=== PATIENT | male | born 1945 | race Caucasian/White ===

== ENCOUNTER → 2019-10-14 09:55 | Outpatient (CLI) | payer MEDICARE, BC, SELFPAY ==
--- NOTE | ~2019-10-14 | MR_ITS ---
EXAMINATION: MR lumbar spine wo con EXAM DATE: 10/14/2019 10:41 INDICATION: Low-back pain, bilateral leg pain right side worse. TECHNIQUE: Multi-sequential, multiplanar MR images of the lumbar spine were obtained without contrast . Sagittal T1, T2, T2 fat saturation images. Axial T2 weighted images. Comparison is made to prior examination from 07/31/2016. FINDINGS: There is moderate diffuse loss of lumbar disc heights, mild diffuse loss of lumbar vertebra l body heights with mild edema in the L3 vertebral body which could be acute component superimposed o n chronic compression fractures.. The conus medullaris terminates at the L1 level and has normal sign al intensity and morphology. There are no suspicious marrow signal abnormalities. There is 3 mm retr olisthesis L2 on L3, 5 mm retrolisthesis L3 on L4, 4 mm anterolisthesis L4 on L5. Paraspinal soft tis lilly is unremarkable. Level by level evaluation: T12-L1: Disc does not extend beyond the endplate margin. Facet arthropathy: Mild. Neural foraminal stenosis: No stenosis. Central canal stenosis: No stenosis. L1-L2: There is a mild to moderate diffuse disc bulge. Facet arthropathy: Mild. Neural foraminal stenosis: Mild right. Central canal stenosis: Mild. L2-L3: There is a mild to moderate diffuse disc bulge. Facet arthropathy: Moderate . Ligamentum flavum enlargement. Neural foraminal stenosis: Moderate left, mild to moderate right. Central canal stenosis: Moderate. L3-L4: There is a large diffuse disc bulge. Facet arthropathy: Moderate. Neural foraminal stenosis: Moderate bilateral. Central canal stenosis: Moderate. L4-L5: There is a moderate diffuse disc bulge. Facet arthropathy: Severe. Neural foraminal stenosis: Moderate right, mild to moderate left. Central canal stenosis: Moderate to severe. L5-S1: There is a moderate diffuse disc bulge asymmetric to the left Facet arthropathy: Moderate left, mild right. Neural foraminal stenosis: Mild to moderate bilateral. Central canal stenosis: Mild to moderate, left lateral recess narrowing. Compared to prior study, mild progression in the loss of disc heights. Edema within the L3 vertebral body is new compared to prior study. Otherwise no significant interval change. IMPRESSION: 1. Mild L3 edema could be acute component to chronic mild compression fracture. 2. L3-4 grade 1 anterolisthesis, moderate to severe central canal stenosis. 3. Overall moderate to severe lumbar spondylosis. Reviewed, dictated and finalized at location A. IMPRESSION: 1. Mild L3 edema could be acute component to chronic mild compression fracture . 2. L3-4 grade 1 anterolisthesis, moderate to severe central canal stenosis. 3. Overall moderate to severe lumbar spondylosis.
== END ==
PROVIDERS: Visit Provider Physician Assistant
DX: M54.40 Lumbago with sciatica, unspecified side (principal); M47.896 Other spondylosis, lumbar region
CPT/HCPCS: 72148

== ENCOUNTER 2019-11-22 02:14 | Outpatient (CLI) | payer MEDICARE, BC, SELFPAY ==
[2019-11-22 17:03] LABS: SARS-CoV-2 RNA PCR Negative
== END 2019-11-22 02:15 | disposition home or self-care (01) ==
LOC: ANHCOVIDDT 02:15
PROVIDERS: Visit Provider Internal Medicine Critical Care Medicine
DX: Z20.828 Contact with and (suspected) exposure to other viral communicable diseases (principal)
CPT/HCPCS: 87635; C9803; U0003

== ENCOUNTER 2019-11-24 08:35 | Outpatient (CLI) | payer MEDICARE, BC, SELFPAY ==
--- NOTE | 2019-12-02 04:08 | SLEEP_ITS ---
Split-night Sleep Study DATE OF STUDY: 11/24/2019 ORDERING PHYSICIAN: Víctor Lee MD. REASON FOR THE STUDY: Known obstructive sleep apnea syndrome, worsening symptoms. HISTORY: This patient is a 73-year-old man, 6 feet 1 inch tall, weighing 361 pounds with a body mass index of 47.6. He was initially diagnosed with sleep-disordered breathing in 1996 and it was severe at that time. He uses CPAP every night. There is no family history of sleep-disordered breathing. He does not awaken from sleep feeling short of breath. He does not awaken at night with heartburn, belching, or coughing. He does snore and it is loud enough that others complain about it. He frequently has trouble sleeping with a cold. He does not wake up gasping for breath at night, does not have breathing problems at night observed by others, does not sweat excessively at night or notices heart pounding or beating irregularly at night. He does not fall asleep during the day, involuntarily or while driving. He does not fall asleep during physical effort. He does not have loss of muscle tone with strong emotion. He does not have daytime difficulties due to excessive sleepiness. He does not feel paralyzed on waking or falling asleep. He does not have vivid dreamlike scenes upon awakening or falling asleep. He is never afraid to go to sleep. He does not have nightmares. He occasionally remembers his dreams. He does not have racing thoughts, feelings of sadness, depression or anxiety. He does not have muscular tension. He occasionally notices parts of his body jerking, frequently kicks at night. He does not have crawly achy feelings in his legs or leg pain at night. He does not have morning jaw pain. He does not grind his teeth during sleep. He is not bothered by pain during the day or awakened by pain at night. He frequently wakes up in the morning feeling stiff, but does not have sore or achy muscles in the morning. He constantly wakes up with pain in the neck and spine. He has memory problems and concentration difficulties. He normally goes to bed between midnight and 2 a.m., falling asleep quickly, waking during the night to go to the bathroom. He wakes in the morning between 9 and 10 a.m. Weekend schedule is the same. He does not take naps. Short naps are not refreshing. He is drowsy in the morning for 1 hour or longer. MEDICAL COMORBIDITIES: Atrial fibrillation with an ablation, adenocarcinoma of the prostate, chronic kidney disease stage 3, diabetes mellitus, hyperlipidemia, hypothyroidism, obstructive sleep apnea syndrome. MEDICATIONS: 1. Aspirin 81 mg a day. 2. Duloxetine 60 mg a day. 3. Losartan 50 mg a day. 4. Tamsulosin 0.4 mg daily. 5. Carvedilol 3.125 mg daily. 6. Cyclobenzaprine 10 mg t.i.d. 7. Diclofenac 1% topical gel q.i.d. 8. Gabapentin 600 mg t.i.d. 9. Pravastatin 80 mg a day. 10. Vitamin D3 2000 units daily. 11. Dulaglutide 1.5 mg injected weekly. 12. Aspart insulin per sliding scale instructions, long-acting insulin degludec 40 units subcu in the evening. 13. Levothyroxine 75 mcg a day. 14. Galantamine 8 mg capsule daily. 15. Ketoconazole 2% topical cream b.i.d. HABITS: No mention of tobacco. Caffeine, 3 coffees in the morning. No alcohol or recreational drugs. DESCRIPTION OF THE STUDY: On the [place] Sleepiness Scale, the score is 0. This patient was studied using the [facility] multiple channel system including EOG, EEG, submental EMG, EKG, nasal and oral airflow using thermistors and nasal pressure sensors, chest and abdominal belts, body position data, and pulse oximetry. This study was scored using [facility] guidelines. The duration of the baseline portion was 155 minutes. The sleep time was 126 minutes. The sleep efficiency was 81.5%. Sleep late
== END 2019-11-24 08:36 | disposition home or self-care (01) ==
LOC: ANHCSM 08:36
PROVIDERS: Visit Provider Family Medicine
DX: G47.33 Obstructive sleep apnea (adult) (pediatric) (principal); Z68.42 Body mass index [BMI] 45.0-49.9, adult
CPT/HCPCS: 95811

== ENCOUNTER 2020-03-23 02:36 | Outpatient (CLI) | payer MEDICARE, BC, SELFPAY ==
[2020-03-23 17:23] LABS: SARS-CoV-2 RNA PCR Negative
== END 2020-03-23 02:37 | disposition home or self-care (01) ==
LOC: ANHCOVIDDT 02:36
PROVIDERS: Visit Provider Internal Medicine Critical Care Medicine
DX: Z01.812 Encounter for preprocedural laboratory examination (principal); Z20.822 Contact with and (suspected) exposure to COVID-19
CPT/HCPCS: C9803; U0003

== ENCOUNTER 2020-03-26 08:25 | Outpatient (CLI) | payer MEDICARE, BC, SELFPAY ==
--- NOTE | 2020-05-02 15:36 | WPDSLEEPSTUD ---
Sleep Study Date of Study: 03/26/20 Ordering Provider: Stefani Simpson MD Interpreting Physician: Stefani Simpson MD Sleep Study Type: BiPAP Titration Height: 1.85 m Weight: 163.747 kg Body Mass Index: 47.6 [place]: 0 Reason for Sleep Study 11/24/2019 Split night sleep study AHI 77.3; 81% minimum desaturation; highest pressure achieved was 19 cm without REM Returns for BiPAP titration Sleep History Chele Blackwell is a 74 year old man with SERENA diagnosed in 1996 in [place]. He has been using an old CPAP device with unknown setting for years, and needs a new device. He had a split night study 11/24/2019 with AHI 77.3, lowest saturation 81%, fragmented sleep. The titration on CPAP showed that he reached 19 cm however did not have any REM. He presents for a BiPAP titration. He [place] severe [place] [address] [place]; he uses CPAP every night. Denies waking from sleep feeling short of breath; with heartburn, belching, or coughing; snores loudly which bothers others. Has trouble sleeping with a cold; no gasping at night; no excess sweating at night, no palpitations; He does not fall asleep during the day, involuntarily or while driving. He does not fall asleep during physical effort. Denies loss of muscle tone with strong emotion; denies daytime difficulties due to excessive sleepiness. He does not feel paralyzed on waking or falling asleep. Denies vivid dreamlike scenes upon awakening or falling asleep. He is never afraid to go to sleep. He does not have nightmares. He occasionally remembers his dreams. He does not have racing thoughts, feelings of sadness, depression or anxiety. He does not have muscular tension. He occasionally notices parts of his body jerking, frequently kicks at night. He does not have crawling or achy feelings in his legs or leg pain at night. He does not have morning jaw pain. He does not grind his teeth during sleep. He is not bothered by pain during the day or awakened by pain at night. He frequently wakes up in the morning feeling stiff, but does not have sore or achy muscles in the morning. He constantly wakes up with pain in the neck and spine. He has memory problems and concentration difficulties. Normal bedtime is between midnight and 2 a.m., falling asleep quickly, waking during the night to go to the bathroom. He wakes in the morning between 9 and 10 a.m. Weekend schedule is the same. He does not take naps. Short naps are not refreshing. He is drowsy in the morning for 1 hour or longer. MEDICAL COMORBIDITIES: Atrial fibrillation with an ablation, AVR with bioprosthetic valve; adenocarcinoma of the prostate, chronic kidney disease stage 3, diabetes mellitus, hyperlipidemia, hypothyroidism, obstructive sleep apnea syndrome. HABITS: No mention of tobacco. Caffeine, 3 coffees in the morning. No alcohol or recreational drugs. 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 Hypothyroidism Long-term insulin use SERENA (obstructive sleep apnea) Prostate cancer Sinusitis Family History Family History Sibling Family history of arthritis Father Alcoholism Malignant neoplasm of prostate Grandparent Diabetes mellitus Other Family history of chronic obstructive pulmonary disease Family history of lung cancer Family history of malignant neoplasm of bone Social History Social History Smoking packs per day: 2 Smoking cigarettes per day: 40.0 Years smoked: 15 Smoking pack-years: 30.00 Smoking status: Former smoker Tobacco type: cigarettes Second hand tobacco smoke exposure: No Smoking end date: 06/24/84 Alcohol intake: current Substance use
[2020-05-02 16:52] VITALS: BMI 47.6
== END 2020-03-26 08:26 | disposition home or self-care (01) ==
LOC: ANHCSM 08:28
PROVIDERS: Visit Provider Internal Medicine Critical Care Medicine
DX: G47.33 Obstructive sleep apnea (adult) (pediatric) (principal)
CPT/HCPCS: 95811

== ENCOUNTER 2020-08-01 11:28 | Outpatient (CLI) | payer MEDICARE, BC, SELFPAY ==
[2020-08-01 13:19] LABS: Alanine Aminotransferase 19 U/L (4-50); Albumin Level 3.6 g/dL (3.5-5.1); Alkaline Phosphatase 59 U/L (38-126); Anion Gap 6 mmol/L (8-16); Aspartate Amino Transferase 26 U/L (17-59); Bilirubin,Total 0.7 mg/dL (0.2-1.3); Blood Urea Nitrogen 34 mg/dL (9-20); Calcium 8.5 mg/dL (8.4-10.2); Carbon Dioxide 29 mmol/L (22-30); Chloride 104 mmol/L (98-107); Estimated Glomerular Filt Rate 33; Glucose 141 mg/dL (75-110); Sodium 139 mmol/L (137-145)
== END 2020-08-01 11:29 | disposition home or self-care (01) ==
LOC: ANHLAB 11:36
PROVIDERS: PCP Family Medicine; Visit Provider Family Medicine
DX: I10 Essential (primary) hypertension (principal)
CPT/HCPCS: 36415; 80053

== ENCOUNTER → 2020-11-16 14:34 | Outpatient (CLI) | payer MEDICARE, BC, SELFPAY ==
--- NOTE | ~2020-11-16 | XR_ITS ---
EXAMINATION: XR shoulder RT min 2V DATE: 11/16/2020 16:25 INDICATION: Right shoulder pain. TECHNIQUE: 4 views of right shoulder were obtained. COMPARISON: None. FINDINGS: Bone alignment is normal. No fracture. There is mild osteoarthritis of glenohumeral joint a nd moderate osteoarthritis of acromioclavicular joint. Median sternotomy wires are noted. IMPRESSION: 1. Polyarticular osteoarthritis. Reviewed, dictated and finalized at location A.
--- NOTE | ~2020-11-16 | XR_ITS ---
EXAMINATION: XR_CERV2-3V_CR DATE: 11/16/2020 16:25 INDICATION: Neck pain. TECHNIQUE: 3 views of cervical spine were obtained. COMPARISON: Cervical spine radiograph 04/27/2018 FINDINGS: There is 8 degrees levocurvature of cervicothoracic spine. Vertebral body heights are ap l. There is mildly decreased disc height at C5-C6 and C6-C7. There are endplate osteophytes at all le vels. There is multilevel mild to moderate facet joint osteoarthritis. No central canal stenosis or p revertebral soft tissue swelling. IMPRESSION: 1. Mild cervical spondylosis. Reviewed, dictated and finalized at location A.
--- NOTE | ~2020-11-16 | XR_ITS ---
EXAMINATION: XR shoulder LT min 2V DATE: 11/16/2020 16:25 INDICATION: Left shoulder pain. TECHNIQUE: 4 views of left shoulder were obtained. COMPARISON: None. FINDINGS: Bone alignment is normal. No fracture. There is severe osteoarthritis of glenohumeral joint and acromioclavicular joint. Median sternotomy wires are noted. IMPRESSION: 1. Severe polyarticular osteoarthritis. Reviewed, dictated and finalized at location A.
--- NOTE | ~2020-11-16 | XR_ITS ---
EXAMINATION: XR thoracic spine 3V DATE: 11/16/2020 16:25 INDICATION: Neck pain. TECHNIQUE: 3 views of thoracic spine were obtained. COMPARISON: None. FINDINGS: There is 10 degrees dextroscoliosis of thoracic spine. Vertebral body heights are normal. I ntervertebral disc heights are normal. There are bridging endplate osteophytes at multiple levels in the spine, consistent with diffuse idiopathic skeletal hyperostosis (DISH). Median sternotomy wires a re noted. IMPRESSION: 1. DISH. 2. Thoracic dextroscoliosis. Reviewed, dictated and finalized at location A.
== END ==
PROVIDERS: PCP Family Medicine; Visit Provider Physician Assistant
DX: M54.2 Cervicalgia (principal); G89.29 Other chronic pain; M25.511 Pain in right shoulder; M25.512 Pain in left shoulder; M54.6 Pain in thoracic spine; M47.812 Spondylosis without myelopathy or radiculopathy, cervical region; M48.12 Ankylosing hyperostosis [Forestier], cervical region; M41.84 Other forms of scoliosis, thoracic region; M19.012 Primary osteoarthritis, left shoulder; M19.011 Primary osteoarthritis, right shoulder
CPT/HCPCS: 72040; 72072; 73030

== ENCOUNTER 2021-03-06 11:15 | Outpatient (RCR) | payer MEDICARE, BC, SELFPAY ==
--- NOTE | 2021-02-12 14:51 | PTOPEVAL ---
PHYSICAL THERAPY EVALUATION AND PLAN OF CARE Thank you for referring Chele Blackwell to [facility].? The patient is scheduled to be seen for therapy? 2x/week for 4 weeks. Please review, sign, date and return this plan of care REINIER. I agree with and certify that the following plan of care is medically necessary. Referring Physician Date Attending Provider: Gary Toney MD Evaluation Outpatient Past Medical History Neurological History Hx Other Neurological Disorders Yes: bilateral neuropathy Respiratory History Hx Other Respiratory Disorders Yes: AFIB, arthery replacement Genitourinary History Hx Other Genitourinary Disorders Yes: state 3 kidney disease Musculoskeletal History Hx Arthritis Yes: knees Hx Back Pain Yes Endocrine History Hx Diabetes Yes Diagnosis bilateral shoulder pain Onset 2months ago Subjective Information States that he has pain at the Query Text:As Reported By Patient/ point of each shoulder ( Family points to ACJ) and when he uses his arms too much it starts to go up his neck. Has difficulty raising arms and has difficulty getting upper body dressed other history: back pain, bilateral knee pain, bilateral LE neuropathy Self Report Pain Assessment Bilateral Shoulder(s) Reported Pain Level 7 Lowest Pain Intensity 0 Greatest Pain Intensity 10 Other Pain Aggravating Factors raising arms overhead, using cane Pain Score Pain Score 7: Self Report Additional Pain Score Comments states that he can raise one arm at a time better than raising both at the same time Interventions Used Interventions Used By Clinicians Exercise,Joint Mobilization Upper Extremity Range of Motion Scapular/ Shoulder Range of Motion Left Shoulder Flexion - Active 105 Shoulder Abduction - Active 70 Shoulder Medial Rotation - Active PSIS Query Text:Reach Behind the Back Shoulder Lateral Rotation - Active 50 Right Shoulder Flexion - Active 120 Shoulder Abduction - Active 80 Shoulder Medial Rotation - Active L1 Query Text:Reach Behind the Back Shoulder Lateral Rotation - Passive 60 Upper Extremity Muscle Strength Testing Scapular/Shoulder Bilateral Shoulder Flexion Strength 4- Good - Shoulder Abduction Strength 4- Good - Shoulder Medial Rotation Strength 4- Good - Shoulder Lateral Rotation Strength 4- Good - Elbow/Forearm Bilateral Elbow Flexion Strength 5 Normal Elbow Extension Streng
--- NOTE | 2021-02-27 11:06 | PCPTNOTE ---
Patient's called & cancelled scheduled appointment this date due to Pt having a rash break out.
--- NOTE | 2021-03-11 09:33 | PCPTNOTE ---
Patient called & cancelled all scheduled appointment this date due to being admitted in the hospital.
--- NOTE | 2021-03-18 09:24 | PCPTNOTE ---
PHYSICAL THERAPY DISCHARGE NOTE Attending Provider: Gary Toney MD Patient:Chele Blackwell Date of :1945 Chele was participating in outpatient physical therapy for treatment of bilateral shoulder pain. He started with an 8/10 pain and at his most recently attended visited he reported a 5/10 pain. He was provided with HEP and stretching program. Since the last attended visit on 03/06/2021, he has been admitted to the hospital twice and continues to be in the hospital at this time. We will d/c Luther from outpatient PT at this time, but would be happy to work with him again when he is well. Thank you for referring this patient to [facility]. Please review, sign, date and return this discharge summary REINIER. I have been updated about the patient's current status and I agree with discharge from the above service at this time. Referring Physician Date
== END 2021-03-19 08:17 | disposition home or self-care (01) ==
LOC: ANHPT 11:15
PROVIDERS: PCP Family Medicine; Visit Provider Orthopaedic Surgery
DX: M25.511 Pain in right shoulder (principal); M25.512 Pain in left shoulder
CPT/HCPCS: 97110; 97140; 97162

== ENCOUNTER 2021-03-10 10:59 | Observation (INO) | payer MEDICARE, BC, SELFPAY ==
[2021-03-10] VITALS (9 sets, daily range): BP systolic 115–200; BP diastolic 75–106; PULSE 52–68; RESP 12–20; TEMP 36.7–36.8; O2SAT 90–100; BMI 47.9
--- NOTE | ~2021-03-10 | US_ITS ---
EXAMINATION: US carotid duplex BI EXAM DATE: 03/11/2021 10:14 INDICATION: Stroke. Altered mental status and confusion. TECHNIQUE: Grayscale, color and pulsed Doppler images of the cervical carotid arteries were obtained . The degree of vessel stenosis is placed in one of the following categories: normal, <50% stenosis, 50-69% stenosis, >=70% stenosis but less than near-occlusion, near-occlusion, or occlusion. Note that percent stenosis relative to normal distal artery lumen diameter is indirectly measured from velocit y measurements as described by Darren, et al. Radiology 2003; [id number]:[id number]. Comparison is made to prior examination from 08/25/2018. FINDINGS: Some regions of irregular diastolic intervals. Atrial fibrillation? Correlate with EKG. RIGHT SIDE: Right common carotid artery peak systolic velocity (PSV in cm/s): 73 Right bulb/internal carotid artery peak systolic velocity (PSV in cm/s): 76 Right internal carotid artery end diastolic velocity (EDV in cm/s): 17 Right ICA/CCA peak systolic ratio: 1.0 Right external carotid artery peak systolic velocity (PSV in cm/s): 105 Right vertebral artery antegrade flow: yes There is minimal carotid bulb plaque. Velocity and Doppler waveforms in the common and internal carotid arteries is normal. LEFT SIDE: Left common carotid artery peak systolic velocity (PSV in cm/s): 71 Left bulb/internal carotid artery peak systolic velocity (PSV in cm/s): 63 Left internal carotid artery end diastolic velocity (EDV in cm/s): 12 Left ICA/CCA peak systolic ratio: 0.9 Left external carotid artery peak systolic velocity (PSV in cm/s): 98 Left vertebral artery antegrade flow: yes There is minimal carotid bulb plaque. Velocity and Doppler waveforms in the common and internal carotid arteries is normal. IMPRESSION: 1. Less than 50 percent stenosis in the right internal carotid artery. 2. Less than 50 percent stenosis in the left internal carotid artery. 3. Times of irregular diastolic intervals. Atrial fibrillation? Correlate with EKG. > Reviewed, dictated and finalized at location B. ER HAND
--- NOTE | ~2021-03-10 | CT_ITS ---
EXAMINATION: CT brain wo con DATE: 03/10/2021 12:02 INDICATION: Altered mental state. Confusion. TECHNIQUE: Computed tomography (CT) of the head was performed without intravenous contrast. The mA wa s adjusted according to patient size. Iterative reconstruction technique was employed. Exam dose: 68 1.00 mGy-cm total exam DLP. COMPARISON: 07/30/2018 CT brain 12/08/2013 MRI brain FINDINGS: Examination is limited due to motion artifact. Cavum septum pellucidum and cavum verge, anatomic variants. Cerebral atherosclerotic calcifications. There is moderate cerebellar and cerebral volume loss. Chronic right thalamic Chronic lacunar infarct is noted in the right basal ganglia, extending into the region of the Princess of the right internal capsule and right caudate nucleus, right lateral periventricular area. Chronic cerebellar infarcts. No intracranial mass lesion or hemorrhage, midline shift or mass effect effect or subdural or epidura l hematoma is detected. No apparent fracture bone destruction of the cranial vault. Mastoid air cells and paranasal sinuses a re unremarkable. Lacunar infarct IMPRESSION: Limited examination due to motion artifact Chronic lacunar infarcts of the right thalamus, right basal ganglia, internal capsule, caudate nucleu s, lateral right periventricular area Chronic cerebellar infarcts Caval septum pellucidum and cavum verge, anatomic variants. No acute intracranial finding or hemorrhage is noted Reviewed, dictated and finalized at [facility]. Reviewed, dictated and finalized at location A. Y MANAGEMENT SPECIALIST IMPRESSION: Limited examination due to motion artifact Chronic lacunar infarcts of the right thalamus, right basal ganglia, internal c apsule, caudate nucleus, lateral right periventricular area Chronic cerebellar infarcts Caval septum pellucidum and cavum verge, anatomic variants. No acute intracranial finding or hemorrhage is noted
--- NOTE | ~2021-03-10 | MR_ITS ---
EXAMINATION: MR brain/brain stem wo con DATE: 03/11/2021 09:52 INDICATION: Cerebrovascular accident. TECHNIQUE: Magnetic resonance imaging (MRI) of the brain and brainstem was performed without intraven ous contrast. Sequences included sagittal and axial T1-weighted FSE, axial diffusion-weighted FS EPI, axial T2*-weighted GRE, axial T2-weighted FLAIR Propeller, and axial T2-weighted Propeller. Apparent diffusion coefficient (ADC) maps were created. COMPARISON: Brain MRI 12/08/2013, head CT 03/10/2021 FINDINGS: There are old infarcts in the cerebellum bilaterally. There are old infarcts involving the right thalamus, right basal ganglia, and right internal capsule. There are scattered areas of nonspec ific increased T2-weighted signal intensity in the cerebral white matter. There is no intracranial he morrhage, acute infarction, or abnormal intracranial mass lesion. The ventricles are normal in size. Cavum septum pellucidum and vergae are noted. There is mild mucosal thickening in the ethmoid sinuses . The orbits are normal. There is a trace right mastoid effusion. IMPRESSION: 1. Old infarcts involving the right thalamus, right basal ganglia, right internal capsule, and bilate ral cerebellum. 2. Moderate nonspecific cerebral white matter disease, which likely represents chronic small vessel i schemic disease. Reviewed, dictated and finalized at location A. TRANSMISSION TECHNICIAN IMPRESSION: 1. Old infarcts involving the right thalamus, right basal ganglia, right international project engineer al capsule, and bilateral cerebellum. 2. Moderate nonspecific cerebral white matter disease, which likely represents chronic small vessel ischemic disease.
--- NOTE | ~2021-03-10 | XR_ITS ---
XR chest 1V portable DATE: 03/10/2021 11:33 INDICATION: Right-sided weakness. Right cerebral vascular accident. TECHNIQUE: Portable upright AP projections on 03/10/2021 1124 hours COMPARISON: 01/03/2015 portable AP chest FINDINGS: Status post sternotomy. Borderline heart size. No pulmonary infiltrate or consolidation, pleural effusion or pulmonary vascular congestion or pneumo thorax is detected. There is dextroscoliosis and degenerative spurring of the thoracic spine. IMPRESSION: No active pulmonary disease Reviewed, dictated and finalized at location A. AGER AND STRAPPER IMPRESSION: No active pulmonary disease
--- NOTE | 2021-03-10 11:05 | ECG_ITS ---
Measurements Intervals [place] Rate: 61 P: [place]: 0 QRS: -59 QRSD: 142 T: 70 QT: 464 QTc: 469 Interpretive Statements ATRIAL FIBRILLATION LEFT AXIS DEVIATION LEFT BUNDLE BRANCH BLOCK BASELINE ARTIFACT- II, III, AVR, AVL, AVF ABNORMAL ECG Electronically Signed On 03-10-2021 17:44:39 SOFTWARE LICENSING SPECIALIST by Chinmay Costello D.O.
[2021-03-10 11:46] LABS: Basophils Absolute Auto 0.1 K/mm3 (0.0-0.1); Basophils Percent Auto 1.1 % (0.2-1.2); Eosinophils Absolute Auto 0.5 K/mm3 (0-0.3); Eosinophils Percent Auto 5.2 % (0-4.4); Hematocrit 53.9 % (42.0-52.0); Hemoglobin 17.6 g/dL (14.0-18.0); Immature Granulocyte Absolute 0.02 K/mm3 (0.00-0.031); Immature Granulocyte Percent A 0.2 % (0-0.5); Mean Corpuscular HGB Conc 32.7 g/dl (32-36); Mean Corpuscular Hemoglobin 30.2 pg (26-34); Mean Corpuscular Volume 92.6 fl (80-100); Mean Platelet Volume 10.5 fl (7.4-10.4); Monocytes Absolute Auto 0.7 K/mm3 (0.1-0.6); Monocytes Percent Auto 6.9 % (2.6-8.5); Neutrophils Absolute Auto 7.4 K/mm3 (1.3-6.7); Neutrophils Percent Auto 73.6 % (45.5-73.1); Platelet Count Result 156 k/mm3 (150-375); Red Blood Count 5.82 M/mm3 (4.6-6.20); Red Cell Distribution Width 13.2 % (11.5-14.5)
[2021-03-10 11:56] LABS: INR 1.1; Partial Thromboplastin Time 30.9 SECONDS (22.3-36.8); Prothrombin Time 14.1 Seconds (11.1-14.7)
--- NOTE | 2021-03-10 11:59 | ED.GENADULT ---
HPI - General Adult General Chief complaint: Neuro Symptoms/Deficit Stated complaint: SLURRED SPEECH, LETHARGY/X 2 DAYS Time Seen by Provider: 03/10/21 11:12 History of Present Illness HPI narrative: Patient is 75 years old white male brought to the emergency room by ambulance, by his because of sleep all the time for several weeks, slurred speech, cannot get words out with increased confusion over the last 2 days, patient been not taking his medication appropriately for the last few days, patient usually walks with a cane, because of chronic back pain, white denies any different gait lately. The is telling me that patient have dementia for long time but never been diagnosed. Patient is DNR. On BiPAP at night. Fully vaccinated and boosted for Covid. History of diabetes, hypertension, hyperlipidemia, A. fib on Xarelto and aortic surgery, graft. Patient does not smoke or drink or uses drugs. Patient does not take aspirin Related Data Home Medications Medication Instructions Recorded Confirmed aspirin [Adult Aspirin EC Low 03/10/21 Strength] atorvastatin 03/10/21 carvedilol 03/10/21 citalopram mg 03/10/21 dulaglutide [Trulicity] mg SUBCUT 03/10/21 duloxetine mg PO 03/10/21 gabapentin 600 mg PO TID 03/10/21 galantamine mg PO 03/10/21 insulin aspart U-100 [Novolog SUBCUT 03/10/21 Flexpen U-100 Insulin] insulin degludec [Tresiba unit SUBCUT 03/10/21 FlexTouch U-200] levothyroxine 03/10/21 losartan 03/10/21 oxybutynin chloride 15 mg PO DAILY 03/10/21 rivaroxaban [Xarelto] mg 03/10/21 tamsulosin mg PO 03/10/21 Allergies Allergy/AdvReac Type Severity Reaction Status Date / Time morphine Allergy Intermediate Confusion Verified 03/10/21 11:09 Review of Systems Review of Systems: ROS unobtainable: Yes unobtainable due to medical condition PMFSH Past Medical History Medical History Adenocarcinoma of prostate Chronic bilateral low back pain with sciatica Chronic kidney disease, stage 3 unspecified Diabetes History of bleeding ulcers (~2014) History of stress test HLD (hyperlipidemia) 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 Hypothyroidism Long-term insulin use Obesity SERENA (obstructive sleep apnea) Prostate cancer Sinusitis Surgical History Surgical History History of aortic valve replacement (~2012) History of cholecystectomy (~1980) Family History Family History Sibling Family history of arthritis Father Alcoholism Malignant neoplasm of prostate Grandparent Diabetes mellitus Mother Cancer Other Family history of chronic obstructive pulmonary disease Family history of lung cancer Family history of malignant neoplasm of bone Social History Social History Social History: Smoking packs per day: 2 Smoking cigarettes per day: 40.0 Years smoked: 15 Smoking pack-years: 30.00 Tobacco type: cigarettes Second hand tobacco smoke exposure: No Smoking end date: 06/24/84 Alcohol intake: current Alcohol use details: Occasionally Substance use: never Substance use type: does not use Gender identity (if verbalized by the patient): Male Sexual Orientation (if Verbalized by the Patient): Straight or Heterosexual Exam Narrative: General appearance: Well-developed, well-nourished Skin: Normal color Head: Normocephalic, nontraumatic Eyes: Clear conjunctiva ENT: Oropharynx normal, ears normal, nose normal Neck: Supple, nontender Chest and respiratory: Airway patent, no respiratory distress, no accessory muscle use Heart: Regular rate/rhythm Abdomen: Soft, nontender, no organomegaly, quiet bowel sounds Vascular: Normal peripheral pulses, normal capillary refill. Musculoskeletal: Normal range of motion, nontender back Neurologic: Alert and o
[2021-03-10 12:33] LABS: Alanine Aminotransferase 38 U/L (4-50); Alkaline Phosphatase 112 U/L (38-126); Anion Gap 1 mmol/L (8-16); Aspartate Amino Transferase 37 U/L (17-59); Bilirubin,Total 0.8 mg/dL (0.2-1.3); Blood Urea Nitrogen 40 mg/dL (9-20); Calcium 8.9 mg/dL (8.4-10.2); Carbon Dioxide 30 mmol/L (22-30); Chloride 102 mmol/L (98-107); Estimated CRCL calculation 40 ml/min; Estimated Glomerular Filt Rate 28; Glucose 171 mg/dL (65-110); Potassium 4.8 mmol/L (3.4-5.0); Sodium 133 mmol/L (137-145)
[2021-03-10 12:45] LABS: Troponin I 0.032 ng/mL (0.000-0.034)
[2021-03-10 13:37] LABS: Add Urine Microscopic? YES; Appearance Urine Clear (Clear); Bilirubin Urine Negative (Negative); Blood Urine Negative (Negative); Color Urine Yellow (Yellow); Glucose Urine UA 2+ mg/dL (Negative); Ketones Urine Negative (Negative); Leukocyte Esterase Ur Negative LEU/UL (Negative); Nitrate Urine Negative (Negative); Protein Urine 3+ mg/dL (Negative); RBC Urine 0-2 /hpf (0-2); Specific Grav Ur 1.015 (1.001-1.035); Urobilinogen Urine Negative mg/dL (<2.0); WBC Urine 0-3 /hpf
[2021-03-10] MEDS: SODIUM CHLORIDE 0.9% IV 1,000 ML 999 ML IV CONT (13:59)
--- NOTE | 2021-03-10 14:45 | PM.IMHP ---
H&P: HPI History of Present Illness Date/Time: 03/10/21 14:45 Chief Complaint: Slurred speech and weakness. Narrative: This is a very pleasant 75-year-old male with hypertension, hyperlipidemia, diabetes, atrial fibrillation, chronic kidney disease, short-term memory loss, and sleep apnea who resented to the emergency department earlier today from home for evaluation of slurred speech and weakness. 2 days ago the patient is noticed that his speech was somewhat slurred and he seemed to be having difficulties getting the words out that he wanted to say. His has also noticed that he is a bit more confused than usual and apparently he has been sleeping more than usual over the past couple weeks. Brain CT done on arrival showed chronic infarcts but no acute findings and we were asked to admit the patient in this setting for stroke workup. At the time of my evaluation the patient reports that he feels in his usual state of health and he does not notice any significant slurred speech at this time. In fact we had a pretty long conversation and his speech was fluent and easily understandable. He denies vertigo, auditory visual changes, focal weakness, paresthesias, in facial droop. He also denies palpitations though he is in persistent atrial fibrillation. Review of Systems Review of Systems: Twelve systems were reviewed. No fever, chills, or sweats. He denies recent cold and flu symptoms. No sick contacts. He denies dysphagia. No chest pain, palpitations, or pleuritic pain. No cough or shortness of breath. He denies nausea, vomiting, and diarrhea. No dysuria. Except as documented, all other systems were reviewed and are negative. [facility] Past Medical History Medical History (Updated 03/10/21 @ 14:57 by Marilu Dailey PA-C) Chronic bilateral low back pain with sciatica Chronic kidney disease, stage 3 unspecified History of bleeding ulcers (~2014) History of stress test Hyperlipidemia Hypothyroidism Insulin dependent type 2 diabetes mellitus Obstructive sleep apnea treated with BiPAP Persistent atrial fibrillation Status post ablation in 2012. He has remained in AFib since February 2020 no pursuing a rate control strategy. Prostate cancer Status post radiation therapy. Short-term memory loss Valvular heart disease Status post bioprosthetic aortic valve replacement. Surgical History Surgical History (Updated 03/10/21 @ 14:47 by Marilu Dailey PA-C) History of aortic valve replacement (2012) History of appendectomy History of cardiac radiofrequency ablation (2012) History of cholecystectomy (1980) History of colonoscopy with polypectomy History of lithotripsy Family History Family History Sibling Family history of arthritis Father Alcoholism Malignant neoplasm of prostate Grandparent Diabetes mellitus Mother Cancer Other Family history of chronic obstructive pulmonary disease Family history of lung cancer Family history of malignant neoplasm of bone Social History Social History (Updated 03/10/21 @ 23:56 by Marilu Dailey PA-C) Social History: Surrogate decision maker: Iris Mayberrykermann, spouse. Code status: Do not resuscitate. Smoking packs per day: 2 Smoking cigarettes per day: 40.0 Years smoked: 15 Smoking pack-years: 30.00 Smoking status: Never smoker Tobacco type: cigarettes Second hand tobacco smoke exposure: No Smoking end date: 06/24/84 Alcohol intake: current Drinks per week: 2 Alcohol use details: Occasional alcohol use in moderation. Substance use: never Substance use type: does not use Additional living arrangements comments: Patient lives with his in [place]. 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 Meds Home Medications and Allergies Home Medications Medication Instructions Recorded Confirmed Type amlo
[2021-03-10] MEDS: SODIUM CHLORIDE 0.9% IV 1,000 ML 125 ML IV CONT (18:55)
[2021-03-10 20:53] LABS: Glucose Point of Care 164 mg/dl (65-105)
[2021-03-11] VITALS (11 sets, daily range): BP systolic 108–159; BP diastolic 53–107; PULSE 65–84; RESP 16–28; TEMP 36.1–36.4; O2SAT 95–100
[2021-03-11] MEDS: carvediloL 3.125 MG TABLET PO ×2 (00:29→08:13)
[2021-03-11] MEDS: INSULIN GLARGINE (*BKC) 100 UNITS/ML 40 UNITS SUB-Q (00:30)
[2021-03-11] MEDS: LEVOTHYROXINE SODIUM 75 MCG TABLET PO (05:33)
[2021-03-11 07:23] LABS: Hematocrit 50.3 % (42.0-52.0); Hemoglobin 16.2 g/dL (14.0-18.0); Mean Corpuscular HGB Conc 32.2 g/dl (32-36); Mean Corpuscular Hemoglobin 30.1 pg (26-34); Mean Corpuscular Volume 93.3 fl (80-100); Mean Platelet Volume 10.9 fl (7.4-10.4); Platelet Count Result 149 k/mm3 (150-375); Red Blood Count 5.39 M/mm3 (4.6-6.20); Red Cell Distribution Width 13.2 % (11.5-14.5)
[2021-03-11 07:29] LABS: Anion Gap -2 mmol/L (8-16); Blood Urea Nitrogen 37 mg/dL (9-20); Calcium 8.5 mg/dL (8.4-10.2); Carbon Dioxide 34 mmol/L (22-30); Chloride 103 mmol/L (98-107); Estimated CRCL calculation 40 ml/min; Estimated Glomerular Filt Rate 28; Glucose 138 mg/dL (65-110); Hemoglobin A1C 8.1 % (<5.7); Magnesium 2.3 mg/dL (1.6-2.3); Potassium 5.1 mmol/L (3.4-5.0); Sodium 135 mmol/L (137-145)
[2021-03-11 07:39] LABS: Glucose Point of Care 142 mg/dl (65-105)
[2021-03-11] MEDS: ASPIRIN 81 MG CHEWABLE TABLET PO (08:11)
[2021-03-11] MEDS: ATORVASTATIN 40 MG TABLET 80 MG PO (08:12)
[2021-03-11] MEDS: amLODIPine BESYLATE 2.5 MG TABLET PO (08:12)
[2021-03-11] MEDS: LOSARTAN POTASSIUM 50 MG TABLET PO (08:14)
[2021-03-11] MEDS: GABAPENTIN 300 MG CAPSULE 600 MG PO ×2 (08:14→12:04)
[2021-03-11] MEDS: CITALOPRAM HYDROBROMIDE 20 MG TABLET 40 MG PO (08:14)
[2021-03-11] MEDS: DULoxetine HCL 60 MG CAPSULE.DR PO (08:14)
[2021-03-11] MEDS: TAMSULOSIN HCL 0.4 MG CAPSULE PO (08:15)
--- NOTE | 2021-03-11 10:51 | WPDNEURCNPN ---
Assessment and Plan Additional Plan TIA with underlying comorbid conditions as outlined will benefit from the continuation of the anticoagulation Consult date: 03/11/21 HPI: Chele Blackwell is a 75 year old male admitted to the hospital for the complaints of slurred speech and generalized weakness in addition to the ongoing history of 1. Hypertension 2. Hyperlipidemia 3. Diabetes mellitus 4. Atrial fibrillation 5. Chronic kidney disease 6. Sleep apnea 7. Memory dysfunction. Patient was mainly brought to the hospital for the slurred speech and generalized weakness along with difficulties in getting the words out and observation of somewhat increasing confusion and sleeping more than usual initial CT scan of the head documented chronic infarcts but no acute pathology evaluation up until now includes CT with a chronic lacunar infarcts in the right thalamus right basal ganglia internal capsule caudate nucleus and lateral right periventricular area along with the chronic cerebellar infarcts MRI confirm the infarcts in the right thalamus right basal ganglia right internal capsule and bilateral cerebellum with moderate nonspecific white matter disease representing the chronic small-vessel ischemic changes Doppler study revealed less than 50% stenosis bilaterally but raising the question of irregular diastolic intervals with the possibility of the atrial fibrillation and chest x-ray negative Review of Systems Review of Systems: All systems reviewed & are unremarkable except as noted in HPI and below PMFSH Past Medical History Medical History Chronic bilateral low back pain with sciatica Chronic kidney disease, stage 3 unspecified History of bleeding ulcers (~2014) History of stress test Hyperlipidemia Hypothyroidism Insulin dependent type 2 diabetes mellitus Obstructive sleep apnea treated with BiPAP Persistent atrial fibrillation Status post ablation in 2012. He has remained in AFib since February 2020 no pursuing a rate control strategy. Prostate cancer Status post radiation therapy. Short-term memory loss Valvular heart disease Status post bioprosthetic aortic valve replacement. Surgical History Surgical History History of aortic valve replacement (2012) History of appendectomy History of cardiac radiofrequency ablation (2012) History of cholecystectomy (1980) History of colonoscopy with polypectomy History of lithotripsy Family History Family History Sibling Family history of arthritis Father Alcoholism Malignant neoplasm of prostate Grandparent Diabetes mellitus Mother Cancer Other Family history of chronic obstructive pulmonary disease Family history of lung cancer Family history of malignant neoplasm of bone Social History Social History Social History: Surrogate decision maker: Iris Blackwell, spouse. Code status: Do not resuscitate. Smoking packs per day: 2 Smoking cigarettes per day: 40.0 Years smoked: 15 Smoking pack-years: 30.00 Smoking status: Never smoker Tobacco type: cigarettes Second hand tobacco smoke exposure: No Smoking end date: 06/24/84 Alcohol intake: current Drinks per week: 2 Alcohol use details: Occasional alcohol use in moderation. Substance use: never Substance use type: does not use Additional living arrangements comments: Patient lives with his in [place]. 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 Meds Home Medications and Allergies Home Medications Medication Instructions Recorded Confirmed Type amlodipine 2.5 mg PO DAILY 03/10/21 03/10/21 History aspirin [Adult Aspirin EC Low 81 mg PO DAILY 03/10/21 03/10/21 History Strength] atorvastatin 80 mg PO DAILY 03/10/21
[2021-03-11 11:47] LABS: Glucose Point of Care 178 mg/dl (65-105)
[2021-03-11 12:51] LABS: Potassium 4.9 mmol/L (3.4-5.0)
--- NOTE | 2021-03-11 15:50 | PM.DS ---
DS: Admitting Diagnosis Discharge Date 03/11/2020 Admitting Diagnosis TIA DS: Discharge Diagnosis Discharge Diagnosis (1) TIA (transient ischemic attack): Code(s): G45.9 - Transient cerebral ischemic attack, unspecified Status: Acute Assessment and Plan: Presented with dysarthria 2 days prior to presentation. He was at his baseline at time of presentation. Head CT on admission showed a chronic lacunar infarcts of the right thalamus, right basal ganglia, internal capsule, caudate nucleus, lateral right periventricular area and chronic cerebellar infarcts. Patient is unaware of any prior strokes. Perhaps related to atrial fibrillation. MRI also showed old infarcts with no acute findings. Carotid Doppler with <50% stenosis of bilateral internal carotid arteries. He will obtain outpatient echo with bubble. Continue with Xarelto and aspirin. Continue high-intensity statin. Follow-up with neurology as an outpatient. Patient participated in PT/OT and was at his functional baseline. Dysarthria resolved entirely and patient had no focal neuro deficits. (2) Hypertension: Code(s): I10 - Essential (primary) hypertension Status: Acute Assessment and Plan: Blood pressures were reviewed and were elevated on presentation due to missed medication on admission. His home antihypertensives were resumed and his blood pressure was reasonably controlled. Follow-up with PCP in 1 week for blood pressure monitoring. (3) Chronic kidney disease, stage 3 unspecified: Code(s): N18.30 - Chronic kidney disease, stage 3 unspecified Status: Acute Assessment and Plan: Creatinine reviewed and was generally consistent with the patient's baseline. (4) Insulin dependent type 2 diabetes mellitus: Code(s): E11.9 - Type 2 diabetes mellitus without complications; Z79.4 - USP (current) use of insulin Status: Acute Assessment and Plan: A1c was 8.1. Blood sugars were reasonably controlled. Continue home regimen including Tresiba, NovoLog, and Trulicity. Monitor blood sugars at home and record for review by PCP (5) Persistent atrial fibrillation: Code(s): I48.19 - Other persistent atrial fibrillation Status: Acute Assessment and Plan: Follows with oil pit attendant, Dr. De La Fuente. Monitored on telemetry and was shown to be in atrial fibrillation. He did have very few episodes of bradycardia down to 45 bpm and in frequent pauses <2 seconds. Discussed this with on-call oil pit attendant who felt that no further intervention was required given the patient has atrial fibrillation and very low-dose carvedilol. No need for event monitor or further workup at this time. Follow-up with Dr. De La Fuente as scheduled. Continue rivaroxaban for stroke prophylaxis. (6) Hypothyroidism: Code(s): E03.9 - Hypothyroidism, unspecified Status: Acute Assessment and Plan: TSH within normal limits. Continue levothyroxine (7) Obstructive sleep apnea treated with BiPAP: Code(s): G47.33 - Obstructive sleep apnea (adult) (pediatric) Status: Acute Assessment and Plan: Continue BiPAP when sleeping DS: Summary Hospital Course Hospital Course: Date of admission: 03/10/2021 Date of discharge: 03/11/2021 Chele Blackwell is a 75-year-old male with a history of atrial fibrillation on chronic anticoagulation, CKD stage 3, hyperlipidemia, hypothyroidism, insulin-dependent diabetes mellitus, prostate cancer, and short-term memory loss who presented to the emergency department on 03/10/2021 by his due to concerns for slurred speech and confusion over the past 2 days. The patient tells me that he got turned around while driving and ended up about 1 hour away from home. He then noticed slurring of his speech a couple of days later. I discussed with his who notes that he has had increased confusion lately and has not been taking his medications approp
[2021-03-11 16:14] LABS: Glucose Point of Care 247 mg/dl (65-105)
== END 2021-03-11 16:37 | disposition home or self-care (01) ==
LOC: ANHED 11:22 → ANH2MED 15:55
PROVIDERS: Physician Assistant; Admitting Provider Family Medicine; Emergency Provider Emergency Medicine; PCP Family Medicine; Visit Provider Physician Assistant
DX: G45.9 Transient cerebral ischemic attack, unspecified (principal); R47.1 Dysarthria and anarthria; I48.19 Other persistent atrial fibrillation; E86.0 Dehydration; I12.9 Hypertensive chronic kidney disease with stage 1 through stage 4 chronic kidney disease, or unspecified chronic kidney disease; N18.30 Chronic kidney disease, stage 3 unspecified; E11.22 Type 2 diabetes mellitus with diabetic chronic kidney disease; E03.9 Hypothyroidism, unspecified; G47.33 Obstructive sleep apnea (adult) (pediatric); R29.701 NIHSS score 1; Z66 Do not resuscitate; E78.5 Hyperlipidemia, unspecified; Z79.01 Long term (current) use of anticoagulants; Z79.82 Long term (current) use of aspirin; Z79.899 Other long term (current) drug therapy; Z79.4 Long term (current) use of insulin; Z85.46 Personal history of malignant neoplasm of prostate; Z95.4 Presence of other heart-valve replacement; Z87.891 Personal history of nicotine dependence
CPT/HCPCS: 36415; 70450; 70551; 71045; 80048; 80053; 81001; 82948; 83036; 83735; 84132; 84443; 84484; 85025; 85027; 85610; 85730; 93005; 93880; 96360; 97162; 97165; 99285; A9270; G0378; J1815; J7030

== ENCOUNTER 2021-03-15 11:15 | Inpatient (IN) | payer MEDICARE, BC, SELFPAY ==
[2021-03-15] VITALS (20 sets, daily range): BP systolic 94–180; BP diastolic 69–117; PULSE 44–82; RESP 11–23; TEMP 36.4–36.7; O2SAT 78–100; BMI 49.5
--- NOTE | ~2021-03-15 | CT_ITS ---
EXAMINATION: CT brain wo con DATE: 03/15/2021 12:43 INDICATION: Unresponsive. TECHNIQUE: Computed tomography (CT) of the head was performed without intravenous contrast. The mA wa s adjusted according to patient size. Iterative reconstruction technique was employed. The dose-lengt h product was 681.00 mGy-cm. COMPARISON: Head CT 03/10/2021, brain MRI 03/11/2021 FINDINGS: Motion artifact is noted. 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 There is an old infarct involving the right basal ganglia and internal capsule. There is an old infarct in the r ight thalamus. There are scattered areas of low attenuation in the cerebral white matter. There is n o intracranial hemorrhage, acute infarction, or abnormal intracranial mass lesion. The ventricles are normal in size. Cavum septum callosum and vergae are noted. There is mild mucosal thickening in the ethmoid sinuses. The orbits are normal. There is a trace right mastoid effusion. IMPRESSION: 1. Old infarcts involving the cerebellum, right basal ganglia, right internal capsule, and right thal amus. 2. Moderate nonspecific cerebral white matter disease, which likely represents chronic small vessel i schemic disease. Reviewed, dictated and finalized at location A. IATRICIAN IMPRESSION: 1. Old infarcts involving the cerebellum, right basal ganglia, right internal c apsule, and right thalamus. 2. Moderate nonspecific cerebral white matter disease, which likely represents chronic small vessel ischemic disease.
--- NOTE | ~2021-03-15 | XR_ITS ---
EXAMINATION: XR chest 1V portable DATE: 03/15/2021 11:47 INDICATION: Weakness. TECHNIQUE: A single frontal view of the chest was obtained on 2 radiographs. COMPARISON: Chest single view 03/10/2021 FINDINGS: The chest demonstrates clear lungs without pneumonia, pleural effusion, or pneumothorax. Th e heart size is normal. Median sternotomy wires are noted. Surgical clips in the right upper quadrant are likely from cholecystectomy. IMPRESSION: 1. No acute cardiopulmonary disease. Reviewed, dictated and finalized at location A. STRIAL CHEMISTRY TEACHER
--- NOTE | 2021-03-15 11:30 | ECG_ITS ---
Measurements Intervals Tiller Rate: 52 P: IA: 0 QRS: -61 QRSD: 142 T: 139 QT: 463 QTc: 433 Interpretive Statements ATRIAL FIBRILLATION WITH SLOW VENTRICULAR RESPONSE LEFT AXIS DEVIATION LEFT BUNDLE BRANCH BLOCK BASELINE ARTIFACT- I, II, III, AVR, AVL, AVF, V1-V6 ABNORMAL ECG Electronically Signed On 03-15-2021 14:46:51 GAS STOVE SERVICER HELPER by Chinmay Costello D.O.
[2021-03-15 11:42] LABS: Basophils Absolute Auto 0.1 K/mm3 (0.0-0.1); Basophils Percent Auto 1.2 % (0.2-1.2); Eosinophils Absolute Auto 0.5 K/mm3 (0-0.3); Eosinophils Percent Auto 6.2 % (0-4.4); Hematocrit 46.8 % (42.0-52.0); Hemoglobin 15.2 g/dL (14.0-18.0); Immature Granulocyte Absolute 0.03 K/mm3 (0.00-0.031); Immature Granulocyte Percent A 0.4 % (0-0.5); Lymphocytes Absolute Auto 1.23 K/mm3 (0.9-3.2); Lymphocytes Percent Auto 14.4 % (18.3-44.2); Mean Corpuscular HGB Conc 32.5 g/dl (32-36); Mean Corpuscular Hemoglobin 30.2 pg (26-34); Mean Corpuscular Volume 92.9 fl (80-100); Monocytes Absolute Auto 0.6 K/mm3 (0.1-0.6); Monocytes Percent Auto 7.5 % (2.6-8.5); Neutrophils Percent Auto 70.3 % (45.5-73.1); Platelet Count Result 142 k/mm3 (150-375); Red Blood Count 5.04 M/mm3 (4.6-6.20); Red Cell Distribution Width 13.2 % (11.5-14.5); White Blood Count 8.6 K/mm3 (4.5-10.0)
[2021-03-15 11:54] LABS: Alanine Aminotransferase 33 U/L (4-50); Albumin Level 2.9 g/dL (3.5-5.1); Alkaline Phosphatase 81 U/L (38-126); Anion Gap 4 mmol/L (8-16); Aspartate Amino Transferase 31 U/L (17-59); Bilirubin,Total 0.5 mg/dL (0.2-1.3); Blood Urea Nitrogen 41 mg/dL (9-20); Carbon Dioxide 29 mmol/L (22-30); Chloride 103 mmol/L (98-107); Estimated CRCL calculation 40 ml/min; Estimated Glomerular Filt Rate 28; Glucose 228 mg/dL (65-110); Sodium 136 mmol/L (137-145)
--- NOTE | 2021-03-15 11:59 | ED.GENADULT ---
HPI - General Adult General Chief complaint: Weakness Stated complaint: fall Time Seen by Provider: 03/15/21 11:21 Source: RN notes reviewed History of Present Illness HPI narrative: Patient presents to the emergency department from home via EMS for weakness and a syncopal episode. Per the patient's the patient has been having some slurred speech since also states the patient's been having difficulty swallowing and some gargling in his throat. The patient states today he was standing for himself some coffee when he began feeling his right leg was going out and he fell that time he could not get up on his own and EMS was called when EMS got there there moving the patient to the car and the patient had a syncopal episode patient denied having chest pain or shortness of breath does have history of atrial fibrillation as well as previous strokes and is on Xarelto for which he has been taking. Patient denies any unilateral numbness or weakness chest pain shortness of breath or any other symptoms Related Data Home Medications Medication Instructions Recorded Confirmed Tresiba FlexTouch U-200 40 unit SUBCUT HS 03/10/21 03/15/21 Trulicity 4.5 mg SUBCUT WEEKLY 03/10/21 03/15/21 Xarelto 20 mg PO DAILY 03/10/21 03/15/21 atorvastatin 80 mg PO DAILY 03/10/21 03/15/21 carvedilol 3.125 mg PO BID 03/10/21 03/15/21 duloxetine 60 mg PO DAILY 03/10/21 03/15/21 gabapentin 600 mg PO TID 03/10/21 03/15/21 galantamine 8 mg PO DAILY 03/10/21 03/15/21 levothyroxine 75 mcg PO DAILY 03/10/21 03/15/21 losartan 50 mg PO DAILY 03/10/21 03/15/21 tamsulosin 0.4 mg PO DAILY 03/10/21 03/15/21 dulaglutide [Trulicity] 4.5 mg SUBCUT WEEKLY 03/15/21 03/15/21 insulin aspart U-100 [Novolog See Rx Instructions .ROUTE .COMPLEX 03/15/21 03/15/21 Flexpen U-100 Insulin] Allergies Allergy/AdvReac Type Severity Reaction Status Date / Time morphine Allergy Intermediate Confusion Verified 03/15/21 11:43 Review of Systems Review of Systems: Gen.: Denies fevers or chills Eyes: Denies eye pain or visual change ENT: Denies congestion Respiratory: Denies shortness of breath or cough CV: Reports syncopal episode GI: Denies abdominal pain nausea, emesis or diarrhea Musculoskeletal: Denies back pain or muscle pain Neuro: See HPI Skin: Denies rash Except as documented, all other systems reviewed and negative [facility] Past Medical History Medical History Chronic bilateral low back pain with sciatica Chronic kidney disease, stage 3 unspecified History of bleeding ulcers (~2014) History of stress test Hyperlipidemia Hypothyroidism Insulin dependent type 2 diabetes mellitus Obstructive sleep apnea treated with BiPAP Persistent atrial fibrillation Status post ablation in 2012. He has remained in AFib since February 2020 no pursuing a rate control strategy. Prostate cancer Status post radiation therapy. Short-term memory loss Valvular heart disease Status post bioprosthetic aortic valve replacement. Surgical History Surgical History History of aortic valve replacement (2012) History of appendectomy History of cardiac radiofrequency ablation (2012) History of cholecystectomy (1980) History of colonoscopy with polypectomy History of lithotripsy Family History Family History Sibling Family history of arthritis Father Alcoholism Malignant neoplasm of prostate Grandparent Diabetes mellitus Mother Cancer Other Family history of chronic obstructive pulmonary disease Family history of lung cancer Family history of malignant neoplasm of bone Social History Social History Social History: Surrogate decision maker: Iris Blackwell, spouse. Code status: Do not resuscitate. Smoking packs per day: 2 Smoking cigarettes per day: 40.0
[2021-03-15 12:55] LABS: NT Pro B Type Natriuretic Pept 1040 pg/mL (5-100)
--- NOTE | 2021-03-15 13:05 | PC.NURSE ---
Patient unable to void. patient now agreeable to straight cath.
[2021-03-15 13:39] LABS: Add Urine Microscopic? YES; Appearance Urine Clear (Clear); Bilirubin Urine Negative (Negative); Blood Urine Negative (Negative); Color Urine Yellow (Yellow); Glucose Urine UA 3+ mg/dL (Negative); Ketones Urine Negative (Negative); Leukocyte Esterase Ur Negative LEU/UL (Negative); Nitrate Urine Negative (Negative); Protein Urine 3+ mg/dL (Negative); Specific Grav Ur 1.014 (1.001-1.035); Urobilinogen Urine Negative mg/dL (<2.0); WBC Urine 0-3 /hpf
[2021-03-15 13:51] LABS: Alveolar/Arterial O2 Gradient 15.4 mmHg; Base Excess ABG 1.1 mEq/l (+/-2.0); Device ROOM AIR; Fractional Inspired Oxygen 21 %; HCO3 ABG 27.1 mEq/l (22.0-26.0); Modified Allen's Test Pass; Oxygen Content ABG 21.3 %vol (16.0-22.0); Oxyhemoglobin 93.7 % THb (90.0-100.0); PCO2 ABG 47.7 mmHg (35.0-45.0); PO2 ABG 77.2 mmHg (80.0-100.0); PO2 FiO2 Ratio Arterial Blood 3.68 %; Site Drawn RIGHT RADIAL; Total Hemoglobin 16.2 g/dL (12.0-18.0); pH ABG 7.372 (7.350-7.450)
[2021-03-15 14:36] LABS: INR 2.1; Prothrombin Time 22.8 Seconds (11.1-14.7)
[2021-03-15 14:37] LABS: Partial Thromboplastin Time 32.6 SECONDS (22.3-36.8)
--- NOTE | 2021-03-15 18:36 | PC.NURSE ---
patient ate 100% of provided meal, well tolerated.
[2021-03-15 18:53] LABS: Troponin I 0.016 ng/mL (0.000-0.034)
--- NOTE | 2021-03-15 19:05 | ADMGEN ---
This patient, Chele Blackwell, was admitted to IMU Room 206-02. Patient/family oriented to hospital policies and general routines including ID bracelet, bed and alarms, visiting hours, pain management, procedures, bathroom and other care routines, personal items, smoking policy, room service/diet, and visiting hours. Information on how to activate the Rapid Response Team has been discussed. Patient/Family are encouraged to report perceived risks to care and to ask questions if they do not understand what they are told or what they should do.
[2021-03-15 21:08] LABS: Troponin I 0.018 ng/mL (0.000-0.034)
--- NOTE | 2021-03-15 21:42 | PM.IMHP ---
H&P: HPI History of Present Illness Date/Time: 03/15/21 21:42 Chief Complaint: Passed out Narrative: 75-year-old male with past medical hypertension, hyperlipidemia, diabetes, atrial fibrillation, chronic kidney disease, short-term memory loss and obstructive sleep apnea presented to the ER from home via EMS due to fall followed by syncope. The patient was standing up in became weak. His knee fold in under him. EMS was called for lift assist when the patient sat up he became unresponsive. They could not feel a radial pulse at the time. Once the patient was placed supine he became alert. The patient's reports that the patient has been having increasing episodes of confusion at night. He will often think that he is somewhere else. After he was admitted to the IMU the patient stood up and walked out into the trent and stated he needed to go somewhere. He was confused and adamant that he needed his pants to leave. He was alert oriented x3 but did admit that he was confused. He tells me that he is at 1 point was actually convinced that he drove here in his 1959 GTO that he is not owned in many years. The patient's denies patient actually having a diagnosis of dementia. The patient thinks that because he is having these episodes that he is having strokes. I tried to explain the to the patient that he was probably having memory issues in that aches suspected he had dementia. The patient had been admitted on and had an MRI of his brain on the the demonstrated no acute process. He did have evidence of prior strokes. Patient's reports that the patient has had some intermittent slurred speech since but seems to be that these episodes are occurring when the patient is having confusion and occur more in the evenings. The patient has not been having any numbness or unilateral weakness. He has not had any chest pain or shortness of breath. During his last hospitalization the patient had multiple episodes of bradycardia with heart rates down to the 30s and episodes of pauses. He was not evaluated by Cardiology at that time. The patient could not give me a lot of specific symptoms that he was quite fixated on the fact they felt like he was losing his mind with his confusion. He was convinced that he was having a stroke due to his confusion. He states that this is the only time he has been confused however his begs to defer. Review of Systems Review of Systems: 12 systems were reviewed with pertinent positives and negatives per HPI. Except as documented in the HPI, all other systems were reviewed and are negative. The patient could provide great details and some aspects but given his confusion he was still a poor historian. He is fixated on fact that he felt like he was losing his mind. [facility] Past Medical History Medical History Chronic bilateral low back pain with sciatica Chronic kidney disease, stage 3 unspecified History of bleeding ulcers (~2014) History of stress test Hyperlipidemia Hypothyroidism Insulin dependent type 2 diabetes mellitus Obstructive sleep apnea treated with BiPAP Persistent atrial fibrillation Status post ablation in 2012. He has remained in AFib since February 2020 no pursuing a rate control strategy. Prostate cancer Status post radiation therapy. Short-term memory loss Valvular heart disease Status post bioprosthetic aortic valve replacement. Surgical History Surgical History History of aortic valve replacement (2012) History of appendectomy History of cardiac radiofrequency ablation (2012) History of cholecystectomy (1980) History of colonoscopy with polypectomy History of lithotripsy Family History Family History Sibling Family history of arthritis Father Alcoholism Malignant neoplasm of prostate Grandpare
[2021-03-15 23:02] LABS: Glucose Point of Care 301 mg/dl (65-105)
[2021-03-16] VITALS (15 sets, daily range): BP systolic 128–181; BP diastolic 60–90; PULSE 60–88; RESP 16–20; TEMP 35.8–36.4; O2SAT 99–100
[2021-03-16 01:23] LABS: Alveolar/Arterial O2 Gradient 13.1 mmHg; Base Excess ABG 2.8 mEq/l (+/-2.0); Carboxyhemoglobin 0.6 % THb (0-2.0); Fractional Inspired Oxygen 21 %; HCO3 ABG 27.4 mEq/l (22.0-26.0); Methemoglobin ABG 0.4 %THb (0-1.5); Oxygen Content ABG 21.8 %vol (16.0-22.0); Oxygen Saturation ABG 96.8 % (95.0-100.0); Oxyhemoglobin 95.7 % THb (90.0-100.0); PCO2 ABG 41.9 mmHg (35.0-45.0); PO2 ABG 86.5 mmHg (80.0-100.0); PO2 FiO2 Ratio Arterial Blood 4.12 %; Reduced Hemoglobin 3.3 %THb (0-5.0); Total Hemoglobin 16.2 g/dL (12.0-18.0); pH ABG 7.433 (7.350-7.450)
[2021-03-16 01:24] LABS: Device ROOM AIR; Modified Allen's Test Pass; Site Drawn LEFT RADIAL
[2021-03-16 05:34] LABS: Basophils Absolute Auto 0.1 K/mm3 (0.0-0.1); Basophils Percent Auto 0.8 % (0.2-1.2); Eosinophils Absolute Auto 0.4 K/mm3 (0-0.3); Eosinophils Percent Auto 4.1 % (0-4.4); Hematocrit 48.8 % (42.0-52.0); Hemoglobin 15.9 g/dL (14.0-18.0); Immature Granulocyte Absolute 0.03 K/mm3 (0.00-0.031); Immature Granulocyte Percent A 0.3 % (0-0.5); Lymphocytes Absolute Auto 1.41 K/mm3 (0.9-3.2); Lymphocytes Percent Auto 14.1 % (18.3-44.2); Mean Corpuscular HGB Conc 32.6 g/dl (32-36); Mean Corpuscular Hemoglobin 29.8 pg (26-34); Mean Corpuscular Volume 91.4 fl (80-100); Mean Platelet Volume 11.2 fl (7.4-10.4); Monocytes Absolute Auto 0.9 K/mm3 (0.1-0.6); Monocytes Percent Auto 8.7 % (2.6-8.5); Neutrophils Absolute Auto 7.2 K/mm3 (1.3-6.7); Platelet Count Result 179 k/mm3 (150-375); Red Blood Count 5.34 M/mm3 (4.6-6.20); Red Cell Distribution Width 13.2 % (11.5-14.5)
[2021-03-16 07:44] LABS: Anion Gap 6 mmol/L (8-16); Blood Urea Nitrogen 41 mg/dL (9-20); Calcium 8.4 mg/dL (8.4-10.2); Carbon Dioxide 29 mmol/L (22-30); Chloride 101 mmol/L (98-107); Estimated CRCL calculation 36 ml/min; Estimated Glomerular Filt Rate 25; Glucose 236 mg/dL (65-110); Potassium 4.8 mmol/L (3.4-5.0); Sodium 136 mmol/L (137-145)
[2021-03-16 08:53] LABS: Glucose Point of Care 219 mg/dl (65-105)
[2021-03-16] MEDS: INSULIN ASPART (*BKC) 100 UNITS/ML SUB-Q ×3 (09:12→16:39)
[2021-03-16] MEDS: DULoxetine HCL 60 MG CAPSULE.DR PO (09:34)
[2021-03-16] MEDS: GABAPENTIN 300 MG CAPSULE 600 MG PO ×3 (09:34→22:07)
[2021-03-16] MEDS: LEVOTHYROXINE SODIUM 75 MCG TABLET PO (09:36)
[2021-03-16] MEDS: ATORVASTATIN 40 MG TABLET 80 MG PO (09:36)
[2021-03-16] MEDS: TAMSULOSIN HCL 0.4 MG CAPSULE PO (09:37)
[2021-03-16] MEDS: LOSARTAN POTASSIUM 50 MG TABLET PO (09:37)
--- NOTE | 2021-03-16 10:06 | PM.CNCAR ---
Assessment and Plan Additional Plan This is a 75-year-old man who is massively obese has chronic atrial fibrillation and a previous bioprosthetic aortic valve replacement. Clearly his atrial fibrillation is of slow ventricular response he is only on a very small dose of carvedilol which is not really doing anything to slow his AV node to any significant degree. It is of some concern that he is bradycardic any had the fall described above however he provides to me a very clear history this morning that he did not lose consciousness yesterday when he fell. As such implanting a pacemaker device is not indicated. He has had no significant pauses on telemetry since admission. He was here in the hospital as mentioned above last week for 24 hours as well his rhythm looked about the same at that time. We will follow her with you while he is in the hospital. He has an appointment scheduled as an outpatient to see my partner on March 20 for his routine office follow-up appointment. I will make him aware of this situation but at this point I would not pursue implanting a pacemaker device unless he demonstrates significant pauses on the monitor telemetry which as of now we have not seen German Perry MD [facility] History of Present Illness History of Present Illness Consult date/time: 03/16/21 10:06 Consult reason: atrial fibrillation Reason For Visit: Syncope/slurred speech/weakness Narrative: This is a 75-year-old man that I am seeing at the request of the hospitalist this morning because of re reported syncopal episode that occurred prompting hospital admission yesterday. Patient is unknown to me prior to this encounter but is known to Dr. De La Fuente of our practice for follow-up in the office because of valvular heart disease and chronic atrial fibrillation. He states that he was in his home yesterday when he was feeling fairly well he got up from bed and went to his kitchen to make some coffee. He started his coffee machine and was sitting down in a chair waiting for the brewing to finish. When it was finished he was trying to stand up to get a cup of coffee and he states his right leg gave out. He states that his right leg was very weak and he was unable to stand up and for that reason he fell down. I asked the patient 3 or 4 times about the circumstances of the fall and he is firm and the fact that he did not fall because of loss of consciousness. He was aware of what was going on he states he was falling because his leg was unable to support his weight. He is morbidly obese. The patient came to the emergency room by ambulance for evaluation after this incident. He was in atrial fibrillation with a wide QRS with left bundle branch block features and a heart rhythm that at times was rather slow for a patient in atrial fib with a heart rate in the 40s. He has been placed on telemetry since being admitted to the hospital. This has been the persistent rhythm and there have not really been any significant pauses or other rhythm disturbances. He was just in the hospital here last week right after Juliann apparently because of an episode of disorientation. He states he was driving his car and he became disoriented he did not really know where it when he was or how to get himself back home. He stopped in asked several passersby for directions the last 1 finally give him directions aware he was able to get back home. After this incident apparently he was put into the hospital he was found to be stable and discharged it looks like within 24 hours. He has a history of valvular heart disease with severe bicuspid aortic valve stenosis that was treated 9 years ago with bioprosthetic aortic valve replacement down in [place]. He was working there at that time. He has since retired and moved back to this area. He is not known to have any coronary disease at the time of his AVR his coronary arteries were not disease. He did have a history of atrial fibrillation following
--- NOTE | 2021-03-16 10:41 | PM.IMPN ---
Progress Note: A&P Assessment and Plan (1) Syncope: Qualifiers: Syncope type: unspecified Qualified Code(s): R55 - Syncope and collapse Code(s): R55 - Syncope and collapse Status: Acute Assessment and Plan: CXR with no acute process CT of head showed old infarcts of cerebellum, right basal ganglia, right internal capsule and rightt halamus; chronic small vessel ischemic disease Cardiology has been consulted. Low-dose Coreg on hold, will await further recommendations from Cardiology 2D ECHO Neurology was consulted from the ER Recent MRI on the of this month MRI pending (2) Atrial fibrillation: Qualifiers: Atrial fibrillation type: unspecified Qualified Code(s): I48.91 - Unspecified atrial fibrillation Code(s): I48.91 - Unspecified atrial fibrillation Status: Acute Assessment and Plan: BB on hold due to syncope Rate controlled Continue Xarelto Tele monitoring (3) Confusion: Code(s): R41.0 - Disorientation, unspecified Status: Acute Assessment and Plan: Plan as above (4) SERENA (obstructive sleep apnea): Code(s): G47.33 - Obstructive sleep apnea (adult) (pediatric) Status: Acute Assessment and Plan: Auto titrating CPAP has been ordered (5) Type 2 diabetes mellitus with hyperglycemia: 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 HS and hypoglycemia protocol Continue long-acting insulin Monitor Additional Plan Code status: FULL DVT Ppx: on Xarelto Subjective Date/time seen: 03/16/21 10:41 Review of Systems Review of Systems: All systems reviewed & are unremarkable except as noted in HPI and below Exam Const: General: no acute distress, alert and awake Orientation/consciousness: patient oriented x3 HENMT: Head: normocephalic and atraumatic Face and sinus: face symmetric Mouth: Yes Normal oral and palatal mucosa present Eyes: EOM: EOMs intact bilaterally Neck: Neck: full ROM, trachea midline and no JVD Resp: Effort & Inspection: normal respiratory effort Auscultation: clear to auscultation bilaterally Cardio: Jugular venous distension: no JVD Rate: regular rate Rhythm: regular rhythm Heart sounds: S1 normal heart sound present and S2 normal heart sound present GI: GI Palp: Yes Soft to palpation Auscultation: normal bowel sounds : General: Yes no CVA tenderness Skin: General skin exam: normal color Rashes: no rashes Neuro: General: patient oriented x3 and no focal motor deficits Cranial nerves: Yes Equal, round and reactive pupils present Speech: normal speech Extrem: General: no clubbing, cyanosis or edema Psych: Appearance: grossly normal Affect: normal affect Judgement: Good judgement present (Psych) Objective Data Vital Signs Vital Signs: Vital Signs - 24 hr 03/15/21 11:24 03/15/21 11:31 03/15/21 12:01 Temperature 36.4 C L Pulse Rate 50 L 74 52 L Respiratory Rate 20 19 Blood Pressure 94/69 L 136/80 153/87 H Pulse Oximetry 100 03/15/21 12:02 03/15/21 12:15 03/15/21 12:16 Temperature Pulse Rate 59 L 44 L 56 L Respiratory Rate 18 14 11 L Blood Pressure 173/93 H Pulse Oximetry 78 L 03/15/21 12:24 03/15/21 12:26 03/15/21 12:28 Temperature Pulse Rate 56 L 56 L 52 L Respiratory Rate 11 L 16 Blood Pressure 156/98 H 156/98 H 169/90 H Pulse Oximetry 99 98 03/15/21 12:30 03/15/21 12:45 03/15/21 13:00 Temperature Pulse Rate 57 L 59 L 55 L Respiratory Rate 18 13 13 Blood Pressure Pulse Oximetry 94 94 03/15/21 15:03 03/15/21 15:13 03/15/21 18:34 Temperature Pulse Rate 62 82 66 Respiratory Rate 12 23 H 16 Blo
[2021-03-16 12:51] LABS: Glucose Point of Care 237 mg/dl (65-105)
[2021-03-16] MEDS: hydrALAZINE HCL 20 MG/ML VIAL 10 MG IV PUSH (12:52)
[2021-03-16] MEDS: RIVAROXABAN 20 MG TABLET PO (16:39)
[2021-03-16 17:16] LABS: Glucose Point of Care 300 mg/dl (65-105)
[2021-03-16 20:56] LABS: Glucose Point of Care 331 mg/dl (65-105)
[2021-03-16] MEDS: INSULIN GLARGINE (*BKC) 100 UNITS/ML 40 UNITS SUB-Q (22:07)
[2021-03-17] VITALS (15 sets, daily range): BP systolic 140–155; BP diastolic 79–89; PULSE 56–88; RESP 20–22; TEMP 35.6–36.6; O2SAT 93–100
[2021-03-17 05:38] LABS: Hematocrit 49.4 % (42.0-52.0); Hemoglobin 15.9 g/dL (14.0-18.0); Mean Corpuscular HGB Conc 32.2 g/dl (32-36); Mean Corpuscular Volume 93.2 fl (80-100); Mean Platelet Volume 10.5 fl (7.4-10.4); Platelet Count Result 152 k/mm3 (150-375); Red Cell Distribution Width 13.2 % (11.5-14.5); White Blood Count 8.5 K/mm3 (4.5-10.0)
[2021-03-17 05:50] LABS: Anion Gap 9 mmol/L (8-16); Blood Urea Nitrogen 38 mg/dL (9-20); Calcium 8.3 mg/dL (8.4-10.2); Carbon Dioxide 27 mmol/L (22-30); Chloride 101 mmol/L (98-107); Estimated CRCL calculation 38 ml/min; Estimated Glomerular Filt Rate 27; Glucose 187 mg/dL (65-110); Potassium 4.3 mmol/L (3.4-5.0); Sodium 137 mmol/L (137-145)
[2021-03-17] MEDS: GABAPENTIN 300 MG CAPSULE 600 MG PO ×3 (06:17→21:05)
[2021-03-17] MEDS: LEVOTHYROXINE SODIUM 75 MCG TABLET PO (06:17)
[2021-03-17 08:51] LABS: Glucose Point of Care 184 mg/dl (65-105)
--- NOTE | 2021-03-17 09:08 | PM.PNCARD ---
Progress Note: A&P Additional Plan 75-year-old man with: Chronic valvular heart disease with previous aortic valve replacement and chronic atrial fibrillation. Patient had a fall at home. I did not obtain the history of syncope and he adamantly denies losing consciousness. He had some lightheadedness this morning after standing up off the toilet but at that time he was not hypotensive or bradycardic. He appears otherwise to be stable with respect to his heart disease. Because of the symptoms he is not comfortable going back home today. No specific cardiac recommendations at this time German Perry MD [facility] Subjective Date/time seen: Date of service: 03/17/21 09:08 Interval history: Follow-up visit in this 75-year-old man with: Chronic atrial fibrillation with left bundle branch block and remote history of bioprosthetic aortic valve replacement. The patient has no history of LV dysfunction recent echocardiogram has demonstrated preserved LV function and a normally functioning bioprosthesis. He entered the hospital after taking a fall at home indicating his right leg was weak and fell for that reason. I was consulted because of a syncopal episode and concern regarding AFib with slow ventricular response. I did not obtain a history of syncope. This morning patient is comfortable eating his breakfast lying in bed. He states he did become lightheaded when he sat up this morning off the commode after going to the toilet. At that time his heart rate was in the 80s and he was not hypotensive. Telemetry continues to show atrial fibrillation with controlled response. There have been no pauses or Nikolas arrhythmias that would warrant implanting a pacemaker device Exam Const: General: comfortable and no acute distress Other: Morbidly obese white male BMI 49 in no apparent distress pleasant cooperative HENMT: Mouth: Yes moist mucous membranes Eyes: Sclera: sclerae normal Pupils: Equal, round and reactive pupils present Neck: Neck: supple Other: No carotid bruits. Cannot assess for JVD given his body habitus Resp: Auscultation: clear to auscultation bilaterally and diminished lung sounds Other: Breath sounds are distant because of his body habitus but clear Cardio: Rhythm: abnormal rhythm irregularly irregular Other: No audible gallop very soft systolic murmur audible at the base GI: Auscultation: normal bowel sounds Skin: General skin exam: normal color Neuro: Cranial nerves: Yes Equal, round and reactive pupils present Cognition (Neuro): normal cognition Extrem: Other: Massively obese Objective Data Vital Signs Vital Signs: Vital Signs - 24 hr 03/16/21 10:00 03/16/21 12:00 03/16/21 12:15 Temperature Pulse Rate 75 65 Respiratory Rate Blood Pressure 181/86 H Pulse Oximetry 03/16/21 14:00 03/16/21 15:58 03/16/21 16:00 Temperature 36.3 C L Pulse Rate 77 72 69 Respiratory Rate 18 Blood Pressure 153/82 H 138/76 Pulse Oximetry 100 03/16/21 18:00 03/16/21 20:00 03/16/21 22:00 Temperature 35.8 C L Pulse Rate 82 73 63 Respiratory Rate 16 Blood Pressure 128/60 Pulse Oximetry 100 03/16/21 23:27 03/17/21 00:00 03/17/21 02:00 Temperature 36.1 C L Pulse Rate 88 75 65 Respiratory Rate 20 Blood Pressure 166/84 H Pulse Oximetry 100 03/17/21 02:24 03/17/21 04:00 03/17/21 06:00 Temperature Pulse Rate 88 71 78 Respiratory Rate 20 Blood Pressure Pulse Oximetry 100 03/17/21 08:55 Temperature 36.0 C L Pulse Rate 86 Respiratory Rate 22 H Blood Pressure 140/79 Pulse Oximetry 97 Intake/Output Intake/Output: Intake & Output 03/14/21 03/15/21 03/16/21 03/17/21 23:59 23:59 23:59 23:59 Intake Total 2380 300 Output Total 1400 Balance 980 300 Meds/Results Medications: Active Medications Generic Name Dose Route Start Last Admin Trade Name Carsonq PRN Reason Stop Dose Admin Atorvastatin Calcium 80 mg 03/16/21 09:00 03/16/21 09
[2021-03-17] MEDS: ATORVASTATIN 40 MG TABLET 80 MG PO (09:11)
[2021-03-17] MEDS: LOSARTAN POTASSIUM 50 MG TABLET PO (09:11)
[2021-03-17] MEDS: DULoxetine HCL 60 MG CAPSULE.DR PO (09:11)
[2021-03-17] MEDS: TAMSULOSIN HCL 0.4 MG CAPSULE PO (09:11)
[2021-03-17 12:26] LABS: Glucose Point of Care 278 mg/dl (65-105)
[2021-03-17] MEDS: INSULIN ASPART (*BKC) 100 UNITS/ML SUB-Q ×2 (12:47→18:00)
--- NOTE | 2021-03-17 12:51 | PM.IMPN ---
Progress Note: A&P Assessment and Plan (1) Syncope: Qualifiers: Syncope type: unspecified Qualified Code(s): R55 - Syncope and collapse Code(s): R55 - Syncope and collapse Status: Acute Assessment and Plan: CXR with no acute process CT of head showed old infarcts of cerebellum, right basal ganglia, right internal capsule and rightt halamus; chronic small vessel ischemic disease Cardiology has been consulted. Low-dose Coreg on hold, cardiology evaluation reviewed 2D ECHO pending Neurology was consulted from the ER awaiting their evaluation/recommendation Recent MRI on the of this month MRI has been canceled and recently done (2) Atrial fibrillation: Qualifiers: Atrial fibrillation type: unspecified Qualified Code(s): I48.91 - Unspecified atrial fibrillation Code(s): I48.91 - Unspecified atrial fibrillation Status: Acute Assessment and Plan: BB on hold due to syncope not sure if it was a real syncope Rate controlled Continue Xarelto Tele monitoring with no further significant arrhythmia (3) Confusion: Code(s): R41.0 - Disorientation, unspecified Status: Acute Assessment and Plan: Plan as above (4) SERENA (obstructive sleep apnea): Code(s): G47.33 - Obstructive sleep apnea (adult) (pediatric) Status: Acute Assessment and Plan: Auto titrating CPAP has been ordered (5) Type 2 diabetes mellitus with hyperglycemia: 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 HS and hypoglycemia protocol Continue long-acting insulin Monitor Additional Plan Chronic kidney disease stage 3/4 remains stable Status post bioprosthetic aortic valve replacement Code status: FULL DVT Ppx: on Xarelto Disposition PT OT to see okay might need of home health Subjective Date/time seen: 03/17/21 12:51 States he is knee buckled up and never passed out on presentation. He denies any shortness of breath or chest pain in he was noted to have bradycardia which is sinus no cough respiratory symptoms Review of Systems Review of Systems: All systems reviewed & are unremarkable except as noted in HPI and below Exam Narrative: GENERAL: The patient with morbid obesity, not in acute distress HEENT: Nonicteric sclerae, PERRLA, EOMI. Oropharynx clear. Moist mucous membranes. Conjunctivae appear well perfused. CHEST: Chest wall is nontender. HEART: Regular rate and rhythm without murmur, rubs, or gallops LUNGS: Clear to auscultation bilaterally. no respiratory distress ABDOMEN: Soft, positive bowel sounds, non-tender, no organomegaly. SKIN: No rash, no excessive bruising, petechiae, or purpura. NEUROLOGIC: Cranial nerves II-XII intact, alert and oriented x 3, no gross motor deficits EXTREMITIES: no edema, cyanosis or clubbing Objective Data Vital Signs Vital Signs: Vital Signs - 24 hr 03/16/21 14:00 03/16/21 15:58 03/16/21 16:00 Temperature 97.4 F L Pulse Rate 77 72 69 Respiratory Rate 18 Blood Pressure 153/82 H 138/76 Pulse Oximetry 100 03/16/21 18:00 03/16/21 20:00 03/16/21 22:00 Temperature 96.5 F L Pulse Rate 82 73 63 Respiratory Rate 16 Blood Pressure 128/60 Pulse Oximetry 100 03/16/21 23:27 03/17/21 00:00 03/17/21 02:00 Temperature 97 F L Pulse Rate 88 75 65 Respiratory Rate 20 Blood Pressure 166/84 H Pulse Oximetry 100 03/17/21 02:24 03/17/21 04:00 03/17/21 06:00 Temperature Pulse Rate 88 71 78 Respiratory Rate 20 Blood Pressure Pulse Oximetry 100 03/17/21 08:55 Temperature 96.8 F L Pulse Rate 86 Respiratory Rate 22 H Blood Pressure 140/79 Pulse Oximetry 97
[2021-03-17 17:17] LABS: Glucose Point of Care 293 mg/dl (65-105)
[2021-03-17] MEDS: RIVAROXABAN 20 MG TABLET PO (18:00)
[2021-03-17 20:31] LABS: Glucose Point of Care 317 mg/dl (65-105)
[2021-03-17] MEDS: INSULIN GLARGINE (*BKC) 100 UNITS/ML 40 UNITS SUB-Q (21:08)
[2021-03-18] VITALS (9 sets, daily range): BP systolic 131–184; BP diastolic 76–101; PULSE 57–80; RESP 22; TEMP 35.9–36.7; O2SAT 95–99
--- NOTE | 2021-03-18 | ECHO_ITS ---
Patient Info Name: Chele Blackwell Age: 75 years : 1945 Gender: Male Ht: 70 in Wt: 343 lbs BSA: 2.86 m2 HR: 80 bpm BP: 148 / 96 mmHg Heart Rhythm: Atrial Fibrillation Technical Quality: Poor Exam Date: 03/18/2021 10:14 AM Exam Location: [facility] Pulmonary Patient Status: Inpatient Admit Date: 03/17/2021 Staff Ordering Physician: Meeta Teague Painter Plate: Raquel James RDCS Attending Provider: Nilesh Ames MD Referring Physician: Ho DOMINGUEZ; Exam Type: CA echo dop color flow w con Study Info Indications - syncope Complete two-dimensional, color flow and Doppler transthoracic echocardiogram is performed. Summary 1. Complete two-dimensional, color flow and Doppler transthoracic echocardiogram is performed. 2. Very technically difficult study with limited views. Definity echo contrast enhancement although regional wall motion assessment remains limited but no clear wall motion abnormalities identified. 3. Left ventricular chamber dimension is normal. 4. Left ventricular systolic function is normal, estimated at 65-70%. 5. There is mildly increased left ventricular wall thickness. 6. Left atrial chamber dimension is severely enlarged. 7. Right atrial chamber dimension is moderately enlarged. 8. There is mild to moderate aortic valve stenosis with a peak velocity of 238.61 cm/s, mean gradient of 13 mmHg, and aortic valve area of 1.20 cm2. Left Ventricle Left ventricular chamber dimension is normal. Left ventricular systolic function is normal, estimated at 65-70%. There is mildly increased left ventricular wall thickness. The left ventricular diastolic function is indeterminate. Very technically difficult study with limited views. Definity echo contrast enhancement although regional wall motion assessment remains limited but no clear wall motion abnormalities identified. Right Ventricle Right ventricular chamber dimension is not well visualized. Left Atria Left atrial chamber dimension is severely enlarged. Right Atria Right atrial chamber dimension is moderately enlarged. Aortic Valve The aortic valve is not well visualized. There is mild to moderate aortic valve stenosis with a peak velocity of 238.61 cm/s, mean gradient of 13 mmHg, and aortic valve area of 1.20 cm2. Pulmonic Valve The pulmonic valve is not well visualized. Mitral Valve The mitral valve has not well visualized. Tricuspid Valve The tricuspid valve leaflets are not well visualized. No pulmonary hypertension, estimated pulmonary arterial systolic pressure is 20 mmHg. Pericardium/Pleural The pericardium appears not well visualized. Aorta The aortic root size at the sinus of Valsalva is normal. There is moderate aortic atherosclerosis. Left Ventricular Outflow Tract Name Value Normal LVOT 2D LVOT Diameter 2.05 cm LVOT Doppler LVOT Peak Gradient 3 mmHg LVOT Mean Gradient 2 mmHg LVOT VTI 15.47 cm LVOT VTI/AV VTI Ratio 0.32 LVOT Stroke Volume 51.28 ml
[2021-03-18 05:12] LABS: Basophils Absolute Auto 0.1 K/mm3 (0.0-0.1); Eosinophils Absolute Auto 0.7 K/mm3 (0-0.3); Eosinophils Percent Auto 6.2 % (0-4.4); Hematocrit 48.1 % (42.0-52.0); Hemoglobin 15.7 g/dL (14.0-18.0); Immature Granulocyte Absolute 0.03 K/mm3 (0.00-0.031); Immature Granulocyte Percent A 0.3 % (0-0.5); Lymphocytes Absolute Auto 1.47 K/mm3 (0.9-3.2); Lymphocytes Percent Auto 13.5 % (18.3-44.2); Mean Corpuscular HGB Conc 32.6 g/dl (32-36); Mean Corpuscular Hemoglobin 30.7 pg (26-34); Mean Corpuscular Volume 93.9 fl (80-100); Monocytes Absolute Auto 0.9 K/mm3 (0.1-0.6); Monocytes Percent Auto 8.6 % (2.6-8.5); Neutrophils Absolute Auto 7.7 K/mm3 (1.3-6.7); Neutrophils Percent Auto 70.4 % (45.5-73.1); Platelet Count Result 175 k/mm3 (150-375); Red Blood Count 5.12 M/mm3 (4.6-6.20); Red Cell Distribution Width 13.2 % (11.5-14.5); White Blood Count 10.9 K/mm3 (4.5-10.0)
[2021-03-18] MEDS: LEVOTHYROXINE SODIUM 75 MCG TABLET PO (06:39)
[2021-03-18] MEDS: GABAPENTIN 300 MG CAPSULE 600 MG PO ×2 (06:40→14:14)
[2021-03-18 08:21] LABS: Glucose Point of Care 180 mg/dl (65-105)
[2021-03-18] MEDS: PERFLUTREN LIPID MICROSPHERES 1.5 ML VIAL DILUTED TO 10 ML TOTAL VOLUME (10:07)
[2021-03-18] MEDS: ATORVASTATIN 40 MG TABLET 80 MG PO (10:12)
[2021-03-18] MEDS: LOSARTAN POTASSIUM 50 MG TABLET PO (10:12)
[2021-03-18] MEDS: DULoxetine HCL 60 MG CAPSULE.DR PO (10:12)
[2021-03-18] MEDS: TAMSULOSIN HCL 0.4 MG CAPSULE PO (10:12)
--- NOTE | 2021-03-18 11:18 | PM.PNCARD ---
Progress Note: A&P Assessment and Plan (1) Atrial fibrillation: Qualifiers: Atrial fibrillation type: unspecified Qualified Code(s): I48.91 - Unspecified atrial fibrillation <ROCÍO Huff - Last Filed: 03/18/21 11:57> Code(s): I48.91 - Unspecified atrial fibrillation <ROCÍO Huff - Last Filed: 03/18/21 11:57> Status: Acute <ROCÍO Huff - Last Filed: 03/18/21 11:57> Assessment and Plan: Longstanding history of atrial fibrillation, status post ablation with recurrence of atrial fibrillation in 2020. He has a slow ventricular response. He is on a very small dose of carvedilol. Anticoagulated with Xarelto. No significant pauses or bradycardia noted on telemetry. <ROCÍO Huff - Last Filed: 03/18/21 11:57> (2) Hypertension: Code(s): I10 - Essential (primary) hypertension <ROCÍO Huff - Last Filed: 03/18/21 11:57> Status: Acute <ROCÍO Huff - Last Filed: 03/18/21 11:57> Assessment and Plan: Above goal. Will advance his losartan to 100 mg daily. <ORCÍO Huff - Last Filed: 03/18/21 11:57> (3) H/O aortic valve replacement: Code(s): Z95.2 - Presence of prosthetic heart valve <ROCÍO Huff - Last Filed: 03/18/21 11:57> Status: Acute <ROCÍO Huff - Last Filed: 03/18/21 11:57> Assessment and Plan: Chronic valvular heart disease with h/o bioprosthetic aortic valve replacement. Anticoagulated with Xarelto. Followed by Dr. De La Fuente and has follow-up with him scheduled later in this week. <ROCÍO Huff - Last Filed: 03/18/21 11:57> Additional Plan Attending addendum: I agree with the above documentation and plan of care as outlined. <Maxwell Álvarez MD - Last Filed: 03/18/21 15:31> Subjective Date/time seen: 03/18/21 11:18 <ROCÍO Huff - Last Filed: 03/18/21 11:57> Interval history: Cardiology follow-up for atrial fibrillation, left bundle branch block, bioprosthetic AVR Date of service 03/18/2021: Patient is feeling quite well this morning and does not have complaints of any kind. He denies any syncope or presyncope since his admission. Telemetry continues to show atrial fibrillation with controlled ventricular response. From a cardiac perspective, he is appropriate for discharge home today. <ROCÍO Huff - Last Filed: 03/18/21 11:57> Review of Systems Constitutional: Constitutional: Reports weakness <ROCÍO Huff - Last Filed: 03/18/21 11:57> Eyes: Eyes: Reports no additional eye complaints <ROCÍO Huff - Last Filed: 03/18/21 11:57> ENT: Reports system reviewed and no additional complaints, except as documented <ROCÍO Huff - Last Filed: 03/18/21 11:57> Cardiovascular: Cardiovascular: Reports no additional cardiovascular complaints and Reports dyspnea on exertion <ROCÍO Huff - Last Filed: 03/18/21 11:57> Respiratory: Respiratory: Reports dyspnea on exertion <ROCÍO Huff - Last Filed: 03/18/21 11:57> Gastrointestinal: Gastrointestinal: Reports no additional gastrointestinal complaints <ROCÍO Huff - Last Filed: 03/18/21 11:57> Musculoskeletal: Musculoskeletal: Reports no additional musculoskeletal complaints and Reports as per HPI <ROCÍO Huff - Last Filed: 03/18/21 11:57> Neurologic: Reports as per HPI and Reports weakness <ROCÍO Huff - Last Filed: 03/18/21 11:57> Endocrine: Endocrine: Reports no additional endocrine complaints <ROCÍO Huff - Last Filed: 03/18/21 11:57> Hematologic/Lymphatic: Hematologic/Lymphatic: Reports no additional hematologic/lymphatic complaints <ROCÍO Huff - Last Filed: 03/18/21 11:57> Allergic/Immunologic: Allergic/Immunologic: Reports no additional allergic/immunologic complaints <ROCÍO Huff - Last Filed: 03/18/21 11:
--- NOTE | 2021-03-18 11:18 | WPDNEURCNPN ---
Assessment and Plan Additional Plan 1. Status post cerebellar stroke with gait ataxia 2. Recurrent TIAs secondary to underlying atrial fibrillation 3. Generalized deconditioning and 4. Orthostatic hypotension as per the history Consult date: 03/18/21 HPI: Chele Blackwell is a 75 year old male admitted to the hospital. Seen during his previous hospitalization on March 10, 2021 for the diagnosis of TIA with multiple underlying comorbid condition and suggestion to continue the anticoagulation. But tree admitted this time because he passed out. Carries the diagnosis of multiple medical problem such as 1. Hypertension 2. Diabetes mellitus 3. Atrial fibrillation 4. Chronic renal disease 5. Memory dysfunction 6. Obstructive sleep apnea. Reportedly this time standing up became weak and his knees folded under him EMS were called for the lift assist when the patient became unresponsive and once the patient became supine he also became alert patient has been experiencing increasing confusion particularly at nighttime with his space disorientation he is having recurrent episodes as if he is having recurrent stroke he has been seen at in the past when MRI of the brain was done which was negative though he did have evidence of previous stroke patient's concerned because he has intermittent slurred speech since . As per the review of the medical record person has multiple medical problems as documented previously, since admission this time his CBC is unremarkable creatinine is 2.4 with GFR only 27 blood sugar 187 and a UA with protein urea glycosuria, repeat CT scan documents the infarcts in the cerebellum bilaterally along with involvement of the right basal ganglia right internal capsule and right thalamus Review of Systems Review of Systems: All systems reviewed & are unremarkable except as noted in HPI and below PMFSH Past Medical History Medical History Chronic bilateral low back pain with sciatica Chronic kidney disease, stage 3 unspecified History of bleeding ulcers (~2014) History of stress test Hyperlipidemia Hypothyroidism Insulin dependent type 2 diabetes mellitus Obstructive sleep apnea treated with BiPAP Persistent atrial fibrillation Status post ablation in 2012. He has remained in AFib since February 2020 no pursuing a rate control strategy. Prostate cancer Status post radiation therapy. Short-term memory loss Valvular heart disease Status post bioprosthetic aortic valve replacement. Surgical History Surgical History History of aortic valve replacement (2012) History of appendectomy History of cardiac radiofrequency ablation (2012) History of cholecystectomy (1980) History of colonoscopy with polypectomy History of lithotripsy Family History Family History Sibling Family history of arthritis Father Alcoholism Malignant neoplasm of prostate Grandparent Diabetes mellitus Mother Cancer Other Family history of chronic obstructive pulmonary disease Family history of lung cancer Family history of malignant neoplasm of bone Social History Social History Social History: Surrogate decision maker: Iris Mayberrykermann, spouse. Code status: Do not resuscitate. Smoking packs per day: 2 Smoking cigarettes per day: 40.0 Years smoked: 20 Smoking pack-years: 40.00 Smoking status: Former smoker Tobacco type: cigarettes Second hand tobacco smoke exposure: No Smoking end date: 06/24/84 Alcohol intake: never Drinks per week: 2 Alcohol use details: Occasional alcohol use in moderation. Substance use: never Substance use type: does not use Additional living arrangements comments: Patient lives with his in [place]. Additional occupation/education comments: Retired from working
[2021-03-18 12:16] LABS: Glucose Point of Care 243 mg/dl (65-105)
[2021-03-18] MEDS: INSULIN ASPART (*BKC) 100 UNITS/ML SUB-Q (12:40)
--- NOTE | 2021-03-18 16:27 | PM.DS ---
DS: Admitting Diagnosis Discharge Date 03/18/2021 Admitting Diagnosis Syncope DS: Discharge Diagnosis Discharge Diagnosis (1) Syncope: Qualifiers: Syncope type: unspecified Qualified Code(s): R55 - Syncope and collapse Code(s): R55 - Syncope and collapse Status: Acute Assessment and Plan: CXR with no acute process CT of head showed old infarcts of cerebellum, right basal ganglia, right internal capsule and rightt halamus; chronic small vessel ischemic disease Cardiology has been consulted. Low-dose Coreg on hold, will await further recommendations from Cardiology ECHO--> 65-70%. 5. There is mildly increased left ventricular wall thickness. 6. Left atrial chamber dimension is severely enlarged. 7. Right atrial chamber dimension is moderately enlarged. 8. There is mild to moderate aortic valve stenosis Neurology was consulted, recommendations apprecaited Recent MRI on the of this month MRI pending (2) Atrial fibrillation: Qualifiers: Atrial fibrillation type: unspecified Qualified Code(s): I48.91 - Unspecified atrial fibrillation Code(s): I48.91 - Unspecified atrial fibrillation Status: Acute Assessment and Plan: BB on hold due to syncope Rate controlled Continue Xarelto Tele monitoring (3) Confusion: Code(s): R41.0 - Disorientation, unspecified Status: Acute Assessment and Plan: Plan as above (4) SERENA (obstructive sleep apnea): Code(s): G47.33 - Obstructive sleep apnea (adult) (pediatric) Status: Acute Assessment and Plan: Auto titrating CPAP has been ordered (5) Type 2 diabetes mellitus with hyperglycemia: Qualifiers: Diabetes mellitus intermediate insulin use: with intermediate use Qualified Code(s): E11.65 - Type 2 diabetes mellitus with hyperglycemia; 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 HS and hypoglycemia protocol Continue long-acting insulin Monitor (6) Orthostatic hypotension: Code(s): I95.1 - Orthostatic hypotension Status: Acute Assessment and Plan: Maintain adequate fluid intake Use cane or walker Stand up slowly from sitting and lying positions DS: Summary Hospital Course Hospital Course: 75-year-old male with past medical hypertension, hyperlipidemia, diabetes, atrial fibrillation, chronic kidney disease, short-term memory loss and obstructive sleep apnea presented to the ER from home via EMS due to fall followed by syncope. The patient was standing up in became weak. His knee fold in under him. EMS was called for lift assist when the patient sat up he became unresponsive. They could not feel a radial pulse at the time. Once the patient was placed supine he became alert. The patient's reports that the patient has been having increasing episodes of confusion at night. He will often think that he is somewhere else. After he was admitted to the IMU the patient stood up and walked out into the trent and stated he needed to go somewhere. He was confused and adamant that he needed his pants to leave. He was alert oriented x3 but did admit that he was confused. He tells me that he is at 1 point was actually convinced that he drove here in his 1959 GTO that he is not owned in many years. The patient's denies patient actually having a diagnosis of dementia. The patient thinks that because he is having these episodes that he is having strokes. I tried to explain the to the patient that he was probably having memory issues in that aches suspected he had dementia. The patient had been admitted on and had an MRI of his brain on the the demonstrated no acute process. He did have evidence of prior strokes. Patient's reports that the patient has had some intermittent slurred speech s
[2021-03-18 17:04] LABS: Glucose Point of Care 237 mg/dl (65-105)
== END 2021-03-18 17:10 | disposition home or self-care (01) | DRG 312 ==
LOC: ANHED 15:55 → ANHIMU 16:47
PROVIDERS: Internal Medicine; Admitting Provider Internal Medicine; Emergency Provider Emergency Medicine; PCP Family Medicine; Visit Provider Nurse Practitioner Adult Health
DX: I95.1 Orthostatic hypotension (principal); I48.19 Other persistent atrial fibrillation; Z68.42 Body mass index [BMI] 45.0-49.9, adult; N18.4 Chronic kidney disease, stage 4 (severe); F03.90 Unspecified dementia, unspecified severity, without behavioral disturbance, psychotic disturbance, mood disturbance, and anxiety; I12.9 Hypertensive chronic kidney disease with stage 1 through stage 4 chronic kidney disease, or unspecified chronic kidney disease; I69.393 Ataxia following cerebral infarction; E11.22 Type 2 diabetes mellitus with diabetic chronic kidney disease; I44.7 Left bundle-branch block, unspecified; G47.33 Obstructive sleep apnea (adult) (pediatric); E11.65 Type 2 diabetes mellitus with hyperglycemia; E78.5 Hyperlipidemia, unspecified; E03.9 Hypothyroidism, unspecified; E66.01 Morbid (severe) obesity due to excess calories; Z79.4 Long term (current) use of insulin; Z85.46 Personal history of malignant neoplasm of prostate; Z95.2 Presence of prosthetic heart valve; Z90.49 Acquired absence of other specified parts of digestive tract; Z87.891 Personal history of nicotine dependence; Z79.01 Long term (current) use of anticoagulants
CPT/HCPCS: 36415; 36600; 70450; 71045; 80048; 80053; 81001; 82375; 82805; 82948; 83050; 83880; 84484; 85025; 85027; 85610; 85730; 93005; 96374; 97161; 97165; 99285; A9270; C8929; G0378; J0360; J1815; Q9957

== ENCOUNTER 2021-05-07 15:37 | Outpatient (CLI) | payer MEDICARE, BC, SELFPAY ==
[2021-05-07 17:20] LABS: Basophils Absolute Auto 0.1 K/mm3 (0.0-0.1); Basophils Percent Auto 1.4 % (0.2-1.2); Eosinophils Absolute Auto 0.9 K/mm3 (0-0.3); Eosinophils Percent Auto 10.3 % (0-4.4); Hematocrit 41.1 % (42.0-52.0); Hemoglobin 12.8 g/dL (14.0-18.0); Immature Granulocyte Absolute 0.02 K/mm3 (0.00-0.031); Immature Granulocyte Percent A 0.2 % (0-0.5); Lymphocytes Percent Auto 14.1 % (18.3-44.2); Mean Corpuscular HGB Conc 31.1 g/dl (32-36); Mean Corpuscular Hemoglobin 29.5 pg (26-34); Mean Corpuscular Volume 94.7 fl (80-100); Mean Platelet Volume 10.6 fl (7.4-10.4); Monocytes Absolute Auto 0.7 K/mm3 (0.1-0.6); Monocytes Percent Auto 8.7 % (2.6-8.5); Neutrophils Absolute Auto 5.6 K/mm3 (1.3-6.7); Neutrophils Percent Auto 65.3 % (45.5-73.1); Platelet Count Result 186 k/mm3 (150-375); Red Blood Count 4.34 M/mm3 (4.6-6.20); Red Cell Distribution Width 15.1 % (11.5-14.5); White Blood Count 8.5 K/mm3 (4.5-10.0)
== END 2021-05-07 15:38 | disposition home or self-care (01) ==
LOC: ANHLAB 15:40
PROVIDERS: PCP Family Medicine; Visit Provider Physician Assistant
DX: R31.0 Gross hematuria (principal)
CPT/HCPCS: 36415; 85025

== ENCOUNTER 2021-05-08 10:45 | Outpatient (CLI) | payer MEDICARE, BC, SELFPAY ==
[2021-05-08 11:19] LABS: Add Urine Microscopic? YES; Appearance Urine Clear (Clear); Bilirubin Urine Negative (Negative); Blood Urine 2+ (Negative); Color Urine Straw (Yellow); Glucose Urine UA Negative (Negative); Ketones Urine Negative (Negative); Leukocyte Esterase Ur Trace LEU/UL (Negative); Nitrate Urine Negative (Negative); Protein Urine 3+ mg/dL (Negative); RBC Urine >75 /hpf (0-2); Specific Grav Ur 1.011 (1.001-1.035); Squamous Epithelial Cell Urine Rare /hpf (Few); Urobilinogen Urine Negative mg/dL (<2.0); WBC Urine 31-50 /hpf
== END 2021-05-08 10:46 | disposition home or self-care (01) ==
PROVIDERS: PCP Family Medicine; Visit Provider Physician Assistant
DX: R31.0 Gross hematuria (principal)
CPT/HCPCS: 81001; 87086; 87088

== ENCOUNTER 2021-05-10 13:53 | Outpatient (CLI) | payer MEDICARE, BC, SELFPAY ==
--- NOTE | ~2021-05-10 | CT_ITS ---
EXAMINATION: CT abdomen pelvis wo con DATE: 05/10/2021 14:24 INDICATION: Gross hematuria TECHNIQUE: Computed tomography (CT) of the abdomen and pelvis was performed without intravenous contr ast. The dose-length product (DLP) was 2275.67 mGy-cm. Automated exposure control and iterative recon struction technique were employed. COMPARISON: 04/04/2016 FINDINGS: There are patchy airspace opacities of the visualized lung bases. The heart size is normal. Median sternotomy wires are consistent with prior cardiac surgery. There is an epigastric hernia con taining portions of the transverse colon, stomach, and small bowel. Punctate calcifications in an oth erwise normal spleen likely represent healed granulomatous disease. The gallbladder is surgically abs ent. The liver, pancreas, and adrenal glands are normal. There is mild atrophy of the kidneys. A 1.3 cm cyst is noted in the right kidney. No stones are identified in the kidneys or ureters. There is a chronic 7 mm stone in the urinary bladder. There is no hydronephrosis or hydroureter. No pathological ly enlarged abdominal or pelvic lymph nodes are identified. There is no free intraperitoneal gas or e vidence of bowel obstruction. There is calcified atherosclerosis of the aorta and many of the other a rteries. There is severe lumbar spondylosis. IMPRESSION: 1. Chronic 7 mm bladder stone. 2. Large epigastric hernia containing portions of the transverse colon, stomach, and small bowel. Reviewed, dictated and finalized at location F. TUTOR IMPRESSION: 1. Chronic 7 mm bladder stone. 2. Large epigastric hernia containing portions of the transverse colon, stomach , and small bowel.
== END 2021-05-10 13:54 | disposition home or self-care (01) ==
LOC: ANHIMG 13:57
PROVIDERS: PCP Family Medicine; Visit Provider Physician Assistant
DX: R31.0 Gross hematuria (principal); N21.0 Calculus in bladder; K43.9 Ventral hernia without obstruction or gangrene
CPT/HCPCS: 74176

== ENCOUNTER 2021-08-08 23:44 | Emergency (ER) | payer MEDICARE, BC, SELFPAY ==
--- NOTE | ~2021-08-08 | CT_ITS ---
EXAMINATION: CT brain wo con DATE: 08/09/2021 01:36 INDICATION: Head injury. TECHNIQUE: Computed tomography (CT) of the head was performed without intravenous contrast. The mA wa s adjusted according to patient size. Iterative reconstruction technique was employed. The dose-lengt h product was 756.67 mGy-cm. COMPARISON: Head CT 03/15/2021 FINDINGS: There are old infarcts in the cerebellum bilaterally. There are old infarcts involving the right basal ganglia, right internal capsule, and right thalamus. There are scattered areas of low att enuation in the cerebral white matter. There is no intracranial hemorrhage, acute infarction, or abno rmal intracranial mass lesion. There is mild ex vacuo dilatation of body of right lateral ventricle. There is a left frontal scalp hematoma. There is mild mucosal thickening in the ethmoid sinuses. The orbits are normal. The mastoid air cells are normal. IMPRESSION: 1. Old infarcts involving the cerebellum, right basal ganglia, right internal capsule, and right thal amus. 2. Stable moderate nonspecific cerebral white matter disease, which likely represents chronic small v essel ischemic disease. Reviewed, dictated and finalized at location A. IMPRESSION: 1. Old infarcts involving the cerebellum, right basal ganglia, right internal c apsule, and right thalamus. 2. Stable moderate nonspecific cerebral white matter disease, which likely repr esents chronic small vessel ischemic disease.
--- NOTE | ~2021-08-08 | CT_ITS ---
EXAMINATION: CT brain wo con DATE: 08/09/2021 06:57 INDICATION: Head injury. TECHNIQUE: Computed tomography (CT) of the head was performed without intravenous contrast. The mA wa s adjusted according to patient size. Iterative reconstruction technique was employed. The dose-lengt h product was 681.00 mGy-cm. COMPARISON: Head CT at 1:39 AM FINDINGS: There are old infarcts in the cerebellum bilaterally. There are old infarcts in the right t halamus, right basal ganglia, and right internal capsule. There are scattered areas of low attenuatio n in the cerebral white matter. There is no intracranial hemorrhage, acute infarction, or abnormal in tracranial mass lesion. There is mild ex vacuo dilatation of body of right lateral ventricle. There i s a left frontal scalp hematoma. The orbits are normal. There is mild mucosal thickening in the paran felix sinuses. There is a trace right mastoid effusion. IMPRESSION: 1. Old infarcts involving the cerebellum, right basal ganglia, right internal capsule, and right thal amus. 2. Stable moderate nonspecific cerebral white matter disease, which likely represents chronic small v essel ischemic disease. Reviewed, dictated and finalized at location A. IMPRESSION: 1. Old infarcts involving the cerebellum, right basal ganglia, right internal c apsule, and right thalamus. 2. Stable moderate nonspecific cerebral white matter disease, which likely repr esents chronic small vessel ischemic disease.
--- NOTE | ~2021-08-08 | CT_ITS ---
EXAMINATION: CT cervical spine wo con DATE: 08/09/2021 01:37 INDICATION: Neck pain. Head injury. TECHNIQUE: Computed tomography (CT) of the cervical spine was performed without intravenous contrast. Automated exposure control and iterative reconstruction technique were employed. The dose-length pro duct was 645.30 mGy-cm. COMPARISON: None FINDINGS: There is 6 degrees levocurvature of cervical spine. Vertebral body heights are normal. Ther e is mildly decreased disc height at C4-C5 and moderately decreased disc height at C5-C6 and C6-C7. T he following disc levels are specifically discussed: C2-C3: There is mild right and moderate left uncovertebral joint osteoarthritis. There is severe righ t and moderate left facet joint osteoarthritis. There is mild left neural foraminal stenosis. There i s no central canal stenosis. C3-C4: There is mild bilateral uncovertebral joint osteoarthritis. There is severe right and mild lef t facet joint osteoarthritis. There is mild right neural foraminal stenosis. There is mild central ca nal stenosis. C4-C5: There is mild bilateral uncovertebral joint osteoarthritis. There is severe right and mild lef t facet joint osteoarthritis. There is mild bilateral neural foraminal stenosis. There is mild centra l canal stenosis. C5-C6: There is severe right and mild left uncovertebral joint osteoarthritis. There is mild right fa cet joint osteoarthritis. There is mild right neural foraminal stenosis. There is mild central canal stenosis. C6-C7: There is moderate right and mild left uncovertebral joint osteoarthritis. There is moderate ri ght and mild left facet joint osteoarthritis. There is no neural foraminal stenosis. There is mild ce ntral canal stenosis. C7-T1: There is no uncovertebral joint osteoarthritis. There is mild bilateral facet joint osteoarthr itis. There is no neural foraminal stenosis. There is no central canal stenosis. IMPRESSION: 1. No fracture. 2. Moderate cervical spondylosis. Reviewed, dictated and finalized at location A.
[2021-08-08 23:46] VITALS: BP 146/84; PULSE 77; RESP 12; TEMP 36.6; O2SAT 95
--- NOTE | 2021-08-09 01:03 | ED.FALL ---
HPI - Fall General Chief Complaint: Fall <WIN Castaneda Last Filed: 08/09/21 02:41> Stated Complaint: GLF HEMATOMA - DRIVEWAY CONCRETE <WIN Castaneda Last Filed: 08/09/21 02:41> Time Seen by Provider: 08/09/21 00:14 <WIN Castaneda Last Filed: 08/09/21 02:41> Source: patient, family and EMS <WIN Castaneda Last Filed: 08/09/21 02:41> Mode of arrival: EMS <WIN Castaneda Last Filed: 08/09/21 02:41> Limitations: dementia <WIN Castaneda Last Filed: 08/09/21 02:41> History of Present Illness HPI Narrative: This is a 75 year old male that presents to the ER after a ground level fall today with head injury. Reports he tripped and fell forward and hit his head on the concrete. Reports swelling and pain to the forehead. Also reports neck pain. Denies prodromal symptoms, loss of consciousness, vision changes, vomiting, numbness or weakness. <WIN Castaneda Last Filed: 08/09/21 02:41> Related Data Home Medications: Home Medications Medication Instructions Recorded Confirmed rivaroxaban 20 mg tablet (Xarelto) 20 mg PO DAILY 03/10/21 07/16/21 cyclobenzaprine 10 mg tablet 10 mg PO TID PRN Muscle Spasticity 03/15/21 07/16/21 insulin aspart U-100 100 unit/mL See Rx Instructions .Route .COMPLEX 03/15/21 07/16/21 (3 mL) subcutaneous pen (Novolog Flexpen U-100 Insulin aspart) insulin degludec 200 unit/mL (3 48 unit subcut HS 03/28/21 07/16/21 mL) subcutaneous pen (Tresiba FlexTouch U-200 insulin) gabapentin 600 mg tablet 600 mg PO BID 05/01/21 07/16/21 galantamine 8 mg 24 hr 16 mg PO DAILY 05/01/21 07/16/21 capsule,extended release tamsulosin 0.4 mg capsule 0.8 mg PO DAILY 05/01/21 07/16/21 <Vicenta Wagoner PA-C - Last Filed: 08/09/21 02:41> Allergies/Adverse Reactions: Allergies Allergy/AdvReac Type Severity Reaction Status Date / Time morphine Allergy Intermediate Confusion Verified 07/16/21 13:03 <WIN Castaneda Last Filed: 08/09/21 02:41> Review of Systems Review of Systems: CONSTITUTIONAL: Denies fever EYES: Denies visual changes CARDIOVASCULAR: Denies chest pain RESPIRATORY: Denies dyspnea. GASTROINTESTINAL: Denies vomiting MUSCULOSKELETAL: Denies back pain NEUROLOGIC: Reports headache. Denies numbness, or weakness. <WIN Castaneda Last Filed: 08/09/21 02:41> All systems reviewed & are unremarkable except as noted in HPI and below <Vicenta Wagoner PA-C - Last Filed: 08/09/21 02:41> [facility] Past Medical History Medical History: Medical History Chronic bilateral low back pain with sciatica Chronic kidney disease, stage 3 unspecified History of bleeding ulcers (~2014) History of stress test Hyperlipidemia Hypothyroidism Insulin dependent type 2 diabetes mellitus Obstructive sleep apnea treated with BiPAP Persistent atrial fibrillation Status post ablation in 2012. He has remained in AFib since February 2020 no pursuing a rate control strategy. Prostate cancer Status post radiation therapy. Short-term memory loss Valvular heart disease Status post bioprosthetic aortic valve replacement. <Vicenta Wagoner PA-C - Last Filed: 08/09/21 02:41> Surgical History Surgical History: Surgical History History of aortic valve replacement (2012) History of appendectomy History of cardiac radiofrequency ablation (2012) History of cholecystectomy (1980) History of colonoscopy with polypectomy History of lithotripsy <WIN Castaneda Last Filed: 08/09/21 02:41> Family History Family History: Family History Sibling Family history of arthritis Father Alcoholism Malignant neoplasm of prostate Grandparent Diabetes mellitus Mother Cancer Other Family history of chronic obstructive pulmonary disease
--- NOTE | 2021-08-09 01:19 | PC.NURSE ---
C collar placed per NEPTALI from EMERITA Wagoner
[2021-08-09 01:40] VITALS: BP 138/86
[2021-08-09] MEDS: levETIRAcetam 500MG/NACL 100ML 500 MG/100 ML BAG 400 MG IVPB (01:51)
--- NOTE | 2021-08-09 02:05 | PC.NURSE ---
Spoke with Merline from [facility] transfer center who had several questions about the pt. All questions have been answered at this time. Merline's call back number is [phone] and needs a call back with COVID results.
[2021-08-09 02:49] LABS: Alanine Aminotransferase 31 U/L (6-50); Albumin Level 3.1 g/dL (3.5-5.1); Alkaline Phosphatase 98 U/L (38-126); Anion Gap 7 mmol/L (8-16); Aspartate Amino Transferase 36 U/L (17-59); Bilirubin,Total 0.4 mg/dL (0.2-1.3); Blood Urea Nitrogen 44 mg/dL (9-20); Calcium 7.9 mg/dL (8.4-10.2); Carbon Dioxide 23 mmol/L (22-30); Chloride 106 mmol/L (98-107); Estimated CRCL calculation 37 ml/min; Estimated Glomerular Filt Rate 25; Glucose 199 mg/dL (65-110); Potassium 5.2 mmol/L (3.4-5.0); Sodium 136 mmol/L (137-145)
[2021-08-09 02:53] LABS: Basophils Absolute Auto 0.1 K/mm3 (0.0-0.1); Basophils Percent Auto 1.1 % (0.2-1.2); Eosinophils Absolute Auto 0.9 K/mm3 (0-0.3); Hematocrit 37.6 % (42.0-52.0); Hemoglobin 12.3 g/dL (14.0-18.0); Immature Granulocyte Absolute 0.03 K/mm3 (0.00-0.031); Immature Granulocyte Percent A 0.4 % (0-0.5); Lymphocytes Absolute Auto 1.27 K/mm3 (0.9-3.2); Lymphocytes Percent Auto 15.3 % (18.3-44.2); Mean Corpuscular HGB Conc 32.7 g/dl (32-36); Mean Corpuscular Hemoglobin 29.5 pg (26-34); Mean Corpuscular Volume 90.2 fl (80-100); Mean Platelet Volume 10.6 fl (7.4-10.4); Monocytes Absolute Auto 0.8 K/mm3 (0.1-0.6); Monocytes Percent Auto 9.5 % (2.6-8.5); Neutrophils Absolute Auto 5.2 K/mm3 (1.3-6.7); Neutrophils Percent Auto 62.7 % (45.5-73.1); Platelet Count Result 193 k/mm3 (150-375); Red Blood Count 4.17 M/mm3 (4.6-6.20); Red Cell Distribution Width 14.2 % (11.5-14.5); White Blood Count 8.3 K/mm3 (4.5-10.0)
[2021-08-09 02:55] LABS: INR 1.3; Partial Thromboplastin Time 33.1 SECONDS (22.3-36.8); Prothrombin Time 15.5 Seconds (11.1-14.7)
[2021-08-09 02:57] LABS: SARS-CoV-2 RNA PCR Negative
[2021-08-09] MEDS: HUMAN PROTHROMBIN COMPLEX(PCC) 5,000 UNITS in PREMIXIV 0 ML 500 UNITS IV CONT (02:59)
[2021-08-09 04:54] VITALS: BP 168/94; PULSE 69; RESP 17; O2SAT 95
--- NOTE | 2021-08-09 05:01 | PC.NURSE ---
Called Veronika with [facility] transfer center and updated her that the pt is COVID (-)
[2021-08-09 08:22] VITALS: PULSE 72; RESP 9
== END 2021-08-09 09:56 | disposition home or self-care (01) ==
PROVIDERS: Emergency Medicine; Physician Assistant; Emergency Provider Emergency Medicine; PCP Family Medicine
DX: S09.90XA Unspecified injury of head, initial encounter (principal); Z20.822 Contact with and (suspected) exposure to COVID-19; E11.22 Type 2 diabetes mellitus with diabetic chronic kidney disease; N18.30 Chronic kidney disease, stage 3 unspecified; E78.5 Hyperlipidemia, unspecified; E03.9 Hypothyroidism, unspecified; G47.33 Obstructive sleep apnea (adult) (pediatric); I48.21 Permanent atrial fibrillation; Z85.46 Personal history of malignant neoplasm of prostate; Z92.3 Personal history of irradiation; Z95.2 Presence of prosthetic heart valve; Z87.891 Personal history of nicotine dependence; Z79.01 Long term (current) use of anticoagulants; Z79.4 Long term (current) use of insulin; Z79.82 Long term (current) use of aspirin; W01.0XXA Fall on same level from slipping, tripping and stumbling without subsequent striking against object, initial encounter
CPT/HCPCS: 36415; 70450; 72125; 80053; 85025; 85610; 85730; 96365; 96367; 99284; C9803; J0131; J1953; J7168; L0140; U0003; U0005

== ENCOUNTER 2021-09-14 09:31 | Emergency (ER) | payer MEDICARE, BC, SELFPAY ==
[2021-09-14 09:36] VITALS: BP 129/73; PULSE 79; RESP 12; TEMP 36.6; O2SAT 97
--- NOTE | 2021-09-14 09:45 | ED.RECABL ---
HPI - Recheck/Abnormal Lab/Rx General Chief Complaint: Recheck/Abnormal Lab/Rx Stated Complaint: LOW LAB VALUES FROM DRAW YESTERDAY History of Present Illness HPI narrative: Patient is a 75-year-old chronically ill male with extensive past medical history here via EMS from [facility] for evaluation of abnormal labs. Patient states that he had labs drawn yesterday, and while he was eating breakfast this morning he was told that he had to go to the emergency department for evaluation of these labs. Nursing facility did not tell patient or EMS what these abnormal labs were. Patient states he feels at his baseline and is asymptomatic, specifically denies chest pain, shortness of breath, fevers, chills, abdominal pain, nausea, vomiting. Related Data Home Medications Medication Instructions Recorded Confirmed rivaroxaban 20 mg tablet (Xarelto) 20 mg PO DAILY 03/10/21 07/16/21 cyclobenzaprine 10 mg tablet 10 mg PO TID PRN Muscle Spasticity 03/15/21 07/16/21 gabapentin 600 mg tablet 600 mg PO BID 05/01/21 07/16/21 galantamine 8 mg 24 hr 16 mg PO DAILY 05/01/21 07/16/21 capsule,extended release tamsulosin 0.4 mg capsule 0.8 mg PO DAILY 05/01/21 07/16/21 Allergies Allergy/AdvReac Type Severity Reaction Status Date / Time morphine AdvReac Intermediate Confusion Verified 09/14/21 11:04 Review of Systems Review of Systems: Gen: Denies fevers or chills Eyes: Denies eye pain or visual change ENT: Denies congestion Respiratory: Denies shortness of breath or cough CV: Denies chest pain or palpitations GI: Denies abdominal pain nausea, emesis or diarrhea denies burning, urgency, frequency or hematuria Musculoskeletal: Denies back pain or muscle pain Neuro: Denies numbness, tingling, weakness or focal weakness Skin: Denies rash Except as documented, all other systems reviewed and negative [facility] Past Medical History Medical History Chronic bilateral low back pain with sciatica Chronic kidney disease, stage 3 unspecified History of bleeding ulcers (~2014) History of stress test Hyperlipidemia Hypothyroidism Insulin dependent type 2 diabetes mellitus Obstructive sleep apnea treated with BiPAP Persistent atrial fibrillation Status post ablation in 2012. He has remained in AFib since February 2020 no pursuing a rate control strategy. Prostate cancer Status post radiation therapy. Short-term memory loss Valvular heart disease Status post bioprosthetic aortic valve replacement. Surgical History Surgical History History of aortic valve replacement (2012) History of appendectomy History of cardiac radiofrequency ablation (2012) History of cholecystectomy (1980) History of colonoscopy with polypectomy History of lithotripsy Family History Family History Sibling Family history of arthritis Father Alcoholism Malignant neoplasm of prostate Grandparent Diabetes mellitus Mother Cancer Other Family history of chronic obstructive pulmonary disease Family history of lung cancer Family history of malignant neoplasm of bone Social History Social History Social History: Surrogate decision maker: Iris Blackwell, spouse. Code status: Do not resuscitate. Smoking packs per day: 2 Smoking cigarettes per day: 40.0 Years smoked: 20 Smoking pack-years: 40.00 Smoking status: Never smoker Tobacco type: cigarettes Second hand tobacco smoke exposure: No Smoking end date: 06/24/84 Alcohol intake: never Drinks per week: 2 Alcohol use details: Occasional alcohol use in moderation. Substance use: never Substance use type: does not use Additional living arrangements comments: Patient lives with his in [place]. Additional occupation/education comments: Retired from [employer]
[2021-09-14 10:11] LABS: Basophils Absolute Auto 0.1 K/mm3 (0.0-0.1); Basophils Percent Auto 1.1 % (0.2-1.2); Eosinophils Absolute Auto 0.7 K/mm3 (0-0.3); Eosinophils Percent Auto 8.2 % (0-4.4); Hematocrit 35.7 % (42.0-52.0); Hemoglobin 11.2 g/dL (14.0-18.0); Immature Granulocyte Absolute 0.03 K/mm3 (0.00-0.031); Immature Granulocyte Percent A 0.4 % (0-0.5); Lymphocytes Absolute Auto 0.95 K/mm3 (0.9-3.2); Lymphocytes Percent Auto 11.2 % (18.3-44.2); Mean Corpuscular HGB Conc 31.4 g/dl (32-36); Mean Corpuscular Hemoglobin 28.9 pg (26-34); Mean Platelet Volume 10.5 fl (7.4-10.4); Monocytes Absolute Auto 0.8 K/mm3 (0.1-0.6); Monocytes Percent Auto 8.9 % (2.6-8.5); Neutrophils Percent Auto 70.2 % (45.5-73.1); Platelet Count Result 192 k/mm3 (150-375); Red Blood Count 3.88 M/mm3 (4.6-6.20); White Blood Count 8.5 K/mm3 (4.5-10.0)
[2021-09-14 10:21] LABS: Alanine Aminotransferase 26 U/L (6-50); Albumin Level 3.3 g/dL (3.5-5.1); Alkaline Phosphatase 115 U/L (38-126); Anion Gap 3 mmol/L (8-16); Aspartate Amino Transferase 25 U/L (17-59); Bilirubin,Total 0.6 mg/dL (0.2-1.3); Blood Urea Nitrogen 44 mg/dL (9-20); Calcium 8.1 mg/dL (8.4-10.2); Carbon Dioxide 28 mmol/L (22-30); Chloride 105 mmol/L (98-107); Creatine Kinase 252 U/L (55-170); Estimated CRCL calculation 32 ml/min; Estimated Glomerular Filt Rate 21; Glucose 240 mg/dL (65-110); Potassium 4.5 mmol/L (3.4-5.0); Sodium 136 mmol/L (137-145)
[2021-09-14 11:01] VITALS: BP 128/71; PULSE 68; RESP 15; O2SAT 97
[2021-09-14] MEDS: SODIUM CHLORIDE 0.9% IV 1,000 ML 999 ML IV CONT (11:24)
[2021-09-14 13:02] VITALS: BP 142/86; PULSE 61; RESP 15; O2SAT 99
[2021-09-14 14:08] LABS: Anion Gap 4 mmol/L (8-16); Blood Urea Nitrogen 44 mg/dL (9-20); Calcium 7.8 mg/dL (8.4-10.2); Carbon Dioxide 27 mmol/L (22-30); Chloride 107 mmol/L (98-107); Estimated CRCL calculation 34 ml/min; Estimated Glomerular Filt Rate 23; Glucose 145 mg/dL (65-110); Potassium 4.5 mmol/L (3.4-5.0); Sodium 138 mmol/L (137-145)
[2021-09-14 14:22] LABS: Appearance Urine Clear (Clear); Bilirubin Urine Negative (Negative); Blood Urine Trace-lysed (Negative); Color Urine Yellow (Yellow); Glucose Urine UA Trace mg/dL (Negative); Ketones Urine Negative (Negative); Leukocyte Esterase Ur Negative LEU/UL (Negative); Nitrate Urine Negative (Negative); Protein Urine 3+ mg/dL (Negative); Urobilinogen Urine 0.2 mg/dL (<2.0); pH Urine 5.5 (5.0-9.0)
[2021-09-14 14:29] LABS: Mucus Urine Rare /lpf; Renal Epithelial Cells Urine Rare /hpf (None Seen); Squamous Epithelial Cell Urine Rare /hpf (Few)
[2021-09-14 14:41] LABS: Add Urine Microscopic? YES
[2021-09-14 14:46] VITALS: BP 139/88; PULSE 70; RESP 16; O2SAT 97
== END 2021-09-14 14:46 ==
PROVIDERS: Physician Assistant; Emergency Provider Emergency Medicine; PCP Family Medicine
DX: E11.22 Type 2 diabetes mellitus with diabetic chronic kidney disease (principal); N18.30 Chronic kidney disease, stage 3 unspecified; E03.9 Hypothyroidism, unspecified; I48.19 Other persistent atrial fibrillation; F17.210 Nicotine dependence, cigarettes, uncomplicated; E78.5 Hyperlipidemia, unspecified; Z79.899 Other long term (current) drug therapy; Z79.01 Long term (current) use of anticoagulants
CPT/HCPCS: 36415; 80048; 80053; 81001; 82550; 85025; 87086; 96360; 96361; 99283; J7030

== ENCOUNTER 2022-03-12 15:50 | Emergency (ER) | payer MEDICARE, BC, SELFPAY ==
[2022-03-12] VITALS (19 sets, daily range): BP systolic 137–163; BP diastolic 57–72; PULSE 61–78; RESP 10–20; TEMP 36.2–36.3; O2SAT 91–100
--- NOTE | ~2022-03-12 | XR_ITS ---
EXAMINATION: XR chest 2V Exam Date/Time: 03/12/2022 18:00 DEVELOPER DESIGNER HISTORY: cough/ CONGESTION X 2 DAYS, HX AFIB, HX HTN, HX DIABETES Comparison: 03/15/2021, 12/26/2014. RESULT: Lines, tubes, and devices: Sternotomy wires. Superior and inferior wires are fractured but remain in stable position. Lungs and pleura: Ill-defined subsegmental patchy opacities in the bilateral lower lungs, overlying chronic reticular opacities and cuffing. Cardiomediastinal silhouette: Stable. Other: No acute osseous or upper abdominal finding. IMPRESSION: Patchy bilateral lower lobe airspace disease may reflect edema or pneumonia. Reviewed, dictated and finalized at location K. LOPER DESIGNER
[2022-03-12 18:46] LABS: Add Urine Microscopic? YES; Appearance Urine Slightly Cloudy (Clear); Bilirubin Urine Negative (Negative); Blood Urine 1+ (Negative); Color Urine Light Yellow (Yellow); Glucose Urine UA Trace mg/dL (Negative); Ketones Urine Negative (Negative); Leukocyte Esterase Ur Negative LEU/UL (Negative); Nitrate Urine Negative (Negative); Protein Urine 3+ mg/dL (Negative); Specific Grav Ur 1.025 (1.001-1.035); Urobilinogen Urine 0.2 mg/dL (<2.0)
[2022-03-12 19:10] LABS: Bacteria Urine Trace /hpf; Mucus Urine Rare /lpf; RBC Urine 0-2 /hpf (0-2); Squamous Epithelial Cell Urine Rare /hpf (Few); WBC Urine 0-3 /hpf
[2022-03-12 21:01] LABS: Basophils Absolute Auto 0.1 K/mm3 (0.0-0.1); Basophils Percent Auto 0.6 % (0.2-1.2); Eosinophils Absolute Auto 0.5 K/mm3 (0-0.3); Eosinophils Percent Auto 5.5 % (0-4.4); Hematocrit 36.2 % (42.0-52.0); Hemoglobin 11.1 g/dL (14.0-18.0); Immature Granulocyte Absolute 0.03 K/mm3 (0.00-0.031); Immature Granulocyte Percent A 0.3 % (0-0.5); Lymphocytes Absolute Auto 0.64 K/mm3 (0.9-3.2); Lymphocytes Percent Auto 6.6 % (18.3-44.2); Mean Corpuscular HGB Conc 30.7 g/dl (32-36); Mean Corpuscular Hemoglobin 28.8 pg (26-34); Mean Platelet Volume 9.8 fl (7.4-10.4); Monocytes Percent Auto 10.5 % (2.6-8.5); Neutrophils Absolute Auto 7.4 K/mm3 (1.3-6.7); Neutrophils Percent Auto 76.5 % (45.5-73.1); Platelet Count Result 164 k/mm3 (150-375); Red Blood Count 3.85 M/mm3 (4.6-6.20); Red Cell Distribution Width 15.4 % (11.5-14.5); White Blood Count 9.7 K/mm3 (4.5-10.0)
[2022-03-12 21:14] LABS: Alanine Aminotransferase 33 U/L (6-50); Alkaline Phosphatase 98 U/L (38-126); Anion Gap 5 mmol/L (8-16); Aspartate Amino Transferase 33 U/L (17-59); Bilirubin,Total 0.4 mg/dL (0.2-1.3); Blood Urea Nitrogen 48 mg/dL (9-20); Calcium 7.9 mg/dL (8.4-10.2); Carbon Dioxide 27 mmol/L (22-30); Chloride 105 mmol/L (98-107); Estimated CRCL calculation 24 ml/min; Estimated Glomerular Filt Rate 15; Glucose 144 mg/dL (65-110); Potassium 4.7 mmol/L (3.4-5.0); Sodium 137 mmol/L (137-145)
[2022-03-12] MEDS: IPRATROPIUM BR 0.02% INH SOLN 0.5 MG/2.5 ML VIAL 1 MG INHALATION (21:56)
[2022-03-12] MEDS: ALBUTEROL SULFATE NEB 2.5 MG/3 ML INH 15 MG INHALATION (21:56)
[2022-03-12] MEDS: methylPREDNISolone SOD SUCC 125 MG VIAL IV PUSH (21:57)
[2022-03-12 22:16] LABS: Influenza A QL RT-PCR Negative (Negative); Influenza B QL RT-PCR Negative (Negative); RSV RNA, RT-PCR Negative (Negative); SARS-CoV-2 RNA PCR Negative
--- NOTE | 2022-03-12 22:25 | ED.GENADULT ---
HPI - General Adult General Chief complaint: Unspecified Stated complaint: MULTIPLE C/O Time Seen by Provider: 03/12/22 20:47 History of Present Illness HPI narrative: Patient presents here with multiple complaints, including swelling and redness to his left leg for the last few days, cough and some difficulty breathing also for the last few days. Also feels like his urine has been somewhat dark. Related Data Home Medications Medication Instructions Recorded Confirmed rivaroxaban 20 mg tablet (Xarelto) 20 mg PO DAILY 03/10/21 07/16/21 cyclobenzaprine 10 mg tablet 10 mg PO TID PRN Muscle Spasticity 03/15/21 07/16/21 gabapentin 600 mg tablet 600 mg PO BID 05/01/21 07/16/21 galantamine 8 mg 24 hr 16 mg PO DAILY 05/01/21 07/16/21 capsule,extended release tamsulosin 0.4 mg capsule 0.8 mg PO DAILY 05/01/21 07/16/21 Allergies Allergy/AdvReac Type Severity Reaction Status Date / Time morphine AdvReac Intermediate Confusion Verified 09/14/21 11:04 Review of Systems Review of Systems: CONST: No fever. HEENT: Congestion C/V: No chest pain RESP: Cough GI: No abdominal pain : Dark urine without dysuria. M/S: Left lower extremity redness, swelling, pain SKIN: As above NEURO: [No headache or focal numbness or weakness] PSYCH: [No depression] [facility] Past Medical History Medical History Chronic bilateral low back pain with sciatica Chronic kidney disease, stage 3 unspecified History of bleeding ulcers (~2014) History of stress test Hyperlipidemia Hypothyroidism Insulin dependent type 2 diabetes mellitus Obstructive sleep apnea treated with BiPAP Persistent atrial fibrillation Status post ablation in 2012. He has remained in AFib since February 2020 no pursuing a rate control strategy. Prostate cancer Status post radiation therapy. Short-term memory loss Valvular heart disease Status post bioprosthetic aortic valve replacement. Surgical History Surgical History History of aortic valve replacement (2012) History of appendectomy History of cardiac radiofrequency ablation (2012) History of cholecystectomy (1980) History of colonoscopy with polypectomy History of lithotripsy Family History Family History Sibling Family history of arthritis Father Alcoholism Malignant neoplasm of prostate Grandparent Diabetes mellitus Mother Cancer Other Family history of chronic obstructive pulmonary disease Family history of lung cancer Family history of malignant neoplasm of bone Social History Social History Social History: Surrogate decision maker: Iris Blackwell, spouse. Code status: Do not resuscitate. Smoking packs per day: 2 Smoking cigarettes per day: 40.0 Years smoked: 20 Smoking pack-years: 40.00 Smoking status: Never smoker Tobacco type: cigarettes Second hand tobacco smoke exposure: No Smoking end date: 06/24/84 Alcohol intake: never Drinks per week: 2 Alcohol use details: Occasional alcohol use in moderation. Substance use: never Substance use type: does not use Additional living arrangements comments: Patient lives with his in [place]. 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 Spiritual care concerns: No Exam Narrative: EXAMINATION OF ORGAN SYSTEMS/BODY AREAS: Constitutional: Vital signs per nursing GENERAL:[No acute distress, non-toxic appearing.] HEAD: Normal with no signs of head trauma. EYES: EOMI, conjunctiva normal ENT: Poor hearing LUNGS: Wheezing all lung mueller HEART: [Regular rate and rhythm] ABD: [Soft], [nontender to palpation] EXT: Some induration and redness to the left lower extremity and tenderness. No severe/excruciating pain nor signs of eschar SKIN: Described above NEUR
[2022-03-12 22:40] LABS: Lactic Acid Reflex 1.2 mmol/L (0.7-2.0)
[2022-03-12] MEDS: CLINDAMYCIN 450 MG in DEXTROSE 5% IN WATER 50 ML 106 MG IVPB (22:42)
== END 2022-03-13 00:24 | disposition home or self-care (01) ==
PROVIDERS: Emergency Medicine; Emergency Provider Emergency Medicine; PCP Nurse Practitioner Family
DX: L03.116 Cellulitis of left lower limb (principal); J20.9 Acute bronchitis, unspecified; Z20.822 Contact with and (suspected) exposure to COVID-19; E11.22 Type 2 diabetes mellitus with diabetic chronic kidney disease; N18.30 Chronic kidney disease, stage 3 unspecified; E78.5 Hyperlipidemia, unspecified; E03.9 Hypothyroidism, unspecified; I48.19 Other persistent atrial fibrillation; I38 Endocarditis, valve unspecified; G47.33 Obstructive sleep apnea (adult) (pediatric); Z95.2 Presence of prosthetic heart valve; Z85.46 Personal history of malignant neoplasm of prostate; Z87.891 Personal history of nicotine dependence; Z79.82 Long term (current) use of aspirin; Z79.01 Long term (current) use of anticoagulants; Z79.85 Long-term (current) use of injectable non-insulin antidiabetic drugs; Z79.4 Long term (current) use of insulin
CPT/HCPCS: 36415; 71046; 80053; 81001; 83605; 85025; 87040; 87637; 94640; 96365; 96375; 99284; J2930

== ENCOUNTER 2022-03-25 17:59 | Inpatient (IN) | payer MEDICARE, BC, SELFPAY ==
[2022-03-25] VITALS (11 sets, daily range): BP systolic 141–173; BP diastolic 68–86; PULSE 48–63; RESP 9–20; TEMP 36.4–36.8; O2SAT 96–100; BMI 47.3
--- NOTE | ~2022-03-25 | US_ITS ---
EXAMINATION: US renal BI DATE: 03/26/2022 13:39 INDICATION: Acute on chronic renal insufficiency TECHNIQUE: Multiple ultrasound grayscale images of the kidneys were obtained. COMPARISON: None. FINDINGS: The right kidney measures 10.2 x 5.7 x 5.1 cm. The left kidney is unable to be visualized and there i s normal right renal cortical echogenicity. There are couple small anechoic right renal cysts measuri ng up to 1.5 cm. There is mild to moderate hydronephrosis at the right kidney. No stones identified. The bladder is is not visualized. IMPRESSION: 1. Mild to moderate right hydronephrosis. 2. Left kidney and bladder were unable to be visualized. Reviewed, dictated and finalized at location A. H UP PAINTER HAND
--- NOTE | ~2022-03-25 | CT_ITS ---
EXAMINATION: CT abdomen pelvis wo con DATE: 03/28/2022 13:14 INDICATION: Hydronephrosis. TECHNIQUE: Computed tomography (CT) of the abdomen and pelvis was performed without intravenous contr ast. Automated exposure control and iterative reconstruction technique were employed. The dose-length product was 2390.03 mGy-cm. COMPARISON: CT abdomen and pelvis 05/10/2021 FINDINGS: The visualized portions of the lung bases demonstrate mild atelectasis. No pleural effusion . The heart size is normal. There are coronary artery calcifications. No pericardial effusion. The li haresh is normal. Calcifications in the spleen are consistent with old granulomatous disease. There are changes of cholecystectomy. The pancreas, adrenal glands, and left kidney are normal. There is mild r ight hydronephrosis and hydroureter. There is a 6 mm stone in distal right ureter. The bladder is dec ompressed by a Tabares catheter. There are brachytherapy seeds in the prostate. There are no dilated lo ops of bowel. The appendix is not visualized. There is a supraumbilical ventral hernia containing non obstructed bowel and stomach. There are no pathologically enlarged lymph nodes. There is no free intr aperitoneal fluid. There is moderate lumbar spondylosis. There are bridging endplate osteophytes at m ultiple levels in the thoracic spine, consistent with diffuse idiopathic skeletal hyperostosis (DISH) . IMPRESSION: 1. 6 mm stone in distal right ureter with mild right hydronephrosis and hydroureter. 2. Supraumbilical ventral hernia containing nonobstructed bowel and stomach. Reviewed, dictated and finalized at location A. KE COORDINATOR IMPRESSION: 1. 6 mm stone in distal right ureter with mild right hydronephrosis and hydrour eter. 2. Supraumbilical ventral hernia containing nonobstructed bowel and stomach.
--- NOTE | ~2022-03-25 | XR_ITS ---
EXAMINATION: XR chest 1V portable DATE: 03/29/2022 23:34 INDICATION: Shortness of breath TECHNIQUE: frontal view of the chest was obtained. COMPARISON: Chest radiograph dated 12/26/2014 FINDINGS: Mild perihilar increased interstitial pattern suggesting mild pulmonary edema. No other airspace opac ities, pleural effusion or pneumothorax. Heart size is normal. Median sternotomy wires. There are gracy dging osteophytes at multiple levels in the spine, consistent with diffuse idiopathic skeletal hypero stosis (DISH). Cholecystectomy clips in right upper quadrant. IMPRESSION: 1. Mild increased perihilar interstitial pattern suggesting mild pulmonary edema. Reviewed, dictated and finalized at location A. ICATIONS ANALYST IMPRESSION: 1. Mild increased perihilar interstitial pattern suggesting mild pulmonary jayce aRegis
--- NOTE | ~2022-03-25 | XR_ITS ---
EXAMINATION: XR chest 1V portable Exam Date/Time: 03/25/2022 18:36 HIGH CLIMBER HISTORY: syncope Comparison: 03/12/2022. RESULT: Lines, tubes, and devices: Sternotomy wires, multiple fractured, but remain in stable position. Chol ecystectomy clips. Lungs and pleura: Senescent change, otherwise clear. Cardiomediastinal silhouette: Stable. Other: No acute osseous or upper abdominal finding. IMPRESSION: No acute cardiopulmonary process. Reviewed, dictated and finalized at location K. CLIMBER
--- NOTE | ~2022-03-25 | XR_ITS ---
EXAMINATION: XR retrograde pyelo w/stent RT DATE: 03/29/2022 08:55 INDICATION: Obstructing distal right ureteral stone. TECHNIQUE: 103 fluoroscopic images of the abdomen and pelvis were obtained during procedure performed by Dr. Perez. Radiologist was not present for the imaging or procedure. The amount of fluorosco py time used during this procedure was 1.2 minutes. COMPARISON: CT dated 03/28/2022 FINDINGS: Order Department Supervisor image demonstrates brachytherapy seeds at the prostate. There is a linear metallic foreign body in the right anterior pelvic wall as seen on prior CT. The distal right ureteral stone is not visual ized. Subsequent images demonstrate retrograde contrast injections into the right ureter with moderat e hydronephrosis and no evident filling defect in the right ureter. Final images demonstrate placemen t of a right internal ureteral stents in expected position with loops formed in the right renal pelvi s and in the bladder. IMPRESSION: 1. Right internal ureteral stent placement in expected position. Previous seen right ureteral stone i s not visualized, unclear whether this is either passed or been interval, refluxed into the kidney or been extracted. Correlate with procedure note for further detail. Reviewed, dictated and finalized at location A. DEVELOPER IMPRESSION: 1. Right internal ureteral stent placement in expected position. Previous seen right ureteral stone is not visualized, unclear whether this is either passed o r been interval, refluxed into the kidney or been extracted. Correlate with pro cedure note for further detail.
--- NOTE | ~2022-03-25 | CT_ITS ---
EXAMINATION: CT brain wo con DATE: 03/25/2022 19:04 INDICATION: fall . TECHNIQUE: Computed tomography (CT) of the head was performed without intravenous contrast. The mA wa s adjusted according to patient size. Iterative reconstruction technique was employed. The dose-lengt h product was 681.00 mGy-cm. COMPARISON: 08/09/2021. FINDINGS: No acute intracranial hemorrhage or extra-axial fluid collection. No hydrocephalus, mass, or herniation. No acute ischemic infarct. Unremarkable dural venous sinus attenuation. No acute osseous abnormality. Aerated secretions in the bilateral maxillary sinuses, trace right mastoid fluid, the remaining aerat ed spaces are clear. Moderate atrophy and chronic white matter change. Atherosclerotic intracranial calcification. Bilater al cerebellar infarcts and right thalamic and basal ganglia lacunar infarcts. IMPRESSION: No acute intracranial process. Reviewed, dictated and finalized at location K. AULIC ROCKBREAKER OPERATOR
--- NOTE | 2022-03-25 18:06 | ECG_ITS ---
Measurements Intervals [place] Rate: 56 P: HI: 0 QRS: -54 QRSD: 143 T: 79 QT: 461 QTc: 447 Interpretive Statements ATRIAL FIBRILLATION WITH SLOW VENTRICULAR RESPONSE LEFT AXIS DEVIATION LEFT BUNDLE BRANCH BLOCK ABNORMAL ECG COMPARED TO ECG 03/15/2021 11:30:38 NO SIGNIFICANT CHANGES Electronically Signed On 03-26-2022 7:53:20 TRAVELING OPERATOR by Chinmay Costello D.O.
[2022-03-25 18:26] LABS: Basophils Absolute Auto 0.1 K/mm3 (0.0-0.1); Basophils Percent Auto 0.6 % (0.2-1.2); Eosinophils Absolute Auto 0.6 K/mm3 (0-0.3); Eosinophils Percent Auto 5.2 % (0-4.4); Hematocrit 29.7 % (42.0-52.0); Hemoglobin 9.2 g/dL (14.0-18.0); Immature Granulocyte Absolute 0.07 K/mm3 (0.00-0.031); Immature Granulocyte Percent A 0.6 % (0-0.5); Lymphocytes Absolute Auto 1.29 K/mm3 (0.9-3.2); Lymphocytes Percent Auto 11.9 % (18.3-44.2); Mean Corpuscular Hemoglobin 29.3 pg (26-34); Mean Corpuscular Volume 94.6 fl (80-100); Mean Platelet Volume 10.2 fl (7.4-10.4); Monocytes Absolute Auto 1.3 K/mm3 (0.1-0.6); Monocytes Percent Auto 11.8 % (2.6-8.5); Neutrophils Absolute Auto 7.5 K/mm3 (1.3-6.7); Neutrophils Percent Auto 69.9 % (45.5-73.1); Platelet Count Result 141 k/mm3 (150-375); Red Blood Count 3.14 M/mm3 (4.6-6.20); Red Cell Distribution Width 15.3 % (11.5-14.5); White Blood Count 10.8 K/mm3 (4.5-10.0)
--- NOTE | 2022-03-25 18:31 | PC.NURSE ---
Radiology at bedside to obtain CXR.
[2022-03-25 18:37] LABS: Alanine Aminotransferase 27 U/L (6-50); Albumin Level 2.5 g/dL (3.5-5.1); Alkaline Phosphatase 76 U/L (38-126); Anion Gap 3 mmol/L (8-16); Aspartate Amino Transferase 26 U/L (17-59); Bilirubin,Total 0.3 mg/dL (0.2-1.3); Blood Urea Nitrogen 56 mg/dL (9-20); Calcium 7.3 mg/dL (8.4-10.2); Carbon Dioxide 25 mmol/L (22-30); Chloride 112 mmol/L (98-107); Estimated CRCL calculation 28 ml/min; Estimated Glomerular Filt Rate 13; Glucose 100 mg/dL (65-110); INR 1.3; Potassium 5.3 mmol/L (3.4-5.0); Prothrombin Time 16.1 Seconds (11.1-14.7); Sodium 140 mmol/L (137-145)
[2022-03-25 18:38] LABS: Partial Thromboplastin Time 39.3 SECONDS (22.3-36.8)
--- NOTE | 2022-03-25 18:44 | PC.NURSE ---
Dr. Cottrell at bedside to assess pt.
[2022-03-25 18:55] LABS: Troponin I 0.039 ng/mL (0.000-0.034)
--- NOTE | 2022-03-25 18:55 | ED.DIZZY ---
HPI - Dizziness General Chief Complaint: Syncope Stated Complaint: unresponsive on toilet, sycopal episode Time Seen by Provider: 03/25/22 18:33 History of Present Illness HPI Narrative: Patient is a 76-year-old male with a history of COPD, CAD, hyperlipidemia, hypertension, diabetes, hypothyroidism, A. fib on Xarelto presenting with syncope. Patient states that he does not really remember what happened. States that he remembers going to the bathroom. Patient states that she was eating dinner when she heard him call out from the bathroom. When she went to check on him he was unresponsive. States that this lasted for several minutes and then he slowly started to wake up. She called EMS and by the time EMS arrived, patient was alert. Patient states that he has had a productive cough for a few days. Currently, he complains that he feels very tired. States that it feels like he worked all day. He denies headache, fevers, chest pain, abdominal pain, nausea or vomiting, diarrhea, dysuria. Reports chronic leg swelling. States that he has had several days of dark tarry stool. Related Data Home Medications Medication Instructions Recorded Confirmed galantamine 8 mg 24 hr 8 mg PO DAILY 05/01/21 03/25/22 capsule,extended release tamsulosin 0.4 mg capsule 0.4 mg PO DAILY 05/01/21 03/25/22 apixaban 5 mg tablet (Eliquis) 5 mg PO Q12H 03/25/22 03/25/22 atorvastatin 80 mg tablet 80 mg PO HS 03/25/22 03/25/22 calcitriol 0.25 mcg capsule 0.25 mcg PO HS 03/25/22 03/25/22 divalproex 125 mg capsule,delayed 125 mg PO DAILY 03/25/22 03/25/22 release sprinkle gabapentin 100 mg capsule 200 mg PO BID 03/25/22 03/25/22 insulin aspart U-100 100 unit/mL 10 unit subcut DAILY 03/25/22 03/25/22 (3 mL) subcutaneous pen (Novolog FlexPen U-100 Insulin aspart) insulin degludec 200 unit/mL (3 46 unit subcut HS 03/25/22 03/25/22 mL) subcutaneous pen (Tresiba FlexTouch U-200 insulin) memantine 14 mg capsule 14 mg PO DAILY 03/25/22 03/25/22 sprinkle,extended release 24hr Allergies Allergy/AdvReac Type Severity Reaction Status Date / Time morphine AdvReac Intermediate Confusion Verified 03/25/22 18:20 Review of Systems Review of Systems: All systems reviewed & are unremarkable except as noted in HPI and below PMFSH Past Medical History Medical History (Updated 03/27/22 @ 16:34 by Dolores Cottrell MD) Acute blood loss anemia Chronic bilateral low back pain with sciatica Chronic kidney disease, stage 3 unspecified History of bleeding ulcers (~2014) History of stress test Hyperlipidemia Hypothyroidism Insulin dependent type 2 diabetes mellitus Obstructive sleep apnea treated with BiPAP Persistent atrial fibrillation Status post ablation in 2012. He has remained in AFib since February 2020 no pursuing a rate control strategy. Prostate cancer Status post radiation therapy. Short-term memory loss Valvular heart disease Status post bioprosthetic aortic valve replacement. Surgical History Surgical History History of aortic valve replacement (2012) History of appendectomy History of cardiac radiofrequency ablation (2012) History of cholecystectomy (1980) History of colonoscopy with polypectomy History of lithotripsy Family History Family History Sibling Family history of arthritis Father Malignant neoplasm of prostate Alcoholism Grandparent Diabetes mellitus Mother Cancer Other Family history of chronic obstructive pulmonary disease Family history of lung cancer Family history of malignant neoplasm of bone Social History Social History Social History: Surrogate decision maker: Iris Mayberrykermann, spouse. Code status: Do not resuscitate. Smoking packs per day: 2 Smoking cigarettes per day: 40.0 Years smoked: 20 Smoking pack-years: 40.
--- NOTE | 2022-03-25 19:10 | PC.NURSE ---
Assumed care. pt resting per cart in no distress. pt A&Ox2. states pt has hx of dementia. pt denies any pain. states he has had dark stools over past couple of days and just feels weak. requesting order for bi-pap for sleep apnea. dr. patrick aware.
[2022-03-25 19:16] LABS: Magnesium 2.2 mg/dL (1.6-2.3)
[2022-03-25 19:25] LABS: NT Pro B Type Natriuretic Pept 4000 pg/mL (5-100)
[2022-03-25 19:34] LABS: Lactic Acid Reflex 2.1 mmol/L (0.7-2.0)
--- NOTE | 2022-03-25 19:53 | PM.IMHP ---
H&P: HPI History of Present Illness Date/Time: 03/25/22 19:53 Chief Complaint: Syncope Narrative: This is a 76-year-old male with past medical history significant for morbid obesity, chronic kidney disease, insulin-dependent diabetes mellitus, obstructive sleep apnea on BiPAP, persistent atrial fibrillation, status post aortic valve replacement. Patient was just recently discharged from [facility] after he was treated for pneumonia and bradycardia with persistent atrial fibrillation. Patient comes back today after he had an episode of syncope while sitting on the toilet also has had several bowel movements that are melena. Patient is on a blood thinner. Denies any chest pain, shortness of breath, fevers, chills, rigors, cough, sputum production, has bilateral lower extremity swelling. Preliminary workup was significant for chemistry panel showed a creatinine of 4.4 BUN 56, brain natriuretic peptide 4000. A CT of the head was reported as: FINDINGS: No acute intracranial hemorrhage or extra-axial fluid collection. No hydrocephalus, mass, or herniation. No acute ischemic infarct. Unremarkable dural venous sinus attenuation. No acute osseous abnormality. Aerated secretions in the bilateral maxillary sinuses, trace right mastoid fluid, the remaining aerated spaces are clear. Moderate atrophy and chronic white matter change. Atherosclerotic intracranial calcification. Bilateral cerebellar infarcts and right thalamic and basal ganglia lacunar infarcts. IMPRESSION:? No acute intracranial process. Chest x-ray was reported as: IMPRESSION: No acute cardiopulmonary process. Review of Systems Review of Systems: Syncopal episode Constitutional: Constitutional: Denies chills, Denies fever(s), Denies malaise and Denies night sweats Eyes: Eyes: Denies change in vision ENT: Denies dysphagia, Denies vertigo, Denies dizziness, Denies odynophagia and Denies disequilibrium Cardiovascular: Cardiovascular: Denies chest pain, Reports syncope, Reports leg ulcers, Reports leg edema, Denies lightheadedness, Denies palpitations and Denies dyspnea Respiratory: Respiratory: Denies chest congestion, Denies cough, Denies excessive phlegm production, Denies dyspnea and Denies wheezing Gastrointestinal: Gastrointestinal: Denies abdominal pain, Reports melena, Denies dyspepsia, Denies heartburn, Denies nausea and Denies vomiting Genitourinary: Genitourinary: Reports no additional male genitourinary complaints and Reports as per HPI Musculoskeletal: Musculoskeletal: Denies myalgias and Denies muscle weakness Integumentary/Breasts: Skin/Breast: Reports skin ulcer (Left lower extremity) Neurologic: Denies vertigo, Denies dizziness, Denies focal weakness, Denies radicular pain and Denies Sensory deficit (Neuro) Psychiatric: Psychiatric: Reports no additional psychiatric complaints and Reports as per HPI Endocrine: Endocrine: Denies cold intolerance, Denies flushing, Denies heat intolerance, Denies polyphagia, Denies polydipsia and Denies palpitations Hematologic/Lymphatic: Hematologic/Lymphatic: Reports no additional hematologic/lymphatic complaints and Reports as per HPI Allergic/Immunologic: Allergic/Immunologic: Reports no additional allergic/immunologic complaints and Reports as per HPI PMFSH Past Medical History Medical History Chronic bilateral low back pain with sciatica Chronic kidney disease, stage 3 unspecified History of bleeding ulcers (~2014) History of stress test Hyperlipidemia Hypothyroidism Insulin dependent type 2 diabetes mellitus Obstructive sleep apnea treated with BiPAP Persistent atrial fibrillation Status post ablation in 2012. He has remained in AFib since February 2020 no pursuing a rate control strategy. Prostate cancer Status post radiation therapy. Short-term memory loss Valvular heart disease Status post bioprosthetic aortic valve replacement. [employer]
[2022-03-25 19:54] LABS: Influenza A QL RT-PCR Negative (Negative); Influenza B QL RT-PCR Negative (Negative); RSV RNA, RT-PCR Negative (Negative); SARS-CoV-2 RNA PCR Negative
[2022-03-25 22:07] LABS: Troponin I 0.034 ng/mL (0.000-0.034)
[2022-03-25 22:16] LABS: Reflex Lactic Acid Yes or No Add Lactic
--- NOTE | 2022-03-25 22:22 | ADMGEN ---
This patient, Chele Blackwell, was admitted to IMU Room 210-01. Patient/family oriented to hospital policies and general routines including ID bracelet, bed and alarms, visiting hours, pain management, procedures, bathroom and other care routines, personal items, smoking policy, room service/diet, and visiting hours. Information on how to activate the Rapid Response Team has been discussed. Patient/Family are encouraged to report perceived risks to care and to ask questions if they do not understand what they are told or what they should do.
[2022-03-25 23:30] LABS: Glucose Point of Care 135 mg/dl (65-105)
[2022-03-26] VITALS (18 sets, daily range): BP systolic 125–145; BP diastolic 43–78; PULSE 62–87; RESP 16–24; TEMP 36.3–37; O2SAT 96–100
[2022-03-26 00:11] LABS: Lactic Acid 0.9 mmol/L (0.7-2.0)
[2022-03-26] MEDS: calcitrioL 0.25 MCG CAPSULE PO ×2 (00:24→20:52)
[2022-03-26] MEDS: DIVALPROEX SODIUM SPRINKLE 125 MG CAP.DR PO ×3 (00:24→20:53)
[2022-03-26] MEDS: ATORVASTATIN 40 MG TABLET 80 MG PO ×2 (00:24→20:52)
[2022-03-26] MEDS: carvediloL 3.125 MG TABLET BY MOUTH ×3 (00:25→20:53)
[2022-03-26] MEDS: INSULIN GLARGINE (*BKC) 100 UNITS/ML 46 UNITS SUB-Q ×2 (00:25→20:59)
[2022-03-26 00:27] LABS: Troponin I 0.034 ng/mL (0.000-0.034)
[2022-03-26 05:09] LABS: Hematocrit 28.7 % (42.0-52.0); Hemoglobin 8.6 g/dL (14.0-18.0); Mean Corpuscular Hemoglobin 28.6 pg (26-34); Mean Corpuscular Volume 95.3 fl (80-100); Mean Platelet Volume 10.5 fl (7.4-10.4); Platelet Count Result 146 k/mm3 (150-375); Red Blood Count 3.01 M/mm3 (4.6-6.20); Red Cell Distribution Width 15.1 % (11.5-14.5); White Blood Count 13.4 K/mm3 (4.5-10.0)
[2022-03-26 05:31] LABS: Anion Gap 7 mmol/L (8-16); Blood Urea Nitrogen 65 mg/dL (9-20); Calcium 7.4 mg/dL (8.4-10.2); Carbon Dioxide 22 mmol/L (22-30); Chloride 111 mmol/L (98-107); Estimated CRCL calculation 22 ml/min; Estimated Glomerular Filt Rate 14; Glucose 141 mg/dL (65-110); Potassium 5.2 mmol/L (3.4-5.0); Sodium 140 mmol/L (137-145)
[2022-03-26] MEDS: LEVOTHYROXINE SODIUM 75 MCG TABLET BY MOUTH (06:01)
[2022-03-26 07:45] LABS: Glucose Point of Care 133 mg/dl (65-105)
[2022-03-26] MEDS: INSULIN ASPART (*BKC) 100 UNITS/ML 10 UNITS SUB-Q ×3 (08:07→16:46)
[2022-03-26] MEDS: ENOXAPARIN 30 MG/0.3 ML SYRINGE SUB-Q (09:42)
[2022-03-26] MEDS: TAMSULOSIN HCL 0.4 MG CAPSULE PO (09:42)
[2022-03-26] MEDS: GABAPENTIN 100 MG CAPSULE 200 MG PO ×2 (09:42→16:46)
[2022-03-26] MEDS: MEMANTINE HCL XR 7 MG CAP 14 MG PO (09:42)
[2022-03-26 09:59] LABS: IFOB Positive Control Positive; Immunochemical Fecal Occult Bl Positive (N)
--- NOTE | 2022-03-26 11:19 | PM.CNCAR ---
Assessment and Plan Assessment and plan (1) Elevated troponin: Code(s): R77.8 - Other specified abnormalities of plasma proteins Status: Acute Assessment and Plan: Not related acute coronary syndrome. Minimally elevated on 1 occasion and secondary to chronic kidney disease (2) Syncope: Qualifiers: Syncope type: unspecified Qualified Code(s): R55 - Syncope and collapse Code(s): R55 - Syncope and collapse Status: Acute Assessment and Plan: Uncertain if this is vagally mediated as he was on the toilet at the time or secondary to atrial fibrillation with slow ventricular response. Will keep on telemetry for now. (3) Atrial fibrillation: Qualifiers: Atrial fibrillation type: unspecified Qualified Code(s): I48.91 - Unspecified atrial fibrillation Code(s): I48.91 - Unspecified atrial fibrillation Status: Acute Assessment and Plan: Given melena and worsening anemia, will hold anticoagulation temporarily. May be a good candidate for left atrial appendage occluded device (4) Acute on chronic kidney failure: Code(s): N17.9 - Acute kidney failure, unspecified; N18.9 - Chronic kidney disease, unspecified Status: Acute Assessment and Plan: Significant and worse. Nephrology to see (5) Anemia, unspecified: Code(s): D64.9 - Anemia, unspecified Status: Acute Assessment and Plan: Worse (6) Melena: Code(s): K92.1 - Melena Status: Acute Assessment and Plan: Holding anticoagulation for now. GI to see (7) H/O aortic valve replacement: Code(s): Z95.2 - Presence of prosthetic heart valve Status: Acute (8) Syncope: Code(s): R55 - Syncope and collapse Status: Acute Assessment and Plan: As detailed above History of Present Illness History of Present Illness Consult date/time: 03/26/22 11:19 Requesting physician: Valerie Luciano MD Consult reason: Other (Elevated troponin) Reason For Visit: syncope Narrative: Requesting provider: Dr. Kirill freeman Date of service 03/26 2 Reason for consultation: Elevated troponin History patient is a 76-year-old male who has a history of persistent atrial fibrillation, bioprosthetic aortic valve replacement, chronic anticoagulation, diabetes, sleep apnea, chronic kidney disease who presented to the hospital because a possible syncopal episode. Patient states that he got up to go the bathroom and was sitting on the toilet and the next thing he remembers is being in the ambulance. Reportedly he had several bowel movements that were the appearance of melena. He reportedly passed out. He does have atrial fibrillation with slow ventricular response. He denies any chest pain, syncope, presyncope, paroxysmal nocturnal dyspnea, orthopnea, unusual palpitations. Does have a little bit less leg edema. He has been noticing black stools for the past couple of weeks. In the process of workup his troponins were drawn and were minimally elevated 0.039 Review of Systems Review of Systems: All systems reviewed & are unremarkable except as noted in HPI and below Constitutional: Constitutional: Denies body ache(s) Eyes: Eyes: Denies blurry vision ENT: Reports Normal hearing present Cardiovascular: Cardiovascular: Denies chest pain, Reports pedal edema, Denies lightheadedness and Reports palpitations Respiratory: Respiratory: Denies hemoptysis Gastrointestinal: Gastrointestinal: Denies abdominal pain, Reports melena and Denies hematemesis Genitourinary: Genitourinary: Denies hematuria and Denies dysuria Musculoskeletal: Musculoskeletal: Denies back pain and Denies myalgias Integumentary/Breasts: Skin/Breast: Denies erythema and Reports wounds Neurologic: Denies Abnormal speech present and Denies confusion Psychiatric: Psychiatric: Denies anxiety and Denies confusion Endocrine: Endocrine: Denies excessive sweating Hematologic/L
--- NOTE | 2022-03-26 11:59 | PM.IMPN ---
Progress Note: A&P Assessment and Plan (1) Syncope: Code(s): R55 - Syncope and collapse Status: Acute Assessment and Plan: Admit to IMU Likely to be vasovagal in nature however patient also with melena a noted to have decrease in his hemoglobin CT of the head reviewed Gentle hydration Continue to monitor (2) Atrial fibrillation: Qualifiers: Atrial fibrillation type: unspecified Qualified Code(s): I48.91 - Unspecified atrial fibrillation Code(s): I48.91 - Unspecified atrial fibrillation Status: Acute Assessment and Plan: Rate controlled Holding anticoagulation due to GI bleed (3) Acute kidney injury superimposed on CKD: Code(s): N17.9 - Acute kidney failure, unspecified; N18.9 - Chronic kidney disease, unspecified Status: Acute Assessment and Plan: Likely secondary to pre renal azotemia superimposed on chronic kidney disease Renal ultrasound in a.m. Tabares catheter Daily intake and output Continue to monitor Daily BMP Nephrology consult (4) Orthostatic hypotension: Code(s): I95.1 - Orthostatic hypotension Status: Acute Assessment and Plan: Gentle hydration (5) SERENA (obstructive sleep apnea): Code(s): G47.33 - Obstructive sleep apnea (adult) (pediatric) Status: Acute Assessment and Plan: BiPAP at nighttime (6) Type 2 diabetes mellitus with hyperglycemia: Qualifiers: Diabetes mellitus usp insulin use: with chief science officer use Qualified Code(s): E11.65 - Type 2 diabetes mellitus with hyperglycemia; Z79.4 - halfway (current) use of insulin Code(s): E11.65 - Type 2 diabetes mellitus with hyperglycemia Status: Acute Assessment and Plan: Accu-Cheks AC and HS Continue insulin regimen Calorie consistent diet (7) Obesity, morbid (more than 100 lbs over ideal weight or BMI > 40): Code(s): E66.01 - Morbid (severe) obesity due to excess calories Status: Acute Assessment and Plan: Lifestyle and diet modifications (8) HTN (hypertension) with goal to be determined: Code(s): I10 - Essential (primary) hypertension Status: Acute Assessment and Plan: Continue to monitor (9) Melena: Code(s): K92.1 - Melena Status: Acute Assessment and Plan: Holding blood thinner History of ulcer in the past GI consult PPI Transfuse as needed Subjective Date/time seen: 03/26/22 11:59 No new complaints Exam Narrative: Patient is laying in a stretcher Const: General: cooperative, comfortable, no acute distress, well developed, alert, awake, ill appearing chronically and obese Nutritional Appearance: obese morbidly obese Orientation/consciousness: patient oriented x3 HENMT: Head: normal to inspection, normocephalic and atraumatic Ears: hearing grossly normal bilaterally Face/Nose/Sinus: normal facial exam Face and sinus: normal facial exam Eyes: General: appearance normal, both eyes and all related structures Pupils: Equal, round and reactive pupils present EOM: EOMs intact bilaterally Neck: Neck: full ROM, no lymphadenopathy and no JVD Thyroid: thyroid normal Lymphatic: no lymphadenopathy noted Resp: Effort & Inspection: normal respiratory effort and able to speak in complete sentences Auscultation: clear to auscultation bilaterally Cardio: Jugular venous distension: no JVD Rate: regular rate Rhythm: regular rhythm Heart sounds: S1 normal heart sound present and S2 normal heart sound present GI: Inspection: visible herniation (Ventral) : General: Yes deferred Skin: General skin exam: wounds noted (Left lower extremity) Rashes: no rashes Wounds: wounds noted (Left lower extremity) Neuro: General: patient oriented x3, CN's II-XI intact bilaterally and Unable to assess gait Cranial nerves: Yes CN's II-XII intact bilaterally and Yes Equal, round and reactive pupils present Cognition (Neuro): normal cognition Speech: normal s
--- NOTE | 2022-03-26 12:23 | PM.CNNEP ---
Assessment and Plan Assessment and plan (1) MARY (acute kidney injury): Code(s): N17.9 - Acute kidney failure, unspecified Status: Acute Assessment and Plan: etiology? prerenal factors (?) anemia disease progression... check renal ultrasound check urine electrolytes, urine eosinophil, and CPK appears to be making reasonable urine output follow repeat labs and UOP (2) Chronic kidney disease, stage IV (severe): Code(s): N18.4 - Chronic kidney disease, stage 4 (severe) Status: Chronic Assessment and Plan: progressive deterioration noted in the last year creatinine on last check (January 2022) was 3.3mg/dl from Mar - August 2021, creatinine had been running 2.4 - 2.7mg/dl due to diabetes, hypertension, vascular disease, and age-related change (3) Syncope: Code(s): R55 - Syncope and collapse Status: Acute Assessment and Plan: vasovagal issue? however, issues with #4 may be contributing as well possible prerenal factors(?) related to Afib (?) medication related - on flomax contine ongoing therapy (4) Anemia: Code(s): D64.9 - Anemia, unspecified Status: Acute Assessment and Plan: partly related to CKD however, history of melanotic stools and occult blood positive GI consultation follow trend of H/H may need to consider KOTA PRBC transfusion per protocol (5) Hypertension: Code(s): I10 - Essential (primary) hypertension Status: Chronic Assessment and Plan: reasonable control given potential GI bleed and syncope, close monitoring of hemodyamics BP medications with parameters (6) DM renal manif type II, uncontrolled: Code(s): E11.29 - Type 2 diabetes mellitus with other diabetic kidney complication; E11.65 - Type 2 diabetes mellitus with hyperglycemia Status: Chronic Assessment and Plan: follow accuchecks glycemic control Long and extensive discussion (> 20 minutes) with patient regarding his worsening renal dysfunction -- he is aware he is at risk for ANIMAL RESCUER/dialysis if his kidney function continues to deteriorate of if he runs into issues with hyperkalemia, volume overload, metabolic acidosis, uremia...etc. Will continue to follow. History of Present Illness Reason for Consult Consult date: 03/26/22 Chief Complaint Chief complaint: syncope History of Present Illness Narrative: 76-year-old male with past medical history as outline below who presented to [facility] ER with a syncopal episode. The patient was just recently discharged from [facility] after he was treated for pneumonia and bradycardia with persistent atrial fibrillation.? Earlier today, the patient had a an episode of syncope while sitting on the toilet. He reports having several bowel movements that are melanotic is nature.? His suspected GI blood loss is compliated by the fact he is on blood thinners for his atrial fibrillation. Aside from these symptoems, he reports no chest pain, shortness of breath, fevers, chills, rigors, cough but report he has bilateral lower extremity swelling.? Work-up and evaluation in the ER demonstrated the patient to he hemodynamically stable and in no acute distress. Routine blood work was significant for chemistry panel showed a creatinine of 4.4 BUN 56, brain natriuretic peptide 4000, and a CBC with relative anemia as well.? A CT of the head demonstrated no acute intracranial pathology and his CXR was negative. Given his complex medical history along his symptoms and laboratory findings, he was admitted to the hospital for further evaluation and therapy. Renal consultation was requested due to his MARY on chronic kidney disease. The patient is well known to me as I follow him in the office for management of his known chronic kidney disease. Unfortunately, his CKD has been progressively deteriorating in the last few months. His creatinine has been running in the 2.4
--- NOTE | 2022-03-26 12:23 | P.CONNP_ITS ---
Assessment and Plan Assessment and plan (1) MARY (acute kidney injury): Code(s): N17.9 - Acute kidney failure, unspecified Status: Acute Assessment and Plan: * etiology? * prerenal factors (?) * anemia * disease progression... * check renal ultrasound * check urine electrolytes, urine eosinophil, and CPK * appears to be making reasonable urine output * follow repeat labs and UOP (2) Chronic kidney disease, stage IV (severe): Code(s): N18.4 - Chronic kidney disease, stage 4 (severe) Status: Chronic Assessment and Plan: * progressive deterioration noted in the last year * creatinine on last check (January 2022) was 3.3mg/dl * from Mar - August 2021, creatinine had been running 2.4 - 2.7mg/dl * due to diabetes, hypertension, vascular disease, and age-related change (3) Syncope: Code(s): R55 - Syncope and collapse Status: Acute Assessment and Plan: * vasovagal issue? * however, issues with #4 may be contributing as well * possible prerenal factors(?) * related to Afib (?) * medication related - on flomax * contine ongoing therapy (4) Anemia: Code(s): D64.9 - Anemia, unspecified Status: Acute Assessment and Plan: * partly related to CKD * however, history of melanotic stools and occult blood positive * GI consultation * follow trend of H/H * may need to consider KOTA * PRBC transfusion per protocol (5) Hypertension: Code(s): I10 - Essential (primary) hypertension Status: Chronic Assessment and Plan: * reasonable control * given potential GI bleed and syncope, close monitoring of hemodyamics * BP medications with parameters (6) DM renal manif type II, uncontrolled: Code(s): E11.29 - Type 2 diabetes mellitus with other diabetic kidney complication; E11.65 - Type 2 diabetes mellitus with hyperglycemia Status: Chronic Assessment and Plan: * follow accuchecks * glycemic control Long and extensive discussion (> 20 minutes) with patient regarding his w orsening renal dysfunction -- he is aware he is at risk for FIELD SERVICE ANALYST/dialysis if his kidney function continues to deteriorate of if he runs into issues with hyperkalemia, volume overload, metabolic acidosis, uremia...etc. Will continue to follow. History of Present Illness Reason for Consult Consult date: 03/26/22 Chief Complaint Chief complaint: syncope History of Present Illness Narrative: 76-year-old male with past medical history as outline below who presented to [facility] ER with a syncopal episode. The patient was just recently discharged from [facility] after he was treated for pneumonia and bradycardia with persistent atrial fibrillation.? Earlier today, the patient had a an episode of syncope while sitting on the toilet. He reports having several bowel movements that are melanotic is nature. ? His suspected GI blood loss is compliated by the fact he is on blood thinners for his atrial fibrillation. Aside from these symptoems, he reports no chest pain, shortness of breath, fevers, chills, rigors, cough but report he has bilateral lower extremity swelling.? Work-up and evaluation in the ER demonstrated the patient to he hemodynamically stable and in no acute distress. Routine blood work was significant for chemistry panel showed a creatinine of 4.4 BUN 56, brain natriuretic peptide 4000, and a CBC with relative anemia as well.? A CT of the head demonstrated no acute intracranial pathology and his CXR was negative. Given his complex medical history along
[2022-03-26] MEDS: PANTOPRAZOLE SODIUM IV 40 MG VIAL IV PUSH ×2 (12:24→20:53)
[2022-03-26 12:27] LABS: Glucose Point of Care 195 mg/dl (65-105)
--- NOTE | 2022-03-26 15:24 | WPDGICN ---
Assessment and Plan Assessment and plan (1) Melena: Code(s): K92.1 - Melena Status: Acute Assessment and Plan: continue with iv protonix and monitor for more signs of bleeding he had duodenal ulcer that required surgery, also noted ventral hernia but no abdominal pain transfuse if hb<7 hold anticoagulant (2) Acute blood loss anemia: Code(s): D62 - Acute posthemorrhagic anemia Status: Acute Assessment and Plan: monitor and trend h/h (3) Acute on chronic kidney failure: Code(s): N17.9 - Acute kidney failure, unspecified; N18.9 - Chronic kidney disease, unspecified Status: Acute Assessment and Plan: nephrology on board (4) Syncope: Code(s): R55 - Syncope and collapse Status: Acute Assessment and Plan: probably from GIB cardiology on board (5) Diabetic peripheral neuropathy associated with type 2 diabetes mellitus: Code(s): E11.42 - Type 2 diabetes mellitus with diabetic polyneuropathy Status: Acute (6) Duodenal ulcer: Code(s): K26.9 - Duodenal ulcer, unspecified as acute or chronic, without hemorrhage or perforation Status: Acute Assessment and Plan: required surgery in the past GI Consult Note Consult date/time: 03/26/22 15:24 Reason for consult: GIB, melena HPI: Chele Blackwell is a 76 year old male wiht history significant for morbid obesity, chronic kidney disease, insulin-dependent diabetes mellitus, obstructive sleep apnea on BiPAP, atrial fibrillation, status post aortic valve replacement and GIB due to duodenal ulcer in 2015 that required surgical repair, had colonoscopy in 2018 with polyp removed. He was just recently discharge after he was treated for pneumonia and bradycardia with persistent atrial fibrillation.?He is back after had several episodes of dark stools consistent with melena. Blood work showed creatinine of 4.4 (recent 3.9), BUN 56, brain natriuretic peptide 4000, hb down to mid 8s (recent 11). Started on iv protonix, anticoagulation on hold and cardiology on board. Review of Systems Review of Systems: Syncopal episode Constitutional: Constitutional: Denies chills, Denies fever(s), Denies malaise and Denies night sweats Eyes: Eyes: Denies change in vision ENT: Denies dysphagia, Denies vertigo, Denies dizziness and Reports odynophagia Cardiovascular: Cardiovascular: Denies chest pain and Reports syncope Respiratory: Respiratory: Denies chest congestion, Denies cough, Denies excessive phlegm production, Denies dyspnea and Denies wheezing Gastrointestinal: Gastrointestinal: Denies abdominal pain, Reports melena, Denies dyspepsia, Denies heartburn, Denies nausea and Denies vomiting Genitourinary: Genitourinary: Reports no additional male genitourinary complaints and Reports as per HPI Musculoskeletal: Musculoskeletal: Denies myalgias and Denies muscle weakness Integumentary/Breasts: Skin/Breast: Reports skin ulcer (Left lower extremity) Neurologic: Denies vertigo, Denies dizziness, Denies focal weakness, Denies radicular pain and Denies Sensory deficit (Neuro) Psychiatric: Psychiatric: Reports no additional psychiatric complaints and Reports as per HPI Endocrine: Endocrine: Denies cold intolerance, Denies flushing, Denies heat intolerance, Denies polyphagia, Denies polydipsia and Denies palpitations Hematologic/Lymphatic: Hematologic/Lymphatic: Reports no additional hematologic/lymphatic complaints and Reports as per HPI Allergic/Immunologic: Allergic/Immunologic: Reports no additional allergic/immunologic complaints and Reports as per HPI PMFSH Past Medical History Medical History (Updated 03/26/22 @ 15:32 by Ryne Yarbrough MD) Acute blood loss anemia Chronic bilateral low back pain with sciatica Chronic kidney disease, stage 3 unspecified History of bleeding ulcers (~2014) History of stress test Hyperlipidemia Hypothyroidism Insulin dependent type 2 diabetes m
[2022-03-26 16:34] LABS: Glucose Point of Care 122 mg/dl (65-105)
[2022-03-27] VITALS (23 sets, daily range): BP systolic 84–168; BP diastolic 35–82; PULSE 49–82; RESP 15–20; TEMP 35.6–36.9; O2SAT 95–100
[2022-03-27 05:16] LABS: Basophils Absolute Auto 0.1 K/mm3 (0.0-0.1); Basophils Percent Auto 0.6 % (0.2-1.2); Eosinophils Absolute Auto 0.7 K/mm3 (0-0.3); Eosinophils Percent Auto 4.6 % (0-4.4); Hematocrit 23.2 % (42.0-52.0); Hemoglobin 7.1 g/dL (14.0-18.0); Immature Granulocyte Absolute 0.08 K/mm3 (0.00-0.031); Immature Granulocyte Percent A 0.5 % (0-0.5); Lymphocytes Absolute Auto 1.68 K/mm3 (0.9-3.2); Lymphocytes Percent Auto 10.9 % (18.3-44.2); Mean Corpuscular HGB Conc 30.6 g/dl (32-36); Mean Corpuscular Hemoglobin 29.1 pg (26-34); Mean Corpuscular Volume 95.1 fl (80-100); Mean Platelet Volume 10.5 fl (7.4-10.4); Monocytes Absolute Auto 1.3 K/mm3 (0.1-0.6); Monocytes Percent Auto 8.5 % (2.6-8.5); Neutrophils Absolute Auto 11.6 K/mm3 (1.3-6.7); Neutrophils Percent Auto 74.9 % (45.5-73.1); Platelet Count Result 139 k/mm3 (150-375); Red Blood Count 2.44 M/mm3 (4.6-6.20); Red Cell Distribution Width 15.2 % (11.5-14.5); White Blood Count 15.5 K/mm3 (4.5-10.0)
[2022-03-27 05:42] LABS: Anion Gap 1 mmol/L (8-16); Blood Urea Nitrogen 78 mg/dL (9-20); Calcium 7.6 mg/dL (8.4-10.2); Carbon Dioxide 26 mmol/L (22-30); Chloride 113 mmol/L (98-107); Estimated CRCL calculation 19 ml/min; Estimated Glomerular Filt Rate 12; Glucose 94 mg/dL (65-110); Potassium 5.7 mmol/L (3.4-5.0); Sodium 140 mmol/L (137-145)
[2022-03-27] MEDS: PANTOPRAZOLE SODIUM IV 40 MG VIAL IV PUSH ×2 (09:00→20:55)
--- NOTE | 2022-03-27 09:36 | PCOTNOTE ---
Attempted OT evaluation, patient is currently going down for a test, will follow.
--- NOTE | 2022-03-27 10:45 | PM.PNCARD ---
Progress Note: A&P Assessment and Plan (1) Acute blood loss anemia: Code(s): D62 - Acute posthemorrhagic anemia Status: Acute (2) Chronic kidney disease, stage IV (severe): Code(s): N18.4 - Chronic kidney disease, stage 4 (severe) Status: Chronic (3) MARY (acute kidney injury): Code(s): N17.9 - Acute kidney failure, unspecified Status: Acute (4) Acute on chronic kidney failure: Code(s): N17.9 - Acute kidney failure, unspecified; N18.9 - Chronic kidney disease, unspecified Status: Acute (5) Elevated troponin: Code(s): R77.8 - Other specified abnormalities of plasma proteins Status: Acute (6) Syncope: Code(s): R55 - Syncope and collapse Status: Acute (7) Melena: Code(s): K92.1 - Melena Status: Acute (8) H/O aortic valve replacement: Code(s): Z95.2 - Presence of prosthetic heart valve Status: Acute (9) Atrial fibrillation: Qualifiers: Atrial fibrillation type: unspecified Qualified Code(s): I48.91 - Unspecified atrial fibrillation Code(s): I48.91 - Unspecified atrial fibrillation Status: Acute Plan Patient had 1 minimally elevated troponin in the setting of GI bleed and CKD. Not related to ACS. Telemetry does not show any significant bradycardias. Patient is in rate-controlled atrial fibrillation without significant pauses or heart blocks on tele. Syncope likely vasovagal in the setting of acute anemia and GI bleed. For his atrial fibrillation, given this GI bleed, patient is not a good candidate for long-term anticoagulation for stroke prophylaxis for atrial fibrillation. May be a good candidate for left atrial appendage closure device. Patient to follow up with his primary Elementary Special Education Teacher, Dr. De La Fuente, regarding further evaluation for this. Cardiology will sign off at this time. Subjective Date/time seen: 03/27/22 10:45 Interval history: HPI: Patient is a 76-year-old male who has a history of persistent atrial fibrillation, bioprosthetic aortic valve replacement, chronic anticoagulation, diabetes, sleep apnea, chronic kidney disease who presented to the hospital because a possible syncopal episode.? Patient states that he got up to go the bathroom and was sitting on the toilet and the next thing he remembers is being in the ambulance.? Reportedly he had several bowel movements that were the appearance of melena.? He reportedly passed out.? He does have atrial fibrillation with slow ventricular response.? He denies any chest pain, syncope, presyncope, paroxysmal nocturnal dyspnea, orthopnea, unusual palpitations.? Does have a little bit less leg edema.? He has been noticing black stools for the past couple of weeks.? In the process of workup his troponins were drawn and were minimally elevated 0.039 Date of service 03/27: Hgb 7.1 this AM. Another blood transfusion has been ordered. Patient is without cardiac complaints this morning. Review of Systems Review of Systems: 8-point ROS obtained. Negative, unless stated in HPI. Exam Narrative: Awake alert oriented appears stated age Const: General: comfortable and no acute distress HENMT: Face/Nose/Sinus: Normal nares present Mouth: Yes moist mucous membranes Eyes: General: appearance normal, both eyes and all related structures Sclera: sclerae normal Neck: Neck: supple Resp: Effort & Inspection: normal respiratory effort Auscultation: clear to auscultation bilaterally Cardio: Rate: regular rate Rhythm: abnormal rhythm irregularly irregular GI: Inspection: non-distended GI Palp: Yes Soft to palpation Auscultation: normal bowel sounds Skin: General skin exam: normal color Other: Healing wounds noted left lower leg Neuro: Speech: normal speech Motor exam (neuro): 5/5 motor strength present throughout Psych: Mental Status: mental status grossly normal Affect: normal affect Objective Data Vital Signs Vital Signs: Vital Signs - 24 hr
[2022-03-27] MEDS: LACTATED RINGERS 1,000 ML 150 ML IV CONT ×2 (11:28→16:59)
--- NOTE | 2022-03-27 11:28 | WPDANESEPPF ---
Anes - Initial Pre Proc Eval Procedure: Operation Date: 03/27/22 12:00 Proposed Procedures p Esophagogastroduodenoscopy - Ryne Yarbrough MD Date/Time: 03/27/22 11:28 Surgeon: Valerie Luciano MD Pre Op Diagnosis: syncope Patient Data Age: 76 Gender: M Height: 1.83 m Weight: 156.2 kg Last Vital Signs Temp 97.7 F 03/27/22 11:24 Pulse 74 03/27/22 11:24 Resp 20 03/27/22 11:24 BP 92/54 L 03/27/22 11:24 Pulse Ox 100 03/27/22 11:24 O2 Del Method Room Air 03/27/22 11:24 O2 Flow Rate 2 03/25/22 18:08 Allergies Allergy/AdvReac Type Severity Reaction Status Date / Time morphine AdvReac Intermediate Confusion Verified 03/25/22 18:20 Home Medications Medication Instructions Recorded Confirmed Type lancets (Accu-Chek Fastclix Lancet #200 ea 03/22/21 03/25/22 Rx Drum) blood sugar diagnostic (Accu-Chek #100 ea 04/25/21 03/25/22 Rx Anayeli Plus test strips) flash glucose sensor (FreeStyle #6 ea 04/25/21 03/25/22 Rx Nelda 2 Sensor kit) galantamine 8 mg 24 hr 8 mg PO DAILY 05/01/21 03/25/22 History capsule,extended release tamsulosin 0.4 mg capsule 0.4 mg PO DAILY 05/01/21 03/25/22 History pen needle, diabetic 32 gauge x #500 ea 06/06/21 03/25/22 Rx 32 (BD Rosalba 2nd Gen Pen Needle) carvedilol 3.125 mg tablet See Rx Instructions .Route 07/04/21 03/25/22 Rx .COMPLEX #180 tabs levothyroxine 75 mcg tablet See Rx Instructions .Route 07/04/21 03/25/22 Rx .COMPLEX #90 tabs dulaglutide 4.5 mg/0.5 mL 4.5 mg (0.5 mL) subcut WEEKLY 08/26/21 03/25/22 Rx subcutaneous pen injector days #6.5 mL (Trulicity) albuterol sulfate 90 mcg/actuation 2 puff inhalation QID PRN 03/12/22 03/25/22 Rx aerosol inhaler shortness of breath or wheezing #8.5 grams apixaban 5 mg tablet (Eliquis) 5 mg PO Q12H 03/25/22 03/25/22 History atorvastatin 80 mg tablet 80 mg PO HS 03/25/22 03/25/22 History calcitriol 0.25 mcg capsule 0.25 mcg PO HS 03/25/22 03/25/22 History divalproex 125 mg capsule,delayed 125 mg PO DAILY 03/25/22 03/25/22 History release sprinkle gabapentin 100 mg capsule 200 mg PO BID 03/25/22 03/25/22 History insulin aspart U-100 100 unit/mL 10 unit subcut DAILY 03/25/22 03/25/22 History (3 mL) subcutaneous pen (Novolog FlexPen U-100 Insulin aspart) insulin degludec 200 unit/mL (3 46 unit subcut HS 03/25/22 03/25/22 History mL) subcutaneous pen (Tresiba FlexTouch U-200 insulin) memantine 14 mg capsule 14 mg PO DAILY 03/25/22 03/25/22 History sprinkle,extended release 24hr Laboratory Tests 03/26/22 03/26/22 03/27/22 11:25 16:29 04:44 WBC 15.5 K/mm3 H K/mm3 (4.5-10.0) RBC 2.44 M/mm3 L M/mm3 (4.6-6.20) Hgb 7.1 g/dL L g/dL (14.0-18.0) Hct 23.2 % L % (42.0-52.0) MCV 95.1 fl fl (80-100) MCH 29.1 pg pg (26-34) MCHC 30.6 g/dl L g/dl (32-36) RDW 15.2 % H % (11.5-14.5) Plt Count 139 k/mm3 L k/mm3 (150-375) MPV 10.5 fl H fl (7.4-10.4) Immature Gran % (Auto) 0.5 % % (0-0.5) Neut % (Auto) 74.9 % H % (45.5-73.1) Lymph % (Auto) 10.9 % L % (18.3-44.2) [place] % (Auto) 8.5 % % (2.6-8.5) Eos % (Auto) 4.6 % H % (0-4.4) Baso % (Auto) 0.6 % % (0.2-1.2) Lymph # (Auto) 1.68 K/mm3 K/mm3 (0.9-3.2) [place] # (Auto) 1.3 K/mm3 H K/mm3 (0.1-0.6) Eos # (Auto) 0.7 K/mm3 H K/mm3 (0-0.3) Baso # (Auto) 0.1 K/mm3 K/mm3 (0.0-0.1) Abs Immat Gran (auto) 0.08 K/mm3 H K/mm3 (0.00-0.031) Absolute Neuts (auto) 11.6 K/mm3 H K/mm3 (1.3-6.7) Absolute Nucleated RBC 0.0 K/mm3 K/mm3 (0.0-0.012) Nucleated RBC % 0.0 % % (0.0-0.2) Sodium Potassium Chloride Carbon Dioxide Anion Gap BUN Creatinine Estim Creat Clear Daniel
[2022-03-27 11:32] LABS: Glucose Point of Care 75 mg/dl (65-105)
[2022-03-27 13:00] LABS: Glucose Point of Care 81 mg/dl (65-105)
--- NOTE | 2022-03-27 13:16 | PCPTNOTE ---
Attempted PT evaluation, patient is currently off unit for a test, will follow.
--- NOTE | 2022-03-27 13:19 | PM.PNNEP ---
Progress Note: A&P Assessment and Plan (1) MARY (acute kidney injury): Code(s): N17.9 - Acute kidney failure, unspecified Status: Acute Assessment and Plan: ongoing worsening noted etiology? prerenal factors (?) anemia relative hypotension component of disease progression evaluation to date: renal ultrasound with mild/moderate hydro - consult Urology urine testing pending appears to be making reasonable urine output follow repeat labs and UOP (2) Chronic kidney disease, stage IV (severe): Code(s): N18.4 - Chronic kidney disease, stage 4 (severe) Status: Chronic Assessment and Plan: progressive deterioration noted in the last year creatinine on last check (January 2022) was 3.3mg/dl from Mar - August 2021, creatinine had been running 2.4 - 2.7mg/dl due to diabetes, hypertension, vascular disease, and age-related change (3) Syncope: Code(s): R55 - Syncope and collapse Status: Acute Assessment and Plan: vasovagal issue? however, issues with #4 may be contributing as well possible prerenal factors(?) related to Afib (?) medication related - on flomax contine ongoing therapy (4) Anemia: Code(s): D64.9 - Anemia, unspecified Status: Acute Assessment and Plan: partly related to CKD however, history of melanotic stools and occult blood positive GI following results of EGD noted follow trend of H/H may need to consider KOTA PRBC transfusion per protocol (5) Hypertension: Code(s): I10 - Essential (primary) hypertension Status: Chronic Assessment and Plan: reasonable control given potential GI bleed and syncope, close monitoring of hemodyamics BP medications with parameters (6) DM renal manif type II, uncontrolled: Code(s): E11.29 - Type 2 diabetes mellitus with other diabetic kidney complication; E11.65 - Type 2 diabetes mellitus with hyperglycemia Status: Chronic Assessment and Plan: follow accuchecks glycemic control Will continue to follow. Subjective Date/time seen: 03/27/22 13:19 S/P EGD earlier today with results noted; PRBC transfusion today given low H/H; renal function worse but continues to make reasonably urine output; no apparent distress voiced; no other issues/events overnight or earlier this morning. Exam Narrative: General: WD/WN large male in NAD Heart: normal S1 and S2; no rub Lungs: clear to auscultation Abdomen: soft, nontender, nondistended, positive bowel sounds Extremities: no cyanosis or clubbing; trace edema Skin: warm and dry Objective Data Vital Signs Vital Signs: Vital Signs Temp Pulse Resp BP Pulse Ox O2 Del Method 03/27/22 11:24 97.7 F 74 20 92/54 L 100 Room Air 03/27/22 08:00 97.9 F 80 16 168/82 H 100 03/27/22 06:00 82 03/27/22 04:00 97.5 F L 82 20 126/63 100 03/27/22 04:00 67 16 96 Autopap 03/27/22 04:00 67 03/27/22 02:00 76 03/27/22 00:00 76 16 96 Autopap 03/27/22 00:00 76 03/26/22 23:15 76 98 Autopap 03/26/22 23:29 98.6 F 77 16 131/43 L 96 03/26/22 22:00 77 03/26/22 20:00 66 22 H 99 Room Air 03/26/22 20:00 66 03/26/22 20:00 97.4 F L 79 22 H 143/64 H 99 03/26/22 20:53 73 03/26/22 17:31 73 03/26/22 16:00 Room Air 03/26/22 16:00 62 03/26/22 16:00 97.8 F 80 20 141/75 H 100 03/26/22 14:00 76 Intake/Output Intake/Output: Intake & Output 03/24/22 03/25/22 03/26/22 03/27/22 23:59 23:59 23:59 23:59 Intake Total 340 550 Output Total 1750 700 Balance -1410 -150 Meds/Results Medications: Active Medications Generic Name Dose Route Start Last Admin Trade Name Freq PRN Reason Stop Dose Admin Albuterol 2 puff 03/25/22 23:39 Albuterol Sulfate (*Sp) Aerosol 1 Puff INHALATION QID PRN shortness of breath or wheezing A
--- NOTE | 2022-03-27 13:19 | P.PNNP_ITS ---
Progress Note: A&P Assessment and Plan (1) MARY (acute kidney injury): Code(s): N17.9 - Acute kidney failure, unspecified Status: Acute Assessment and Plan: * ongoing worsening noted * etiology? * prerenal factors (?) * anemia * relative hypotension * component of disease progression * evaluation to date: * renal ultrasound with mild/moderate hydro - consult Urology * urine testing pending * appears to be making reasonable urine output * follow repeat labs and UOP (2) Chronic kidney disease, stage IV (severe): Code(s): N18.4 - Chronic kidney disease, stage 4 (severe) Status: Chronic Assessment and Plan: * progressive deterioration noted in the last year * creatinine on last check (January 2022) was 3.3mg/dl * from Mar - August 2021, creatinine had been running 2.4 - 2.7mg/dl * due to diabetes, hypertension, vascular disease, and age-related change (3) Syncope: Code(s): R55 - Syncope and collapse Status: Acute Assessment and Plan: * vasovagal issue? * however, issues with #4 may be contributing as well * possible prerenal factors(?) * related to Afib (?) * medication related - on flomax * contine ongoing therapy (4) Anemia: Code(s): D64.9 - Anemia, unspecified Status: Acute Assessment and Plan: * partly related to CKD * however, history of melanotic stools and occult blood positive * GI following * results of EGD noted * follow trend of H/H * may need to consider KOTA * PRBC transfusion per protocol (5) Hypertension: Code(s): I10 - Essential (primary) hypertension Status: Chronic Assessment and Plan: * reasonable control * given potential GI bleed and syncope, close monitoring of hemodyamics * BP medications with parameters (6) DM renal manif type II, uncontrolled: Code(s): E11.29 - Type 2 diabetes mellitus with other diabetic kidney complication; E11.65 - Type 2 diabetes mellitus with hyperglycemia Status: Chronic Assessment and Plan: * follow accuchecks * glycemic control Will continue to follow. Subjective Date/time seen: 03/27/22 13:19 S/P EGD earlier today with results noted; PRBC transfusion today given low H/H; renal function worse but continues to make reasonably urine output; no apparent distress voiced; no other issues/events overnight or earlier this morning. Exam Narrative: General: WD/WN large male in NAD Heart: normal S1 and S2; no rub Lungs: clear to auscultation Abdomen: soft, nontender, nondistended, positive bowel sounds Extremities: no cyanosis or clubbing; trace edema Skin: warm and dry Objective Data Vital Signs Vital Signs: Vital Signs Temp Pulse Resp BP Pulse Ox O2 Del Method 03/27/22 11:24 97.7 F 74 20 92/54 L 100 Room Air 03/27/22 08:00 97.9 F 80 16 168/82 H 100 03/27/22 06:00 82 03/27/22 04:00 97.5 F L 82 20 126/63 100 03/27/22 04:00 67 16 96 Autopap 03/27/22 04:00 67 03/27/22 02:00 76 03/27/22 00:00 76 16 96 Autopap 03/27/22 00:00 76 03/26/22 23:15 76 98 Autopap 03/26/22 23:29 98.6 F 77 16 131/43 L 96 03/26/22 22:00 77 03/26/22 20:00 66 22 H 99 Room Air 03/26/22 20:00 66
--- NOTE | 2022-03-27 13:32 | PM.IMPN ---
Progress Note: A&P Assessment and Plan (1) Syncope: Code(s): R55 - Syncope and collapse Status: Acute Assessment and Plan: Admit to IMU Likely to be vasovagal in nature however patient also with melena a noted to have decrease in his hemoglobin CT of the head reviewed Gentle hydration Continue to monitor (2) Atrial fibrillation: Qualifiers: Atrial fibrillation type: unspecified Qualified Code(s): I48.91 - Unspecified atrial fibrillation Code(s): I48.91 - Unspecified atrial fibrillation Status: Acute Assessment and Plan: Rate controlled Holding anticoagulation due to GI bleed (3) Acute kidney injury superimposed on CKD: Code(s): N17.9 - Acute kidney failure, unspecified; N18.9 - Chronic kidney disease, unspecified Status: Acute Assessment and Plan: Likely secondary to pre renal azotemia superimposed on chronic kidney disease Renal ultrasound in a.m. 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 Qualified Code(s): E11.65 - Type 2 diabetes mellitus with hyperglycemia; Z79.4 - penitentiary (current) use of insulin Code(s): E11.65 - Type 2 diabetes mellitus with hyperglycemia Status: Acute Assessment and Plan: Accu-Cheks AC and HS Continue insulin regimen Calorie consistent diet (7) Obesity, morbid (more than 100 lbs over ideal weight or BMI > 40): Code(s): E66.01 - Morbid (severe) obesity due to excess calories Status: Acute Assessment and Plan: Lifestyle and diet modifications (8) HTN (hypertension) with goal to be determined: Code(s): I10 - Essential (primary) hypertension Status: Acute Assessment and Plan: Continue to monitor (9) Melena: Code(s): K92.1 - Melena Status: Acute Assessment and Plan: Holding blood thinner History of ulcer in the past GI consult PPI Transfuse as needed Subjective Date/time seen: 03/27/22 13:32 No new complaints Exam Narrative: Patient is laying in a stretcher Const: General: cooperative, comfortable, no acute distress, well developed, alert, awake, ill appearing chronically and obese Nutritional Appearance: obese morbidly obese Orientation/consciousness: patient oriented x3 HENMT: Head: normal to inspection, normocephalic and atraumatic Ears: hearing grossly normal bilaterally Face/Nose/Sinus: normal facial exam Face and sinus: normal facial exam Eyes: General: appearance normal, both eyes and all related structures Pupils: Equal, round and reactive pupils present EOM: EOMs intact bilaterally Neck: Neck: full ROM, no lymphadenopathy and no JVD Thyroid: thyroid normal Lymphatic: no lymphadenopathy noted Resp: Effort & Inspection: normal respiratory effort and able to speak in complete sentences Auscultation: clear to auscultation bilaterally Cardio: Jugular venous distension: no JVD Rate: regular rate Rhythm: regular rhythm Heart sounds: S1 normal heart sound present and S2 normal heart sound present GI: Inspection: visible herniation ([place]) : General: Yes deferred Skin: General skin exam: wounds noted (Left lower extremity) Rashes: no rashes Wounds: wounds noted (Left lower extremity) Neuro: General: patient oriented x3, CN's II-XI intact bilaterally and Unable to assess gait Cranial nerves: Yes CN's II-XII intact bilaterally and Yes Equal, round and reactive pupils present Cognition (Neuro): normal cognition Speech: normal s
[2022-03-27] MEDS: DIVALPROEX SODIUM SPRINKLE 125 MG CAP.DR PO ×2 (14:45→20:55)
[2022-03-27] MEDS: MEMANTINE HCL XR 7 MG CAP 14 MG PO (14:45)
[2022-03-27] MEDS: GABAPENTIN 100 MG CAPSULE 200 MG PO ×2 (14:45→16:59)
[2022-03-27] MEDS: TAMSULOSIN HCL 0.4 MG CAPSULE PO (14:46)
[2022-03-27] MEDS: carvediloL 3.125 MG TABLET BY MOUTH ×2 (14:46→20:55)
[2022-03-27] MEDS: TUBING, BLOOD PLUM PUMP TUBING 1 EACH XX (14:47)
[2022-03-27] MEDS: SODIUM CHLORIDE 0.9% IV 250 ML 30 ML IV CONT (14:47)
[2022-03-27 17:51] LABS: Glucose Point of Care 140 mg/dl (65-105)
--- NOTE | 2022-03-27 19:35 | ECG_ITS ---
Measurements Intervals [place] Rate: 56 P: PA: 0 QRS: -58 QRSD: 145 T: 66 QT: 473 QTc: 458 Interpretive Statements ATRIAL FIBRILLATION WITH SLOW VENTRICULAR RESPONSE LEFT AXIS DEVIATION LEFT BUNDLE BRANCH BLOCK ABNORMAL ECG COMPARED TO ECG 03/25/2022 18:07:42 NO SIGNIFICANT CHANGES Electronically Signed On 03-31-2022 13:54:40 ACCESSIONER by Chinmay Costello D.O.
[2022-03-27 20:11] LABS: Glucose Point of Care 140 mg/dl (65-105)
[2022-03-27] MEDS: ATORVASTATIN 40 MG TABLET 80 MG PO (20:55)
[2022-03-27] MEDS: calcitrioL 0.25 MCG CAPSULE PO (20:55)
[2022-03-27] MEDS: INSULIN GLARGINE (*BKC) 100 UNITS/ML 46 UNITS SUB-Q (21:30)
[2022-03-28] VITALS (16 sets, daily range): BP systolic 92–139; BP diastolic 38–66; PULSE 46–72; RESP 20; TEMP 34.8–36.8; O2SAT 98–100
[2022-03-28 05:36] LABS: Hematocrit 22.5 % (42.0-52.0); Hemoglobin 7.1 g/dL (14.0-18.0); Mean Corpuscular HGB Conc 31.6 g/dl (32-36); Mean Corpuscular Hemoglobin 28.5 pg (26-34); Mean Corpuscular Volume 90.4 fl (80-100); Mean Platelet Volume 10.5 fl (7.4-10.4); Platelet Count Result 124 k/mm3 (150-375); Red Blood Count 2.49 M/mm3 (4.6-6.20); White Blood Count 12.8 K/mm3 (4.5-10.0)
[2022-03-28] MEDS: LEVOTHYROXINE SODIUM 75 MCG TABLET BY MOUTH (05:54)
[2022-03-28 07:16] LABS: Albumin Level 2.3 g/dL (3.5-5.1); Anion Gap 3 mmol/L (8-16); Blood Urea Nitrogen 77 mg/dL (9-20); Calcium 7.4 mg/dL (8.4-10.2); Carbon Dioxide 26 mmol/L (22-30); Chloride 109 mmol/L (98-107); Estimated CRCL calculation 19 ml/min; Estimated Glomerular Filt Rate 11; Glucose 71 mg/dL (65-110); Phosphorus 5.3 mg/dL (2.5-4.5); Potassium 5.5 mmol/L (3.4-5.0); Sodium 138 mmol/L (137-145)
[2022-03-28 08:04] LABS: Glucose Point of Care 73 mg/dl (65-105)
--- NOTE | 2022-03-28 08:22 | PCOTNOTE ---
Attempted to see patient for OT evaluation. Per RN, the patient has a low body temp at this time and she recommends that he stays in bed. Will continue to attempt.
[2022-03-28] MEDS: DIVALPROEX SODIUM SPRINKLE 125 MG CAP.DR PO ×2 (08:24→21:05)
[2022-03-28] MEDS: GABAPENTIN 100 MG CAPSULE 200 MG PO ×2 (08:24→17:18)
[2022-03-28] MEDS: carvediloL 3.125 MG TABLET BY MOUTH ×2 (08:24→21:05)
[2022-03-28] MEDS: MEMANTINE HCL XR 7 MG CAP 14 MG PO (08:25)
[2022-03-28] MEDS: PANTOPRAZOLE SODIUM IV 40 MG VIAL IV PUSH ×2 (08:26→21:05)
[2022-03-28] MEDS: TAMSULOSIN HCL 0.4 MG CAPSULE PO (08:26)
[2022-03-28] MEDS: MICONAZOLE NITRATE 2% CREAM 30 GM TUBE 1 APPLIC TOPICAL ×2 (09:59→21:05)
[2022-03-28] MEDS: SILVERGEL (ELTA) 45 ML 1 APPLIC TOPICAL (09:59)
[2022-03-28] MEDS: TOLNAFTATE 1% POWDER 45 GM BTL 1 APPLIC TOPICAL ×2 (09:59→21:05)
--- NOTE | 2022-03-28 10:20 | P.PNNP_ITS ---
Progress Note: A&P Assessment and Plan (1) MARY (acute kidney injury): Code(s): N17.9 - Acute kidney failure, unspecified Status: Acute Assessment and Plan: * ongoing worsening noted * etiology? * prerenal factors * anemia * relative hypotension * component of disease progression (?) * evaluation to date: * renal ultrasound with mild/moderate right hydro - consulted Urology * urine electrolytes are prerenal * urine eosinophils negative * reasonable urine output noted * follow repeat labs and UOP (2) Chronic kidney disease, stage IV (severe): Code(s): N18.4 - Chronic kidney disease, stage 4 (severe) Status: Chronic Assessment and Plan: * progressive deterioration noted in the last year * creatinine on last check (January 2022) was 3.3mg/dl * from Mar - August 2021, creatinine had been running 2.4 - 2.7mg/dl * due to diabetes, hypertension, vascular disease, and age-related change (3) Syncope: Code(s): R55 - Syncope and collapse Status: Acute Assessment and Plan: * vasovagal issue? * however, issues with #4 may be contributing as well * possible prerenal factors playing a role * related to Afib (?) * medication related - on flomax * contine ongoing therapy (4) Anemia: Code(s): D64.9 - Anemia, unspecified Status: Acute Assessment and Plan: * partly related to CKD * however, history of melanotic stools and occult blood positive * GI following * results of EGD noted * follow trend of H/H * may need to consider KOTA * PRBC transfusion per protocol (5) Hypertension: Code(s): I10 - Essential (primary) hypertension Status: Chronic Assessment and Plan: * reasonable control * given potential GI bleed and syncope, close monitoring of hemodyamics * BP medications with parameters (6) DM renal manif type II, uncontrolled: Code(s): E11.29 - Type 2 diabetes mellitus with other diabetic kidney complication; E11.65 - Type 2 diabetes mellitus with hyperglycemia Status: Chronic Assessment and Plan: * follow accuchecks * glycemic control Will continue to follow. Subjective Date/time seen: 03/28/22 10:20 No apparent distress noted at the time of my visit; tolerated EGD yesterday w ithout any issues or problems; H/H relatively stable; renal function continues to worsen although still making reasonable urine output. Exam Narrative: General: WD/WN large male in NAD Heart: normal S1 and S2; no rub Lungs: clear to auscultation Abdomen: soft, nontender, nondistended, positive bowel sounds Extremities: no cyanosis or clubbing; trace edema Skin: warm and intact Objective Data Vital Signs Vital Signs: Vital Signs Temp Pulse Resp BP Pulse Ox O2 Del Method 03/28/22 10:00 51 L 03/28/22 08:00 48 L 03/28/22 08:00 94.6 F L 55 L 20 139/60 100 03/28/22 08:24 54 L 03/28/22 06:00 56 L 03/28/22 04:00 46 L 20 98 Room Air 03/28/22 04:00 46 L 03/28/22 05:01 97.8 F 51 L 20 127/66 98 03/28/22 02:00 51 L 03/28/22 00:00 51 L 20 100 Autopap 03/28/22 00:00 51 L 03/27/22 23:48 98.3 F 49 L 20 113/68 100 03/27/22 22:00 54 L 03/27/22 21:22 54 L 95 Autop
--- NOTE | 2022-03-28 10:20 | PM.PNNEP ---
Progress Note: A&P Assessment and Plan (1) MARY (acute kidney injury): Code(s): N17.9 - Acute kidney failure, unspecified Status: Acute Assessment and Plan: ongoing worsening noted etiology? prerenal factors anemia relative hypotension component of disease progression (?) evaluation to date: renal ultrasound with mild/moderate right hydro - consulted Urology urine electrolytes are prerenal urine eosinophils negative reasonable urine output noted follow repeat labs and UOP (2) Chronic kidney disease, stage IV (severe): Code(s): N18.4 - Chronic kidney disease, stage 4 (severe) Status: Chronic Assessment and Plan: progressive deterioration noted in the last year creatinine on last check (January 2022) was 3.3mg/dl from Mar - August 2021, creatinine had been running 2.4 - 2.7mg/dl due to diabetes, hypertension, vascular disease, and age-related change (3) Syncope: Code(s): R55 - Syncope and collapse Status: Acute Assessment and Plan: vasovagal issue? however, issues with #4 may be contributing as well possible prerenal factors playing a role related to Afib (?) medication related - on flomax contine ongoing therapy (4) Anemia: Code(s): D64.9 - Anemia, unspecified Status: Acute Assessment and Plan: partly related to CKD however, history of melanotic stools and occult blood positive GI following results of EGD noted follow trend of H/H may need to consider KOTA PRBC transfusion per protocol (5) Hypertension: Code(s): I10 - Essential (primary) hypertension Status: Chronic Assessment and Plan: reasonable control given potential GI bleed and syncope, close monitoring of hemodyamics BP medications with parameters (6) DM renal manif type II, uncontrolled: Code(s): E11.29 - Type 2 diabetes mellitus with other diabetic kidney complication; E11.65 - Type 2 diabetes mellitus with hyperglycemia Status: Chronic Assessment and Plan: follow accuchecks glycemic control Will continue to follow. Subjective Date/time seen: 03/28/22 10:20 No apparent distress noted at the time of my visit; tolerated EGD yesterday without any issues or problems; H/H relatively stable; renal function continues to worsen although still making reasonable urine output. Exam Narrative: General: WD/WN large male in NAD Heart: normal S1 and S2; no rub Lungs: clear to auscultation Abdomen: soft, nontender, nondistended, positive bowel sounds Extremities: no cyanosis or clubbing; trace edema Skin: warm and intact Objective Data Vital Signs Vital Signs: Vital Signs Temp Pulse Resp BP Pulse Ox O2 Del Method 03/28/22 10:00 51 L 03/28/22 08:00 48 L 03/28/22 08:00 94.6 F L 55 L 20 139/60 100 03/28/22 08:24 54 L 03/28/22 06:00 56 L 03/28/22 04:00 46 L 20 98 Room Air 03/28/22 04:00 46 L 03/28/22 05:01 97.8 F 51 L 20 127/66 98 03/28/22 02:00 51 L 03/28/22 00:00 51 L 20 100 Autopap 03/28/22 00:00 51 L 03/27/22 23:48 98.3 F 49 L 20 113/68 100 03/27/22 22:00 54 L 03/27/22 21:22 54 L 95 Autopap 03/27/22 20:00 57 L 18 97 Room Air 03/27/22 20:00 57 L 03/27/22 20:55 56 L 03/27/22 20:13 98.5 F 56 L 18 133/78 97 03/27/22 18:00 63 03/27/22 16:57 97.5 F L 67 18 130/51 L 100 03/27/22 16:22 96.3 F L 73 20 147/51 H Intake/Output Intake/Output: Intake & Output 03/25/22 03/26/22 03/27/22 03/28/22 23:59 23:59 23:59 23:59 Intake Total 340 2130 1500 Output Total 1750 1350 400 Balance -3870 434 0098 Meds/Results Medications: Active Medications Generic Name Dose Route Start Last Admin Trade Name Freq PRN Reason Stop Dose Admin Albuterol 2 puff 03/25/22 23:39 Albuterol Sulfate (*Sp) Aerosol 1 Puff INHALATION
--- NOTE | 2022-03-28 11:00 | WPDGIPROGNO ---
Progress Note: A&P Assessment and Plan (1) Duodenal ulcer: Code(s): K26.9 - Duodenal ulcer, unspecified as acute or chronic, without hemorrhage or perforation Status: Acute Assessment and Plan: cause of bleeding s/p gold probe but did not find active bleeding protonix bid (2) Acute blood loss anemia: Code(s): D62 - Acute posthemorrhagic anemia Status: Acute Assessment and Plan: monitor for more signs of bleeding (3) Acute on chronic kidney failure: Code(s): N17.9 - Acute kidney failure, unspecified; N18.9 - Chronic kidney disease, unspecified Status: Acute Assessment and Plan: nephrology and urology on board, plan to do procedure (4) Hydronephrosis: Code(s): N13.30 - Unspecified hydronephrosis Status: Acute (5) Kidney stone: Code(s): N20.0 - Calculus of kidney Status: Acute Subjective Date/time seen: 03/28/22 11:00 (this should be progress note from 03/28/22) Interval history: no more bleeding, egd yesterday, noted worsening renal failure Review of Systems Review of Systems: All systems reviewed & are unremarkable except as noted in HPI and below Exam Const: General: cooperative, comfortable, well developed, alert, awake, ill appearing chronically and obese Nutritional Appearance: obese morbidly obese Orientation/consciousness: patient oriented x3 HENMT: Head: normal to inspection, normocephalic and atraumatic Ears: hearing grossly normal bilaterally Eyes: General: appearance normal, both eyes and all related structures Neck: Neck: full ROM and no lymphadenopathy Resp: Effort & Inspection: normal respiratory effort and able to speak in complete sentences Cardio: Jugular venous distension: no JVD Rate: regular rate Rhythm: regular rhythm Heart sounds: S1 normal heart sound present and S2 normal heart sound present GI: Inspection: visible herniation (Ventral) GI Palp: Yes Soft to palpation, No Tenderness to palpation present (GI) and No Guarding due to palpation present (GI) Skin: General skin exam: wounds noted (Left lower extremity) Rashes: no rashes Neuro: General: patient oriented x3 and CN's II-XI intact bilaterally Cranial nerves: Yes CN's II-XII intact bilaterally and Yes Equal, round and reactive pupils present Cognition (Neuro): normal cognition Speech: normal speech Motor exam (neuro): 5 motor strength present throughout Extrem: General: edema bilateral Objective Data Vital Signs Vital Signs: Vital Signs - 24 hr 03/28/22 16:00 03/28/22 16:00 03/28/22 16:00 Temperature 97.5 F L Pulse Rate 58 L 72 Respiratory Rate 20 Blood Pressure 108/55 L Pulse Oximetry 98 98 Oxygen Delivery Room Air Oxygen Flow Rate 03/28/22 18:00 03/28/22 20:00 03/28/22 21:05 Temperature 98.2 F Pulse Rate 64 67 64 Respiratory Rate 20 Blood Pressure 114/41 L Pulse Oximetry 98 Oxygen Delivery Oxygen Flow Rate 03/28/22 20:00 03/28/22 22:00 03/28/22 23:37 Temperature Pulse Rate 69 66 Respiratory Rate Blood Pressure Pulse Oximetry Oxygen Delivery Room Air Oxygen Flow Rate 03/28/22 23:38 03/29/22 00:13 03/29/22 00:00 Temperature 97.8 F Pulse Rate 61 61 65 Respiratory Rate 20 Blood Pressure 113/38 L Pulse Oximetry 99 96 Oxygen Delivery Autopap Oxygen Flow Rate 03/29/22 02:00 03/29/22 04:00 03/29/22 04:00 Temperature Pulse Rate 66 69 Respiratory Rate Blood Pressure Pulse Oximetry Oxygen Delivery Room Air Oxygen Flow Rate 03/29/22 04:32 03/29/22 04:00 03/29/22 05:58 Temperature 97.9 F Pulse Rate 73 71 59 L Respiratory Rate 22 H Blood Pressure 110/40 L Pulse Oximetry 94 100 Oxygen Delivery Autopap Oxygen Flow Rate 03/29/22 08:00 03/29/22 08:15 03/29/22 08:57 Temperature 97.3 F L 97.1 F L Pulse Rate 61 62 72 Respiratory Rate 20 10 L Blood Pressure 138/45 L 81/39 L Pulse Oximetry 93 100 Oxyg
--- NOTE | 2022-03-28 11:05 | WPDANESPN ---
Anes - Prog Note Post-Op Date/Time: 03/28/22 11:05 Cardiovascular status: normal Respiratory status: normal Airway patency: baseline Mental status: baseline Post-Op hydration status: normal Vital Signs: Last Vital Signs Temp 34.8 C L 03/28/22 08:00 Pulse 54 L 03/28/22 08:24 Resp 20 03/28/22 08:00 BP 139/60 03/28/22 08:00 Pulse Ox 100 03/28/22 08:00 O2 Del Method Room Air 03/28/22 04:00 O2 Flow Rate 8 03/27/22 12:46 Pain Score (VAS): 0 I/O: Intake & Output 03/27/22 03/28/22 03/28/22 23:59 07:59 15:59 Intake Total 1380 300 960 Output Total 650 400 Balance 730 -100 960 Laboratory Tests 03/28/22 04:55 03/28/22 04:52 03/27/22 03/27/22 03/27/22 09:37 11:29 12:58 WBC RBC Hgb Hct MCV MCH MCHC RDW Plt Count MPV Sodium Potassium Chloride Carbon Dioxide Anion Gap BUN Creatinine Estim Creat Clear Calc Estimated GFR Glucose POC Capillary Glucose 75 81 Calcium Phosphorus Albumin Blood Type A Positive Antibody Screen Negative Crossmatch See Detail 03/27/22 03/27/22 03/28/22 17:49 20:09 04:52 WBC RBC Hgb Hct MCV MCH MCHC RDW Plt Count MPV Sodium 138 Potassium 5.5 H Chloride 109 H Carbon Dioxide 26 Anion Gap 3 L BUN 77 H Creatinine 5.10 H Estim Creat Clear Calc 19 Estimated GFR 11 L Glucose 71 POC Capillary Glucose 140 H 140 H Calcium 7.4 L Phosphorus 5.3 H Albumin 2.3 L Blood Type Antibody Screen Crossmatch 03/28/22 03/28/22 04:55 07:38 WBC 12.8 H RBC 2.49 L Hgb 7.1 L Hct 22.5 L MCV 90.4 MCH 28.5 MCHC 31.6 L RDW 16.0 H Plt Count 124 L MPV 10.5 H Sodium Potassium Chloride Carbon Dioxide Anion Gap BUN Creatinine Estim Creat Clear Calc Estimated GFR Glucose POC Capillary Glucose 73 Calcium Phosphorus Albumin Blood Type Antibody Screen Crossmatch Post-procedural complaints: none Patient Feedback: Patient satisfied with anesthetic care.
[2022-03-28 11:32] LABS: Glucose Point of Care 144 mg/dl (65-105)
--- NOTE | 2022-03-28 12:03 | WPDURCON ---
Assessment and Plan Assessment and plan (1) Acute on chronic kidney failure: Code(s): N17.9 - Acute kidney failure, unspecified; N18.9 - Chronic kidney disease, unspecified Status: Acute Assessment and Plan: baseline creatinine in the mid 2s. His creatinine today is 5. He is making adequate urine. He has a Tabares catheter in place (2) Hydronephrosis: Code(s): N13.30 - Unspecified hydronephrosis Status: Acute Assessment and Plan: will get a CT scan to better delineate his anatomy. I discussed with him he may need intervention depending on what we find on the CT scan. No intervention can be done today as he is actively eating lunch. I made him NPO after midnight. he has no current flank pain. He is making adequate urine. Plan 60 minutes was spent on this consultation. Time was split between patient interview, discussion with colleagues, few imaging studies, documentation Urology Consult Note HPI Date Seen: 03/28/22 Requesting Physician: Valerie Luciano MD Primary Care Provider: Patito Goldberg, CONSOLE OPERATOR- Consult Narrative Narrative: Chele Blackwell is a 76 year old male who I am seeing at the request of Nephrology. He was admitted to the hospital a few days ago for a syncopal event at home wall in the bathroom. he has multiple medical comorbidities 1 of which is chronic renal insufficiency. Baseline creatinine is in the 2-1/2 range and has been slowly increasing over the last year. As part of his workup here at the hospital he had a renal ultrasound that showed right hydronephrosis which they graded as [id number]. I viewed the CT scan from 1 year ago. He has no hydronephrosis. Does have atrophic kidneys bilaterally. He is making adequate urine. He has a Tabares catheter in place. He denies blood in the urine. He denies history of urinary tract infection. He denies history of kidney stones. He has no current flank pain. Review of Systems Review of Systems: All systems reviewed & are unremarkable except as noted in HPI and below PMFSH Past Medical History Medical History Acute blood loss anemia Chronic bilateral low back pain with sciatica Chronic kidney disease, stage 3 unspecified History of bleeding ulcers (~2014) History of stress test Hyperlipidemia Hypothyroidism Insulin dependent type 2 diabetes mellitus Obstructive sleep apnea treated with BiPAP Persistent atrial fibrillation Status post ablation in 2012. He has remained in AFib since February 2020 no pursuing a rate control strategy. Prostate cancer Status post radiation therapy. Short-term memory loss Valvular heart disease Status post bioprosthetic aortic valve replacement. Surgical History Surgical History History of aortic valve replacement (2012) History of appendectomy History of cardiac radiofrequency ablation (2012) History of cholecystectomy (1980) History of colonoscopy with polypectomy History of lithotripsy Family History Family History Sibling Family history of arthritis Father Malignant neoplasm of prostate Alcoholism Grandparent Diabetes mellitus Mother Cancer Other Family history of chronic obstructive pulmonary disease Family history of lung cancer Family history of malignant neoplasm of bone Social History Social History Social History: Surrogate decision maker: Iris Blackwell, spouse. Code status: Do not resuscitate. Smoking packs per day: 2 Smoking cigarettes per day: 40.0 Years smoked: 20 Smoking pack-years: 40.00 Smoking status: Former smoker Tobacco type: cigarettes Second hand tobacco smoke exposure: No Smoking end date: 06/24/84 Alcohol intake: former Drinks per week: 2 Alcohol use details: Jefei
[2022-03-28] MEDS: INSULIN ASPART (*BKC) 100 UNITS/ML 10 UNITS SUB-Q ×2 (12:11→17:17)
--- NOTE | 2022-03-28 12:43 | PM.IMPN ---
Progress Note: A&P Assessment and Plan (1) Syncope: Code(s): R55 - Syncope and collapse Status: Acute Assessment and Plan: Admit to IMU Likely to be vasovagal in nature however patient also with melena a noted to have decrease in his hemoglobin CT of the head reviewed Continue to monitor (2) Atrial fibrillation: Qualifiers: Atrial fibrillation type: unspecified Qualified Code(s): I48.91 - Unspecified atrial fibrillation Code(s): I48.91 - Unspecified atrial fibrillation Status: Acute Assessment and Plan: Rate controlled Holding anticoagulation due to GI bleed (3) Acute kidney injury superimposed on CKD: Code(s): N17.9 - Acute kidney failure, unspecified; N18.9 - Chronic kidney disease, unspecified Status: Acute Assessment and Plan: Tabares cathete Daily intake and output Continue to monitor Daily BMP Nephrology consult - await plan (4) Orthostatic hypotension: Code(s): I95.1 - Orthostatic hypotension Status: Acute Assessment and Plan: monitor (5) SERENA (obstructive sleep apnea): Code(s): G47.33 - Obstructive sleep apnea (adult) (pediatric) Status: Acute Assessment and Plan: BiPAP at nighttime (6) Type 2 diabetes mellitus with hyperglycemia: Qualifiers: Diabetes mellitus long term care pharmacist insulin use: with senior care use Qualified Code(s): E11.65 - Type 2 diabetes mellitus with hyperglycemia; Z79.4 - intermediate manager (current) use of insulin Code(s): E11.65 - Type 2 diabetes mellitus with hyperglycemia Status: Acute Assessment and Plan: Accu-Cheks AC and HS Continue insulin regimen Calorie consistent diet (7) Obesity, morbid (more than 100 lbs over ideal weight or BMI > 40): Code(s): E66.01 - Morbid (severe) obesity due to excess calories Status: Acute Assessment and Plan: Lifestyle and diet modifications (8) HTN (hypertension) with goal to be determined: Code(s): I10 - Essential (primary) hypertension Status: Acute Assessment and Plan: Continue to monitor (9) Melena: Code(s): K92.1 - Melena Status: Acute Assessment and Plan: Holding blood thinner History of ulcer in the past GI consult - egd noted PPI Transfuse as needed Subjective Date/time seen: 03/28/22 12:43 No new complaints. Creatinine no better. Exam Narrative: Patient is laying in a stretcher Const: General: cooperative, comfortable, no acute distress, well developed, alert, awake, ill appearing chronically and obese Nutritional Appearance: obese morbidly obese Orientation/consciousness: patient oriented x3 HENMT: Head: normal to inspection, normocephalic and atraumatic Ears: hearing grossly normal bilaterally Face/Nose/Sinus: normal facial exam Face and sinus: normal facial exam Eyes: General: appearance normal, both eyes and all related structures Pupils: Equal, round and reactive pupils present EOM: EOMs intact bilaterally Neck: Neck: full ROM, no lymphadenopathy and no JVD Thyroid: thyroid normal Lymphatic: no lymphadenopathy noted Resp: Effort & Inspection: normal respiratory effort and able to speak in complete sentences Auscultation: clear to auscultation bilaterally Cardio: Jugular venous distension: no JVD Rate: regular rate Rhythm: regular rhythm Heart sounds: S1 normal heart sound present and S2 normal heart sound present GI: Inspection: visible herniation (Ventral) : General: Yes deferred Skin: General skin exam: wounds noted (Left lower extremity) Rashes: no rashes Wounds: wounds noted (Left lower extremity) Neuro: General: patient oriented x3, CN's II-XI intact bilaterally and Unable to assess gait Cranial nerves: Yes CN's II-XII intact bilaterally and Yes Equal, round and reactive pupils present Cognition (Neuro): normal cognition Speech: normal speech Gait exam (Neuro): Unable to assess gait Motor exam (neuro): 5/5 motor
[2022-03-28 16:11] LABS: Creatinine Urine 104.8 mg/dL; Urea Random Urine 564 MG/DL
[2022-03-28 16:14] LABS: Appearance Urine Clear (Clear); Bilirubin Urine Negative (Negative); Blood Urine 2+ (Negative); Color Urine Yellow (Yellow); Glucose Urine UA Negative (Negative); Ketones Urine Negative (Negative); Leukocyte Esterase Ur Negative LEU/UL (Negative); Nitrate Urine Negative (Negative); Protein Urine 3+ mg/dL (Negative); Urobilinogen Urine 0.2 mg/dL (<2.0)
[2022-03-28 16:22] LABS: Sodium Urine Random 13 meq/L
[2022-03-28 16:24] LABS: Bacteria Urine Trace /hpf; Mucus Urine Rare /lpf; RBC Urine 21-50 /hpf (0-2); Squamous Epithelial Cell Urine Rare /hpf (Few); WBC Urine 0-3 /hpf
[2022-03-28 16:25] LABS: Add Urine Microscopic? YES
[2022-03-28 16:45] LABS: Glucose Point of Care 107 mg/dl (65-105)
[2022-03-28 17:18] LABS: Eosinophil Urine None Seen % (None Seen)
[2022-03-28] MEDS: SODIUM ZIRCONIUM CYCLOSILICATE 10 GM POWD.PACK PO (17:18)
[2022-03-28 18:19] LABS: Total Protein Urine Random > 200 mg/dL
[2022-03-28 19:49] LABS: Glucose Point of Care 143 mg/dl (65-105)
[2022-03-28] MEDS: ATORVASTATIN 40 MG TABLET 80 MG PO (21:05)
[2022-03-28] MEDS: calcitrioL 0.25 MCG CAPSULE PO (21:05)
[2022-03-29] VITALS (32 sets, daily range): BP systolic 81–138; BP diastolic 39–89; PULSE 58–75; RESP 10–24; TEMP 35–36.6; O2SAT 93–100
[2022-03-29] MEDS: WATER FOR IRRIGATION, STERILE 1,000 ML BOTTLE 1000 ML (00:18)
[2022-03-29 05:19] LABS: Basophils Absolute Auto 0.1 K/mm3 (0.0-0.1); Basophils Percent Auto 0.3 % (0.2-1.2); Eosinophils Absolute Auto 0.6 K/mm3 (0-0.3); Eosinophils Percent Auto 4.1 % (0-4.4); Hematocrit 22.9 % (42.0-52.0); Immature Granulocyte Absolute 0.07 K/mm3 (0.00-0.031); Immature Granulocyte Percent A 0.5 % (0-0.5); Lymphocytes Absolute Auto 0.89 K/mm3 (0.9-3.2); Lymphocytes Percent Auto 5.9 % (18.3-44.2); Mean Corpuscular HGB Conc 30.6 g/dl (32-36); Mean Corpuscular Hemoglobin 28.7 pg (26-34); Mean Corpuscular Volume 93.9 fl (80-100); Mean Platelet Volume 10.6 fl (7.4-10.4); Monocytes Absolute Auto 1.2 K/mm3 (0.1-0.6); Monocytes Percent Auto 8.1 % (2.6-8.5); Neutrophils Absolute Auto 12.1 K/mm3 (1.3-6.7); Neutrophils Percent Auto 81.1 % (45.5-73.1); Platelet Count Result 119 k/mm3 (150-375); Red Blood Count 2.44 M/mm3 (4.6-6.20); Red Cell Distribution Width 15.9 % (11.5-14.5)
[2022-03-29 05:34] LABS: Anion Gap 3 mmol/L (8-16); Blood Urea Nitrogen 75 mg/dL (9-20); Calcium 7.1 mg/dL (8.4-10.2); Carbon Dioxide 25 mmol/L (22-30); Chloride 105 mmol/L (98-107); Estimated CRCL calculation 17 ml/min; Estimated Glomerular Filt Rate 10; Glucose 64 mg/dL (65-110); Potassium 5.3 mmol/L (3.4-5.0); Sodium 133 mmol/L (137-145)
[2022-03-29 05:48] LABS: Glucose Point of Care 69 mg/dl (65-105)
[2022-03-29] MEDS: DEXTROSE 50% 25 GM/50 ML SYRINGE (05:51)
[2022-03-29] MEDS: LEVOTHYROXINE SODIUM 75 MCG TABLET BY MOUTH (05:51)
[2022-03-29 06:14] LABS: Glucose Point of Care 132 mg/dl (65-105)
[2022-03-29 07:55] LABS: Glucose Point of Care 133 mg/dl (65-105)
--- NOTE | 2022-03-29 07:55 | WPDHPUPDATE1 ---
History and Physical Update Update Date/Time: 03/29/22 07:55 History and Physical has been reviewed, including an updated exam of the patient. There are NO changes in the patient's condition. Risks, benefits, and alternatives have been discussed and questions answered. Patient agrees to proceed with procedure.
[2022-03-29] MEDS: LACTATED RINGERS 1,000 ML 30 ML IV CONT (08:10)
--- NOTE | 2022-03-29 08:10 | PC.NURSE ---
Patient transferred to OR with IMU staff. Oriented x3, patient on room air, no complaints at this time.
--- NOTE | 2022-03-29 08:13 | WPDANESEPPF ---
Anes - Initial Pre Proc Eval Procedure: Operation Date: 03/27/22 12:00 Proposed Procedures p Esophagogastroduodenoscopy - Ryne Yarbrough MD Operation Date: 03/29/22 07:30 Proposed Procedures p Cystoscopy,Right Ureteroscopy,Right Retrograde Pyelogram,Right Stone Extraction,Possible Holmium Laser,Possible Stent Placement - Kimberly Perez MD Date/Time: 03/29/22 08:13 Surgeon: Valerie Luciano MD Pre Op Diagnosis: syncope Patient Data Age: 76 Gender: M Height: 1.83 m Weight: 163.1 kg Last Vital Signs Temp 36.6 C 03/29/22 04:00 Pulse 59 L 03/29/22 05:58 Resp 22 H 03/29/22 04:00 BP 110/40 L 03/29/22 04:00 Pulse Ox 94 03/29/22 04:32 O2 Del Method Autopap 03/29/22 04:32 O2 Flow Rate 8 03/27/22 12:46 Allergies Allergy/AdvReac Type Severity Reaction Status Date / Time morphine AdvReac Intermediate Confusion Verified 03/25/22 18:20 Home Medications Medication Instructions Recorded Confirmed Type lancets (Accu-Chek Fastclix Lancet #200 ea 03/22/21 03/25/22 Rx Drum) blood sugar diagnostic (Accu-Chek #100 ea 04/25/21 03/25/22 Rx Anayeli Plus test strips) flash glucose sensor (FreeStyle #6 ea 04/25/21 03/25/22 Rx Nelda 2 Sensor kit) galantamine 8 mg 24 hr 8 mg PO DAILY 05/01/21 03/25/22 History capsule,extended release tamsulosin 0.4 mg capsule 0.4 mg PO DAILY 05/01/21 03/25/22 History pen needle, diabetic 32 gauge x #500 ea 06/06/21 03/25/22 Rx 5/32 (BD Rosalba 2nd Gen Pen Needle) carvedilol 3.125 mg tablet See Rx Instructions .Route 07/04/21 03/25/22 Rx .COMPLEX #180 tabs levothyroxine 75 mcg tablet See Rx Instructions .Route 07/04/21 03/25/22 Rx .COMPLEX #90 tabs dulaglutide 4.5 mg/0.5 mL 4.5 mg (0.5 mL) subcut WEEKLY 90 08/26/21 03/25/22 Rx subcutaneous pen injector days #6.5 mL (Trulicity) albuterol sulfate 90 mcg/actuation 2 puff inhalation QID PRN 03/12/22 03/25/22 Rx aerosol inhaler shortness of breath or wheezing #8.5 grams apixaban 5 mg tablet (Eliquis) 5 mg PO Q12H 03/25/22 03/25/22 History atorvastatin 80 mg tablet 80 mg PO HS 03/25/22 03/25/22 History calcitriol 0.25 mcg capsule 0.25 mcg PO HS 03/25/22 03/25/22 History divalproex 125 mg capsule,delayed 125 mg PO DAILY 03/25/22 03/25/22 History release sprinkle gabapentin 100 mg capsule 200 mg PO BID 03/25/22 03/25/22 History insulin aspart U-100 100 unit/mL 10 unit subcut DAILY 03/25/22 03/25/22 History (3 mL) subcutaneous pen (Novolog FlexPen U-100 Insulin aspart) insulin degludec 200 unit/mL (3 46 unit subcut HS 03/25/22 03/25/22 History mL) subcutaneous pen (Tresiba FlexTouch U-200 insulin) memantine 14 mg capsule 14 mg PO DAILY 03/25/22 03/25/22 History sprinkle,extended release 24hr Laboratory Tests 03/28/22 03/28/22 03/28/22 11:27 15:24 15:24 WBC RBC Hgb Hct MCV MCH MCHC RDW Plt Count MPV Immature Gran % (Auto) Neut % (Auto) Lymph % (Auto) [place] % (Auto) Eos % (Auto) Baso % (Auto) Lymph # (Auto) [place] # (Auto) Eos # (Auto) Baso # (Auto) Abs Immat Gran (auto) Absolute Neuts (auto) Absolute Nucleated RBC Nucleated RBC % Sodium Potassium Chloride Carbon Dioxide Anion Gap BUN Creatinine Estim Creat Clear Calc Estimated GFR Glucose POC Capillary Glucose 144 mg/dl H mg/dl (65-105) Calcium Urine Color Yellow (Yellow) Urine Appearance Clear (Clear) Urine pH 5.0 (5.0-9.0) Ur Specific [place] 1.020 (1.001-1.035) Urine Protein 3+ mg/dL H mg/dL (Negat
[2022-03-29] MEDS: ceFAZolin SODIUM 1 GM VIAL 3 GM IV PUSH (08:16)
--- NOTE | 2022-03-29 08:29 | PCOTNOTE ---
Attempted to see pt. for occupational therapy evaluation. Pt. away from room for surgery. Nursing aware of bedrest orders and agreeable address when pt. has returned from procedure.
[2022-03-29] MEDS: LIDOCAINE HCL 2% GEL UROJET 10 ML PKG MUCOUS MEM (08:38)
--- NOTE | 2022-03-29 08:52 | W.PM.PROC2 ---
Procedure Note - Detailed Date of Procedure 03/29/22 Pre-op Diagnosis Right ureteral stone Post-op Diagnosis Same Procedure Performed Cystoscopy, right ureteroscopy, stone extraction, retrograde pyelogram, and stent placement, Tabares catheter insertion Surgeon Kimberly Perez MD Anesthesia General Findings Distal right ureteral stone Description of Procedure Informed consent was obtained. Patient taken the operating room.. He is given preoperative IV antibiotics. He was induced with anesthesia. He was placed in the dorsal lithotomy position. He was prepped and draped in normal sterile fashion. We inserted a 22 F cystoscope through the urethra the bladder. Bladder had changes expected from previous Tabares catheter insertion posterior wall irritation. The right ureteral orifice was identified with stone present impacted in the UVJ. We then placed a wire beyond the level of the stone and dilate with an 810 coaxial dilator. This point we inserted a semi rigid ureteroscope and using a ZeroTip basket able to engage the stone and extracted. At this point we reinserted the ureteroscope and inspected the distal half of the ureter without additional stones seen. Retrograde pyelogram was then performed showing moderate right hydronephrosis. Given patient's renal insufficiency we elected to place a stent, passing a 6 F variable length stent over the wire with a curl in renal pelvis across the bladder. The bladder was entered with a 18 F coude catheter. Patient was taken to recovery in stable condition. Estimated Blood Loss 0 Drains No Packing No Pathology Yes Complications No immediate complications Condition Stable Disposition PACU
[2022-03-29 09:27] LABS: Glucose Point of Care 122 mg/dl (65-105)
[2022-03-29] MEDS: diphenhydrAMINE HCl INJ 50 MG/ML VIAL 12.5 MG IV PUSH (09:27)
--- NOTE | 2022-03-29 10:30 | PCPTNOTE ---
Pt had surgery this am and still had bedrest orders. Will evaluate pt as bedrest orders are lifted.
--- NOTE | 2022-03-29 11:10 | P.PNNP_ITS ---
Progress Note: A&P Assessment and Plan (1) MARY (acute kidney injury): Code(s): N17.9 - Acute kidney failure, unspecified Status: Acute Assessment and Plan: * ongoing worsening noted * etiology? * prerenal factors * anemia * relative hypotension * component of disease progression (?) * Contribution by the obstructing stone? * evaluation to date: * renal ultrasound with mild/moderate right hydro * He had stent placement today. * urine electrolytes are prerenal * urine eosinophils negative * reasonable urine output noted * His creatinine is worse today. The stone was just taking care of this morning so we will see if this improves. (2) Chronic kidney disease, stage IV (severe): Code(s): N18.4 - Chronic kidney disease, stage 4 (severe) Status: Chronic Assessment and Plan: * progressive deterioration noted in the last year * creatinine on last check (January 2022) was 3.3mg/dl * from Mar - August 2021, creatinine had been running 2.4 - 2.7mg/dl * due to diabetes, hypertension, vascular disease, and age-related change * To manage this, optimize hydration status, holding off on Jono/ARB because of the rising creatinine, he is on atorvastatin, will follow PTH as an outpatient. (3) Syncope: Code(s): R55 - Syncope and collapse Status: Acute Assessment and Plan: * vasovagal issue? * however, issues with #4 may be contributing as well * possible prerenal factors playing a role * related to Afib (?) * medication related - on flomax * Cardiology on board * continue ongoing therapy (4) Anemia: Code(s): D64.9 - Anemia, unspecified Status: Acute Assessment and Plan: * partly related to CKD * however, history of melanotic stools and occult blood positive * GI following * results of EGD noted * Hemoglobin has been dropping. Now it is down to 7. * Check iron studies * Will start Epogen * PRBC transfusion per protocol (5) Hypertension: Code(s): I10 - Essential (primary) hypertension Status: Chronic Assessment and Plan: * Systolic is good under 130 * given potential GI bleed and syncope, close monitoring of hemodyamics * BP medications with parameters (6) DM renal manif type II, uncontrolled: Code(s): E11.29 - Type 2 diabetes mellitus with other diabetic kidney complication; E11.65 - Type 2 diabetes mellitus with hyperglycemia Status: Chronic Assessment and Plan: * Accu-Cheks and sliding scale insulin per hospitalist's Subjective Date/time seen: 03/29/22 11:10 Interval history: 03/29/2022 Chele just got back from surgery. He had a cystoscopy and stent placement. Patient is hungry and thirsty. He is getting situated in bed. He denies shortness of breath. He denies any swelling. Exam Narrative: General: WD/WN large male in NAD Heart: normal S1 and S2; irregularly irregular rhythm, controlled rate. no rub or gallop Lungs: clear Abdomen: soft, nontender, nondistended, positive bowel sounds Extremities: no cyanosis or clubbing; trace edema Skin: No rash Objective Data Vital Signs Vital Signs: Vital Signs - 24 hr 03/28/22 12:00 03/28/22 12:00 03/28/22 12:00 Temperature 96.8 F L Pulse Rate 62 65 Respiratory Rate 20 Blood Pressure 92/44 L Pulse Oximetry 99 100 Oxygen Delivery Room Air
--- NOTE | 2022-03-29 11:10 | PM.PNNEP ---
Progress Note: A&P Assessment and Plan (1) MARY (acute kidney injury): Code(s): N17.9 - Acute kidney failure, unspecified Status: Acute Assessment and Plan: ongoing worsening noted etiology? prerenal factors anemia relative hypotension component of disease progression (?) Contribution by the obstructing stone? evaluation to date: renal ultrasound with mild/moderate right hydro He had stent placement today. urine electrolytes are prerenal urine eosinophils negative reasonable urine output noted His creatinine is worse today. The stone was just taking care of this morning so we will see if this improves. (2) Chronic kidney disease, stage IV (severe): Code(s): N18.4 - Chronic kidney disease, stage 4 (severe) Status: Chronic Assessment and Plan: progressive deterioration noted in the last year creatinine on last check (January 2022) was 3.3mg/dl from Mar - August 2021, creatinine had been running 2.4 - 2.7mg/dl due to diabetes, hypertension, vascular disease, and age-related change To manage this, optimize hydration status, holding off on Jono/ARB because of the rising creatinine, he is on atorvastatin, will follow PTH as an outpatient. (3) Syncope: Code(s): R55 - Syncope and collapse Status: Acute Assessment and Plan: vasovagal issue? however, issues with #4 may be contributing as well possible prerenal factors playing a role related to Afib (?) medication related - on flomax Cardiology on board continue ongoing therapy (4) Anemia: Code(s): D64.9 - Anemia, unspecified Status: Acute Assessment and Plan: partly related to CKD however, history of melanotic stools and occult blood positive GI following results of EGD noted Hemoglobin has been dropping. Now it is down to 7. Check iron studies Will start Epogen PRBC transfusion per protocol (5) Hypertension: Code(s): I10 - Essential (primary) hypertension Status: Chronic Assessment and Plan: Systolic is good under 130 given potential GI bleed and syncope, close monitoring of hemodyamics BP medications with parameters (6) DM renal manif type II, uncontrolled: Code(s): E11.29 - Type 2 diabetes mellitus with other diabetic kidney complication; E11.65 - Type 2 diabetes mellitus with hyperglycemia Status: Chronic Assessment and Plan: Accu-Cheks and sliding scale insulin per hospitalist's Subjective Date/time seen: 03/29/22 11:10 Interval history: 03/29/2022 Chele just got back from surgery. He had a cystoscopy and stent placement. Patient is hungry and thirsty. He is getting situated in bed. He denies shortness of breath. He denies any swelling. Exam Narrative: General: WD/WN large male in NAD Heart: normal S1 and S2; irregularly irregular rhythm, controlled rate. no rub or gallop Lungs: clear Abdomen: soft, nontender, nondistended, positive bowel sounds Extremities: no cyanosis or clubbing; trace edema Skin: No rash Objective Data Vital Signs Vital Signs: Vital Signs - 24 hr 03/28/22 12:00 03/28/22 12:00 03/28/22 12:00 Temperature 96.8 F L Pulse Rate 62 65 Respiratory Rate 20 Blood Pressure 92/44 L Pulse Oximetry 99 100 Oxygen Delivery Room Air Oxygen Flow Rate 03/28/22 14:00 03/28/22 16:00 03/28/22 16:00 Temperature 97.5 F L Pulse Rate 66 58 L 72 Respiratory Rate 20 Blood Pressure 108/55 L Pulse Oximetry 98 Oxygen Delivery Oxygen Flow Rate 03/28/22 16:00 03/28/22 18:00 03/28/22 20:00 Temperature 98.2 F Pulse Rate 64 67 Respiratory Rate 20 Blood Pressure 114/41 L Pulse Oximetry 98 98 Oxygen Delivery Room Air Oxygen Flow Rate 03/28/22 21:05 03/28/22 20:00 03/28/22 22:00 Temperature Pulse Rate 64 69 66 Respiratory Rate Blood Pressure Pulse Oximetry Oxygen Delivery Oxygen Flow Rate
--- NOTE | 2022-03-29 11:11 | PC.NURSE ---
Patient returned from OR with hospital staff. Report received from TROY Craig. Patient oriented x3, room air, no pain noted at this time. Patient rectal temperature noted to be 95 degrees rectally, dane hugger placed. [address] catheter in place. Will continue to monitor closely.
[2022-03-29] MEDS: DEXTROSE 50% 25 GM/50 ML SYRINGE IV PUSH (11:41)
[2022-03-29 11:43] LABS: Glucose Point of Care 60 mg/dl (65-105)
[2022-03-29] MEDS: SILVERGEL (ELTA) 45 ML 1 APPLIC TOPICAL (11:47)
[2022-03-29] MEDS: MICONAZOLE NITRATE 2% CREAM 30 GM TUBE 1 APPLIC TOPICAL ×2 (11:48→21:08)
[2022-03-29] MEDS: TOLNAFTATE 1% POWDER 45 GM BTL 1 APPLIC TOPICAL ×2 (11:48→21:09)
[2022-03-29 12:26] LABS: Glucose Point of Care 96 mg/dl (65-105)
[2022-03-29 13:06] LABS: Iron 18 ug/dL (49-181)
[2022-03-29 13:15] LABS: Percent Iron Saturation 7 % (20-50)
--- NOTE | 2022-03-29 14:28 | PM.IMPN ---
Progress Note: A&P Assessment and Plan (1) Syncope: Code(s): R55 - Syncope and collapse Status: Acute Assessment and Plan: Admit to IMU Likely to be vasovagal in nature however patient also with melena a noted to have decrease in his hemoglobin CT of the head reviewed Continue to monitor (2) Atrial fibrillation: Qualifiers: Atrial fibrillation type: unspecified Qualified Code(s): I48.91 - Unspecified atrial fibrillation Code(s): I48.91 - Unspecified atrial fibrillation Status: Acute Assessment and Plan: Rate controlled Holding anticoagulation due to GI bleed (3) Acute kidney injury superimposed on CKD: Code(s): N17.9 - Acute kidney failure, unspecified; N18.9 - Chronic kidney disease, unspecified Status: Acute Assessment and Plan: Tabares cathete Daily intake and output Continue to monitor Daily BMP Nephrology consult - await plan (4) Orthostatic hypotension: Code(s): I95.1 - Orthostatic hypotension Status: Acute Assessment and Plan: monitor (5) SERNEA (obstructive sleep apnea): Code(s): G47.33 - Obstructive sleep apnea (adult) (pediatric) Status: Acute Assessment and Plan: BiPAP at nighttime (6) Type 2 diabetes mellitus with hyperglycemia: Qualifiers: Diabetes mellitus sourcing engineer insulin use: with custodial use Qualified Code(s): E11.65 - Type 2 diabetes mellitus with hyperglycemia; Z79.4 - 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 Code(s): E11.65 - Type 2 diabetes mellitus with hyperglycemia Status: Acute Assessment and Plan: Accu-Cheks AC and HS Continue insulin regimen Calorie consistent diet (7) Obesity, morbid (more than 100 lbs over ideal weight or BMI > 40): Code(s): E66.01 - Morbid (severe) obesity due to excess calories Status: Acute Assessment and Plan: Lifestyle and diet modifications (8) HTN (hypertension) with goal to be determined: Code(s): I10 - Essential (primary) hypertension Status: Acute Assessment and Plan: Continue to monitor (9) Melena: Code(s): K92.1 - Melena Status: Acute Assessment and Plan: Holding blood thinner History of ulcer in the past GI consult - egd noted PPI Transfuse as needed (10) Hydronephrosis: Code(s): N13.30 - Unspecified hydronephrosis Status: Acute Assessment and Plan: Status post ureteral stent. Subjective Date/time seen: 03/29/22 14:28 Status post ureteral stent Exam Narrative: Patient is laying in a stretcher Const: General: cooperative, comfortable, no acute distress, well developed, alert, awake, ill appearing chronically and obese Nutritional Appearance: obese morbidly obese Orientation/consciousness: patient oriented x3 HENMT: Head: normal to inspection, normocephalic and atraumatic Ears: hearing grossly normal bilaterally Face/Nose/Sinus: normal facial exam Face and sinus: normal facial exam Eyes: General: appearance normal, both eyes and all related structures Pupils: Equal, round and reactive pupils present EOM: EOMs intact bilaterally Neck: Neck: full ROM, no lymphadenopathy and no JVD Thyroid: thyroid normal Lymphatic: no lymphadenopathy noted Resp: Effort & Inspection: normal respiratory effort and able to speak in complete sentences Auscultation: clear to auscultation bilaterally Cardio: Jugular venous distension: no JVD Rate: regular rate Rhythm: regular rhythm Heart sounds: S1 normal heart sound present and S2 normal heart sound present GI: Inspection: visible herniation ([facility]) : General: Yes deferred Skin: General skin exam: wounds noted (Left lower extremity) Rashes: no rashes Wounds: wounds noted (Left lower extremity) Neuro: General: patient oriented x3, CN's II-XI intact bilaterally and Unable to assess gait Cranial nerves: Yes CN's II-XII intact bilaterally and Yes Equal, round and reactive pupils pre
[2022-03-29] MEDS: hydrOXYzine HCL 25 MG TABLET PO (14:58)
[2022-03-29] MEDS: EPOETIN ALFA-EPBX 10,000 UNITS/ML VIAL 10000 UNITS SUB-Q (14:58)
[2022-03-29] MEDS: DIVALPROEX SODIUM SPRINKLE 125 MG CAP.DR PO ×2 (15:00→21:09)
[2022-03-29] MEDS: PANTOPRAZOLE SODIUM IV 40 MG VIAL IV PUSH ×2 (15:00→21:08)
[2022-03-29] MEDS: MEMANTINE HCL XR 7 MG CAP 14 MG PO (15:00)
[2022-03-29] MEDS: carvediloL 3.125 MG TABLET BY MOUTH ×2 (15:01→21:10)
[2022-03-29] MEDS: TAMSULOSIN HCL 0.4 MG CAPSULE PO (15:01)
--- NOTE | 2022-03-29 15:09 | WPDGIPROGNO ---
Progress Note: A&P Assessment and Plan (1) Acute blood loss anemia: Code(s): D62 - Acute posthemorrhagic anemia Status: Acute Assessment and Plan: gib due to bleeding from duodenal ulcer, egd revealed large non-bleeding ulcer, used gold probe in flat spot continue with protonix bid holding blood thinner for now h/h low but has been stable since admission, no more bleeding (2) Duodenal ulcer: Code(s): K26.9 - Duodenal ulcer, unspecified as acute or chronic, without hemorrhage or perforation Status: Acute Assessment and Plan: cause of gib (3) Acute on chronic kidney failure: Code(s): N17.9 - Acute kidney failure, unspecified; N18.9 - Chronic kidney disease, unspecified Status: Acute Assessment and Plan: worsening renal failure and required urological intervention (4) Hydronephrosis: Code(s): N13.30 - Unspecified hydronephrosis Status: Acute (5) Kidney stone: Code(s): N20.0 - Calculus of kidney Status: Acute Assessment and Plan: treated with stent (6) Melena: Code(s): K92.1 - Melena Status: Acute Assessment and Plan: resolved (7) Type 2 diabetes mellitus with hyperglycemia: Qualifiers: Diabetes mellitus skilled nursing insulin use: with skilled nursing use Qualified Code(s): E11.65 - Type 2 diabetes mellitus with hyperglycemia; Z79.4 - residential (current) use of insulin Code(s): E11.65 - Type 2 diabetes mellitus with hyperglycemia Status: Acute Subjective Date/time seen: 03/29/22 15:09 Interval history: no more bleeding since egd, also had urological intervention because stone and hydronephrosis Review of Systems Review of Systems: All systems reviewed & are unremarkable except as noted in HPI and below Exam Const: General: cooperative, comfortable, well developed, alert, awake, ill appearing chronically and obese Nutritional Appearance: obese morbidly obese Orientation/consciousness: patient oriented x3 HENMT: Head: normal to inspection, normocephalic and atraumatic Ears: hearing grossly normal bilaterally Eyes: General: appearance normal, both eyes and all related structures Neck: Neck: full ROM and no lymphadenopathy Resp: Effort & Inspection: normal respiratory effort and able to speak in complete sentences Cardio: Jugular venous distension: no JVD Rate: regular rate Rhythm: regular rhythm Heart sounds: S1 normal heart sound present and S2 normal heart sound present GI: Inspection: visible herniation ([facility]ral) GI Palp: Yes Soft to palpation, No Tenderness to palpation present (GI) and No Guarding due to palpation present (GI) Skin: General skin exam: wounds noted (Left lower extremity) Rashes: no rashes Neuro: General: patient oriented x3 and CN's II-XI intact bilaterally Cranial nerves: Yes CN's II-XII intact bilaterally and Yes Equal, round and reactive pupils present Cognition (Neuro): normal cognition Speech: normal speech Motor exam (neuro): 5/5 motor strength present throughout Extrem: General: edema bilateral Objective Data Vital Signs Vital Signs: Vital Signs - 24 hr 03/28/22 16:00 03/28/22 16:00 03/28/22 16:00 Temperature 97.5 F L Pulse Rate 58 L 72 Respiratory Rate 20 Blood Pressure 108/55 L Pulse Oximetry 98 98 Oxygen Delivery Room Air Oxygen Flow Rate 03/28/22 18:00 03/28/22 20:00 03/28/22 21:05 Temperature 98.2 F Pulse Rate 64 67 64 Respiratory Rate 20 Blood Pressure 114/41 L Pulse Oximetry 98 Oxygen Delivery Oxygen Flow Rate 03/28/22 20:00 03/28/22 22:00 03/28/22 23:37 Temperature Pulse Rate 69 66 Respiratory Rate Blood Pressure Pulse Oximetry Oxygen Delivery Room Air Oxygen Flow Rate 03/28/22 23:38 03/29/22 00:13 03/29/22 00:00 Temperature 97.8 F Pulse Rate 61 61 65 Respiratory Rate 20 Blood Pressure 113/38 L Pulse Oximetry 99 96 Oxygen Delivery Autopap Oxygen F
[2022-03-29 17:04] LABS: Glucose Point of Care 96 mg/dl (65-105)
[2022-03-29] MEDS: GABAPENTIN 100 MG CAPSULE 200 MG PO (18:35)
[2022-03-29 19:31] LABS: Glucose Point of Care > 500 mg/dl (65-105)
[2022-03-29 19:55] LABS: Glucose Point of Care 79 mg/dl (65-105)
[2022-03-29 19:55] LABS: Glucose Point of Care 78 mg/dl (65-105)
[2022-03-29] MEDS: TUBING, BLOOD PLUM PUMP TUBING 1 EACH XX (19:58)
[2022-03-29] MEDS: SODIUM CHLORIDE 0.9% IV 1,000 ML 30 ML (20:41)
[2022-03-29] MEDS: HYDROCORTISONE SODIUM SUCCINATE 100 MG/2 ML VIAL IV PUSH (21:08)
[2022-03-29] MEDS: calcitrioL 0.25 MCG CAPSULE PO (21:10)
[2022-03-29] MEDS: ATORVASTATIN 40 MG TABLET 80 MG PO (21:10)
[2022-03-29] MEDS: DEXTROSE 5%/0.45% SOD CHL 1,000 ML 75 ML IV CONT (22:52)
[2022-03-29 23:32] LABS: Carboxyhemoglobin 0.2 % THb (0-2.0); Fractional Inspired Oxygen 21 %; HCO3 ABG 22.4 mEq/l (22.0-26.0); Methemoglobin ABG 0.5 %THb (0-1.5); Oxygen Content ABG 12.7 %vol (16.0-22.0); Oxygen Saturation ABG 96.8 % (95.0-100.0); Oxyhemoglobin 94.8 % THb (90.0-100.0); PCO2 ABG 41.2 mmHg (35.0-45.0); PO2 ABG 93.4 mmHg (80.0-100.0); PO2 FiO2 Ratio Arterial Blood 4.45 %; Reduced Hemoglobin 4.5 %THb (0-5.0); Total Hemoglobin 9.4 g/dL (12.0-18.0); pH ABG 7.353 (7.350-7.450)
[2022-03-29 23:34] LABS: Modified Allen's Test Pass; Site Drawn RIGHT RADIAL
[2022-03-29 23:42] LABS: Glucose Point of Care 116 mg/dl (65-105)
[2022-03-30] VITALS (20 sets, daily range): BP systolic 113–133; BP diastolic 40–80; PULSE 43–63; RESP 20–24; TEMP 35.6–36.6; O2SAT 95–100
[2022-03-30 00:20] LABS: Lactic Acid Reflex 0.9 mmol/L (0.7-2.0)
[2022-03-30] MEDS: FUROSEMIDE INJ 40 MG/4 ML VIAL 10 MG IV PUSH (00:41)
[2022-03-30 04:21] LABS: Basophils Percent Auto 0.2 % (0.2-1.2); Eosinophils Absolute Auto 0.1 K/mm3 (0-0.3); Eosinophils Percent Auto 0.8 % (0-4.4); Hematocrit 25.5 % (42.0-52.0); Hemoglobin 7.9 g/dL (14.0-18.0); Immature Granulocyte Absolute 0.04 K/mm3 (0.00-0.031); Immature Granulocyte Percent A 0.3 % (0-0.5); Lymphocytes Absolute Auto 0.47 K/mm3 (0.9-3.2); Mean Corpuscular Hemoglobin 29.3 pg (26-34); Mean Corpuscular Volume 94.4 fl (80-100); Mean Platelet Volume 11.3 fl (7.4-10.4); Monocytes Absolute Auto 0.4 K/mm3 (0.1-0.6); Monocytes Percent Auto 3.1 % (2.6-8.5); Neutrophils Absolute Auto 10.8 K/mm3 (1.3-6.7); Neutrophils Percent Auto 91.6 % (45.5-73.1); Platelet Count Result 104 k/mm3 (150-375); Red Cell Distribution Width 15.8 % (11.5-14.5); White Blood Count 11.8 K/mm3 (4.5-10.0)
[2022-03-30 04:43] LABS: Albumin Level 2.5 g/dL (3.5-5.1); Anion Gap 4 mmol/L (8-16); Blood Urea Nitrogen 70 mg/dL (9-20); Calcium 7.1 mg/dL (8.4-10.2); Carbon Dioxide 22 mmol/L (22-30); Chloride 107 mmol/L (98-107); Estimated CRCL calculation 18 ml/min; Estimated Glomerular Filt Rate 10; Glucose 168 mg/dL (65-110); Phosphorus 6.8 mg/dL (2.5-4.5); Platelet Estimate Decreased (Adequate); Potassium 5.7 mmol/L (3.4-5.0); Sodium 133 mmol/L (137-145)
[2022-03-30 04:44] LABS: Burr Cells 1+ (NORMAL); Ovalocytes 1+ (NORMAL); Schistocytes Rare (NORMAL)
[2022-03-30] MEDS: HYDROCORTISONE SODIUM SUCCINATE 100 MG/2 ML VIAL IV PUSH ×3 (05:28→21:37)
[2022-03-30 07:52] LABS: Glucose Point of Care 177 mg/dl (65-105)
--- NOTE | 2022-03-30 08:11 | PM.CNPUL ---
Assessment and Plan Assessment and plan (1) SERENA (obstructive sleep apnea): Code(s): G47.33 - Obstructive sleep apnea (adult) (pediatric) Status: Acute Assessment and Plan: On 11/24/2019 patient had a split night sleep study with an AHI of 77.3 and CPAP 19 was not adequate. Patient had a BiPAP titration on 03/26/2020 and optimal pressure was 23/19. Office visit on 02/14/2021 demonstrated AHI of 16 on BiPAP 23/19. On 02/18/2021 the BiPAP was increased to 25/21. On 04/17/2021 patient AHI improved to 1.0 on BiPAP 25/21. Was last seen in the Pulmonary Clinic on 06/27/2021 with a download from 03/29/2021 through 06/26/2021 on BiPAP 25/21 with very good compliance at 90%, AHI 2.1 and a high leak and it was recommended that he use a chin strap. A ramp was added. The patient does require treatment for his obstructive sleep apnea in the hospital and I have increased his respiratory rate from 18-20 and increased his pressures from 18/8 to 20/8 and decreased his FiO2 to 21%. I would continue these settings tonight. Will check a blood gas in the morning. We have called the family and they will bring in his home BiPAP device so that he can ultimately be transition to his home machine once he is more stable. Will follow with you. (2) Altered mental status: Code(s): R41.82 - Altered mental status, unspecified Status: Acute Assessment and Plan: Immediately before the altered mental status the patient had room air saturations of 97%. The patient has altered mental status with a white blood cell count of 11.8, chest x-ray with congestion but no focal infiltrates, blood gas on BiPAP 18/8 and 30% FiO2 of 7.34/42/141, creatinine of 5.4, BUN of 70, serum bicarbonate 22. Patient is also been hypothermic. Blood cultures and vancomycin and Zosyn were initiated on 03/30. I do not believe the patient has a primary respiratory issue causing his altered mental status. he does not have hypercarbic or hypoxemic respiratory failure causing his altered mental status. I have increased his respiratory rate and inspiratory pressure to provide him added minute ventilation for his metabolic acidosis. History of Present Illness History of Present Illness Consult date: 03/30/22 Chief complaint: syncope Narrative: 03/30/2022: This is a new pulmonary consult for BiPAP. 76-year-old with a history of diabetes, hypertension, atrial fibrillation status post ablation and on anticoagulation, aortic root and aortic valve replacement, CKD, prostate cancer, falls and obstructive sleep apnea. patient is a former smoker but he carries no diagnosis of COPD. On 11/24/2019 patient had a split night sleep study with an AHI of 77.3 and CPAP 19 was not adequate. Patient had a BiPAP titration on 03/26/2020 and optimal pressure was 23/19. Office visit on 02/14/2021 demonstrated AHI of 16 on BiPAP 23/19. On 02/18/2021 the BiPAP was increased to 25/21. On 04/17/2021 patient AHI improved to 1.0 on BiPAP 25/21. Was last seen in the Pulmonary Clinic on 06/27/2021 06/27/2021 Office visit Summary: BMI 50.5. Not refreshed always after sleeping. EP 12. Download compliance from [employer] 03/29/2021 through 06/26/2021 on BiPAP 25/21 with usage days at greater than 4 hours 81 of 90 days or 90%, average usage days used is 7 hours and 37 minutes. AHI is 2.1, apnea index 1.9, hypopnea index 0.2, central apnea index 0.0. Median leak 98 L per minute, 95th percentile leak 109.8, maximal leak 115. Median tidal volume 421, median respiratory rate 12, median minute ventilation 6.5. I interpret this download as very good compliance, adequate pressures, high leak. Was instructed to use a chinstrap for the leak. And the pressure felt a bit forceful when it started so a 10 minutes ramp was added. Patient admitted to the hospital on 03/25/2021. Patient had a syncopal episode on the commode that lasted a few minutes and whe
[2022-03-30 08:26] LABS: Alveolar/Arterial O2 Gradient 23.1 mmHg; Base Excess ABG -3.6 mEq/l (+/-2.0); Carboxyhemoglobin 0.2 % THb (0-2.0); Fractional Inspired Oxygen 30 %; Methemoglobin ABG 0.3 %THb (0-1.5); Oxygen Content ABG 14.2 %vol (16.0-22.0); Oxygen Saturation ABG 98.7 % (95.0-100.0); Oxyhemoglobin 97.3 % THb (90.0-100.0); PCO2 ABG 42.2 mmHg (35.0-45.0); PO2 ABG 141.2 mmHg (80.0-100.0); PO2 FiO2 Ratio Arterial Blood 4.71 %; Reduced Hemoglobin 2.2 %THb (0-5.0); Total Hemoglobin 10.2 g/dL (12.0-18.0); pH ABG 7.335 (7.350-7.450)
[2022-03-30 08:27] LABS: Device NON-INVASIVE VENT; Modified Allen's Test Pass; Non-Invasive Expiratory Pressure 8 CMH2O; Non-Invasive Inspiratory Pressure 18 CMH2O; Non-Invasive Vent Rate 18 /MIN; Site Drawn RIGHT RADIAL
--- NOTE | 2022-03-30 08:33 | PCPTNOTE ---
Unable to evaluate pt at this time secondary to being on continuous bipap
--- NOTE | 2022-03-30 08:35 | PCOTNOTE ---
Attempted to see pt. for occupational therapy evaluation. Per nursing, pt. on continuous BiPap and unarousable at this time. Following.
--- NOTE | 2022-03-30 09:21 | P.PNNP_ITS ---
Progress Note: A&P Assessment and Plan (1) MARY (acute kidney injury): Code(s): N17.9 - Acute kidney failure, unspecified Status: Acute Assessment and Plan: * ongoing worsening noted * etiology? * prerenal factors * anemia * relative hypotension * component of disease progression (?) * Contribution by the obstructing stone? * evaluation to date: * renal ultrasound with mild/moderate right hydro * He had stent placement today. * urine electrolytes are prerenal * urine eosinophils negative * He made 1400cc of urine yesterday. * His creatinine is a little better today. BUN is a little better as well. * If he does not improve we may need to start dialysis. (2) Chronic kidney disease, stage IV (severe): Code(s): N18.4 - Chronic kidney disease, stage 4 (severe) Status: Chronic Assessment and Plan: * progressive deterioration noted in the last year * creatinine on last check (January 2022) was 3.3mg/dl * from Mar - August 2021, creatinine had been running 2.4 - 2.7mg/dl * due to diabetes, hypertension, vascular disease, and age-related change * To manage this, optimize hydration status, holding off on Jono/ARB because of the rising creatinine, he is on atorvastatin, will follow PTH as an outpatient. (3) Syncope: Code(s): R55 - Syncope and collapse Status: Acute Assessment and Plan: * vasovagal issue? * however, issues with #4 may be contributing as well * possible prerenal factors playing a role * related to Afib (?) * medication related - on flomax * Cardiology on board * continue ongoing therapy (4) Anemia: Code(s): D64.9 - Anemia, unspecified Status: Acute Assessment and Plan: * partly related to CKD * however, history of melanotic stools and occult blood positive * GI following * results of EGD noted * Hemoglobin has been dropping. Now it is down to 7. * He received a blood transfusion yesterday. * T sat only 7. * He started on Epogen. * PRBC transfusion per protocol (5) Hypertension: Code(s): I10 - Essential (primary) hypertension Status: Chronic Assessment and Plan: * Systolic is good under 130 still * given potential GI bleed and syncope, close monitoring of hemodyamics * BP medications with parameters (6) DM renal manif type II, uncontrolled: Code(s): E11.29 - Type 2 diabetes mellitus with other diabetic kidney complication; E11.65 - Type 2 diabetes mellitus with hyperglycemia Status: Chronic Assessment and Plan: * Accu-Cheks and sliding scale insulin per hospitalist's (7) Lethargy: Code(s): R53.83 - Other fatigue Status: Acute Assessment and Plan: Etiology of the lethargy is unclear. Blood gas is rule out CO2 retention. BUN and creatinine are better but still high. Anesthesia should have worn off by now. His white count is elevated; however, lactate is okay.. Consider sepsis. Cultures have been done any his on antibiotics now. Sodium is not off significantly and Duff to do this. Calcium level is okay. He is getting antibiotics and cultures. Continuing BiPAP. Heart rate is low. Cardiology consult requested. Subjective Date/time seen: 03/30/22 09:21 Interval history: 03/29/2022 Chele just got back from surgery. He had a cystoscopy and stent placement. Patient is hungry and thirsty. He is getting situated in bed. He denies shortness of breath. He denies any swelling. 03/30/2022 The patient is more leth
--- NOTE | 2022-03-30 09:21 | PM.PNNEP ---
Progress Note: A&P Assessment and Plan (1) MARY (acute kidney injury): Code(s): N17.9 - Acute kidney failure, unspecified Status: Acute Assessment and Plan: ongoing worsening noted etiology? prerenal factors anemia relative hypotension component of disease progression (?) Contribution by the obstructing stone? evaluation to date: renal ultrasound with mild/moderate right hydro He had stent placement today. urine electrolytes are prerenal urine eosinophils negative He made 1400cc of urine yesterday. His creatinine is a little better today. BUN is a little better as well. If he does not improve we may need to start dialysis. (2) Chronic kidney disease, stage IV (severe): Code(s): N18.4 - Chronic kidney disease, stage 4 (severe) Status: Chronic Assessment and Plan: progressive deterioration noted in the last year creatinine on last check (January 2022) was 3.3mg/dl from Mar - August 2021, creatinine had been running 2.4 - 2.7mg/dl due to diabetes, hypertension, vascular disease, and age-related change To manage this, optimize hydration status, holding off on Jono/ARB because of the rising creatinine, he is on atorvastatin, will follow PTH as an outpatient. (3) Syncope: Code(s): R55 - Syncope and collapse Status: Acute Assessment and Plan: vasovagal issue? however, issues with #4 may be contributing as well possible prerenal factors playing a role related to Afib (?) medication related - on flomax Cardiology on board continue ongoing therapy (4) Anemia: Code(s): D64.9 - Anemia, unspecified Status: Acute Assessment and Plan: partly related to CKD however, history of melanotic stools and occult blood positive GI following results of EGD noted Hemoglobin has been dropping. Now it is down to 7. He received a blood transfusion yesterday. T sat only 7. He started on Epogen. PRBC transfusion per protocol (5) Hypertension: Code(s): I10 - Essential (primary) hypertension Status: Chronic Assessment and Plan: Systolic is good under 130 still given potential GI bleed and syncope, close monitoring of hemodyamics BP medications with parameters (6) DM renal manif type II, uncontrolled: Code(s): E11.29 - Type 2 diabetes mellitus with other diabetic kidney complication; E11.65 - Type 2 diabetes mellitus with hyperglycemia Status: Chronic Assessment and Plan: Accu-Cheks and sliding scale insulin per hospitalist's (7) Lethargy: Code(s): R53.83 - Other fatigue Status: Acute Assessment and Plan: Etiology of the lethargy is unclear. Blood gas is rule out CO2 retention. BUN and creatinine are better but still high. Anesthesia should have worn off by now. His white count is elevated; however, lactate is okay.. Consider sepsis. Cultures have been done any his on antibiotics now. Sodium is not off significantly and Duff to do this. Calcium level is okay. He is getting antibiotics and cultures. Continuing BiPAP. Heart rate is low. Cardiology consult requested. Subjective Date/time seen: 03/30/22 09:21 Interval history: 03/29/2022 Chele just got back from surgery. He had a cystoscopy and stent placement. Patient is hungry and thirsty. He is getting situated in bed. He denies shortness of breath. He denies any swelling. 03/30/2022 The patient is more lethargic today. He sleeps when on a disturbed. He wakens a little bit when I call his name or shake his shoulder. I asked him how he is doing and he gives me the thumbs up sign. He denies shortness of breath or chest pain. No belly pain. Urinating okay. Exam Narrative: General: WD/WN large male in NAD, somewhat lethargic. Heart: normal S1 and S2; irregularly irregular rhythm, controlled rate. no rub or gallop Lungs: clear bilaterally Abdomen: soft, nontender, nondisten
--- NOTE | 2022-03-30 11:37 | WPDGIPROGNO ---
Progress Note: A&P Assessment and Plan (1) Duodenal ulcer: Code(s): K26.9 - Duodenal ulcer, unspecified as acute or chronic, without hemorrhage or perforation Status: Acute Assessment and Plan: cause of bleeding s/p gold probe but did not find active bleeding hb stable at 7 since egd with no more signs of bleeding, received 1 unit prbc, hb up to 7.9 protonix bid (2) Acute blood loss anemia: Code(s): D62 - Acute posthemorrhagic anemia Status: Acute Assessment and Plan: h/h low but stable (3) Acute on chronic kidney failure: Code(s): N17.9 - Acute kidney failure, unspecified; N18.9 - Chronic kidney disease, unspecified Status: Acute Assessment and Plan: nephrology and urology on board worsening renal failure and now more lethargic (4) Altered mental status: Code(s): R41.82 - Altered mental status, unspecified Status: Acute Assessment and Plan: on bipap with worsening renal failure (5) Hydronephrosis: Code(s): N13.30 - Unspecified hydronephrosis Status: Acute Assessment and Plan: s/p stent (6) Kidney stone: Code(s): N20.0 - Calculus of kidney Status: Acute Assessment and Plan: by urology Subjective Date/time seen: 03/30/22 11:37 Interval history: more obtunded and required bipap, no more gib since had EGD, s/p 1 unit prbc. Family at bedside Review of Systems Review of Systems: All systems reviewed & are unremarkable except as noted in HPI and below Exam Const: Other: morbid obese, lethargic on bipap HENMT: Face/Nose/Sinus: Normal nares present Eyes: Sclera: sclerae normal Neck: Neck: supple Resp: Auscultation: diminished lung sounds Cardio: Rhythm: abnormal rhythm irregularly irregular GI: GI Palp: Yes Soft to palpation and No Guarding due to palpation present (GI) Skin: General skin exam: normal color Neuro: Other: more lethargic today Psych: Affect: Anxious affect present Objective Data Vital Signs Vital Signs: Vital Signs - 24 hr 03/29/22 12:00 03/29/22 12:21 03/29/22 12:00 Temperature 96.0 F L Pulse Rate 75 62 Respiratory Rate 20 Blood Pressure 109/41 L Pulse Oximetry 100 Oxygen Delivery CPAP Fraction of Inspired Oxygen 03/29/22 14:00 03/29/22 15:01 03/29/22 11:45 Temperature 96 F L Pulse Rate 65 73 Respiratory Rate Blood Pressure Pulse Oximetry Oxygen Delivery Fraction of Inspired Oxygen 03/29/22 13:00 03/29/22 14:00 03/29/22 15:15 Temperature 96.0 F L 96.1 F L 96 F L Pulse Rate Respiratory Rate Blood Pressure Pulse Oximetry Oxygen Delivery Fraction of Inspired Oxygen 03/29/22 16:00 03/29/22 16:00 03/29/22 18:00 Temperature Pulse Rate 61 61 Respiratory Rate Blood Pressure Pulse Oximetry Oxygen Delivery Room Air Fraction of Inspired Oxygen 03/29/22 19:46 03/29/22 20:10 03/29/22 19:46 Temperature 97.0 F L 97.8 F Pulse Rate 58 L 66 Respiratory Rate 24 H 24 H Blood Pressure 111/52 L 128/49 L Pulse Oximetry 99 95 Oxygen Delivery CPAP Fraction of Inspired Oxygen 03/29/22 21:10 03/29/22 20:10 03/29/22 21:10 Temperature 97.3 F L 97.8 F Pulse Rate 66 67 59 L Respiratory Rate 24 H 22 H Blood Pressure 123/43 L 125/53 L Pulse Oximetry 99 99 Oxygen Delivery Fraction of Inspired Oxygen 03/29/22 20:00 03/29/22 22:00 03/29/22 22:46 Temperature 97.5 F L Pulse Rate 68 61 61 Respiratory Rate 20 Blood Pressure 121/53 L Pulse Oximetry 100 Oxygen Delivery Fraction of Inspired Oxygen 03/29/22 23:20 03/29/22 23:41 03/30/22 00:00 Temperature Pulse Rate 58 L 61 Respiratory Rate 19 Blood Pressure Pulse Oximetry 93 Oxygen Delivery BiPAP BiPAP Fraction of Inspired Oxygen 30 03/30/22 02:00 03/30/22 03:40 03/30/22 03:45 Temperature Pulse Rate 60 63 Respiratory Rate 20 Blood Pressure Pulse O
[2022-03-30 12:29] LABS: Glucose Point of Care 256 mg/dl (65-105)
--- NOTE | 2022-03-30 12:39 | WPDUROPN2 ---
Progress Note: A&P Assessment and Plan (1) Obesity: Code(s): E66.9 - Obesity, unspecified Status: Acute (2) MARY (acute kidney injury): Code(s): N17.9 - Acute kidney failure, unspecified Status: Acute (3) Ureteral stone: Code(s): N20.1 - Calculus of ureter Status: Acute Plan 76-year-old gentleman with and renal insufficiency found to hydronephrosis due obstructing right distal ureteral stone - status post right ureteroscopy stone extraction stent insertion March 29, 2022 - continued renal sufficiency. Appreciate Nephrology recommendations. - Continue Tabares catheter to monitor I/Os - Plan stent removal in 1 to 2 weeks, consider removal prior to discharge from hospital given mobility issues Subjective Subjective Date/Time Seen: 03/30/22 12:39 pt sedate Exam Narrative: Patient is awake and alert. breathing with CPAP> Abdomen is obese soft. His Tabares catheter is in place with clear urine. Objective Data Vital Signs Vital Signs: Vital Signs - 24 hr 03/29/22 14:00 03/29/22 15:01 03/29/22 13:00 Temperature 35.6 C L Pulse Rate 65 73 Respiratory Rate Blood Pressure Pulse Oximetry Oxygen Delivery Fraction of Inspired Oxygen 03/29/22 14:00 03/29/22 15:15 03/29/22 16:00 Temperature 35.6 C L 35.5 C L Pulse Rate 61 Respiratory Rate Blood Pressure Pulse Oximetry Oxygen Delivery Fraction of Inspired Oxygen 03/29/22 16:00 03/29/22 18:00 03/29/22 19:46 Temperature 36.1 C L Pulse Rate 61 58 L Respiratory Rate 24 H Blood Pressure 111/52 L Pulse Oximetry 99 Oxygen Delivery Room Air Fraction of Inspired Oxygen 03/29/22 20:10 03/29/22 19:46 03/29/22 21:10 Temperature 36.6 C Pulse Rate 66 66 Respiratory Rate 24 H Blood Pressure 128/49 L Pulse Oximetry 95 Oxygen Delivery CPAP Fraction of Inspired Oxygen 03/29/22 20:10 03/29/22 21:10 03/29/22 20:00 Temperature 36.3 C L 36.6 C Pulse Rate 67 59 L 68 Respiratory Rate 24 H 22 H Blood Pressure 123/43 L 125/53 L Pulse Oximetry 99 99 Oxygen Delivery Fraction of Inspired Oxygen 03/29/22 22:00 03/29/22 22:46 03/29/22 23:20 Temperature 36.4 C L Pulse Rate 61 61 Respiratory Rate 20 Blood Pressure 121/53 L Pulse Oximetry 100 Oxygen Delivery BiPAP Fraction of Inspired Oxygen 30 03/29/22 23:41 03/30/22 00:00 03/30/22 02:00 Temperature Pulse Rate 58 L 61 60 Respiratory Rate 19 Blood Pressure Pulse Oximetry 93 Oxygen Delivery BiPAP Fraction of Inspired Oxygen 03/30/22 03:40 03/30/22 03:45 03/30/22 04:00 Temperature Pulse Rate 63 50 L Respiratory Rate 20 Blood Pressure Pulse Oximetry 96 Oxygen Delivery BiPAP BiPAP Fraction of Inspired Oxygen 30 03/30/22 04:39 03/30/22 06:00 03/30/22 08:18 Temperature 36.6 C Pulse Rate 56 L 44 L 48 L Respiratory Rate 21 H 24 H Blood Pressure 120/56 L Pulse Oximetry 100 98 Oxygen Delivery BiPAP Fraction of Inspired Oxygen 03/30/22 08:00 03/30/22 08:00 03/30/22 08:00 Temperature 35.6 C L Pulse Rate 44 L 48 L 56 L Respiratory Rate 20 24 H Blood Pressure 133/62 Pulse Oximetry 100 98 Oxygen Delivery BiPAP Fraction of Inspired Oxygen 30 03/30/22 10:00 03/30/22 10:00 03/30/22 11:43 Temperature 35.7 C L Pulse Rate 49 L 51 L Respiratory Rate 20 Blood Pressure Pulse Oximetry 100 Oxygen Delivery BiPAP Fraction of Inspired Oxygen 03/30/22 12:00 03/30/22 12:00 03/30/22 12:00 Temperature 36.2 C L Pulse Rate 56 L 45 L 43 L Respiratory Rate 20 Blood Pressure 113/40 L Pulse Oximetry 98 98 Oxygen Delivery BiPAP Fraction of Inspired Oxygen 21 Intake/Output Intake/Output: Intake & Output 03/27/22 03/28/22 03/29/22 03/30/22 23:59 23:59 23:59 23:59 Intake Total 2130 2310 1260 802 Output Total 4894 450 6586 550 Balance 780 1430 -140 252 Meds/Results Medications:
[2022-03-30] MEDS: PANTOPRAZOLE SODIUM IV 40 MG VIAL IV PUSH ×2 (14:01→21:37)
[2022-03-30] MEDS: INSULIN ASPART (*BKC) 100 UNITS/ML 10 UNITS SUB-Q ×2 (14:01→17:23)
[2022-03-30] MEDS: MICONAZOLE NITRATE 2% CREAM 30 GM TUBE 1 APPLIC TOPICAL ×2 (14:01→21:37)
[2022-03-30] MEDS: TOLNAFTATE 1% POWDER 45 GM BTL 1 APPLIC TOPICAL ×2 (14:02→21:37)
[2022-03-30] MEDS: INSULIN HUMAN REGULAR (*BKC) 100 UNITS/ML 10 UNITS IV PUSH (14:02)
[2022-03-30] MEDS: SILVERGEL (ELTA) 45 ML 1 APPLIC TOPICAL (14:02)
[2022-03-30] MEDS: SODIUM POLYSTYRENE SULFONONATE 15 GM/60 ML BTL 60 GM RECTAL (14:03)
[2022-03-30] MEDS: DEXTROSE 50% 25 GM/50 ML SYRINGE IV PUSH (14:03)
--- NOTE | 2022-03-30 14:19 | PM.IMPN ---
Progress Note: A&P Assessment and Plan (1) Syncope: Code(s): R55 - Syncope and collapse Status: Acute Assessment and Plan: Continue to monitor (2) Atrial fibrillation: Qualifiers: Atrial fibrillation type: unspecified Qualified Code(s): I48.91 - Unspecified atrial fibrillation Code(s): I48.91 - Unspecified atrial fibrillation Status: Acute Assessment and Plan: Rate controlled Holding anticoagulation due to GI bleed (3) Acute kidney injury superimposed on CKD: Code(s): N17.9 - Acute kidney failure, unspecified; N18.9 - Chronic kidney disease, unspecified Status: Acute Assessment and Plan: Tabares cathete Daily intake and output Continue to monitor Daily BMP Nephrology input appreciated. Lengthy discussion with family they do not want dialysis. Family would like to give the patient another day or 2 and if he continues to deteriorate they are considering hospice. (4) Orthostatic hypotension: Code(s): I95.1 - Orthostatic hypotension Status: Acute Assessment and Plan: monitor (5) SERENA (obstructive sleep apnea): Code(s): G47.33 - Obstructive sleep apnea (adult) (pediatric) Status: Acute Assessment and Plan: BiPAP at nighttime (6) Type 2 diabetes mellitus with hyperglycemia: Qualifiers: Diabetes mellitus intermediate manager insulin use: with residential use Qualified Code(s): E11.65 - Type 2 diabetes mellitus with hyperglycemia; Z79.4 - intermodal dispatcher (current) use of insulin Code(s): E11.65 - Type 2 diabetes mellitus with hyperglycemia Status: Acute Assessment and Plan: Accu-Cheks AC and HS Continue insulin regimen Calorie consistent diet (7) Obesity, morbid (more than 100 lbs over ideal weight or BMI > 40): Code(s): E66.01 - Morbid (severe) obesity due to excess calories Status: Acute Assessment and Plan: Lifestyle and diet modifications (8) HTN (hypertension) with goal to be determined: Code(s): I10 - Essential (primary) hypertension Status: Acute Assessment and Plan: Continue to monitor (9) Melena: Code(s): K92.1 - Melena Status: Acute Assessment and Plan: Holding blood thinner History of ulcer in the past GI consult - egd noted PPI Transfuse as needed (10) Hydronephrosis: Code(s): N13.30 - Unspecified hydronephrosis Status: Acute Assessment and Plan: Status post ureteral stent. Plan Patient's family does not want any aggressive measures. Patient is DNR. Subjective Date/time seen: 03/30/22 14:19 Worsening kidney function, worsening mentation. Patient is now also bradycardic. Starting to retain fluid. Exam Narrative: Patient is laying in a stretcher Const: General: cooperative, comfortable, no acute distress, well developed, alert, awake, ill appearing chronically and obese Nutritional Appearance: obese morbidly obese Orientation/consciousness: patient oriented x3 HENMT: Head: normal to inspection, normocephalic and atraumatic Ears: hearing grossly normal bilaterally Face/Nose/Sinus: normal facial exam Face and sinus: normal facial exam Eyes: General: appearance normal, both eyes and all related structures Pupils: Equal, round and reactive pupils present EOM: EOMs intact bilaterally Neck: Neck: full ROM, no lymphadenopathy and no JVD Thyroid: thyroid normal Lymphatic: no lymphadenopathy noted Resp: Effort & Inspection: normal respiratory effort and able to speak in complete sentences Auscultation: clear to auscultation bilaterally Cardio: Jugular venous distension: no JVD Rate: regular rate Rhythm: regular rhythm Heart sounds: S1 normal heart sound present and S2 normal heart sound present GI: Inspection: visible herniation (Ventral) : General: Yes deferred Skin: General skin exam: wounds noted (Left lower extremity) Rashes: no rashes Wounds: wounds noted (Left lower extremity
[2022-03-30] MEDS: DEXTROSE 5%/0.45% SOD CHL 1,000 ML 75 ML IV CONT (15:20)
[2022-03-30] MEDS: diphenhydrAMINE HCl INJ 50 MG/ML VIAL 25 MG IV PUSH (16:02)
[2022-03-30 16:52] LABS: Glucose Point of Care 244 mg/dl (65-105)
--- NOTE | 2022-03-30 17:24 | PC.NURSE ---
Patient awake and oriented to self, and location at 1600, removed bipap. Family at the bedside. Patient stated his mouth was dry, and inquired why he was hospitalized. Patient remained off bipap until 1720. Oxygen saturation remained >95% on room air while off bipap. Patient now resting comfortably on the bipap. Will continue to monitor.
[2022-03-30 18:15] LABS: Potassium 5.2 mmol/L (3.4-5.0)
[2022-03-30 19:57] LABS: Glucose Point of Care 217 mg/dl (65-105)
[2022-03-31] VITALS (15 sets, daily range): BP systolic 122–140; BP diastolic 52–95; PULSE 45–66; RESP 20–23; TEMP 36.1–36.6; O2SAT 96–100
[2022-03-31 04:35] LABS: Albumin Level 2.6 g/dL (3.5-5.1); Anion Gap 6 mmol/L (8-16); Blood Urea Nitrogen 68 mg/dL (9-20); Calcium 7.2 mg/dL (8.4-10.2); Carbon Dioxide 21 mmol/L (22-30); Chloride 103 mmol/L (98-107); Estimated CRCL calculation 16 ml/min; Estimated Glomerular Filt Rate 9; Glucose 229 mg/dL (65-110); Phosphorus 6.9 mg/dL (2.5-4.5); Potassium 5.3 mmol/L (3.4-5.0); Sodium 130 mmol/L (137-145)
[2022-03-31] MEDS: SODIUM ZIRCONIUM CYCLOSILICATE 10 GM POWD.PACK PO (04:42)
[2022-03-31] MEDS: DEXTROSE 5%/0.45% SOD CHL 1,000 ML 75 ML IV CONT ×2 (05:16→20:42)
[2022-03-31] MEDS: HYDROCORTISONE SODIUM SUCCINATE 100 MG/2 ML VIAL IV PUSH ×3 (05:17→22:17)
[2022-03-31 05:21] LABS: Base Excess ABG -3.2 mEq/l (+/-2.0); HCO3 ABG 21.3 mEq/l (22.0-26.0); Oxygen Saturation ABG 97.2 % (95.0-100.0); PCO2 ABG 35.7 mmHg (35.0-45.0); PO2 ABG 94.5 mmHg (80.0-100.0); pH ABG 7.394 (7.350-7.450)
[2022-03-31 05:22] LABS: Total Hemoglobin 8.7 g/dL (12.0-18.0)
[2022-03-31 05:24] LABS: Fractional Inspired Oxygen 21 %; Oxyhemoglobin 95.6 % THb (90.0-100.0); Site Drawn RIGHT RADIAL
[2022-03-31 05:26] LABS: Alveolar/Arterial O2 Gradient 11.9 mmHg; Oxygen Content ABG 12.5 %vol (16.0-22.0)
[2022-03-31 05:27] LABS: Modified Allen's Test Pass
[2022-03-31] MEDS: LEVOTHYROXINE SODIUM 75 MCG TABLET BY MOUTH (06:50)
[2022-03-31 07:36] LABS: Glucose Point of Care 247 mg/dl (65-105)
[2022-03-31] MEDS: GABAPENTIN 100 MG CAPSULE 200 MG PO ×2 (08:21→17:39)
[2022-03-31] MEDS: INSULIN ASPART (*BKC) 100 UNITS/ML 10 UNITS SUB-Q ×3 (08:22→17:39)
[2022-03-31] MEDS: MEMANTINE HCL XR 7 MG CAP 14 MG PO (08:22)
[2022-03-31] MEDS: PANTOPRAZOLE SODIUM IV 40 MG VIAL IV PUSH (08:22)
[2022-03-31] MEDS: DIVALPROEX SODIUM SPRINKLE 125 MG CAP.DR PO ×2 (08:22→20:44)
[2022-03-31] MEDS: TAMSULOSIN HCL 0.4 MG CAPSULE PO (08:22)
[2022-03-31] MEDS: SILVERGEL (ELTA) 45 ML 1 APPLIC TOPICAL (08:23)
[2022-03-31] MEDS: TOLNAFTATE 1% POWDER 45 GM BTL 1 APPLIC TOPICAL ×2 (08:23→20:45)
[2022-03-31] MEDS: MICONAZOLE NITRATE 2% CREAM 30 GM TUBE 1 APPLIC TOPICAL ×2 (08:26→20:45)
--- NOTE | 2022-03-31 11:13 | PM.PNNEP ---
Progress Note: A&P Assessment and Plan (1) MARY (acute kidney injury): Code(s): N17.9 - Acute kidney failure, unspecified Status: Acute Assessment and Plan: ongoing deterioration noted etiology? prerenal factors anemia relative hypotension component of disease progression (?) Contribution by the obstructing stone? evaluation to date: renal ultrasound with mild/moderate right hydro - s/p stent placement urine electrolytes are prerenal urine eosinophils negative continues to make reasonable urine output follow repeat labs and OUOP if no improvement soon, may need to consider dialysis (patient is aware of this possibility) (2) Chronic kidney disease, stage IV (severe): Code(s): N18.4 - Chronic kidney disease, stage 4 (severe) Status: Chronic Assessment and Plan: progressive deterioration noted in the last year creatinine on last check (January 2022) was 3.3mg/dl from Mar - August 2021, creatinine had been running 2.4 - 2.7mg/dl due to diabetes, hypertension, vascular disease, and age-related change (3) Syncope: Code(s): R55 - Syncope and collapse Status: Acute Assessment and Plan: vasovagal issue? however, issues with #4 may be contributing as well possible prerenal factors playing a role related to Afib (?) medication related - on flomax Cardiology on board continue ongoing therapy (4) Anemia: Code(s): D64.9 - Anemia, unspecified Status: Acute Assessment and Plan: partly related to CKD however, history of melanotic stools and occult blood positive GI following results of EGD noted started on Epogen therapy PRBC transfusion per protocol (5) Hypertension: Code(s): I10 - Essential (primary) hypertension Status: Chronic Assessment and Plan: reasonable control given potential GI bleed and syncope, close monitoring of hemodyamics BP medications with parameters (6) DM renal manif type II, uncontrolled: Code(s): E11.29 - Type 2 diabetes mellitus with other diabetic kidney complication; E11.65 - Type 2 diabetes mellitus with hyperglycemia Status: Chronic Assessment and Plan: Accu-Cheks and sliding scale insulin glycemic control Will continue to follow. Subjective Date/time seen: 03/31/22 11:13 Chart reviewed -- assuming care from Dr. Lua; reasonable urine output but BUN and creatinine continue to decline; looks/appears better today in comparison to yesterday based on description; no apparent distress noted. Exam Narrative: General: WD/WN large male in NAD, Heart: IRRR, normal S1 and S2 Lungs: clear bilaterally Abdomen: soft, nontender, nondistended, positive bowel sounds Extremities: trace edema Skin: warm and dry Objective Data Vital Signs Vital Signs: Vital Signs - 24 hr 03/30/22 11:43 03/30/22 12:00 03/30/22 12:00 Temperature Pulse Rate 51 L 56 L 45 L Respiratory Rate 20 Blood Pressure Pulse Oximetry 100 98 Oxygen Delivery BiPAP BiPAP Fraction of Inspired Oxygen 21 03/30/22 12:00 03/30/22 14:00 03/30/22 15:44 Temperature 97.2 F L Pulse Rate 43 L 50 L 60 Respiratory Rate 20 20 Blood Pressure 113/40 L Pulse Oximetry 98 99 Oxygen Delivery BiPAP Fraction of Inspired Oxygen 03/30/22 16:00 03/30/22 16:00 03/30/22 16:00 Temperature 97.6 F Pulse Rate 54 L 54 L 57 L Respiratory Rate 20 20 Blood Pressure 126/56 L Pulse Oximetry 97 97 Oxygen Delivery Room Air Fraction of Inspired Oxygen 03/30/22 18:00 03/30/22 20:05 03/30/22 20:00 Temperature 97.9 F Pulse Rate 44 L 49 L 59 L Respiratory Rate 23 H 20 Blood Pressure 118/67 Pulse Oximetry 100 100 Oxygen Delivery BiPAP Fraction of Inspired Oxygen 03/30/22 20:00 03/30/22 23:06 03/30/22 23:40 Temperature 97.6 F Pulse Rate 49 L 55 L 46 L Respiratory Rate 22 H 21 H Blood Pressure 121/80 Pulse Oxim
--- NOTE | 2022-03-31 11:13 | P.PNNP_ITS ---
Progress Note: A&P Assessment and Plan (1) MARY (acute kidney injury): Code(s): N17.9 - Acute kidney failure, unspecified Status: Acute Assessment and Plan: * ongoing deterioration noted * etiology? * prerenal factors * anemia * relative hypotension * component of disease progression (?) * Contribution by the obstructing stone? * evaluation to date: * renal ultrasound with mild/moderate right hydro - s/p stent placement * urine electrolytes are prerenal * urine eosinophils negative * continues to make reasonable urine output * follow repeat labs and OUOP * if no improvement soon, may need to consider dialysis (patient is aware of this possibility) (2) Chronic kidney disease, stage IV (severe): Code(s): N18.4 - Chronic kidney disease, stage 4 (severe) Status: Chronic Assessment and Plan: * progressive deterioration noted in the last year * creatinine on last check (January 2022) was 3.3mg/dl * from Mar - August 2021, creatinine had been running 2.4 - 2.7mg/dl * due to diabetes, hypertension, vascular disease, and age-related change (3) Syncope: Code(s): R55 - Syncope and collapse Status: Acute Assessment and Plan: * vasovagal issue? * however, issues with #4 may be contributing as well * possible prerenal factors playing a role * related to Afib (?) * medication related - on flomax * Cardiology on board * continue ongoing therapy (4) Anemia: Code(s): D64.9 - Anemia, unspecified Status: Acute Assessment and Plan: * partly related to CKD * however, history of melanotic stools and occult blood positive * GI following * results of EGD noted * started on Epogen therapy * PRBC transfusion per protocol (5) Hypertension: Code(s): I10 - Essential (primary) hypertension Status: Chronic Assessment and Plan: * reasonable control * given potential GI bleed and syncope, close monitoring of hemodyamics * BP medications with parameters (6) DM renal manif type II, uncontrolled: Code(s): E11.29 - Type 2 diabetes mellitus with other diabetic kidney complication; E11.65 - Type 2 diabetes mellitus with hyperglycemia Status: Chronic Assessment and Plan: * Accu-Cheks and sliding scale insulin * glycemic control Will continue to follow. Subjective Date/time seen: 03/31/22 11:13 Chart reviewed -- assuming care from Dr. Lua; reasonable urine output but BUN and creatinine continue to decline; looks/appears better today in comparison to yesterday based on description; no apparent distress noted. Exam Narrative: General: WD/WN large male in NAD, Heart: IRRR, normal S1 and S2 Lungs: clear bilaterally Abdomen: soft, nontender, nondistended, positive bowel sounds Extremities: trace edema Skin: warm and dry Objective Data Vital Signs Vital Signs: Vital Signs - 24 hr 03/30/22 11:43 03/30/22 12:00 03/30/22 12:00 Temperature Pulse Rate 51 L 56 L 45 L Respiratory Rate 20 Blood Pressure Pulse Oximetry 100 98 Oxygen Delivery BiPAP BiPAP Fraction of Inspired Oxygen 21 03/30/22 12:00 03/30/22 14:00 03/30/22 15:44 Temperature 97.2 F L Pulse Rate 43 L 50 L 60 Respiratory Rate 20 20 Blood Pressure 113/40 L Pulse
[2022-03-31 11:45] LABS: Glucose Point of Care 289 mg/dl (65-105)
--- NOTE | 2022-03-31 12:13 | PM.IMPN ---
Progress Note: A&P Assessment and Plan (1) Syncope: Code(s): R55 - Syncope and collapse Status: Acute Assessment and Plan: Continue to monitor (2) Atrial fibrillation: Qualifiers: Atrial fibrillation type: unspecified Qualified Code(s): I48.91 - Unspecified atrial fibrillation Code(s): I48.91 - Unspecified atrial fibrillation Status: Acute Assessment and Plan: Rate controlled Holding anticoagulation due to GI bleed (3) Acute kidney injury superimposed on CKD: Code(s): N17.9 - Acute kidney failure, unspecified; N18.9 - Chronic kidney disease, unspecified Status: Acute Assessment and Plan: Tabares cathete Daily intake and output Continue to monitor Daily BMP Nephrology input appreciated. Lengthy discussion with family they do not want dialysis. Family would like to give the patient another day or 2 and if he continues to deteriorate they are considering hospice. (4) Orthostatic hypotension: Code(s): I95.1 - Orthostatic hypotension Status: Acute Assessment and Plan: monitor (5) SERENA (obstructive sleep apnea): Code(s): G47.33 - Obstructive sleep apnea (adult) (pediatric) Status: Acute Assessment and Plan: BiPAP at nighttime (6) Type 2 diabetes mellitus with hyperglycemia: Qualifiers: Diabetes mellitus long term care social worker insulin use: with nursing home use Qualified Code(s): E11.65 - Type 2 diabetes mellitus with hyperglycemia; Z79.4 - termite control service representative (current) use of insulin Code(s): E11.65 - Type 2 diabetes mellitus with hyperglycemia Status: Acute Assessment and Plan: Accu-Cheks AC and HS Continue insulin regimen Calorie consistent diet (7) Obesity, morbid (more than 100 lbs over ideal weight or BMI > 40): Code(s): E66.01 - Morbid (severe) obesity due to excess calories Status: Acute Assessment and Plan: Lifestyle and diet modifications (8) HTN (hypertension) with goal to be determined: Code(s): I10 - Essential (primary) hypertension Status: Acute Assessment and Plan: Continue to monitor (9) Melena: Code(s): K92.1 - Melena Status: Acute Assessment and Plan: Holding blood thinner History of ulcer in the past GI consult - egd noted PPI Transfuse as needed (10) Hydronephrosis: Code(s): N13.30 - Unspecified hydronephrosis Status: Acute Assessment and Plan: Status post ureteral stent. Plan Patient's family does not want any aggressive measures. Patient is DNR. Subjective Date/time seen: 03/31/22 12:13 More alert today. Exam Narrative: Patient is laying in a stretcher Const: General: cooperative, comfortable, no acute distress, well developed, alert, awake, ill appearing chronically and obese Nutritional Appearance: obese morbidly obese Orientation/consciousness: patient oriented x3 HENMT: Head: normal to inspection, normocephalic and atraumatic Ears: hearing grossly normal bilaterally Face/Nose/Sinus: normal facial exam Face and sinus: normal facial exam Eyes: General: appearance normal, both eyes and all related structures Pupils: Equal, round and reactive pupils present EOM: EOMs intact bilaterally Neck: Neck: full ROM, no lymphadenopathy and no JVD Thyroid: thyroid normal Lymphatic: no lymphadenopathy noted Resp: Effort & Inspection: normal respiratory effort and able to speak in complete sentences Auscultation: clear to auscultation bilaterally Cardio: Jugular venous distension: no JVD Rate: regular rate Rhythm: regular rhythm Heart sounds: S1 normal heart sound present and S2 normal heart sound present GI: Inspection: visible herniation (Ventral) : General: Yes deferred Skin: General skin exam: wounds noted (Left lower extremity) Rashes: no rashes Wounds: wounds noted (Left lower extremity) Neuro: General: patient oriented x3, CN's II-XI intact bilaterally and Unable to asses
--- NOTE | 2022-03-31 13:28 | PM.PNPUL ---
Progress Note: A&P Assessment and Plan (1) SERENA (obstructive sleep apnea): Code(s): G47.33 - Obstructive sleep apnea (adult) (pediatric) Status: Acute Assessment and Plan: 76-year-old man with a history of obstructive sleep apnea on BiPAP 25/21 with the last download report showing very low device AHI, currently receiving BiPAP 20/8 and room air. Blood gases done this morning were unremarkable. The patient slept well last night and has no evidence of uncontrolled sleep disordered breathing. Plan: continue with current BiPAP settings for tonight. will bring home device in a.m.. Will follow with you. (2) Type 2 diabetes mellitus with hyperglycemia: Qualifiers: Diabetes mellitus care home insulin use: with care home use Qualified Code(s): E11.65 - Type 2 diabetes mellitus with hyperglycemia; Z79.4 - penitentiary (current) use of insulin Code(s): E11.65 - Type 2 diabetes mellitus with hyperglycemia Status: Acute (3) Duodenal ulcer: Code(s): K26.9 - Duodenal ulcer, unspecified as acute or chronic, without hemorrhage or perforation Status: Acute (4) A-fib: Code(s): I48.91 - Unspecified atrial fibrillation Status: Acute (5) Obesity, morbid (more than 100 lbs over ideal weight or BMI > 40): Code(s): E66.01 - Morbid (severe) obesity due to excess calories Status: Acute (6) CKD stage 3 due to type 2 diabetes mellitus: Code(s): E11.22 - Type 2 diabetes mellitus with diabetic chronic kidney disease; N18.3 - Chronic kidney disease, stage 3 (moderate) Status: Acute Subjective Date/time seen: 03/31/22 13:28 Interval history: This 76-year-old man was admitted to the hospital 5 days ago with syncope. The patient has multiple medical problems including morbid obesity obstructive sleep apnea on CPAP, chronic kidney disease, insulin-dependent diabetes mellitus, chronic 8 fibrillation on anticoagulation. Patient was evaluated by Pulmonary Services regarding obstructive sleep apnea. He has been diagnosed with obstructive sleep apnea and has been on BiPAP support 25/21 with the last download showing device AHI of 1. Reportedly the patient has no symptoms suggestive of uncontrolled sleep disordered breathing. during this hospital stay his BiPAP support 20/8, and FiO2 of 21%. On those settings the patient slept well last night. He has not brought in his home BiPAP device yet. Review of Systems Review of Systems: patient has no new respiratory symptoms. He has no cough chest pain palpitations orthopnea hemoptysis night sweats. He was evaluated by Nephrology Services for elevated creatinine. Exam Narrative: GENERAL APPEARANCE: Well developed, well nourished, alert and cooperative, morbidly obese and appears to be in no acute distress while breathing room air SKIN: Inspection of the skin reveals no rashes, ulcerations or petechiae. HEENT: Sclerae anicteric and conjunctivae pink and moist. Extraocular movements were intact and pupils were equal, round. NECK: Supple. There was no thyroid enlargement, and no tenderness, or masses were felt. CHEST: Normal AP diameter and normal contour without any kyphoscoliosis. LUNGS: Auscultation of the lungs revealed normal breath sounds without any other adventitious sounds or rubs. CARDIAC: There was an irregular rate and rhythm without any murmurs. ABDOMEN: Soft and nontender with normal bowel sounds. There was no organomegaly. LYMPH NODES: No lymphadenopathy was appreciated in the neck, axillae or groin. EXTREMITIES: No cyanosis, clubbing or edema. NEUROLOGIC: Alert and oriented x 3. Normal affect. Objective Data Vital Signs Vital Signs: Vital Signs - 24 hr 03/30/22 14:00 03/30/22 15:44 03/30/22 16:00 Temperature 36.4 C Pulse Rate 50 L 60 54 L Respiratory Rate 20 20 Blood Pressure 126/56 L Pulse Oximetry 99 97 Oxygen Delivery BiPAP 03/30/22 16:00 03/30/22 16:00 03/30/22 18:00 Temperat
--- NOTE | 2022-03-31 15:56 | WPDGIPROGNO ---
Progress Note: A&P Assessment and Plan (1) Duodenal ulcer: Code(s): K26.9 - Duodenal ulcer, unspecified as acute or chronic, without hemorrhage or perforation Status: Acute Assessment and Plan: cause of bleeding s/p gold probe but did not find active bleeding h/h low but stable and no more episode of bleeding since admission will change to oral ppi twice daily and will need oil heaterman on discharge will follow from [place], call if questions (2) Acute blood loss anemia: Code(s): D62 - Acute posthemorrhagic anemia Status: Acute Assessment and Plan: h/h low but stable (3) Acute on chronic kidney failure: Code(s): N17.9 - Acute kidney failure, unspecified; N18.9 - Chronic kidney disease, unspecified Status: Acute Assessment and Plan: nephrology and urology on board (4) Hydronephrosis: Code(s): N13.30 - Unspecified hydronephrosis Status: Acute Assessment and Plan: s/p stent (5) Kidney stone: Code(s): N20.0 - Calculus of kidney Status: Acute Assessment and Plan: by urology Subjective Date/time seen: 03/31/22 15:56 Interval history: he is feeling better, less respiratory distress, he ate earlier. His ssiter is her Review of Systems Review of Systems: All systems reviewed & are unremarkable except as noted in HPI and below Exam Const: Other: morbid obese, he is better today, good spirits HENMT: Face/Nose/Sinus: Normal nares present Eyes: Sclera: sclerae normal Neck: Neck: supple Resp: Auscultation: diminished lung sounds Cardio: Rhythm: abnormal rhythm irregularly irregular GI: GI Palp: Yes Soft to palpation, No Tenderness to palpation present (GI) and No Guarding due to palpation present (GI) Skin: General skin exam: normal color Neuro: Other: awake, alert and oriented Psych: Affect: normal affect Objective Data Vital Signs Vital Signs: Vital Signs - 24 hr 03/30/22 16:00 03/30/22 16:00 03/30/22 16:00 Temperature 97.6 F Pulse Rate 54 L 54 L 57 L Respiratory Rate 20 20 Blood Pressure 126/56 L Pulse Oximetry 97 97 Oxygen Delivery Room Air 03/30/22 18:00 03/30/22 20:05 03/30/22 20:00 Temperature 97.9 F Pulse Rate 44 L 49 L 59 L Respiratory Rate 23 H 20 Blood Pressure 118/67 Pulse Oximetry 100 100 Oxygen Delivery BiPAP 03/30/22 20:00 03/30/22 23:06 03/30/22 23:40 Temperature 97.6 F Pulse Rate 49 L 55 L 46 L Respiratory Rate 22 H 21 H Blood Pressure 121/80 Pulse Oximetry 95 99 Oxygen Delivery BiPAP 03/30/22 22:00 03/31/22 00:00 03/31/22 02:00 Temperature Pulse Rate 52 L 60 45 L Respiratory Rate Blood Pressure Pulse Oximetry Oxygen Delivery 03/31/22 04:00 03/31/22 04:00 03/31/22 04:00 Temperature 97.8 F Pulse Rate 47 L 48 L Respiratory Rate 20 Blood Pressure 140/81 Pulse Oximetry 99 100 Oxygen Delivery Room Air 03/31/22 06:00 03/31/22 08:25 03/31/22 08:00 Temperature 96.9 F L Pulse Rate 50 L 54 L Respiratory Rate 20 Blood Pressure 140/61 Pulse Oximetry 98 Oxygen Delivery Room Air 03/31/22 08:50 03/31/22 08:00 03/31/22 08:00 Temperature Pulse Rate 62 Respiratory Rate Blood Pressure Pulse Oximetry 98 Oxygen Delivery Room Air Room Air 03/31/22 10:00 03/31/22 12:00 03/31/22 12:00 Temperature 97.3 F L Pulse Rate 52 L 61 Respiratory Rate 20 Blood Pressure 122/55 L Pulse Oximetry 100 98 Oxygen Delivery Room Air 03/31/22 12:00 03/31/22 14:00 Temperature Pulse Rate 66 60 Respiratory Rate Blood Pressure Pulse Oximetry Oxygen Delivery Intake/Output Intake/Output: Intake & Output 03/28/22 03/29/22 03/30/22 03/31/22 23:59 23:59 23:59 23:59 Intake Total 2310 1260 1700 1820 Output Total 880 1400 1100 350 Balance 1430 -471 634 2112 Meds/Results Medications: Active Medications Generic Name Dose Route Start Last Admin Trade Name F
--- NOTE | 2022-03-31 16:07 | WPDUROPN2 ---
Progress Note: A&P Assessment and Plan (1) Ureteral stone: Code(s): N20.1 - Calculus of ureter Status: Acute Assessment and Plan: No changes to the plan. We may remove his stent on Thursday (2) CKD stage 3 due to type 2 diabetes mellitus: Code(s): E11.22 - Type 2 diabetes mellitus with diabetic chronic kidney disease; N18.3 - Chronic kidney disease, stage 3 (moderate) Status: Acute Assessment and Plan: Creatinine not really improving despite removing his stone and placing a stent Subjective Subjective Date/Time Seen: 03/31/22 16:07 Urine clear. Tolerating Tabares. Creatinine did not really improve Exam Narrative: Obese. No acute distress. Tabares catheter in place. Clear yellow urine Objective Data Vital Signs Vital Signs: Vital Signs - 24 hr 03/30/22 18:00 03/30/22 20:05 03/30/22 20:00 Temperature 97.9 F Pulse Rate 44 L 49 L 59 L Respiratory Rate 23 H 20 Blood Pressure 118/67 Pulse Oximetry 100 100 Oxygen Delivery BiPAP 03/30/22 20:00 03/30/22 23:06 03/30/22 23:40 Temperature 97.6 F Pulse Rate 49 L 55 L 46 L Respiratory Rate 22 H 21 H Blood Pressure 121/80 Pulse Oximetry 95 99 Oxygen Delivery BiPAP 03/30/22 22:00 03/31/22 00:00 03/31/22 02:00 Temperature Pulse Rate 52 L 60 45 L Respiratory Rate Blood Pressure Pulse Oximetry Oxygen Delivery 03/31/22 04:00 03/31/22 04:00 03/31/22 04:00 Temperature 97.8 F Pulse Rate 47 L 48 L Respiratory Rate 20 Blood Pressure 140/81 Pulse Oximetry 99 100 Oxygen Delivery Room Air 03/31/22 06:00 03/31/22 08:25 03/31/22 08:00 Temperature 96.9 F L Pulse Rate 50 L 54 L Respiratory Rate 20 Blood Pressure 140/61 Pulse Oximetry 98 Oxygen Delivery Room Air 03/31/22 08:50 03/31/22 08:00 03/31/22 08:00 Temperature Pulse Rate 62 Respiratory Rate Blood Pressure Pulse Oximetry 98 Oxygen Delivery Room Air Room Air 03/31/22 10:00 03/31/22 12:00 03/31/22 12:00 Temperature 97.3 F L Pulse Rate 52 L 61 Respiratory Rate 20 Blood Pressure 122/55 L Pulse Oximetry 100 98 Oxygen Delivery Room Air 03/31/22 12:00 03/31/22 14:00 Temperature Pulse Rate 66 60 Respiratory Rate Blood Pressure Pulse Oximetry Oxygen Delivery Intake/Output Intake/Output: Intake & Output 03/28/22 03/29/22 03/30/22 03/31/22 23:59 23:59 23:59 23:59 Intake Total 2310 1260 1700 1820 Output Total 880 1400 1100 350 Balance 1430 -564 874 6470 Meds/Results Medications: Active Medications Generic Name Dose Route Start Last Admin Trade Name Freq PRN Reason Stop Dose Admin Albuterol 2 puff 03/25/22 23:39 Albuterol Sulfate (*Sp) Aerosol 1 Puff INHALATION QID PRN shortness of breath or wheezing Atorvastatin Calcium 80 mg 03/25/22 23:55 03/30/22 19:54 Atorvastatin 40 Mg Tablet PO Not Given HS NIURKA Calcitriol 0.25 mcg 03/25/22 23:55 03/30/22 19:55 Calcitriol 0.25 Mcg Capsule PO Not Given HS NIURKA Dextrose 12.5 gm 03/29/22 06:16 03/29/22 11:41 Dextrose 50% 25 Gm/50 Ml Syringe IV PUSH 12.5 gm PRN PRN Administration Hypoglycemia Protocol Diphenhydramine HCl 25 mg 03/30/22 15:38 03/30/22 16:02 Diphenhydramine Hcl Inj 50 Mg/Ml Vial IV PUSH 25 mg Q12H PRN Administration Itching Divalproex Sodium 125 mg 03/25/22 23:55 03/31/22 08:22 Divalproex Sodium Sprinkle 125 Mg Cap.Dr PO 125 mg Q12HR NIURKA Administration Epoetin Lai-epbx 10,000 units 03/29/22 12:55 03/29/22 14:58 Epoetin Lai-Epbx 10,000 Units/Ml Vial SUB-Q 10,000 units TUTHSA NIURKA Administration Gabapentin 200 mg 03/26/22 09:00 03/31/22 08:21 Gabapentin 100 Mg Capsule PO 200 mg BID NIURKA Administration Galantamine Hydrobromide 8 mg 03/26/22 09:00 03/31/22 08:21 Galantamine Er 8 Mg Cap PO 8 mg DAILY NIURKA Administration Glucagon 1 mg 03/29/22 06:16 Glucagon For Inj 1
[2022-03-31 17:01] LABS: Glucose Point of Care 290 mg/dl (65-105)
[2022-03-31] MEDS: ATORVASTATIN 40 MG TABLET 80 MG PO (20:44)
[2022-03-31] MEDS: calcitrioL 0.25 MCG CAPSULE PO (20:45)
[2022-03-31] MEDS: PANTOPRAZOLE 40 MG TABLET PO (20:51)
[2022-03-31 20:52] LABS: Glucose Point of Care 278 mg/dl (65-105)
[2022-04-01] VITALS (16 sets, daily range): BP systolic 128–164; BP diastolic 52–86; PULSE 40–63; RESP 8–24; TEMP 36.4–36.6; O2SAT 97–100
[2022-04-01 05:13] LABS: Potassium 5.1 mmol/L (3.4-5.0)
[2022-04-01 05:20] LABS: Albumin Level 2.6 g/dL (3.5-5.1); Anion Gap 6 mmol/L (8-16); Blood Urea Nitrogen 68 mg/dL (9-20); Calcium 7.3 mg/dL (8.4-10.2); Carbon Dioxide 23 mmol/L (22-30); Chloride 99 mmol/L (98-107); Estimated CRCL calculation 16 ml/min; Estimated Glomerular Filt Rate 10; Glucose 260 mg/dL (65-110); Phosphorus 6.7 mg/dL (2.5-4.5); Sodium 128 mmol/L (137-145)
[2022-04-01] MEDS: HYDROCORTISONE SODIUM SUCCINATE 100 MG/2 ML VIAL IV PUSH ×3 (05:49→22:57)
[2022-04-01] MEDS: LEVOTHYROXINE SODIUM 75 MCG TABLET BY MOUTH (06:21)
[2022-04-01 08:34] LABS: Glucose Point of Care 318 mg/dl (65-105)
--- NOTE | 2022-04-01 09:27 | PM.PNPUL ---
Progress Note: A&P Assessment and Plan (1) SERENA (obstructive sleep apnea): Code(s): G47.33 - Obstructive sleep apnea (adult) (pediatric) Status: Acute Assessment and Plan: 76-year-old man with a history of obstructive sleep apnea on BiPAP 25/21 with the last download report showing very low device AHI, currently receiving BiPAP 20/8 and room air. Blood gases done yesterday were unremarkable. The patient slept well last night and has no evidence of uncontrolled sleep disordered breathing. Plan: continue with current BiPAP settings for tonight. measure nocturnal oximetry on current BiPAP settings. Patient has been on antibiotics the indication of which is unclear to me. He has no evidence of lower respiratory tract infection to require antibiotics. (2) Type 2 diabetes mellitus with hyperglycemia: Qualifiers: Diabetes mellitus tank terminal gauger insulin use: with alf use Qualified Code(s): E11.65 - Type 2 diabetes mellitus with hyperglycemia; Z79.4 - superintendent container terminal (current) use of insulin Code(s): E11.65 - Type 2 diabetes mellitus with hyperglycemia Status: Acute (3) Duodenal ulcer: Code(s): K26.9 - Duodenal ulcer, unspecified as acute or chronic, without hemorrhage or perforation Status: Acute (4) A-fib: Code(s): I48.91 - Unspecified atrial fibrillation Status: Acute (5) Obesity, morbid (more than 100 lbs over ideal weight or BMI > 40): Code(s): E66.01 - Morbid (severe) obesity due to excess calories Status: Acute (6) CKD stage 3 due to type 2 diabetes mellitus: Code(s): E11.22 - Type 2 diabetes mellitus with diabetic chronic kidney disease; N18.3 - Chronic kidney disease, stage 3 (moderate) Status: Acute Subjective Date/time seen: 04/01/22 09:27 Interval history: Patient has no new respiratory symptoms. Remaining on room air. Slept well last night while on BiPAP support. not bringing home BiPAP device. Patient is happy with current BiPAP support at night Review of Systems Review of Systems: All systems reviewed & are unremarkable except as noted in HPI and below Exam Narrative: GENERAL APPEARANCE: Well developed, well nourished, alert and cooperative, morbidly obese and appears to be in no acute distress while breathing room air SKIN: Inspection of the skin reveals no rashes, ulcerations or petechiae. HEENT: Sclerae anicteric and conjunctivae pink and moist. Extraocular movements were intact and pupils were equal, round. NECK: Supple. There was no thyroid enlargement, and no tenderness, or masses were felt. CHEST: Normal AP diameter and normal contour without any kyphoscoliosis. LUNGS: Auscultation of the lungs revealed normal breath sounds without any other adventitious sounds or rubs. CARDIAC: There was an irregular rate and rhythm without any murmurs. ABDOMEN: Soft and nontender with normal bowel sounds. There was no organomegaly. LYMPH NODES: No lymphadenopathy was appreciated in the neck. EXTREMITIES: No cyanosis, clubbing. Old stasis dermatitis changes lower extremities. Cellulitis left lower leg NEUROLOGIC: Alert and oriented x 3. Normal affect. Objective Data Vital Signs Vital Signs: Vital Signs - 24 hr 03/31/22 10:00 03/31/22 12:00 03/31/22 12:00 Temperature 36.3 C L Pulse Rate 52 L 61 Respiratory Rate 20 Blood Pressure 122/55 L Pulse Oximetry 100 98 Oxygen Delivery Room Air Fraction of Inspired Oxygen 03/31/22 12:00 03/31/22 14:00 03/31/22 16:00 Temperature 36.1 C L Pulse Rate 66 60 54 L Respiratory Rate 20 Blood Pressure 139/95 H Pulse Oximetry 100 Oxygen Delivery Fraction of Inspired Oxygen 03/31/22 16:00 03/31/22 16:00 03/31/22 18:00 Temperature Pulse Rate 52 L 56 L Respiratory Rate Blood Pressure Pulse Oximetry 98 Oxygen Delivery Room Air Fraction of Inspired Oxygen 03/31/22 20:54 03/31/22 20:00 03/31/22 20:00 Temperature 36.3
[2022-04-01] MEDS: TAMSULOSIN HCL 0.4 MG CAPSULE PO (10:26)
[2022-04-01] MEDS: TOLNAFTATE 1% POWDER 45 GM BTL 1 APPLIC TOPICAL ×2 (10:26→20:45)
[2022-04-01] MEDS: SILVERGEL (ELTA) 45 ML 1 APPLIC TOPICAL (10:26)
[2022-04-01] MEDS: MEMANTINE HCL XR 7 MG CAP 14 MG PO (10:28)
[2022-04-01] MEDS: PANTOPRAZOLE 40 MG TABLET PO ×2 (10:28→20:45)
[2022-04-01] MEDS: MICONAZOLE NITRATE 2% CREAM 30 GM TUBE 1 APPLIC TOPICAL ×2 (10:28→20:45)
[2022-04-01] MEDS: GABAPENTIN 100 MG CAPSULE 200 MG PO ×2 (10:29→17:01)
[2022-04-01] MEDS: INSULIN ASPART (*BKC) 100 UNITS/ML 10 UNITS SUB-Q ×4 (10:29→21:17)
[2022-04-01] MEDS: DIVALPROEX SODIUM SPRINKLE 125 MG CAP.DR PO ×2 (10:29→20:44)
--- NOTE | 2022-04-01 11:47 | PM.PNNEP ---
Progress Note: A&P Assessment and Plan (1) MARY (acute kidney injury): Code(s): N17.9 - Acute kidney failure, unspecified Status: Acute Assessment and Plan: etiology? prerenal factors anemia relative hypotension component of disease progression (?) Contribution by the obstructing stone? evaluation to date: renal ultrasound with mild/moderate right hydro - s/p stent placement urine electrolytes are prerenal urine eosinophils negative possible peak/plateau of creatinine at 5.9mg/dl??? continues to make reasonable urine output follow repeat labs and UOP (2) Chronic kidney disease, stage IV (severe): Code(s): N18.4 - Chronic kidney disease, stage 4 (severe) Status: Chronic Assessment and Plan: progressive deterioration noted in the last year creatinine on last check (January 2022) was 3.3mg/dl from Mar - August 2021, creatinine had been running 2.4 - 2.7mg/dl due to diabetes, hypertension, vascular disease, and age-related change (3) Syncope: Code(s): R55 - Syncope and collapse Status: Acute Assessment and Plan: vasovagal issue? however, issues with #4 may be contributing as well possible prerenal factors playing a role related to Afib (?) medication related - on flomax Cardiology on board continue ongoing therapy (4) Anemia: Code(s): D64.9 - Anemia, unspecified Status: Acute Assessment and Plan: partly related to CKD however, history of melanotic stools and occult blood positive GI following results of EGD noted started on Epogen therapy PRBC transfusion per protocol (5) Hypertension: Code(s): I10 - Essential (primary) hypertension Status: Chronic Assessment and Plan: reasonable control given potential GI bleed and syncope, close monitoring of hemodyamics BP medications with parameters (6) DM renal manif type II, uncontrolled: Code(s): E11.29 - Type 2 diabetes mellitus with other diabetic kidney complication; E11.65 - Type 2 diabetes mellitus with hyperglycemia Status: Chronic Assessment and Plan: Accu-Cheks and sliding scale insulin glycemic control Long and extensive discussion (greater than 20 minute) with patient as well as his at bedside regarding his deteriorating renal function. As his creatinine is a bit better today, it is possible that renal recovery maybe in progress at this time but time will tell with regard to repeat labs. He continues to make reasonable urine output with relative stability in his electrolytes at this time. Will continue to follow. Subjective Date/time seen: 04/01/22 11:47 Sitting up in chair at the time of my visit; at bedside as well; continues to make reasonable urine output with stable electrolytes; creatinine/renal function a bit/tad better by AM labs; no apparent distress noted. Exam Narrative: General: WD/WN large male in NAD, Heart: IRRR, normal S1 and S2 Lungs: clear bilaterally Abdomen: soft, nontender, nondistended, positive bowel sounds Extremities: trace edema Skin: warm and intact Objective Data Vital Signs Vital Signs: Vital Signs Temp Pulse Resp BP Pulse Ox O2 Del Method FiO2 04/01/22 08:00 97.6 F 62 18 141/57 H 100 04/01/22 06:00 53 L 04/01/22 05:20 97.5 F L 42 L 20 148/86 H 98 04/01/22 04:00 52 L 04/01/22 04:00 98 BiPAP 21 04/01/22 02:00 51 L 04/01/22 03:04 55 L 22 H 98 BiPAP 04/01/22 00:00 100 BiPAP 04/01/22 00:00 46 L 03/31/22 22:00 51 L 03/31/22 23:45 56 L 23 H 100 BiPAP 03/31/22 23:40 97.9 F 58 L 20 96 03/31/22 20:00 100 Room Air 03/31/22 20:00 53 L 03/31/22 20:54 97.4 F L 50 L 21 H 129/52 L 100 03/31/22 18:00 56 L 03/31/22 16:00 52 L 03/31/22 16:00 98 Room Air 03/31/22 16:00 97.0 F L 54 L 20 139/95 H
--- NOTE | 2022-04-01 11:47 | P.PNNP_ITS ---
Progress Note: A&P Assessment and Plan (1) MARY (acute kidney injury): Code(s): N17.9 - Acute kidney failure, unspecified Status: Acute Assessment and Plan: * etiology? * prerenal factors * anemia * relative hypotension * component of disease progression (?) * Contribution by the obstructing stone? * evaluation to date: * renal ultrasound with mild/moderate right hydro - s/p stent placement * urine electrolytes are prerenal * urine eosinophils negative * possible peak/plateau of creatinine at 5.9mg/dl??? * continues to make reasonable urine output * follow repeat labs and UOP (2) Chronic kidney disease, stage IV (severe): Code(s): N18.4 - Chronic kidney disease, stage 4 (severe) Status: Chronic Assessment and Plan: * progressive deterioration noted in the last year * creatinine on last check (January 2022) was 3.3mg/dl * from Mar - August 2021, creatinine had been running 2.4 - 2.7mg/dl * due to diabetes, hypertension, vascular disease, and age-related change (3) Syncope: Code(s): R55 - Syncope and collapse Status: Acute Assessment and Plan: * vasovagal issue? * however, issues with #4 may be contributing as well * possible prerenal factors playing a role * related to Afib (?) * medication related - on flomax * Cardiology on board * continue ongoing therapy (4) Anemia: Code(s): D64.9 - Anemia, unspecified Status: Acute Assessment and Plan: * partly related to CKD * however, history of melanotic stools and occult blood positive * GI following * results of EGD noted * started on Epogen therapy * PRBC transfusion per protocol (5) Hypertension: Code(s): I10 - Essential (primary) hypertension Status: Chronic Assessment and Plan: * reasonable control * given potential GI bleed and syncope, close monitoring of hemodyamics * BP medications with parameters (6) DM renal manif type II, uncontrolled: Code(s): E11.29 - Type 2 diabetes mellitus with other diabetic kidney complication; E11.65 - Type 2 diabetes mellitus with hyperglycemia Status: Chronic Assessment and Plan: * Accu-Cheks and sliding scale insulin * glycemic control Long and extensive discussion (greater than 20 minute) with patient as well as his at bedside regarding his deteriorating renal function. As his creatinine is a bit better today, it is possible that renal recovery maybe in progress at this time but time will tell with regard to repeat labs. He continues to make reasonable urine output with relative stability in his electrolytes at this time. Will continue to follow. Subjective Date/time seen: 04/01/22 11:47 Sitting up in chair at the time of my visit; at bedside as well; continues to make reasonable urine output with stable electrolytes; creatinine/renal function a bit/tad better by AM labs; no apparent distress noted. Exam Narrative: General: WD/WN large male in NAD, Heart: IRRR, normal S1 and S2 Lungs: clear bilaterally Abdomen: soft, nontender, nondistended, positive bowel sounds Extremities: trace edema Skin: warm and intact Objective Data Vital Signs Vital Signs: Vital Signs Temp Pulse Resp BP Pulse Ox O2 Del Method FiO2 04/01/22 08:00 97.6 F 62 18 141/57 H 100 04/01/22 06:00 53 L 04/01
--- NOTE | 2022-04-01 12:05 | PM.IMPN ---
Progress Note: A&P Assessment and Plan (1) Syncope: Code(s): R55 - Syncope and collapse Status: Acute Assessment and Plan: Continue to monitor (2) Atrial fibrillation: Qualifiers: Atrial fibrillation type: unspecified Qualified Code(s): I48.91 - Unspecified atrial fibrillation Code(s): I48.91 - Unspecified atrial fibrillation Status: Acute Assessment and Plan: Rate controlled - bb on hold as hr is controlled Holding anticoagulation due to GI bleed (3) Acute kidney injury superimposed on CKD: Code(s): N17.9 - Acute kidney failure, unspecified; N18.9 - Chronic kidney disease, unspecified Status: Acute Assessment and Plan: Tabares cathete Daily intake and output Continue to monitor Daily BMP Nephrology input appreciated. Patient is considering HD if needed. (4) Orthostatic hypotension: Code(s): I95.1 - Orthostatic hypotension Status: Acute Assessment and Plan: monitor (5) SERENA (obstructive sleep apnea): Code(s): G47.33 - Obstructive sleep apnea (adult) (pediatric) Status: Acute Assessment and Plan: BiPAP at nighttime (6) Type 2 diabetes mellitus with hyperglycemia: Qualifiers: Diabetes mellitus [facility] insulin use: with pelota maker use Qualified Code(s): E11.65 - Type 2 diabetes mellitus with hyperglycemia; Z79.4 - [facility] (current) use of insulin Code(s): E11.65 - Type 2 diabetes mellitus with hyperglycemia Status: Acute Assessment and Plan: Accu-Cheks AC and HS Continue insulin regimen Calorie consistent diet (7) Obesity, morbid (more than 100 lbs over ideal weight or BMI > 40): Code(s): E66.01 - Morbid (severe) obesity due to excess calories Status: Acute Assessment and Plan: Lifestyle and diet modifications (8) HTN (hypertension) with goal to be determined: Code(s): I10 - Essential (primary) hypertension Status: Acute Assessment and Plan: Continue to monitor (9) Melena: Code(s): K92.1 - Melena Status: Acute Assessment and Plan: Holding blood thinner History of ulcer in the past GI consult - egd noted PPI Transfuse as needed (10) Hydronephrosis: Code(s): N13.30 - Unspecified hydronephrosis Status: Acute Assessment and Plan: Status post ureteral stent. Plan Patient's family does not want any aggressive measures. Patient is DNR. Subjective Date/time seen: 04/01/22 12:05 No new complaints. Exam Narrative: Patient is laying in a stretcher Const: General: cooperative, comfortable, no acute distress, well developed, alert, awake, ill appearing chronically and obese Nutritional Appearance: obese morbidly obese Orientation/consciousness: patient oriented x3 HENMT: Head: normal to inspection, normocephalic and atraumatic Ears: hearing grossly normal bilaterally Face/Nose/Sinus: normal facial exam Face and sinus: normal facial exam Eyes: General: appearance normal, both eyes and all related structures Pupils: Equal, round and reactive pupils present EOM: EOMs intact bilaterally Neck: Neck: full ROM, no lymphadenopathy and no JVD Thyroid: thyroid normal Lymphatic: no lymphadenopathy noted Resp: Effort & Inspection: normal respiratory effort and able to speak in complete sentences Auscultation: clear to auscultation bilaterally Cardio: Jugular venous distension: no JVD Rate: regular rate Rhythm: regular rhythm Heart sounds: S1 normal heart sound present and S2 normal heart sound present GI: Inspection: visible herniation ([facility]) : General: Yes deferred Skin: General skin exam: wounds noted (Left lower extremity) Rashes: no rashes Wounds: wounds noted (Left lower extremity) Neuro: General: patient oriented x3, CN's II-XI intact bilaterally and Unable to assess gait Cranial nerves: Yes CN's II-XII intact bilaterally and Yes Equal, round and reactive pupils present Cog
[2022-04-01] MEDS: DEXTROSE 5%/0.45% SOD CHL 1,000 ML 75 ML IV CONT (12:58)
[2022-04-01] MEDS: EPOETIN ALFA-EPBX 10,000 UNITS/ML VIAL 10000 UNITS SUB-Q (13:54)
[2022-04-01 17:18] LABS: Glucose Point of Care 383 mg/dl (65-105)
[2022-04-01 20:04] LABS: Glucose Point of Care 411 mg/dl (65-105)
[2022-04-01] MEDS: calcitrioL 0.25 MCG CAPSULE PO (20:44)
[2022-04-01] MEDS: ATORVASTATIN 40 MG TABLET 80 MG PO (20:45)
[2022-04-01] MEDS: LACTATED RINGERS 1,000 ML 75 ML IV CONT (21:17)
[2022-04-02] VITALS (18 sets, daily range): BP systolic 154–195; BP diastolic 65–95; PULSE 39–100; RESP 20–24; TEMP 35.7–36.4; O2SAT 66–100
[2022-04-02] MEDS: HYDROCORTISONE SODIUM SUCCINATE 100 MG/2 ML VIAL IV PUSH (05:59)
[2022-04-02] MEDS: LEVOTHYROXINE SODIUM 75 MCG TABLET BY MOUTH (06:00)
[2022-04-02 06:32] LABS: Albumin Level 2.7 g/dL (3.5-5.1); Anion Gap 8 mmol/L (8-16); Blood Urea Nitrogen 73 mg/dL (9-20); Calcium 7.1 mg/dL (8.4-10.2); Carbon Dioxide 21 mmol/L (22-30); Chloride 104 mmol/L (98-107); Estimated CRCL calculation 18 ml/min; Estimated Glomerular Filt Rate 11; Glucose 248 mg/dL (65-110); Phosphorus 6.2 mg/dL (2.5-4.5); Potassium 4.5 mmol/L (3.4-5.0); Sodium 133 mmol/L (137-145)
[2022-04-02 08:02] LABS: Glucose Point of Care 268 mg/dl (65-105)
--- NOTE | 2022-04-02 08:53 | PCNWS ---
Weekly nutritional screen. Patient is tolerating current diet with adequate intake. No weight loss reported. No nutritional needs at this time.
[2022-04-02] MEDS: GABAPENTIN 100 MG CAPSULE 200 MG PO ×2 (10:24→17:06)
[2022-04-02] MEDS: TAMSULOSIN HCL 0.4 MG CAPSULE PO (10:25)
[2022-04-02] MEDS: MEMANTINE HCL XR 7 MG CAP 14 MG PO (10:25)
[2022-04-02] MEDS: DIVALPROEX SODIUM SPRINKLE 125 MG CAP.DR PO ×2 (10:25→21:23)
[2022-04-02] MEDS: SILVERGEL (ELTA) 45 ML 1 APPLIC TOPICAL (10:28)
[2022-04-02] MEDS: PANTOPRAZOLE 40 MG TABLET PO ×2 (10:28→21:22)
[2022-04-02] MEDS: TOLNAFTATE 1% POWDER 45 GM BTL 1 APPLIC TOPICAL ×2 (10:28→21:24)
[2022-04-02] MEDS: MICONAZOLE NITRATE 2% CREAM 30 GM TUBE 1 APPLIC TOPICAL ×2 (10:29→21:24)
--- NOTE | 2022-04-02 10:36 | PM.PNPUL ---
Progress Note: A&P Assessment and Plan (1) SERENA (obstructive sleep apnea): Code(s): G47.33 - Obstructive sleep apnea (adult) (pediatric) Status: Acute Assessment and Plan: 76-year-old man with a history of obstructive sleep apnea on BiPAP with the last download report showing very low device AHI. He was on a BiPAP / and room air until last night when used own BiPAP device. he slept well on on BiPAP device. He has no new respiratory symptoms. Plan: continue with BiPAP support at night using patient's own device. will sign off. call with any questions. The patient should return to pulmonary clinic for regular follow-up post- DC home. (2) Type 2 diabetes mellitus with hyperglycemia: Qualifiers: Diabetes mellitus intermediate accountant insulin use: with intermediate accountant use Qualified Code(s): E11.65 - Type 2 diabetes mellitus with hyperglycemia; Z79.4 - [facility] (current) use of insulin Code(s): E11.65 - Type 2 diabetes mellitus with hyperglycemia Status: Acute (3) Duodenal ulcer: Code(s): K26.9 - Duodenal ulcer, unspecified as acute or chronic, without hemorrhage or perforation Status: Acute (4) A-fib: Code(s): I48.91 - Unspecified atrial fibrillation Status: Acute (5) Obesity, morbid (more than 100 lbs over ideal weight or BMI > 40): Code(s): E66.01 - Morbid (severe) obesity due to excess calories Status: Acute (6) CKD stage 3 due to type 2 diabetes mellitus: Code(s): E11.22 - Type 2 diabetes mellitus with diabetic chronic kidney disease; N18.3 - Chronic kidney disease, stage 3 (moderate) Status: Acute Subjective Date/time seen: 04/02/22 10:36 Interval history: Patient has no new respiratory symptoms. Used own BiPAP device last night. Remains on room air Review of Systems Review of Systems: all system review is negative except as noted in HPI and below Exam Narrative: GENERAL APPEARANCE: Well developed, well nourished, alert and cooperative, morbidly obese and appears to be in no acute distress while breathing room air SKIN: Inspection of the skin reveals no rashes, ulcerations or petechiae. HEENT: Sclerae anicteric and conjunctivae pink and moist. Extraocular movements were intact and pupils were equal, round. NECK: Supple. There was no thyroid enlargement, and no tenderness, or masses were felt. CHEST: Normal AP diameter and normal contour without any kyphoscoliosis. LUNGS: Auscultation of the lungs revealed normal breath sounds without any other adventitious sounds or rubs. CARDIAC: There was an irregular rate and rhythm without any murmurs. ABDOMEN: Soft and nontender with normal bowel sounds. There was no organomegaly. LYMPH NODES: No lymphadenopathy was appreciated in the neck. EXTREMITIES: No cyanosis, clubbing. Old stasis dermatitis changes lower extremities. Cellulitis left lower leg NEUROLOGIC: Alert and oriented x 3. Normal affect. Objective Data Vital Signs Vital Signs: Vital Signs - 24 hr 04/01/22 12:00 04/01/22 12:00 04/01/22 14:00 Temperature 36.6 C Pulse Rate 63 61 61 Respiratory Rate 18 Blood Pressure 145/68 H Pulse Oximetry 100 Oxygen Delivery Fraction of Inspired Oxygen 04/01/22 16:00 04/01/22 16:00 04/01/22 18:00 Temperature 36.6 C Pulse Rate 61 52 L 62 Respiratory Rate 18 Blood Pressure 164/59 H Pulse Oximetry 98 Oxygen Delivery Fraction of Inspired Oxygen 04/01/22 12:00 04/01/22 16:00 04/01/22 20:00 Temperature 36.6 C Pulse Rate 55 L Respiratory Rate 20 Blood Pressure 134/52 L Pulse Oximetry 97 98 99 Oxygen Delivery Room Air Room Air Fraction of Inspired Oxygen 04/01/22 20:00 04/01/22 20:00 04/01/22 22:00 Temperature Pulse Rate 56 L 57 L Respiratory Rate Blood Pressure Pulse Oximetry 99 Oxygen Delivery Room Air Fraction of Inspired Oxygen 04/01/22 23:42 04/01/22 23:45 04/01/22 23:45 Temperature 36.6 C
[2022-04-02] MEDS: LACTATED RINGERS 1,000 ML 75 ML IV CONT (11:28)
[2022-04-02 11:54] LABS: Glucose Point of Care 189 mg/dl (65-105)
--- NOTE | 2022-04-02 12:59 | PCPTNOTE ---
Attempted to see patient for PT, however patient declined this date due to waiting to go for procedure and patient unable to eat or drink.
--- NOTE | 2022-04-02 13:21 | PM.PNNEP ---
Progress Note: A&P Assessment and Plan (1) MARY (acute kidney injury): Code(s): N17.9 - Acute kidney failure, unspecified Status: Acute Assessment and Plan: etiology? prerenal factors anemia relative hypotension component of disease progression (?) contribution by the obstructing stone? evaluation to date: renal ultrasound with mild/moderate right hydro - s/p stent placement urine electrolytes are prerenal urine eosinophils negative suspected peak/plateau of creatinine at 5.9mg/dl follow repeat creatinine continues to make reasonable urine output follow repeat labs and UOP (2) Chronic kidney disease, stage IV (severe): Code(s): N18.4 - Chronic kidney disease, stage 4 (severe) Status: Chronic Assessment and Plan: progressive deterioration noted in the last year creatinine on last check (January 2022) was 3.3mg/dl from Mar - August 2021, creatinine had been running 2.4 - 2.7mg/dl due to diabetes, hypertension, vascular disease, and age-related change (3) Syncope: Code(s): R55 - Syncope and collapse Status: Acute Assessment and Plan: vasovagal issue? however, issues with #4 may be contributing as well possible prerenal factors playing a role related to Afib (?) medication related - on flomax Cardiology following continue ongoing therapy (4) Anemia: Code(s): D64.9 - Anemia, unspecified Status: Acute Assessment and Plan: partly related to CKD however, history of melanotic stools and occult blood positive GI following results of EGD noted on Epogen therapy PRBC transfusion per protocol (5) Hypertension: Code(s): I10 - Essential (primary) hypertension Status: Chronic Assessment and Plan: reasonable control given potential GI bleed and syncope, close monitoring of hemodyamics BP medications with parameters (6) DM renal manif type II, uncontrolled: Code(s): E11.29 - Type 2 diabetes mellitus with other diabetic kidney complication; E11.65 - Type 2 diabetes mellitus with hyperglycemia Status: Chronic Assessment and Plan: Accu-Cheks and sliding scale insulin glycemic control Will continue to follow. Subjective Date/time seen: 04/02/22 13:21 Continue to make slow and steady improvement; renal function/creatinine better as noted by AM labs; tentatively scheduled for removal of ureteral stent later this afternoon; no issues/events overnight or earlier this morning. Exam Narrative: General: WD/WN large male in NAD, Heart: IRRR, normal S1 and S2 Lungs: clear bilaterally Abdomen: soft, nontender, nondistended, positive bowel sounds Extremities: trace edema Skin: no rash Objective Data Vital Signs Vital Signs: Vital Signs Temp Pulse Resp BP Pulse Ox O2 Del Method FiO2 04/02/22 12:00 97.5 F L 100 20 157/95 H 66 L 04/02/22 08:00 96.2 F L 52 L 20 164/72 H 99 04/02/22 06:00 51 L 04/02/22 04:00 99 BiPAP 04/02/22 04:00 39 L 04/02/22 04:00 97.4 F L 39 L 22 H 156/67 H 99 04/02/22 02:00 82 04/02/22 00:00 BiPAP 04/02/22 00:00 59 L 04/01/22 23:45 56 L 16 99 BiPAP 21 04/01/22 23:45 56 L 8 L 99 BiPAP 04/01/22 23:42 97.8 F 40 L 24 H 128/73 100 04/01/22 22:00 57 L 04/01/22 20:00 56 L 04/01/22 20:00 99 Room Air 04/01/22 20:00 97.8 F 55 L 20 134/52 L 99 04/01/22 16:00 98 Room Air 04/01/22 18:00 62 04/01/22 16:00 97.8 F 52 L 18 164/59 H 98 04/01/22 16:00 61 Intake/Output Intake/Output: Intake & Output 03/30/22 03/31/22 04/01/22 04/02/22 23:59 23:59 23:59 23:59 Intake Total 1700 3760 2720 1300 Output Total 8791 578 7022 2200 Balance 600 2985 220 -900 Meds/Results Medications: Active Medications Generic Name Dose Route Start Last Admin Trade Name Freq PRN Reaso
--- NOTE | 2022-04-02 13:21 | P.PNNP_ITS ---
Progress Note: A&P Assessment and Plan (1) MARY (acute kidney injury): Code(s): N17.9 - Acute kidney failure, unspecified Status: Acute Assessment and Plan: * etiology? * prerenal factors * anemia * relative hypotension * component of disease progression (?) * contribution by the obstructing stone? * evaluation to date: * renal ultrasound with mild/moderate right hydro - s/p stent placement * urine electrolytes are prerenal * urine eosinophils negative * suspected peak/plateau of creatinine at 5.9mg/dl * follow repeat creatinine * continues to make reasonable urine output * follow repeat labs and UOP (2) Chronic kidney disease, stage IV (severe): Code(s): N18.4 - Chronic kidney disease, stage 4 (severe) Status: Chronic Assessment and Plan: * progressive deterioration noted in the last year * creatinine on last check (January 2022) was 3.3mg/dl * from Mar - August 2021, creatinine had been running 2.4 - 2.7mg/dl * due to diabetes, hypertension, vascular disease, and age-related change (3) Syncope: Code(s): R55 - Syncope and collapse Status: Acute Assessment and Plan: * vasovagal issue? * however, issues with #4 may be contributing as well * possible prerenal factors playing a role * related to Afib (?) * medication related - on flomax * Cardiology following * continue ongoing therapy (4) Anemia: Code(s): D64.9 - Anemia, unspecified Status: Acute Assessment and Plan: * partly related to CKD * however, history of melanotic stools and occult blood positive * GI following * results of EGD noted * on Epogen therapy * PRBC transfusion per protocol (5) Hypertension: Code(s): I10 - Essential (primary) hypertension Status: Chronic Assessment and Plan: * reasonable control * given potential GI bleed and syncope, close monitoring of hemodyamics * BP medications with parameters (6) DM renal manif type II, uncontrolled: Code(s): E11.29 - Type 2 diabetes mellitus with other diabetic kidney complication; E11.65 - Type 2 diabetes mellitus with hyperglycemia Status: Chronic Assessment and Plan: * Accu-Cheks and sliding scale insulin * glycemic control Will continue to follow. Subjective Date/time seen: 04/02/22 13:21 Continue to make slow and steady improvement; renal function/creatinine better as noted by AM labs; tentatively scheduled for removal of ureteral stent later this afternoon; no issues/events overnight or earlier this morning. Exam Narrative: General: WD/WN large male in NAD, Heart: IRRR, normal S1 and S2 Lungs: clear bilaterally Abdomen: soft, nontender, nondistended, positive bowel sounds Extremities: trace edema Skin: no rash Objective Data Vital Signs Vital Signs: Vital Signs Temp Pulse Resp BP Pulse Ox O2 Del Method FiO2 04/02/22 12:00 97.5 F L 100 20 157/95 H 66 L 04/02/22 08:00 96.2 F L 52 L 20 164/72 H 99 04/02/22 06:00 51 L 04/02/22 04:00 99 BiPAP 04/02/22 04:00 39 L 04/02/22 04:00 97.4 F L 39 L 22 H 156/67 H 99 04/02/22 02:00 82 04/02/22 00:00 BiPAP 04/02/22 00:00 59 L 04/01/22 23:45 56 L 16 99 BiPAP 21 04/01/22 23:45 56 L
--- NOTE | 2022-04-02 14:51 | WPDHPUPDATE1 ---
History and Physical Update Update Date/Time: 04/02/22 14:51 History and Physical has been reviewed, including an updated exam of the patient. There are NO changes in the patient's condition. Risks, benefits, and alternatives have been discussed and questions answered. Patient agrees to proceed with procedure. Planned cystoscopy right renal stent removal today
[2022-04-02] MEDS: LIDOCAINE HCL 2% GEL UROJET 10 ML PKG MUCOUS MEM (15:26)
--- NOTE | 2022-04-02 15:34 | W.PM.PROC2 ---
Procedure Note - Detailed Date of Procedure 04/02/22 Pre-op Diagnosis Right ureteral stone status post ureteroscopy Post-op Diagnosis Same Procedure Performed Cystoscopy, right ureteral stent removal Surgeon Kimberly Perez MD Anesthesia Local Description of Procedure Informed consent was obtained. Patient taken the operating. He has been receiving IV antibiotics on floor. Patient was prepped and draped. 10cc of viscous lidocaine was inserted into the urethra. We then inserted a flexible cystoscope and identified the stent in the right orifice. Stent was grasped and removed.. Patient tolerated procedure well. Okay to discharge home patient from urology standpoint. Patient should have a follow-up renal ultrasound in 4 to 6 weeks to ensure there was no residual right hydronephrosis Estimated Blood Loss 0 Complications No immediate complications Condition Stable Disposition PACU
--- NOTE | 2022-04-02 16:29 | PM.IMPN ---
Progress Note: A&P Assessment and Plan (1) Syncope: Code(s): R55 - Syncope and collapse Status: Acute Assessment and Plan: Continue to monitor 04/02/2022 interval history: morbidly obese patient presented with syncopal episode was found to have atrial fibrillation with RVR now the rate is controlled with beta-jareth, patient is schedule Cystoscopy today to remove stent, patient was started on hydrocortisone will separate down to prednisone today continue to monitor and further recommendation to follow. (2) Atrial fibrillation: Qualifiers: Atrial fibrillation type: unspecified Qualified Code(s): I48.91 - Unspecified atrial fibrillation Code(s): I48.91 - Unspecified atrial fibrillation Status: Acute Assessment and Plan: Rate controlled - bb on hold as hr is controlled Holding anticoagulation due to GI bleed (3) Acute kidney injury superimposed on CKD: Code(s): N17.9 - Acute kidney failure, unspecified; N18.9 - Chronic kidney disease, unspecified Status: Acute Assessment and Plan: Tabares cathete Daily intake and output Continue to monitor Daily BMP Nephrology input appreciated. Patient is considering HD if needed. (4) Orthostatic hypotension: Code(s): I95.1 - Orthostatic hypotension Status: Acute Assessment and Plan: monitor (5) SERENA (obstructive sleep apnea): Code(s): G47.33 - Obstructive sleep apnea (adult) (pediatric) Status: Acute Assessment and Plan: BiPAP at nighttime (6) Type 2 diabetes mellitus with hyperglycemia: Qualifiers: Diabetes mellitus long filler cigar roller machine insulin use: with long filler cigar roller machine use Qualified Code(s): E11.65 - Type 2 diabetes mellitus with hyperglycemia; Z79.4 - [employer] (current) use of insulin Code(s): E11.65 - Type 2 diabetes mellitus with hyperglycemia Status: Acute Assessment and Plan: Accu-Cheks AC and HS Continue insulin regimen Calorie consistent diet (7) Obesity, morbid (more than 100 lbs over ideal weight or BMI > 40): Code(s): E66.01 - Morbid (severe) obesity due to excess calories Status: Acute Assessment and Plan: Lifestyle and diet modifications (8) HTN (hypertension) with goal to be determined: Code(s): I10 - Essential (primary) hypertension Status: Acute Assessment and Plan: Continue to monitor (9) Melena: Code(s): K92.1 - Melena Status: Acute Assessment and Plan: Holding blood thinner History of ulcer in the past GI consult - egd noted PPI Transfuse as needed (10) Hydronephrosis: Code(s): N13.30 - Unspecified hydronephrosis Status: Acute Assessment and Plan: Status post ureteral stent. Plan Patient's family does not want any aggressive measures. Patient is DNR. Subjective Date/time seen: 04/02/22 16:29 04/02/2022 interval history: morbidly obese patient presented with syncopal episode was found to have atrial fibrillation with RVR now the rate is controlled with beta-jareth, patient is schedule Cystoscopy today to remove stent, patient was started on hydrocortisone will separate down to prednisone today continue to monitor and further recommendation to follow. Review of Systems Review of Systems: all system review is negative except as noted in HPI and below Exam Narrative: morbidly obese Patient is comfortable, NAD HEENT: eyes are clear and none icteric LUNGS: normal respiratory effort ABD: distended Lower extremities: no edema SKIN: nonjaundiced Neuro: grossly intact. Objective Data Vital Signs Vital Signs: Vital Signs - 24 hr 04/01/22 18:00 04/01/22 20:00 04/01/22 20:00 Temperature 97.8 F Pulse Rate 62 55 L Respiratory Rate 20 Blood Pressure 134/52 L Pulse Oximetry 99 99 Oxygen Delivery Room Air Fraction of Inspired Oxygen 04/01/22 20:00 04/01/22 22:00 04/01/22 23:42 Temperature 97.8 F Pulse Rate 56 L 5
[2022-04-02 16:42] LABS: Glucose Point of Care 262 mg/dl (65-105)
[2022-04-02] MEDS: INSULIN ASPART (*BKC) 100 UNITS/ML 10 UNITS SUB-Q (17:06)
[2022-04-02] MEDS: predniSONE 20 MG TABLET 60 MG PO (17:06)
[2022-04-02] MEDS: ACETAMINOPHEN 325 MG TABLET 650 MG PO (18:28)
[2022-04-02 20:00] LABS: Glucose Point of Care 355 mg/dl (65-105)
[2022-04-02] MEDS: INSULIN GLARGINE (*BKC) 100 UNITS/ML 10 UNITS SUB-Q (21:20)
[2022-04-02] MEDS: INSULIN ASPART (*BKC) 100 UNITS/ML SUB-Q (21:21)
[2022-04-02] MEDS: ATORVASTATIN 40 MG TABLET 80 MG PO (21:22)
[2022-04-02] MEDS: calcitrioL 0.25 MCG CAPSULE PO (21:23)
[2022-04-03] VITALS (17 sets, daily range): BP systolic 157–184; BP diastolic 76–96; PULSE 39–67; RESP 20–24; TEMP 35.6–36.4; O2SAT 95–100
[2022-04-03 04:29] LABS: Albumin Level 2.9 g/dL (3.5-5.1); Anion Gap 7 mmol/L (8-16); Blood Urea Nitrogen 75 mg/dL (9-20); Calcium 7.5 mg/dL (8.4-10.2); Carbon Dioxide 21 mmol/L (22-30); Chloride 106 mmol/L (98-107); Estimated CRCL calculation 18 ml/min; Estimated Glomerular Filt Rate 10; Glucose 306 mg/dL (65-110); Phosphorus 6.7 mg/dL (2.5-4.5); Potassium 4.9 mmol/L (3.4-5.0); Sodium 134 mmol/L (137-145)
[2022-04-03] MEDS: LEVOTHYROXINE SODIUM 75 MCG TABLET BY MOUTH (06:26)
[2022-04-03] MEDS: LACTATED RINGERS 1,000 ML 75 ML IV CONT ×2 (06:28→20:00)
[2022-04-03 07:43] LABS: Glucose Point of Care 305 mg/dl (65-105)
[2022-04-03] MEDS: INSULIN ASPART (*BKC) 100 UNITS/ML 10 UNITS SUB-Q ×4 (08:43→17:07)
[2022-04-03] MEDS: MEMANTINE HCL XR 7 MG CAP 14 MG PO (08:44)
[2022-04-03] MEDS: DIVALPROEX SODIUM SPRINKLE 125 MG CAP.DR PO ×2 (08:44→20:01)
[2022-04-03] MEDS: GABAPENTIN 100 MG CAPSULE 200 MG PO ×2 (08:44→17:08)
[2022-04-03] MEDS: predniSONE 20 MG TABLET 60 MG PO ×2 (08:45→17:08)
[2022-04-03] MEDS: PANTOPRAZOLE 40 MG TABLET PO ×2 (08:45→20:02)
[2022-04-03] MEDS: SILVERGEL (ELTA) 45 ML 1 APPLIC TOPICAL (08:45)
[2022-04-03] MEDS: TAMSULOSIN HCL 0.4 MG CAPSULE PO (08:45)
[2022-04-03] MEDS: TOLNAFTATE 1% POWDER 45 GM BTL 1 APPLIC TOPICAL ×2 (08:46→20:02)
[2022-04-03] MEDS: MICONAZOLE NITRATE 2% CREAM 30 GM TUBE 1 APPLIC TOPICAL ×2 (08:46→20:02)
[2022-04-03 11:59] LABS: Glucose Point of Care 384 mg/dl (65-105)
[2022-04-03] MEDS: INSULIN ASPART (*BKC) 100 UNITS/ML SUB-Q (12:40)
[2022-04-03] MEDS: EPOETIN ALFA-EPBX 10,000 UNITS/ML VIAL 10000 UNITS SUB-Q (12:42)
--- NOTE | 2022-04-03 12:58 | P.PNNP_ITS ---
Progress Note: A&P Assessment and Plan (1) MARY (acute kidney injury): Code(s): N17.9 - Acute kidney failure, unspecified Status: Acute Assessment and Plan: * etiology? * prerenal factors * anemia * relative hypotension * component of disease progression (?) * contribution by the obstructing stone? * evaluation to date: * renal ultrasound with mild/moderate right hydro - s/p stent placement * urine electrolytes are prerenal * urine eosinophils negative * suspected peak/plateau of creatinine at 5.9mg/dl * follow repeat creatinine * it may get better but this could be his new baseline... * continues to make reasonable urine output * follow repeat labs and UOP (2) Chronic kidney disease, stage IV (severe): Code(s): N18.4 - Chronic kidney disease, stage 4 (severe) Status: Chronic Assessment and Plan: * progressive deterioration noted in the last year * creatinine on last check (January 2022) was 3.3mg/dl * from Mar - August 2021, creatinine had been running 2.4 - 2.7mg/dl * due to diabetes, hypertension, vascular disease, and age-related change (3) Syncope: Code(s): R55 - Syncope and collapse Status: Acute Assessment and Plan: * vasovagal issue? * however, issues with #4 may be contributing as well * possible prerenal factors playing a role * related to Afib (?) * medication related - on flomax * Cardiology following * continue ongoing therapy (4) Anemia: Code(s): D64.9 - Anemia, unspecified Status: Acute Assessment and Plan: * partly related to CKD * however, history of melanotic stools and occult blood positive * GI following * results of EGD noted * on Epogen therapy while hospitalized (can stop on discharge) * PRBC transfusion per protocol (5) Hypertension: Code(s): I10 - Essential (primary) hypertension Status: Chronic Assessment and Plan: * reasonable control * given potential GI bleed and syncope, close monitoring of hemodyamics * BP medications with parameters (6) DM renal manif type II, uncontrolled: Code(s): E11.29 - Type 2 diabetes mellitus with other diabetic kidney complication; E11.65 - Type 2 diabetes mellitus with hyperglycemia Status: Chronic Assessment and Plan: * Accu-Cheks and sliding scale insulin * glycemic control Long and extensive discusson (> 20 minutes) with patient and his at bedside; although he has advanced kidney disease, he has no critical electrolytes, overt volume overload, severe acidosis, or uremia and hence, not need for urgent TOOL STORAGE 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 We discussed dialysis options (incenter hemodialysis, home hemo, peritoneal dialysis....etc) and he seems to be leading toward incenter hemodialysis. I probably need to refer him to Surgery for AV access placement. If he is otherwise medically stable, I am not opposed to discharge from renal perspective with close follow-up with me in the office for ongoing CKD management. Will continue to follow. Subjective Date/time seen: 04/03/22 12:58 Renal function seems about the same -- not much better but not really any worse either; no apparent distress voiced at the time of my visit; continues to make reasonably urine output as well; he states that overall, he feels okay. at bedside and we discussed the situation extensively. Exam Narrative: General: WD/WN large male in
--- NOTE | 2022-04-03 12:58 | PM.PNNEP ---
Progress Note: A&P Assessment and Plan (1) MARY (acute kidney injury): Code(s): N17.9 - Acute kidney failure, unspecified Status: Acute Assessment and Plan: etiology? prerenal factors anemia relative hypotension component of disease progression (?) contribution by the obstructing stone? evaluation to date: renal ultrasound with mild/moderate right hydro - s/p stent placement urine electrolytes are prerenal urine eosinophils negative suspected peak/plateau of creatinine at 5.9mg/dl follow repeat creatinine it may get better but this could be his new baseline... continues to make reasonable urine output follow repeat labs and UOP (2) Chronic kidney disease, stage IV (severe): Code(s): N18.4 - Chronic kidney disease, stage 4 (severe) Status: Chronic Assessment and Plan: progressive deterioration noted in the last year creatinine on last check (January 2022) was 3.3mg/dl from Mar - August 2021, creatinine had been running 2.4 - 2.7mg/dl due to diabetes, hypertension, vascular disease, and age-related change (3) Syncope: Code(s): R55 - Syncope and collapse Status: Acute Assessment and Plan: vasovagal issue? however, issues with #4 may be contributing as well possible prerenal factors playing a role related to Afib (?) medication related - on flomax Cardiology following continue ongoing therapy (4) Anemia: Code(s): D64.9 - Anemia, unspecified Status: Acute Assessment and Plan: partly related to CKD however, history of melanotic stools and occult blood positive GI following results of EGD noted on Epogen therapy while hospitalized (can stop on discharge) PRBC transfusion per protocol (5) Hypertension: Code(s): I10 - Essential (primary) hypertension Status: Chronic Assessment and Plan: reasonable control given potential GI bleed and syncope, close monitoring of hemodyamics BP medications with parameters (6) DM renal manif type II, uncontrolled: Code(s): E11.29 - Type 2 diabetes mellitus with other diabetic kidney complication; E11.65 - Type 2 diabetes mellitus with hyperglycemia Status: Chronic Assessment and Plan: Accu-Cheks and sliding scale insulin glycemic control Long and extensive discusson (> 20 minutes) with patient and his at bedside; although he has advanced kidney disease, he has no critical electrolytes, overt volume overload, severe acidosis, or uremia and hence, not need for urgent MILEAGE CLERK/dialysis; however, it seems quite clear that he will likely need this intervention in the near future. We discussed dialysis options (incenter hemodialysis, home hemo, peritoneal dialysis....etc) and he seems to be leading toward incenter hemodialysis. I probably need to refer him to Surgery for AV access placement. If he is otherwise medically stable, I am not opposed to discharge from renal perspective with close follow-up with me in the office for ongoing CKD management. Will continue to follow. Subjective Date/time seen: 04/03/22 12:58 Renal function seems about the same -- not much better but not really any worse either; no apparent distress voiced at the time of my visit; continues to make reasonably urine output as well; he states that overall, he feels okay. at bedside and we discussed the situation extensively. Exam Narrative: General: WD/WN large male in NAD, Heart: IRRR, normal S1 and S2 Lungs: clear bilaterally Abdomen: soft, nontender, nondistended, positive bowel sounds Extremities: trace edema Skin: no nodules Objective Data Vital Signs Vital Signs: Vital Signs Temp Pulse Resp BP Pulse Ox O2 Del Method FiO2 04/03/22 12:18 96.0 F L 61 22 H 157/86 H 99 04/03/22 08:17 96.1 F L 49 L 21 H 180/82 H 100 04/03/22 06:00 48 L 04/03/22 04:00 Room Air 04/03/22 04:00 65
--- NOTE | 2022-04-03 15:49 | WPDUROPN2 ---
Progress Note: A&P Assessment and Plan (1) Ureteral stone: Code(s): N20.1 - Calculus of ureter Status: Acute Assessment and Plan: Resolved, stent removed 04/02/22, F/U in office in 4-6 weeks with JAVAN prior to visit. No further evaluation by Urology. Ok to discharge at any time. Subjective Subjective Date/Time Seen: 04/03/22 15:49 Cystoscopy, right stent removal. Patient doing well, no pain at this time. Post Op day: 1 Review of Systems Cardiovascular: Cardiovascular: Denies chest pain Respiratory: Respiratory: Reports no additional respiratory complaints Gastrointestinal: Gastrointestinal: Denies abdominal pain, Denies nausea and Denies vomiting Genitourinary: Genitourinary: Denies hematuria, Denies dysuria, Denies flank pain, Denies urinary frequency and Denies urinary hesitancy Exam Const: General: cooperative Resp: Effort & Inspection: normal respiratory effort Cardio: Rate: regular rate GI: GI Palp: Yes Soft to palpation and No Tenderness to palpation present (GI) : General: Yes no CVA tenderness Extrem: Right lower extremity: no edema Left lower extremity: no edema Objective Data Vital Signs Vital Signs: Vital Signs - 24 hr 04/02/22 16:30 04/02/22 16:00 04/02/22 18:00 Temperature Pulse Rate 53 L 74 Respiratory Rate Blood Pressure Pulse Oximetry Oxygen Delivery Room Air Fraction of Inspired Oxygen 04/02/22 20:00 04/02/22 20:00 04/02/22 22:00 Temperature 97.5 F L Pulse Rate 52 L 57 L 48 L Respiratory Rate 24 H Blood Pressure 154/76 H Pulse Oximetry 99 Oxygen Delivery Fraction of Inspired Oxygen 04/02/22 20:00 04/02/22 23:15 04/02/22 23:15 Temperature Pulse Rate 51 L Respiratory Rate 22 H Blood Pressure Pulse Oximetry 98 98 Oxygen Delivery BiPAP BiPAP Room Air Fraction of Inspired Oxygen 04/02/22 23:37 04/03/22 00:00 04/03/22 00:00 Temperature 97.5 F L Pulse Rate 50 L 39 L Respiratory Rate 21 H Blood Pressure 156/90 H Pulse Oximetry 99 Oxygen Delivery BiPAP Fraction of Inspired Oxygen 04/03/22 02:17 04/03/22 04:00 04/03/22 02:00 Temperature 97.4 F L Pulse Rate 48 L 59 L 48 L Respiratory Rate 22 H 22 H Blood Pressure 184/79 H Pulse Oximetry 96 100 Oxygen Delivery BiPAP Fraction of Inspired Oxygen 04/03/22 04:00 04/03/22 04:00 04/03/22 06:00 Temperature Pulse Rate 65 48 L Respiratory Rate Blood Pressure Pulse Oximetry Oxygen Delivery Room Air Fraction of Inspired Oxygen 04/03/22 08:17 04/03/22 12:18 04/03/22 08:00 Temperature 96.1 F L 96.0 F L Pulse Rate 49 L 61 Respiratory Rate 21 H 22 H Blood Pressure 180/82 H 157/86 H Pulse Oximetry 100 99 Oxygen Delivery Room Air Fraction of Inspired Oxygen 04/03/22 12:00 Temperature Pulse Rate Respiratory Rate Blood Pressure Pulse Oximetry Oxygen Delivery Room Air Fraction of Inspired Oxygen Intake/Output Intake/Output: Intake & Output 03/31/22 04/01/22 04/02/22 04/03/22 23:59 23:59 23:59 23:59 Intake Total 3760 2720 1960 2120 Output Total 775 2500 2500 601 Balance 2985 220 -540 1519 Meds/Results Medications: Active Medications Generic Name Dose Route Start Last Admin Trade Name Freq PRN Reason Stop Dose Admin Acetaminophen 650 mg 04/02/22 18:13 04/02/22 18:28 Acetaminophen 325 Mg Tablet PO 650 mg Q6H PRN Administration Mild Pain (1-3) or Fever Albuterol 2 puff 03/25/22 23:39 Albuterol Sulfate (*Sp) Aerosol 1 Puff INHALATION QID PRN shortness of breath or wheezing Atorvastatin Calcium 80 mg 03/25/22 23:55 04/02/22 21:22 Atorvastatin 40 Mg Tablet PO 80 mg HS NIURKA Administration Calcitriol 0.25 mcg 03/25/22 23:55 04/02/22 21:23 Calcitriol 0.25 Mcg Capsule PO 0.25 mcg HS NIURKA Administration Dextrose 12.5 gm 03/29/22 06:16 03/29/22 11:41 Dextrose 50% 25 Gm/50 Ml Syringe IV PUSH 12.5
[2022-04-03 16:11] LABS: Chloride Rand Ur <20 mmol/L (32-290); Creatinine Random Urine 98 mg/dL (20-320)
--- NOTE | 2022-04-03 16:14 | PM.IMPN ---
Progress Note: A&P Assessment and Plan (1) Syncope: Code(s): R55 - Syncope and collapse Status: Acute Assessment and Plan: Continue to monitor 04/03/2022 interval history: morbidly obese patient presented with syncopal episode was found to have atrial fibrillation with RVR now the rate is controlled with beta-jareth, patient had Cystoscopy on 04/02 and uretal stent was removed, patient was started on hydrocortisone on 04/02 taper down to prednisone, patient with worsening Scr today 5.4 see by printer's devil, continue to monitor and further recommendation to follow. (2) Atrial fibrillation: Qualifiers: Atrial fibrillation type: unspecified Qualified Code(s): I48.91 - Unspecified atrial fibrillation Code(s): I48.91 - Unspecified atrial fibrillation Status: Acute Assessment and Plan: Rate controlled - bb on hold as hr is controlled Holding anticoagulation due to GI bleed (3) Acute kidney injury superimposed on CKD: Code(s): N17.9 - Acute kidney failure, unspecified; N18.9 - Chronic kidney disease, unspecified Status: Acute Assessment and Plan: Tabares cathete Daily intake and output Continue to monitor Daily BMP Nephrology input appreciated. Patient is considering HD if needed. (4) Orthostatic hypotension: Code(s): I95.1 - Orthostatic hypotension Status: Acute Assessment and Plan: monitor (5) SERENA (obstructive sleep apnea): Code(s): G47.33 - Obstructive sleep apnea (adult) (pediatric) Status: Acute Assessment and Plan: BiPAP at nighttime (6) Type 2 diabetes mellitus with hyperglycemia: Qualifiers: Diabetes mellitus termite inspector insulin use: with senior living use Qualified Code(s): E11.65 - Type 2 diabetes mellitus with hyperglycemia; Z79.4 - salvage determiner (current) use of insulin Code(s): E11.65 - Type 2 diabetes mellitus with hyperglycemia Status: Acute Assessment and Plan: Accu-Cheks AC and HS Continue insulin regimen Calorie consistent diet (7) Obesity, morbid (more than 100 lbs over ideal weight or BMI > 40): Code(s): E66.01 - Morbid (severe) obesity due to excess calories Status: Acute Assessment and Plan: Lifestyle and diet modifications (8) HTN (hypertension) with goal to be determined: Code(s): I10 - Essential (primary) hypertension Status: Acute Assessment and Plan: Continue to monitor (9) Melena: Code(s): K92.1 - Melena Status: Acute Assessment and Plan: Holding blood thinner History of ulcer in the past GI consult - egd noted PPI Transfuse as needed (10) Hydronephrosis: Code(s): N13.30 - Unspecified hydronephrosis Status: Acute Assessment and Plan: Status post ureteral stent. Plan Patient's family does not want any aggressive measures. Patient is DNR. Subjective Date/time seen: 04/03/22 16:14 04/03/2022 interval history: morbidly obese patient presented with syncopal episode was found to have atrial fibrillation with RVR now the rate is controlled with beta-jareth, patient had Cystoscopy on 04/02 and uretal stent was removed, patient was started on hydrocortisone on 04/02 taper down to prednisone, patient with worsening Scr today 5.4 see by printer's devil, continue to monitor and further recommendation to follow. Review of Systems Constitutional: Constitutional: Denies chills, Denies fever(s), Denies malaise and Denies night sweats Exam Narrative: morbidly obese Patient is comfortable, NAD HEENT: eyes are clear and none icteric LUNGS: normal respiratory effort ABD: distended Lower extremities: no edema SKIN: nonjaundiced Neuro: grossly intact. Objective Data Vital Signs Vital Signs: Vital Signs - 24 hr 04/02/22 16:30 04/02/22 18:00 04/02/22 20:00 Temperature 97.5 F L Pulse Rate 74 52 L Respiratory Rate 24 H Blood Pressure 154/76 H Pulse Oximetry 99 Oxyge
[2022-04-03 16:56] LABS: Glucose Point of Care 411 mg/dl (65-105)
[2022-04-03] MEDS: INSULIN GLARGINE (*BKC) 100 UNITS/ML 20 UNITS SUB-Q ×2 (17:06→21:35)
[2022-04-03] MEDS: calcitrioL 0.25 MCG CAPSULE PO (20:01)
[2022-04-03] MEDS: ATORVASTATIN 40 MG TABLET 80 MG PO (20:01)
[2022-04-03 20:04] LABS: Glucose Point of Care 451 mg/dl (65-105)
[2022-04-03] MEDS: INSULIN ASPART (*BKC) 100 UNITS/ML 6 UNITS SUB-Q (21:35)
[2022-04-04] VITALS (16 sets, daily range): BP systolic 138–191; BP diastolic 63–88; PULSE 51–84; RESP 16–20; TEMP 35.7–36.4; O2SAT 97–100
[2022-04-04] MEDS: LEVOTHYROXINE SODIUM 75 MCG TABLET BY MOUTH (05:10)
[2022-04-04 08:23] LABS: Glucose Point of Care 339 mg/dl (65-105)
--- NOTE | 2022-04-04 08:26 | PCPTNOTE ---
Attempted to see patient for PT, however patient was eating breakfast.
[2022-04-04] MEDS: INSULIN ASPART (*BKC) 100 UNITS/ML 10 UNITS SUB-Q ×4 (08:41→17:42)
[2022-04-04] MEDS: INSULIN ASPART (*BKC) 100 UNITS/ML SUB-Q ×2 (08:42→13:49)
[2022-04-04 09:44] LABS: Albumin Level 2.9 g/dL (3.5-5.1); Anion Gap 7 mmol/L (8-16); Blood Urea Nitrogen 72 mg/dL (9-20); Calcium 7.4 mg/dL (8.4-10.2); Carbon Dioxide 22 mmol/L (22-30); Chloride 102 mmol/L (98-107); Estimated CRCL calculation 19 ml/min; Estimated Glomerular Filt Rate 11; Glucose 363 mg/dL (65-110); Phosphorus 5.8 mg/dL (2.5-4.5); Potassium 4.5 mmol/L (3.4-5.0); Sodium 131 mmol/L (137-145)
[2022-04-04] MEDS: LACTATED RINGERS 1,000 ML 75 ML IV CONT (10:07)
[2022-04-04] MEDS: PANTOPRAZOLE 40 MG TABLET PO ×2 (10:41→20:57)
[2022-04-04] MEDS: MEMANTINE HCL XR 7 MG CAP 14 MG PO (10:41)
[2022-04-04] MEDS: predniSONE 20 MG TABLET 60 MG PO ×2 (10:42→17:43)
[2022-04-04] MEDS: DIVALPROEX SODIUM SPRINKLE 125 MG CAP.DR PO ×2 (10:42→20:56)
[2022-04-04] MEDS: GABAPENTIN 100 MG CAPSULE 200 MG PO ×2 (10:42→17:44)
[2022-04-04] MEDS: amLODIPine BESYLATE 5 MG TABLET PO (10:42)
[2022-04-04] MEDS: TAMSULOSIN HCL 0.4 MG CAPSULE PO (10:42)
[2022-04-04] MEDS: MICONAZOLE NITRATE 2% CREAM 30 GM TUBE 1 APPLIC TOPICAL ×2 (10:50→20:57)
[2022-04-04] MEDS: SILVERGEL (ELTA) 45 ML 1 APPLIC TOPICAL (10:50)
[2022-04-04] MEDS: TOLNAFTATE 1% POWDER 45 GM BTL 1 APPLIC TOPICAL ×2 (10:51→20:57)
[2022-04-04 12:00] LABS: Glucose Point of Care 374 mg/dl (65-105)
--- NOTE | 2022-04-04 13:00 | PM.PNNEP ---
Progress Note: A&P Assessment and Plan (1) MARY (acute kidney injury): Code(s): N17.9 - Acute kidney failure, unspecified Status: Acute Assessment and Plan: etiology? prerenal factors anemia relative hypotension component of disease progression (?) contribution by the obstructing stone? evaluation to date: renal ultrasound with mild/moderate right hydro - s/p stent placement urine electrolytes are prerenal urine eosinophils negative suspected peak/plateau of creatinine at 5.9mg/dl follow repeat creatinine it may get better but this could be his new baseline... continues to make reasonable urine output follow repeat labs and UOP (2) Chronic kidney disease, stage IV (severe): Code(s): N18.4 - Chronic kidney disease, stage 4 (severe) Status: Chronic Assessment and Plan: progressive deterioration noted in the last year creatinine on last check (January 2022) was 3.3mg/dl from Mar - August 2021, creatinine had been running 2.4 - 2.7mg/dl due to diabetes, hypertension, vascular disease, and age-related change (3) Syncope: Code(s): R55 - Syncope and collapse Status: Acute Assessment and Plan: vasovagal issue? however, issues with #4 may be contributing as well possible prerenal factors playing a role related to Afib (?) medication related - on flomax Cardiology following continue ongoing therapy (4) Anemia: Code(s): D64.9 - Anemia, unspecified Status: Acute Assessment and Plan: partly related to CKD however, history of melanotic stools and occult blood positive GI following results of EGD noted on Epogen therapy while hospitalized (can stop on discharge) PRBC transfusion per protocol (5) Hypertension: Code(s): I10 - Essential (primary) hypertension Status: Chronic Assessment and Plan: reasonable control given potential GI bleed and syncope, close monitoring of hemodyamics BP medications with parameters (6) DM renal manif type II, uncontrolled: Code(s): E11.29 - Type 2 diabetes mellitus with other diabetic kidney complication; E11.65 - Type 2 diabetes mellitus with hyperglycemia Status: Chronic Assessment and Plan: Accu-Cheks and sliding scale insulin glycemic control Will continue to follow - not opposed to discharge from renal perspective if otherwise medically stable (see my note from yesterday). Subjective Date/time seen: 04/04/22 13:00 No apparent distress voiced at this time time; he thinks the steroids are to blame for his high blood sugars as well as his recent high blood pressure readings in general; no other acute issues/events overnight or earlier this morning. Exam Narrative: General: WD/WN large male in NAD, Heart: IRRR, normal S1 and S2 Lungs: clear bilaterally Abdomen: soft, nontender, nondistended, positive bowel sounds Extremities: trace edema Skin: no nodules Objective Data Vital Signs Vital Signs: Vital Signs Temp Pulse Resp BP Pulse Ox O2 Del Method 04/04/22 12:00 97.3 F L 59 L 20 174/78 H 100 04/04/22 08:00 96.3 F L 60 16 183/86 H 100 04/04/22 06:00 62 04/04/22 02:48 65 20 99 BiPAP 04/03/22 23:15 62 20 99 BiPAP 04/04/22 04:00 100 BiPAP 04/04/22 04:00 51 L 04/04/22 04:00 97.6 F 65 20 171/86 H 100 04/04/22 02:00 66 04/04/22 00:00 100 BiPAP 04/04/22 00:00 64 04/04/22 00:00 97.6 F 69 20 191/82 H 100 04/03/22 20:00 Room Air 04/03/22 22:00 64 04/03/22 20:00 64 04/03/22 20:00 97 F L 56 L 24 H 157/76 H 100 04/03/22 18:00 58 L 04/03/22 17:04 97.5 F L 55 L 21 H 170/96 H 95 Intake/Output Intake/Output: Intake & Output 04/01/22 04/02/22 04/03/22 04/04/22 23:59 23:59 23:59 23:59 Intake Total 2720 1960 3760 1780 Output Total 2500 2500 1101 Balance 220 -540 9399 1780
--- NOTE | 2022-04-04 13:00 | P.PNNP_ITS ---
Progress Note: A&P Assessment and Plan (1) MARY (acute kidney injury): Code(s): N17.9 - Acute kidney failure, unspecified Status: Acute Assessment and Plan: * etiology? * prerenal factors * anemia * relative hypotension * component of disease progression (?) * contribution by the obstructing stone? * evaluation to date: * renal ultrasound with mild/moderate right hydro - s/p stent placement * urine electrolytes are prerenal * urine eosinophils negative * suspected peak/plateau of creatinine at 5.9mg/dl * follow repeat creatinine * it may get better but this could be his new baseline... * continues to make reasonable urine output * follow repeat labs and UOP (2) Chronic kidney disease, stage IV (severe): Code(s): N18.4 - Chronic kidney disease, stage 4 (severe) Status: Chronic Assessment and Plan: * progressive deterioration noted in the last year * creatinine on last check (January 2022) was 3.3mg/dl * from Mar - August 2021, creatinine had been running 2.4 - 2.7mg/dl * due to diabetes, hypertension, vascular disease, and age-related change (3) Syncope: Code(s): R55 - Syncope and collapse Status: Acute Assessment and Plan: * vasovagal issue? * however, issues with #4 may be contributing as well * possible prerenal factors playing a role * related to Afib (?) * medication related - on flomax * Cardiology following * continue ongoing therapy (4) Anemia: Code(s): D64.9 - Anemia, unspecified Status: Acute Assessment and Plan: * partly related to CKD * however, history of melanotic stools and occult blood positive * GI following * results of EGD noted * on Epogen therapy while hospitalized (can stop on discharge) * PRBC transfusion per protocol (5) Hypertension: Code(s): I10 - Essential (primary) hypertension Status: Chronic Assessment and Plan: * reasonable control * given potential GI bleed and syncope, close monitoring of hemodyamics * BP medications with parameters (6) DM renal manif type II, uncontrolled: Code(s): E11.29 - Type 2 diabetes mellitus with other diabetic kidney complication; E11.65 - Type 2 diabetes mellitus with hyperglycemia Status: Chronic Assessment and Plan: * Accu-Cheks and sliding scale insulin * glycemic control Will continue to follow - not opposed to discharge from renal perspective if otherwise medically stable (see my note from yesterday). Subjective Date/time seen: 04/04/22 13:00 No apparent distress voiced at this time time; he thinks the steroids are to blame for his high blood sugars as well as his recent high blood pressure readings in general; no other acute issues/events overnight or earlier this morning. Exam Narrative: General: WD/WN large male in NAD, Heart: IRRR, normal S1 and S2 Lungs: clear bilaterally Abdomen: soft, nontender, nondistended, positive bowel sounds Extremities: trace edema Skin: no nodules Objective Data Vital Signs Vital Signs: Vital Signs Temp Pulse Resp BP Pulse Ox O2 Del Method 04/04/22 12:00 97.3 F L 59 L 20 174/78 H 100 04/04/22 08:00 96.3 F L 60 16 183/86 H 100 04/04/22 06:00 62 04/04/22 02:48 65 20 99 BiPAP 04/03/22 23:15 62 20 99 BiPAP 04/04/22 04:00 1
--- NOTE | 2022-04-04 16:39 | PM.DS ---
DS: Summary Time Spent with Patient Time attestation: Total time spent providing and/or coordinating discharge services: DS: Data Data Completed and Pending Completed studies during hospitalization: Pending at discharge 03/29/22 08:43 Surgical [PTH] Routine Labs on day of discharge: Labs from last 24 hours 04/04/22 04/04/22 04/04/22 11:41 09:22 08:12 Sodium 131 L Potassium 4.5 Chloride 102 Carbon Dioxide 22 Anion Gap 7 L BUN 72 H Creatinine 5.10 H Estim Creat Clear Calc 19 Estimated GFR 11 L Glucose 363 H POC Capillary Glucose 374 H 339 H Calcium 7.4 L Phosphorus 5.8 H Albumin 2.9 L 04/03/22 04/03/22 19:54 16:13 Sodium Potassium Chloride Carbon Dioxide Anion Gap BUN Creatinine Estim Creat Clear Calc Estimated GFR Glucose POC Capillary Glucose 451 H 411 H Calcium Phosphorus Albumin Discharge Plan Discharge Attending physician on discharge: Clayton Holbrook Consulting providers: Kerri Lam ; Ryne Yarbrough ; Junaid Galvan ; Nehemiah Silvestre ; German Arreola Discharging Clinician: Clayton Holbrook Patient Disposition: NH Detention/Asst Living Activity: as tolerated Diet: heart healthy and renal Discharge Instructions: Follow up with Dr. Perez or Meeta Madison AUTOMOTIVE POWER ELECTRONICS ENGINEER in 4-6 weeks with a Renal Ultrasound Prior. patient to follow up with his urologist, shopper marketing manager and primary care provider, as soon as possible. Patient Instructions: Antibiotic Form Stand Alone Forms: General Discharge Information Follow-up/Referrals: Junaid Galvan MD [Physician] - Kerri Lam MD [Physician] - Nehemiah Silvestre MD [Physician] - Discharge Medications: New Silver-Sept 200 mcg/gram Gel 1 applic topical DAILY Qty: 60 0RF tolnaftate 1 % Powder 1 applic topical Q12HR Qty: 60 0RF (DME) hydrocolloid dressing [DuoDERM CGF Extra Thin] 6 X 6 Bandage 1 ea topical PRN Qty: 5 0RF Rx Instructions: As Directed amlodipine [Norvasc] 5 mg Tablet 5 mg PO QAM Qty: 30 0RF prednisone 10 mg tablet 10 mg PO DAILY Qty: 63 0RF Rx Instructions: 6Tx3d, 5Tx3d, 4Tx3d, 3Tx3d, 2Tx3d, 1Tx3d miconazole nitrate 2 % Cream 1 applic topical Q12HR Qty: 60 0RF pantoprazole 40 mg Tablet,Delayed Release (Dr/Ec) 40 mg PO Q12HR Qty: 60 0RF acetaminophen [Mapap (acetaminophen)] 325 mg Tablet 650 mg PO Q6H PRN (Reason: Mild Pain (1-3) Or Fever) Qty: 30 0RF Continued galantamine 8 mg capsule,ext rel. pellets 24 hr 8 mg PO DAILY (DME) FreeStyle Nelda 2 Sensor Kit See Rx Instructions .ROUTE .MEDSUPPLY Qty: 6 3RF Rx Instructions: As directed (DME) Accu-Chek Anayeli Plus test strp Strip See Rx Instructions .ROUTE .MEDSUPPLY Qty: 100 3RF Rx Instructions: check sugar once a daily (DME) pen needle, diabetic [BD Rosalba 2nd Gen Pen Needle] 32 gauge x 5/32 needle See Rx Instructions .Route Qty: 500 4RF Rx Instructions: As directed tamsulosin 0.4 mg capsule 0.4 mg PO DAILY albuterol sulfate 90 mcg/actuation HFA aerosol inhaler 2 puff inhalation QID PRN (Reason: shortness of breath or wheezing) Qty: 8.5 0RF gabapentin 100 mg capsule 200 mg PO BID divalproex 125 mg capsule, delayed rel sprinkle 125 mg PO DAILY calcitriol 0.25 mcg capsule 0.25 mcg PO HS Eliquis 5 mg tablet 5 mg PO Q12H memantine 14 mg capsule,sprinkle,ER 24hr 14 mg PO DAILY atorvastatin 80 mg tablet 80 mg PO HS insulin aspart U-100 [Novolog FlexPen U-100 Insulin] 100 unit/mL (3 mL) insulin pen 10 unit subcut DAILY Rx Instructions: Take 10u with Breakfast 10u with Lunch and 10u with Dinner; Max Daily Dose: 60 units/day insulin degludec [Tresiba FlexTouch U-200] 200 unit/mL (3 mL) insulin pen 46 unit SUBCUT HS (DME) lancets [Accu-Chek Fastclix Lancet Drum] Mis
[2022-04-04 16:44] LABS: Glucose Point of Care 464 mg/dl (65-105)
[2022-04-04] MEDS: INSULIN GLARGINE (*BKC) 100 UNITS/ML 40 UNITS SUB-Q (17:43)
[2022-04-04 20:12] LABS: Glucose Point of Care 473 mg/dl (65-105)
--- NOTE | 2022-04-04 20:25 | PM.EVENT ---
Event Note Event Note Event Note: 04/04/2022 at 20:25 Was called by nursing staff because the patient's glucoses were greater than 400. The patient had received an additional 40 units of Lantus around 17:00. The patient also received 10 units units of bolus insulin as well as 10 units of correction which was scheduled for a total of 20 units of NovoLog. 2 hours later patient's glucoses were higher than previous. Nursing staff reports that the patient is on prednisone. I reviewed the patient's chart and the patient had been on hydrocortisone IV for several days and had been switched to p.o. prednisone 60 mg b.i.d. 2 days ago. I could not find a clear indication for why the patient was continued on such high-dose steroids as the patient has been actually hypertensive. He had recent GI bleed as well. I was told by nursing staff that they were titrating the patient's steroids down. The patient has been persistently hyperglycemic. His home Tresiba doses 46 units. He was only receiving Lantus 20 units nightly. I told the nursing staff to give that a Lantus 20 units that was scheduled to be given this evening and give the patient 20 units of NovoLog. I requested nursing staff tell the patient that he could not have any more snacks for the night as nursing staff reports the patient has been eating significant amount of junk food the family is bringing in from outside. The patient was also still on IV fluids LR 75 mL an hour but the patient has been eating and drinking well and his creatinine also elevated has been stable for several days. Subsequently LR was discontinued. I have asked nursing staff to decrease the patient's prednisone to 60 mg a day. The patient would likely tolerate any been more rapid deescalation of steroid therapy as he was not on home steroids and he was only started on the IV hydrocortisone on admission on the . He has not been on long-term steroids and there is no indication for a prolonged steroid taper at least not that I can find in the progress note documentation. I gave the nurse orders to call back in 3 hours after repeat Accu-Chek.
[2022-04-04] MEDS: INSULIN GLARGINE (*BKC) 100 UNITS/ML 20 UNITS SUB-Q (20:52)
[2022-04-04] MEDS: INSULIN ASPART (*BKC) 100 UNITS/ML 20 UNITS SUB-Q (20:54)
[2022-04-04] MEDS: ATORVASTATIN 40 MG TABLET 80 MG PO (20:56)
[2022-04-04] MEDS: calcitrioL 0.25 MCG CAPSULE PO (20:56)
[2022-04-04 23:53] LABS: Glucose Point of Care 381 mg/dl (65-105)
[2022-04-05] VITALS (12 sets, daily range): BP systolic 135–173; BP diastolic 55–81; PULSE 54–72; RESP 16–22; TEMP 35.5–36.6; O2SAT 95–100
[2022-04-05] MEDS: INSULIN ASPART (*BKC) 100 UNITS/ML 20 UNITS SUB-Q ×2 (00:30→21:52)
[2022-04-05 03:32] LABS: Glucose Point of Care 275 mg/dl (65-105)
[2022-04-05] MEDS: LEVOTHYROXINE SODIUM 75 MCG TABLET BY MOUTH (05:37)
[2022-04-05 07:50] LABS: Glucose Point of Care 213 mg/dl (65-105)
[2022-04-05] MEDS: TOLNAFTATE 1% POWDER 45 GM BTL 1 APPLIC TOPICAL ×2 (09:24→23:01)
[2022-04-05] MEDS: predniSONE 20 MG TABLET 60 MG PO (09:25)
[2022-04-05] MEDS: TAMSULOSIN HCL 0.4 MG CAPSULE PO (09:25)
[2022-04-05] MEDS: DIVALPROEX SODIUM SPRINKLE 125 MG CAP.DR PO ×2 (09:25→21:52)
[2022-04-05] MEDS: PANTOPRAZOLE 40 MG TABLET PO ×2 (09:25→21:52)
[2022-04-05] MEDS: GABAPENTIN 100 MG CAPSULE 200 MG PO ×2 (09:25→18:05)
[2022-04-05] MEDS: amLODIPine BESYLATE 5 MG TABLET PO (09:25)
[2022-04-05] MEDS: MEMANTINE HCL XR 7 MG CAP 14 MG PO (09:25)
[2022-04-05] MEDS: INSULIN ASPART (*BKC) 100 UNITS/ML SUB-Q ×3 (09:26→18:06)
[2022-04-05] MEDS: INSULIN ASPART (*BKC) 100 UNITS/ML 10 UNITS SUB-Q ×3 (09:26→18:06)
[2022-04-05] MEDS: SILVERGEL (ELTA) 45 ML 1 APPLIC TOPICAL (09:27)
[2022-04-05] MEDS: MICONAZOLE NITRATE 2% CREAM 30 GM TUBE 1 APPLIC TOPICAL ×2 (09:27→23:01)
--- NOTE | 2022-04-05 11:27 | PM.PNNEP ---
Progress Note: A&P Assessment and Plan (1) MARY (acute kidney injury): Code(s): N17.9 - Acute kidney failure, unspecified Status: Acute Assessment and Plan: etiology? prerenal factors anemia relative hypotension component of disease progression (?) contribution by the obstructing stone? evaluation to date: renal ultrasound with mild/moderate right hydro - s/p stent placement urine electrolytes are prerenal urine eosinophils negative suspected peak/plateau of creatinine at 5.9mg/dl follow repeat creatinine it may get better but this could be his new baseline... continues to make reasonable urine output follow repeat labs and UOP (2) Chronic kidney disease, stage IV (severe): Code(s): N18.4 - Chronic kidney disease, stage 4 (severe) Status: Chronic Assessment and Plan: progressive deterioration noted in the last year creatinine on last check (January 2022) was 3.3mg/dl from Mar - August 2021, creatinine had been running 2.4 - 2.7mg/dl due to diabetes, hypertension, vascular disease, and age-related change (3) Syncope: Code(s): R55 - Syncope and collapse Status: Acute Assessment and Plan: vasovagal issue? however, issues with #4 may be contributing as well possible prerenal factors playing a role related to Afib (?) medication related - on flomax Cardiology following continue ongoing therapy (4) Anemia: Code(s): D64.9 - Anemia, unspecified Status: Acute Assessment and Plan: partly related to CKD however, history of melanotic stools and occult blood positive GI following results of EGD noted on Epogen therapy while hospitalized (can stop on discharge) PRBC transfusion per protocol (5) Hypertension: Code(s): I10 - Essential (primary) hypertension Status: Chronic Assessment and Plan: reasonable control given potential GI bleed and syncope, close monitoring of hemodyamics BP medications with parameters (6) DM renal manif type II, uncontrolled: Code(s): E11.29 - Type 2 diabetes mellitus with other diabetic kidney complication; E11.65 - Type 2 diabetes mellitus with hyperglycemia Status: Chronic Assessment and Plan: Accu-Cheks and sliding scale insulin glycemic control Will continue to follow. Subjective Date/time seen: 04/05/22 11:27 Tentatively scheduled for discharge yesterday but this was postponed due to ongoing issues/problems with hyperglycemia overnight; he reports feeling better at this time; no other events overnight or earlier this morning; no apparent distress. Exam Narrative: General: WD/WN large male in NAD, Heart: IRRR, normal S1 and S2 Lungs: clear bilaterally Abdomen: soft, nontender, nondistended, positive bowel sounds Extremities: trace edema Skin: warm and dry Objective Data Vital Signs Vital Signs: Vital Signs Temp Pulse Resp BP Pulse Ox O2 Del Method FiO2 04/05/22 08:00 Room Air 04/05/22 09:00 173/67 H 04/05/22 09:18 100 Room Air 04/05/22 08:00 56 L 04/05/22 07:52 97.4 F L 63 18 135/55 L 100 04/05/22 06:00 72 04/05/22 04:46 97.8 F 70 20 172/67 H 99 04/05/22 04:00 Room Air 04/05/22 04:00 67 04/05/22 03:21 54 L 22 H 95 BiPAP 04/05/22 02:00 59 L 04/05/22 00:00 BiPAP 21 04/05/22 00:00 58 L 04/04/22 23:58 97.6 F 70 20 151/88 H 98 04/04/22 22:00 58 L 04/04/22 20:24 84 18 97 BiPAP 21 04/04/22 20:24 84 18 97 BiPAP 04/04/22 20:00 Room Air 04/04/22 20:00 67 04/04/22 20:16 97.3 F L 62 20 138/63 98 04/04/22 18:00 66 Intake/Output Intake/Output: Intake & Output 04/02/22 04/03/22 04/04/22 04/05/22 23:59 23:59 23:59 23:59 Intake Total 1960 3760 3377 1000 Output Total 2500 1101 400 Balance -540 6309 3377 600 Meds/Results
--- NOTE | 2022-04-05 11:27 | P.PNNP_ITS ---
Progress Note: A&P Assessment and Plan (1) MARY (acute kidney injury): Code(s): N17.9 - Acute kidney failure, unspecified Status: Acute Assessment and Plan: * etiology? * prerenal factors * anemia * relative hypotension * component of disease progression (?) * contribution by the obstructing stone? * evaluation to date: * renal ultrasound with mild/moderate right hydro - s/p stent placement * urine electrolytes are prerenal * urine eosinophils negative * suspected peak/plateau of creatinine at 5.9mg/dl * follow repeat creatinine * it may get better but this could be his new baseline... * continues to make reasonable urine output * follow repeat labs and UOP (2) Chronic kidney disease, stage IV (severe): Code(s): N18.4 - Chronic kidney disease, stage 4 (severe) Status: Chronic Assessment and Plan: * progressive deterioration noted in the last year * creatinine on last check (January 2022) was 3.3mg/dl * from Mar - August 2021, creatinine had been running 2.4 - 2.7mg/dl * due to diabetes, hypertension, vascular disease, and age-related change (3) Syncope: Code(s): R55 - Syncope and collapse Status: Acute Assessment and Plan: * vasovagal issue? * however, issues with #4 may be contributing as well * possible prerenal factors playing a role * related to Afib (?) * medication related - on flomax * Cardiology following * continue ongoing therapy (4) Anemia: Code(s): D64.9 - Anemia, unspecified Status: Acute Assessment and Plan: * partly related to CKD * however, history of melanotic stools and occult blood positive * GI following * results of EGD noted * on Epogen therapy while hospitalized (can stop on discharge) * PRBC transfusion per protocol (5) Hypertension: Code(s): I10 - Essential (primary) hypertension Status: Chronic Assessment and Plan: * reasonable control * given potential GI bleed and syncope, close monitoring of hemodyamics * BP medications with parameters (6) DM renal manif type II, uncontrolled: Code(s): E11.29 - Type 2 diabetes mellitus with other diabetic kidney complication; E11.65 - Type 2 diabetes mellitus with hyperglycemia Status: Chronic Assessment and Plan: * Accu-Cheks and sliding scale insulin * glycemic control Will continue to follow. Subjective Date/time seen: 04/05/22 11:27 Tentatively scheduled for discharge yesterday but this was postponed due to ongoing issues/problems with hyperglycemia overnight; he reports feeling better at this time; no other events overnight or earlier this morning; no apparent distress. Exam Narrative: General: WD/WN large male in NAD, Heart: IRRR, normal S1 and S2 Lungs: clear bilaterally Abdomen: soft, nontender, nondistended, positive bowel sounds Extremities: trace edema Skin: warm and dry Objective Data Vital Signs Vital Signs: Vital Signs Temp Pulse Resp BP Pulse Ox O2 Del Method FiO2 04/05/22 08:00 Room Air 04/05/22 09:00 173/67 H 04/05/22 09:18 100 Room Air 04/05/22 08:00 56 L 04/05/22 07:52 97.4 F L 63 18 135/55 L 100 04/05/22 06:00 72 04/05/22 04:46 97.8 F 70 20 172/67 H 99 04/05/22 04:00 Room Air
[2022-04-05 11:53] LABS: Glucose Point of Care 355 mg/dl (65-105)
--- NOTE | 2022-04-05 14:45 | PM.IMPN ---
Progress Note: A&P Assessment and Plan (1) Syncope: Qualifiers: Syncope type: unspecified Qualified Code(s): R55 - Syncope and collapse Code(s): R55 - Syncope and collapse Status: Acute Assessment and Plan: 04/05/2022? interval history:? morbidly obese patient presented with syncopal episode was found to have atrial fibrillation with RVR now the rate is controlled with beta-jareth, patient had Cystoscopy on 04/02 and uretal? stent was removed, patient was started on hydrocortisone on 04/02 taper? down to prednisone, patient with worsening Scr today 5.4 see by graphic arts technician, however patient is making urine, continue to monitor, patient clinical symptoms were improving, and plan was discharge patient to rehab however patient blood sugar was over 400, patient was given lantus and novolog, and his blood sugar remained high so the discharge was postponed again today he remains clinically and stats he is feeling much better compared to when he arrived, and will continue to monitor and further recommendation to follow. (2) Atrial fibrillation: Qualifiers: Atrial fibrillation type: unspecified Qualified Code(s): I48.91 - Unspecified atrial fibrillation Code(s): I48.91 - Unspecified atrial fibrillation Status: Acute Assessment and Plan: remains clinically stable rate is controlled (3) Acute on chronic kidney failure: Code(s): N17.9 - Acute kidney failure, unspecified; N18.9 - Chronic kidney disease, unspecified Status: Acute Assessment and Plan: patient's serum creatinine is high 5.4, seen by nephrology patient is making urine will continue to monitor. (4) Type 2 diabetes mellitus with hyperglycemia: Qualifiers: Diabetes mellitus [facility] insulin use: with [facility] use Qualified Code(s): E11.65 - Type 2 diabetes mellitus with hyperglycemia; Z79.4 - nursing home (current) use of insulin Code(s): E11.65 - Type 2 diabetes mellitus with hyperglycemia Status: Acute Assessment and Plan: patient with type 2 diabetes patient was placed on steroid and that caused by hyperglycemia, patient blood sugars are trending down as patient prednisone being tapered. Subjective Date/time seen: 04/04/22 14:45 04/05/2022? interval history:? morbidly obese patient presented with syncopal episode was found to have atrial fibrillation with RVR now the rate is controlled with beta-jareth, patient had Cystoscopy on 04/02 and uretal? stent was removed, patient was started on hydrocortisone on 04/02 taper? down to prednisone, patient with worsening Scr today 5.4 see by graphic arts technician, however patient is making urine, continue to monitor, patient clinical symptoms were improving, and plan was discharge patient to rehab however patient blood sugar was over 400, patient was given lantus and novolog, and his blood sugar remained high so the discharge was postponed again today he remains clinically and stats he is feeling much better compared to when he arrived, and will continue to monitor and further recommendation to follow. Objective Data Vital Signs Vital Signs: Vital Signs - 24 hr 04/04/22 16:00 04/04/22 16:00 04/04/22 16:00 Temperature 96.4 F L Pulse Rate 62 64 Respiratory Rate 16 Blood Pressure 167/88 H Pulse Oximetry 100 Oxygen Delivery Room Air Fraction of Inspired Oxygen 04/04/22 18:00 04/04/22 20:16 04/04/22 20:00 Temperature 97.3 F L Pulse Rate 66 62 67 Respiratory Rate 20 Blood Pressure 138/63 Pulse Oximetry 98 Oxygen Delivery Fraction of Inspired Oxygen 04/04/22 20:00 04/04/22 20:24 04/04/22 20:24 Temperature Pulse Rate 84 84 Respiratory Rate 18 18 Blood Pressure Pulse Oximetry 97 97 Oxygen Delivery Room Air BiPAP BiPAP Fraction of Inspired Oxygen 21 04/04/22 22:00 04/04/22 23:58 04/05/22 00:00 Temperature 97.6 F Pulse Rate 58 L 70 58 L Respiratory Rate 20 Blood Pressure 151/88 H
--- NOTE | 2022-04-05 17:30 | PC.NURSE ---
This patient, Chele Blackwell, was transferred to [facility] on 04/05/22 at 1715. Personal belongings sent with patient. Report given to Rosa SIMMONS. Appropriate documentation sent with patient.
[2022-04-05 17:34] LABS: Glucose Point of Care 325 mg/dl (65-105)
[2022-04-05 20:36] LABS: Glucose Point of Care 359 mg/dl (65-105)
[2022-04-05] MEDS: ATORVASTATIN 40 MG TABLET 80 MG PO (21:51)
[2022-04-05] MEDS: calcitrioL 0.25 MCG CAPSULE PO (21:52)
[2022-04-05] MEDS: INSULIN GLARGINE (*BKC) 100 UNITS/ML 45 UNITS SUB-Q (21:53)
[2022-04-05 23:57] LABS: Glucose Point of Care 230 mg/dl (65-105)
[2022-04-06 01:15] VITALS: PULSE 60; RESP 21; O2SAT 97
[2022-04-06 05:54] VITALS: PULSE 72; RESP 22; O2SAT 96
[2022-04-06 06:00] VITALS: BP 163/84; PULSE 58; RESP 20; TEMP 36.6; O2SAT 100
[2022-04-06] MEDS: LEVOTHYROXINE SODIUM 75 MCG TABLET BY MOUTH (06:04)
[2022-04-06 08:40] LABS: Glucose Point of Care 115 mg/dl (65-105)
[2022-04-06] MEDS: TOLNAFTATE 1% POWDER 45 GM BTL 1 APPLIC TOPICAL (09:43)
[2022-04-06] MEDS: TAMSULOSIN HCL 0.4 MG CAPSULE PO (09:43)
[2022-04-06] MEDS: DIVALPROEX SODIUM SPRINKLE 125 MG CAP.DR PO (09:43)
[2022-04-06] MEDS: predniSONE 20 MG TABLET 60 MG PO (09:43)
[2022-04-06] MEDS: PANTOPRAZOLE 40 MG TABLET PO (09:43)
[2022-04-06] MEDS: amLODIPine BESYLATE 5 MG TABLET PO (09:44)
[2022-04-06] MEDS: MICONAZOLE NITRATE 2% CREAM 30 GM TUBE 1 APPLIC TOPICAL (09:44)
[2022-04-06] MEDS: GABAPENTIN 100 MG CAPSULE 200 MG PO (09:44)
[2022-04-06] MEDS: MEMANTINE HCL XR 7 MG CAP 14 MG PO (09:44)
--- NOTE | 2022-04-06 10:11 | PM.DS ---
DS: Admitting Diagnosis Discharge Date 04/06/2022 Admitting Diagnosis syncope DS: Discharge Diagnosis Discharge Diagnosis (1) Syncope: Qualifiers: Syncope type: unspecified Qualified Code(s): R55 - Syncope and collapse Code(s): R55 - Syncope and collapse Status: Acute Assessment and Plan: 04/05/2022? interval history:? morbidly obese patient presented with syncopal episode was found to have atrial fibrillation with RVR now the rate is controlled with beta-jareth, patient had Cystoscopy on 04/02 and uretal? stent was removed, patient was started on hydrocortisone on 04/02 taper? down to prednisone, patient with worsening Scr today 5.4 see by contract manager, however patient is making urine, continue to monitor, patient clinical symptoms were improving, and plan was discharge patient to rehab however patient blood sugar was over 400, patient was given lantus and novolog, and his blood sugar remained high so the discharge was postponed again today he remains clinically and stats he is feeling much better compared to when he arrived, and will continue to monitor and further recommendation to follow. (2) Atrial fibrillation: Qualifiers: Atrial fibrillation type: unspecified Qualified Code(s): I48.91 - Unspecified atrial fibrillation Code(s): I48.91 - Unspecified atrial fibrillation Status: Acute Assessment and Plan: remains clinically stable rate is controlled (3) Acute on chronic kidney failure: Code(s): N17.9 - Acute kidney failure, unspecified; N18.9 - Chronic kidney disease, unspecified Status: Acute Assessment and Plan: patient's serum creatinine is high 5.4, seen by nephrology patient is making urine will continue to monitor. (4) Type 2 diabetes mellitus with hyperglycemia: Qualifiers: Diabetes mellitus watermaster insulin use: with watermaster use Qualified Code(s): E11.65 - Type 2 diabetes mellitus with hyperglycemia; Z79.4 - [facility] (current) use of insulin Code(s): E11.65 - Type 2 diabetes mellitus with hyperglycemia Status: Acute Assessment and Plan: patient with type 2 diabetes patient was placed on steroid and that caused by hyperglycemia, patient blood sugars are trending down as patient prednisone being tapered. DS: Summary Hospital Course Reason for hospitalization: Syncope Narrative: This is a 76-year-old male with past medical history significant for morbid obesity, chronic kidney disease, insulin-dependent diabetes mellitus, obstructive sleep apnea on BiPAP, persistent atrial fibrillation, status post aortic valve replacement.? Patient was just recently discharged from [facility] after he was treated for pneumonia and bradycardia with persistent atrial fibrillation.? Patient comes back today after he had an episode of syncope while sitting on the toilet also has had several bowel movements that are melena.? Patient is on a blood thinner.? Denies any chest pain, shortness of breath, fevers, chills, rigors, cough, sputum production, has bilateral lower extremity swelling.? Preliminary workup was significant for chemistry panel showed a creatinine of 4.4 BUN 56, brain natriuretic peptide 4000.? A CT of the head was reported as: Hospital Course: ?morbidly obese patient presented with syncopal episode was found to have atrial fibrillation with RVR now the rate is controlled with beta-jareth, patient had Cystoscopy on 04/02 and uretal? stent was removed, patient was started on hydrocortisone on 04/02 taper? down to prednisone, patient with worsening Scr today 5.4 see by contract manager, however patient is making urine, continue to monitor, patient clinical symptoms were improving, and plan was discharge patient to rehab however patient blood sugar was over 400, patient was given lantus and novolog, and his blood sugar remained high so the discharge was postponed again today he remains clinically and stats he is feeling much bett
[2022-04-06 11:51] LABS: EDCOVIDSCREEN Negative (Negative)
[2022-04-06 12:33] LABS: Glucose Point of Care 172 mg/dl (65-105)
== END 2022-04-06 13:19 | DRG 659 ==
LOC: ANHED 18:33 → ANHIMU 21:19 → ANH3MED 04-05 18:09
PROVIDERS: Chiropractor; Emergency Medicine; Internal Medicine Gastroenterology; Internal Medicine Nephrology; Internal Medicine Pulmonary Disease; Physician Assistant; Urology; Admitting Provider Internal Medicine; Emergency Provider Emergency Medicine; PCP Nurse Practitioner Family; Visit Provider Family Medicine
PROC: 0DJ08ZZ Inspection of Upper Intestinal Tract, Via Natural or Artificial Opening Endoscopic (ICD-10-PCS; CPT 43235; principal; 2022-03-27 12:00)
PROC: 0T768DZ Dilation of Right Ureter with Intraluminal Device, Via Natural or Artificial Opening Endoscopic (ICD-10-PCS; CPT 52352; principal; 2022-03-29 07:30)
PROC: 0TJB8ZZ Inspection of Bladder, Via Natural or Artificial Opening Endoscopic (ICD-10-PCS; CPT 52000; principal; 2022-04-02 15:00)
DX: N17.9 Acute kidney failure, unspecified (principal); K26.4 Chronic or unspecified duodenal ulcer with hemorrhage; I48.19 Other persistent atrial fibrillation; D62 Acute posthemorrhagic anemia; Z68.43 Body mass index [BMI] 50.0-59.9, adult; N18.4 Chronic kidney disease, stage 4 (severe); N13.2 Hydronephrosis with renal and ureteral calculous obstruction; I95.1 Orthostatic hypotension; E66.01 Morbid (severe) obesity due to excess calories; E11.65 Type 2 diabetes mellitus with hyperglycemia; E11.22 Type 2 diabetes mellitus with diabetic chronic kidney disease; G47.33 Obstructive sleep apnea (adult) (pediatric); D63.1 Anemia in chronic kidney disease; I12.9 Hypertensive chronic kidney disease with stage 1 through stage 4 chronic kidney disease, or unspecified chronic kidney disease; E11.42 Type 2 diabetes mellitus with diabetic polyneuropathy; E03.9 Hypothyroidism, unspecified; Z20.822 Contact with and (suspected) exposure to COVID-19; Z66 Do not resuscitate; Z79.4 Long term (current) use of insulin; Z79.01 Long term (current) use of anticoagulants; Z95.2 Presence of prosthetic heart valve; Z83.3 Family history of diabetes mellitus; Z80.42 Family history of malignant neoplasm of prostate; Z87.891 Personal history of nicotine dependence; Z79.51 Long term (current) use of inhaled steroids; Z81.1 Family history of alcohol abuse and dependence; Z79.899 Other long term (current) drug therapy; Z88.5 Allergy status to narcotic agent
CPT/HCPCS: 36415; 36430; 36600; 70450; 71045; 74176; 74420; 76775; 80048; 80053; 80069; 81001; 81050; 82274; 82365; 82375; 82436; 82570; 82728; 82805; 82948; 83050; 83540; 83550; 83605; 83735; 83880; 84132; 84156; 84300; 84484; 84540; 85025; 85027; 85610; 85730; 85999; 86850; 86900; 86901; 86923; 87040; 87081; 87086; 87426; 87637; 88300; 93005; 94003; 94660; 94762; 96372; 96374; 97110; 97161; 97166; 97530; 97535; 99285; A9270; C1769; C2617; C9113; C9803; G0378; J0690; J1200; J1650; J1720; J1815; J1940; J2370; J2405; J2543; J2704; J3370; J7030; J7050; J7120; J7512; P9016; Q5105

== ENCOUNTER 2022-04-20 12:19 | Emergency (ER) | payer MEDICARE, BC, OTHER, SELFPAY ==
[2022-04-20] VITALS (35 sets, daily range): BP systolic 76–127; BP diastolic 38–72; PULSE 0–95; RESP 6–23; TEMP 32.4–33.9; O2SAT 22–100
--- NOTE | ~2022-04-20 | XR_ITS ---
EXAMINATION: XR chest 1V portable INDICATION: Weakness TECHNIQUE: Portable AP chest at 1318 hours COMPARISON: 03/29/2022 FINDINGS: Cardiomegaly is noted. Diffuse interstitial opacities persist without significant change. N o pleural effusion or pneumothorax. Median sternotomy wires are consistent with prior cardiac surgery . IMPRESSION: 1. Cardiomegaly with mild pulmonary edema, unchanged. Reviewed, dictated and finalized at location A. LE DEVICE DEVELOPER
--- NOTE | ~2022-04-20 | CT_ITS ---
CT head without contrast Indication: Altered mental status COMPARISON: 03/25/2022 Technique: Serial scans were obtained through the brain without the administration of contrast. Dose reduction technique was used on this scan by utilizing automated exposure control and iterative recon struction technique. The dose-length product (DLP) was 681.00 mGy-cm. Findings: There is no evidence of intracranial hemorrhage, mass lesion, or acute infarct. Stable trapeze artist marisol right basal ganglia lacunar infarct. 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 The ventric les and subarachnoid spaces are dilated, consistent with mild atrophy. Low attenuation regions are s een within the periventricular white matter bilaterally, likely representing changes from chronic desmond rovascular ischemic disease. There is no evidence of edema, mass effect or midline shift. The visua lized paranasal sinuses and mastoid air cells are clear. Impression: No intracranial hemorrhage, mass, or acute infarct. Stable small chronic infarcts, as noted above. Atrophy and chronic white matter changes, as above. Reviewed, dictated and finalized at location M. NG MACHINE TENDER CORK ROD Impression: No intracranial hemorrhage, mass, or acute infarct. Stable small chronic infarcts, as noted above. Atrophy and chronic white matter changes, as above.
--- NOTE | 2022-04-20 12:35 | ECG_ITS ---
Measurements Intervals [place] Rate: 40 P: PA: 0 QRS: -53 QRSD: 140 T: 55 QT: 515 QTc: 421 Interpretive Statements ATRIAL FIBRILLATION WITH SLOW VENTRICULAR RESPONSE LEFT AXIS DEVIATION LEFT BUNDLE BRANCH BLOCK ABNORMAL ECG COMPARED TO ECG 03/27/2022 19:35:10 NO SIGNIFICANT CHANGES Electronically Signed On 04-21-2022 16:13:21 MICROWAVE TECHNICIAN by Maxwell Álvarez M.D.
[2022-04-20] MEDS: SODIUM CHLORIDE 0.9% IV 1,000 ML 999 ML IV CONT (12:40)
--- NOTE | 2022-04-20 12:40 | PC.NURSE ---
accu check 50 vorb d50 1 amp given ivp
--- NOTE | 2022-04-20 12:40 | PC.NURSE ---
epi 0.5 mg ivp given
[2022-04-20] MEDS: ATROPINE SULFATE 1 MG/ML VIAL 0.5 MG IV PUSH (12:44)
--- NOTE | 2022-04-20 13:01 | ED.WEAKNESS ---
HPI - Weakness General Chief complaint: Weakness Stated complaint: weakness Time Seen by Provider: 04/20/22 12:34 Source: family, EMS, RN notes reviewed and old records reviewed Mode of arrival: EMS Limitations: clinical condition History of Present Illness HPI Narrative: This is a 76 year old male with history of multiple medical problems who presents for evaluation of weakness. Patient [facility] for weakness and diarrhea for 2 days. PAtient is oriented to person, place and age. He reports weakness and shortness of breath. He denies chest pain, abdominal pain, nausea or vomiting. EMS reports patient was started on IV fluids in route and he has been having heart rate 30s-50s. Family reports patient was discharged to nursing 2 weeks ago after hospitalization for similar presentation. They report that patient had severe UTI with obstructing kidney stone. They report patient required ureter stent that was removed prior to discharge, and urology also extracted the kidney stone. They report that patient has stage [address] 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 Patient has been ill for a long time. Related Data Home Medications Medication Instructions Recorded Confirmed galantamine 8 mg 24 hr 8 mg PO DAILY 05/01/21 03/25/22 capsule,extended release tamsulosin 0.4 mg capsule 0.4 mg PO DAILY 05/01/21 03/25/22 apixaban 5 mg tablet (Eliquis) 5 mg PO Q12H 03/25/22 03/25/22 atorvastatin 80 mg tablet 80 mg PO HS 03/25/22 03/25/22 calcitriol 0.25 mcg capsule 0.25 mcg PO HS 03/25/22 03/25/22 divalproex 125 mg capsule,delayed 125 mg PO DAILY 03/25/22 03/25/22 release sprinkle gabapentin 100 mg capsule 200 mg PO BID 03/25/22 03/25/22 insulin aspart U-100 100 unit/mL 10 unit subcut DAILY 03/25/22 03/25/22 (3 mL) subcutaneous pen (Novolog FlexPen U-100 Insulin aspart) insulin degludec 200 unit/mL (3 46 unit subcut HS 03/25/22 03/25/22 mL) subcutaneous pen (Tresiba FlexTouch U-200 insulin) memantine 14 mg capsule 14 mg PO DAILY 03/25/22 03/25/22 sprinkle,extended release 24hr Allergies Allergy/AdvReac Type Severity Reaction Status Date / Time morphine AdvReac Intermediate Confusion Verified 03/25/22 18:20 [facility] Past Medical History Medical History Acute blood loss anemia Chronic bilateral low back pain with sciatica Chronic kidney disease, stage 3 unspecified History of bleeding ulcers (~2014) History of stress test Hyperlipidemia Hypothyroidism Insulin dependent type 2 diabetes mellitus Kidney stone Obstructive sleep apnea treated with BiPAP Persistent atrial fibrillation Status post ablation in 2012. He has remained in AFib since February 2020 no pursuing a rate control strategy. Prostate cancer Status post radiation therapy. Short-term memory loss Ureteral stone Valvular heart disease Status post bioprosthetic aortic valve replacement. Surgical History Surgical History History of aortic valve replacement (2012) History of appendectomy History of cardiac radiofrequency ablation (2012) History of cholecystectomy (1980) History of colonoscopy with polypectomy History of lithotripsy Family History Family History Sibling Family history of arthritis Father Malignant neoplasm of prostate Alcoholism Grandparent Diabetes mellitus Mother Cancer Other Family history of chronic obstructive pulmonary disease Family history of lung cancer Family history of malignant neoplasm of bone Social History Social History Social History: Surrogate decision maker: Iris Mayberrykermann, spouse. Code status: Do not resuscitate. Smoking packs per day: 2 Smoking cigarettes per day: 40.0 Years smoked: 20 Smoking pack-years: 40.00 Smoking status: Former smoker Tobacco
[2022-04-20 13:02] LABS: Glucose Point of Care 50 mg/dl (65-105)
--- NOTE | 2022-04-20 13:09 | PC.NURSE ---
pt stuck multiple times to collect bare minimum of blood needed for blood tests.
[2022-04-20 13:16] LABS: Appearance Urine Cloudy (Clear); Bilirubin Urine Negative (Negative); Blood Urine 2+ (Negative); Color Urine Yellow (Yellow); Glucose Urine UA Negative (Negative); Ketones Urine Negative (Negative); Leukocyte Esterase Ur 2+ LEU/UL (Negative); Nitrate Urine Negative (Negative); Protein Urine 3+ mg/dL (Negative); Specific Grav Ur 1.025 (1.001-1.035); Urobilinogen Urine 0.2 mg/dL (<2.0); pH Urine 5.5 (5.0-9.0)
[2022-04-20 13:24] LABS: Alveolar/Arterial O2 Gradient 71.8 mmHg; Base Excess ABG -9.9 mEq/l (+/-2.0); Carboxyhemoglobin 0.7 % THb (0-2.0); Fractional Inspired Oxygen 36 %; HCO3 ABG 17.9 mEq/l (22.0-26.0); Methemoglobin ABG 0.3 %THb (0-1.5); Oxygen Content ABG 12.4 %vol (16.0-22.0); Oxygen Saturation ABG 97.8 % (95.0-100.0); Oxyhemoglobin 96.1 % THb (90.0-100.0); PCO2 ABG 48.6 mmHg (35.0-45.0); PO2 ABG 128.5 mmHg (80.0-100.0); PO2 FiO2 Ratio Arterial Blood 3.57 %; Reduced Hemoglobin 2.9 %THb (0-5.0)
[2022-04-20 13:26] LABS: Device NASAL CANNULA; Site Drawn LEFT BRACHIAL; pH ABG 7.185 (7.350-7.450)
[2022-04-20 13:35] LABS: Add Urine Microscopic? YES; Bacteria Urine Trace /hpf; Budding Yeast Urine Present /hpf; RBC Urine 21-50 /hpf (0-2); WBC Clumps Urine Present /HPF; WBC Urine >75 /hpf
[2022-04-20 13:37] LABS: NT Pro B Type Natriuretic Pept 4280 pg/mL (19.9-100); Troponin I 0.016 ng/mL (0.000-0.034)
[2022-04-20 13:41] LABS: Alanine Aminotransferase 43 U/L (6-50); Albumin Level 2.3 g/dL (3.5-5.1); Alkaline Phosphatase 54 U/L (38-126); Anion Gap 4 mmol/L (8-16); Aspartate Amino Transferase 29 U/L (17-59); Bilirubin,Total 0.4 mg/dL (0.2-1.3); Blood Urea Nitrogen 90 mg/dL (9-20); CRP 5.3 mg/dL (<1.0); Carbon Dioxide 21 mmol/L (22-30); Chloride 107 mmol/L (98-107); Estimated CRCL calculation 21 ml/min; Estimated Glomerular Filt Rate 11; Glucose 56 mg/dL (65-110); Potassium 5.5 mmol/L (3.4-5.0); Sodium 132 mmol/L (137-145)
[2022-04-20] MEDS: DOPamine 400 MG/D5W 250 ML 400 MG/250 ML BAG 18.35 MG IV CONT (14:04)
[2022-04-20] MEDS: SODIUM BICARBONATE 8.4% 50 MEQ/50 ML SYRINGE IV PUSH (14:04)
[2022-04-20 14:18] LABS: Glucose Point of Care 85 mg/dl (65-105)
[2022-04-20] MEDS: SODIUM CHLORIDE 0.9% IV 500 ML 999 ML IV CONT (14:21)
[2022-04-20 14:25] LABS: Valproic Acid < 10.0 ug/mL (50-120)
[2022-04-20] MEDS: CALCIUM GLUCONATE 1,000 MG/10 ML VIAL 1000 MG IV PUSH (14:32)
[2022-04-20 14:33] LABS: Influenza A QL RT-PCR Negative (Negative); Influenza B QL RT-PCR Negative (Negative); SARS-CoV-2 RNA PCR Negative
--- NOTE | 2022-04-20 15:12 | PC.NURSE ---
return from ct. unable to complete ct abd due to pts size
--- NOTE | 2022-04-20 16:17 | PCCCNOTE ---
Called for hospice for pt. Pt on BiPAP and not responsive; spoke with family regarding hospice services. Family choose [facility] from list of providers. Elza erosion control coordinator for [facility] was contacted; information faxed and told they would have someone out within an hour.
--- NOTE | 2022-04-20 17:25 | PC.NURSE ---
[facility] in dept to see pt
--- NOTE | 2022-04-20 18:16 | PC.NURSE ---
hospice orders written. dopamine drip discontinues. p 30-67. multiple family members at bedside
== END 2022-04-20 19:56 | disposition expired ==
PROVIDERS: Emergency Provider General Practice; PCP Nurse Practitioner Family
DX: J96.01 Acute respiratory failure with hypoxia (principal); N17.9 Acute kidney failure, unspecified; E11.649 Type 2 diabetes mellitus with hypoglycemia without coma; R68.0 Hypothermia, not associated with low environmental temperature; Z20.822 Contact with and (suspected) exposure to COVID-19; E11.22 Type 2 diabetes mellitus with diabetic chronic kidney disease; N18.5 Chronic kidney disease, stage 5; I48.19 Other persistent atrial fibrillation; I38 Endocarditis, valve unspecified; E78.5 Hyperlipidemia, unspecified; E03.9 Hypothyroidism, unspecified; G47.33 Obstructive sleep apnea (adult) (pediatric); R06.02 Shortness of breath; Z66 Do not resuscitate; Z95.2 Presence of prosthetic heart valve; Z85.46 Personal history of malignant neoplasm of prostate; Z92.3 Personal history of irradiation; Z87.442 Personal history of urinary calculi; Z87.891 Personal history of nicotine dependence; I51.7 Cardiomegaly; J81.1 Chronic pulmonary edema; Z79.01 Long term (current) use of anticoagulants; Z79.4 Long term (current) use of insulin; W93.01XA Contact with dry ice, initial encounter
CPT/HCPCS: 36415; 36600; 70450; 71045; 80053; 80164; 81001; 82375; 82805; 82948; 83050; 83880; 84443; 84484; 86140; 87086; 87088; 87106; 87636; 93005; 94002; 96361; 96365; 96366; 96368; 96375; 99291; J0171; J0461; J0610; J0692; J1265; J7030; J7040